=== PATIENT | female | born 1990 | race Caucasian/White ===

== ENCOUNTER 2020-07-21 13:17 | Outpatient (REF) | payer MEDICARE, MEDICAID, SELFPAY ==
[2020-07-21 16:04] LABS: HCG Quantitative < 2 mIU/mL
[2020-07-21 16:40] LABS: Thyroid Stimulating Hormone 2.22 uIU/mL (0.32-4.0)
[2020-07-22 09:00] LABS: CT PCR NOT DETECTED (Not Detect.); NG PCR NOT DETECTED (Not Detect.)
[2020-07-22 09:05] LABS: BV Int Neg Control Negative (Negative); BV Int Pos Control Positive (Positive)
[2020-07-22 18:17] LABS: DHEA Sulfate 283 mcg/dL (18-391)
[2020-07-24 05:17] LABS: HPV 16 RNA NOT DETECTED (NOT DETECTED); HPV mRNA E6/E7 rflx Detected (Not Detected)
[2020-07-25 07:56] LABS: Testosterone, Total 36 ng/dL (2-45)
== END 2020-07-21 13:18 | disposition home or self-care (01) ==
LOC: HO.LAB 13:17
PROVIDERS: Visit Provider Advanced Practice Midwife
DX: N91.2 Amenorrhea, unspecified (principal); N87.0 Mild cervical dysplasia; E66.9 Obesity, unspecified; Z68.36 Body mass index [BMI] 36.0-36.9, adult; Z87.42 Personal history of other diseases of the female genital tract; Z62.810 Personal history of physical and sexual abuse in childhood; Z11.51 Encounter for screening for human papillomavirus (HPV)
CPT/HCPCS: 36415; 81025; 82627; 84403; 84443; 84702; 87480; 87491; 87510; 87591; 87624; 87625; 87660; 88141; 88142; 99202

== ENCOUNTER 2020-08-07 14:32 | Outpatient (REF) | payer MEDICARE, MEDICAID, SELFPAY ==
--- NOTE | ~2020-08-07 | US_ITS ---
EXAMINATION: US PELVIS, COMPLETE CLINICAL INFORMATION: Amenorrhea; the last menstrual period was on 03/28/2020. COMPARISON: None TECHNIQUE: Transabdominal and transvaginal imaging was performed. FINDINGS: The uterus is of normal size and echogenicity measuring 6.8 x 3.9 x 4.1 cm. The uterus is anteverted. A regular homogeneous endometrium is identified measuring 0.5 cm. There are tiny loculated endometrial fluid collections. Nabothian cysts are seen within the cervix. Both ovaries are of normal size and echogenicity. The right ovary measures 4.0 x 1.8 x 2.0 cm for a volume of 7.5 mL. The left ovary measures 5.0 x 1.9 x 2.6 cm for a volume of 12.9 mL. A 2.1 cm in maximal diameter simple left ovarian cyst is seen. There are further small physiologic ovarian follicles incidentally noted. There is no pelvic free fluid. No adnexal mass is seen. US/US pelvic complete IMPRESSION: 1. There are tiny nonspecific loculated endometrial fluid collections. 2. Nabothian cysts are seen within the cervix. 3. A 2.1 cm in maximal diameter simple left ovarian cyst is seen.
--- NOTE | ~2020-08-07 | US_ITS ---
EXAMINATION: US PELVIS, COMPLETE CLINICAL INFORMATION: Amenorrhea; the last menstrual period was on 03/28/2020. COMPARISON: None TECHNIQUE: Transabdominal and transvaginal imaging was performed. FINDINGS: The uterus is of normal size and echogenicity measuring 6.8 x 3.9 x 4.1 cm. The uterus is anteverted. A regular homogeneous endometrium is identified measuring 0.5 cm. There are tiny loculated endometrial fluid collections. Nabothian cysts are seen within the cervix. Both ovaries are of normal size and echogenicity. The right ovary measures 4.0 x 1.8 x 2.0 cm for a volume of 7.5 mL. The left ovary measures 5.0 x 1.9 x 2.6 cm for a volume of 12.9 mL. A 2.1 cm in maximal diameter simple left ovarian cyst is seen. There are further small physiologic ovarian follicles incidentally noted. There is no pelvic free fluid. No adnexal mass is seen. US/US transvaginal IMPRESSION: 1. There are tiny nonspecific loculated endometrial fluid collections. 2. Nabothian cysts are seen within the cervix. 3. A 2.1 cm in maximal diameter simple left ovarian cyst is seen.
== END 2020-08-07 14:33 | disposition home or self-care (01) ==
LOC: HO.US 14:32
PROVIDERS: Visit Provider Advanced Practice Midwife
DX: N91.2 Amenorrhea, unspecified (principal); E66.9 Obesity, unspecified
CPT/HCPCS: 76830; 76856

== ENCOUNTER → 2020-08-12 15:18 | Outpatient (BNVA) | payer MEDICARE, MEDICAID, SELFPAY | PROVIDERS: Visit Provider Advanced Practice Midwife | CPT/HCPCS: Q3014 ==

== ENCOUNTER 2020-11-03 21:50 | Emergency (ER) | payer MEDICARE, MEDICAID, SELFPAY ==
--- NOTE | ~2020-11-03 | XR_ITS ---
EXAMINATION: XR CHEST CLINICAL INFORMATION: Chest pain. COMPARISON: None TECHNIQUE: Frontal view of the chest was obtained. FINDINGS: The lungs are clear. The heart and mediastinal structures are unremarkable. XR/XR chest 1V IMPRESSION: No acute cardiopulmonary process.
[2020-11-03 22:01] VITALS: BP 134/61; PULSE 108; RESP 18; TEMP 36.9; O2SAT 99; BMI 38.2
--- NOTE | 2020-11-03 22:06 | ECG_ITS ---
Test Reason : CHEST PAIN Blood Pressure : / mmHG Vent. Rate : 099 BPM Atrial Rate : 099 BPM P-R Int : 140 ms QRS Dur : 074 ms QT Int : 344 ms P-R-T Axes : 032 052 017 degrees QTc Int : 441 ms Normal sinus rhythm Normal ECG When compared with ECG of 24-JUN-2014 12:59, No significant change was found Referred By: Generic ED Physician Electronically Signed By:DANIEL LONDONO MD
[2020-11-03 22:36] LABS: MANUAL DIFF FLAG NO
[2020-11-03 22:38] LABS: Basophils Percent Auto 0.4 % (0-2); Eosinophils Absolute Auto 0.3 X10*3/uL (0.0-0.4); Eosinophils Percent Auto 2.9 % (0-4); Hematocrit 37.9 % (37-47); Hemoglobin 13.4 g/dl (12.0-16.0); Imm Gran Abs Auto 0.03 X10*3/uL (0.00-0.03); Imm Gran Pct Auto 0.3 % (0.0-0.4); Lymphocytes Absolute Auto 2.4 X10*3/uL (1.2-4.9); Lymphocytes Percent Auto 24.1 % (20-40); Mean Corpuscular HGB Conc 35.4 g/dl (31.0-35.0); Mean Corpuscular Hemoglobin 32.6 pg (27.0-33.0); Mean Corpuscular Volume 92.2 fL (80-98); Mean Platelet Volume 9.9 fL (9.4-12.3); Monocytes Absolute Auto 0.6 X10*3/uL (0.1-1.2); Monocytes Percent Auto 5.4 % (2-11); Neutrophils Absolute Auto 6.8 X10*3/uL (2.0-8.3); Neutrophils Percent Auto 66.9 % (45-73); Platelet Count 236 X10*3/uL (160-400); Red Blood Count 4.11 X10*6/uL (4.20-5.50); Red Cell Distribution Width 11.9 % (11.0-16.0); White Blood Count 10.1 X10*3/uL (4.8-10.8)
[2020-11-03 22:58] LABS: Anion Gap 12 (12-20); Blood Urea Nitrogen 9 mg/dL (9-16); Calcium 8.7 mg/dL (8.4-10.2); Carbon Dioxide 20 mmol/L (22-29); Chloride 112 mmol/L (96-108); Creatinine Clr Calc Pharmacy 123.4; Estimated Glomerular Filt Rate > 60; Glucose Random 99 mg/dL (60-115); Potassium 3.8 mmol/L (3.3-5.1); Sodium 140 mmol/L (135-145)
[2020-11-03 23:03] LABS: Troponin-I High Sensitivity < 3.5 ng/L (<3.5-17.0)
[2020-11-04] VITALS: BP 109/65; PULSE 86; RESP 19; TEMP 37.1; O2SAT 100
--- NOTE | 2020-11-04 00:14 | ED.CHESTPAIN ---
HPI - Chest Pain General Chief Complaint: Chest Pain Stated Complaint: chest pain Time Seen by Provider: 11/04/20 00:14 History of Present Illness HPI narrative: patient is a 29-year-old female presents today with having coughing chest pain with coughing. Shortness of breath similar to previous bouts of asthmatic bronchitis. Patient never been hospitalized in the past for this. Patient denies any fever chills. Feels generalized malaise. Had her coronavirus vaccine. Chest pain is sharp. Worse with coughing. Worse with movement. There is no leg swelling. No history of blood clots. No history of diabetes, hypertension, high cholesterol, smoking. Patient is from home. Related Data Home Medications Medication Instructions Recorded Confirmed albuterol sulfate 90 mcg/actuation 1 inh INHALATION Q4-6H PRN 07/21/20 breath activated powder inhaler omeprazole 20 mg tablet,delayed 20 mg PO DAILY 07/21/20 release Previous Rx's Medication Instructions Recorded azithromycin See Rx Instructions .ROUTE 11/04/20 .COMPLEX #6 tab prednisone 40 mg PO DAILY #10 tab 11/04/20 Allergies Allergy/AdvReac Type Severity Reaction Status Date / Time lactose [LACTOSE] Allergy Intermediate STOMACH Verified 11/03/20 22:00 PAIN melatonin [MELATONIN] Allergy Intermediate RASH Verified 11/03/20 22:00 topiramate [From TOPAMAX] Allergy Intermediate BRAIN Verified 11/03/20 22:00 SHUTS DOWN sulfamethoxazole Allergy Unknown SWELLING, Verified 11/03/20 22:00 [From BACTRIM] REDNESS trimethoprim [From BACTRIM] Allergy Unknown SWELLING, Verified 11/03/20 22:00 REDNESS Review of Systems Review of Systems: Positive chest pain Yes all other systems are reviewed and are negative [facility] Past Medical History Attestation statement: The following information was validated with the patient. Medical History Anxiety Asthma Depression PTSD (post-traumatic stress disorder) Surgical History History of ear surgery History of nasal surgery Hx of hand surgery Family History Family History Father Hyperlipidemia Diabetes Asthma Social History Social History Alcohol intake: current Alcohol intake frequency: a few times a month Alcohol type: hard liquor Cigarettes Per Day: 6 Advance Directives: No Advance Directives Information Provided: No Patient : No Gender identity: female Physical Exam Vital Signs: Vital Signs: Last Vital Signs Temp 98.5 F 11/03/20 22:01 Pulse 108 H 11/03/20 22:01 Resp 18 11/03/20 22:01 BP 134/61 11/03/20 22:01 Pulse Ox 99 11/03/20 22:01 Body Mass Index 38.2 Appearance: Alert. Oriented X3. No acute distress. Eyes: Pupils equal, round and reactive to light. ENT: Pharynx normal. Neck: Normal inspection. Neck supple. No lymph nodes noted. No crepitus CVS: Normal heart rate and rhythm. Pulses normal. Normal S1 and S2 Respiratory: No respiratory distress. Breath sounds normal. No Wheezing. No rales Abdomen: Soft and nontender. No rigidity. No distention. good BS x4 Skin: Skin warm and dry. Normal skin color. Normal skin turgor. Extremities: No lower extremity edema. Neurovascular intact to all extremities. No Lacerations. No Rash Neuro: Oriented X 3. No motor deficit. No sensory deficit. Moving all extermities. No slurred speech MDM - Chest Pain MDM Narrative Medical decision making narrative: Well-appearing no acute distress. Patient chest x-ray showed no acute infiltrate. Patient's electrolytes are normal. Patient has no significant cardiac risk factors. Patient's troponin is negative. In the setting of low risk. Atypical history. Normal EKG. Unlikely to have ACS. Lab Data Result diagrams: 11/03/20 22:28 11/03/20 22:28 Labs: Lab Results 11/03/20 11/03/20 11/03/20 Range/Units 22:28 22:28 22:28 WBC 10.1 (4.8-10.8) X10*3/uL RBC 4.11 L (4.20-5.50) X10*6/uL Hgb 13.4 (12.0-16.0) g/dl Hct 37.9 (37-47) % MCV 92.2 (80-98) fL MCH 32.6 (27.0-33.0) pg MCHC 35.4 H (31.0-35.0) g/dl RDW 11.9 (11.0-16.0) % Plt Count 236 (160-400) X10*3/uL MPV 9.9 (9.4-12.3) fL Immature Gran % (Auto) 0.3 (0.0-0.4) % Neut % (Auto) 66.9 (45-73) % Lymph % (Auto) 24.1 (20-40) % Borden % (Auto) 5.4 (2-11) % Eos % (Auto) 2.9 (0-4) % Baso % (Auto) 0.4 (0-2) % Lymph # (Auto) 2.4 (1.2-4.9) X10*3/uL Borden # (Auto) 0.6 (0.1-1.2) X10*3/uL Eos # (Auto) 0.3 (0.0-0.4) X10*3/uL Baso # (Auto) 0.0 (0.0-0.2) X10*3/uL Abs Immat Gran (auto) 0.03 (0.00-0.03) X10*3/uL Absolute Neuts (auto) 6.8 (2.0-8.3) X10*3/uL Absolute Nucleated RBC 0.000 (0.0-0.012) X10*3/uL Nucleated RBC % (auto) 0.0 (0.0-0.2) /100WBC Sodium 140 (135-145) mmol/L Potassium 3.8 (3.3-5.1) mmol/L Chloride 112 H (96-108) mmol/L Carbon Dioxide 20 L (22-29) mmol/L Anion Gap 12 (12-20) BUN 9 (9-16) mg/dL Creatinine 0.75 (0.5-1.4) mg/dL Estim Creat Clear Calc 123.4 Estimated GFR > 60 Random Glucose 99 (60-115) mg/dL Calcium 8.7 (8.4-10.2) mg/dL Troponin I High Sens < 3.5 (<3.5-17.0) ng/L Discharge Plan Discharge Clinical Impression: Chest pain Patient Disposition: Home, Self-Care Prescriptions: New azithromycin 250 mg tablet See Rx Instructions .ROUTE .COMPLEX Qty: 6 RF: 0 prednisone 20 mg tablet 40 mg PO DAILY Qty: 10 RF: 0 No Action omeprazole 20 mg tablet,delayed release (DR/EC) 20 mg PO DAILY RF: 0 albuterol sulfate 90 mcg/actuation aerosol powdr breath activated 1 inh inhalation Q4-6H PRNRF: 0
[2020-11-04 00:46] LABS: IDNOW Serial# 9DD0AD1C; Strep A Nucleic Acid Negative (Negative)
[2020-11-04 00:53] LABS: COVID-19 Test Negative (Negative)
== END 2020-11-04 01:00 | disposition home or self-care (01) ==
PROVIDERS: Emergency Provider Emergency Medicine Emergency Medical Services; PCP Physician Assistant
DX: R07.9 Chest pain, unspecified (principal); J45.909 Unspecified asthma, uncomplicated; Z79.899 Other long term (current) drug therapy; Z20.822 Contact with and (suspected) exposure to COVID-19
CPT/HCPCS: 36415; 71045; 80048; 84484; 85025; 87635; 87651; 93005; 99285

== ENCOUNTER → 2020-11-27 09:05 | Outpatient (BNVA) | payer MEDICARE, MEDICAID, SELFPAY | PROVIDERS: PCP Physician Assistant; Visit Provider Obstetrics & Gynecology | DX: O99.511 Diseases of the respiratory system complicating pregnancy, first trimester (principal); J45.909 Unspecified asthma, uncomplicated; Z3A.01 Less than 8 weeks gestation of pregnancy | CPT/HCPCS: 99212 ==

== ENCOUNTER 2020-12-05 08:59 | Outpatient (REF) | payer MEDICARE, MEDICAID, SELFPAY ==
--- NOTE | ~2020-12-05 | US_ITS ---
EXAMINATION: OBSTETRICAL ULTRASOUND, FIRST TRIMESTER HISTORY: 30-year-old with unknown LMP LMP: Unknown COMPARISON: 11/03/2020 TECHNIQUE: Real time transabdominal imaging with color and M-mode Doppler. FINDINGS: A single, live IUP CRL of 22.1 mm c/w 9.0wks is noted. Heart Rate: 169 beats per minute. Both maternal ovaries are seen and appear normal. GESTATIONAL AGE: 1. GA from LMP: N/A wks 2. GA from AUA: 9.0 wks ESTIMATED DATE OF DELIVERY: 1. DONNA from LMP: N/A 2. DONNA from AUA: 07/10/2021 US/US OB <= 14 weeks fetus IMPRESSION: 1. A single live IUP 2. CRL is consistent with 9.0 weeks of gestation giving her an DONNA of 07/10/2021 3. Normal ovaries Thank you very much for this referral. This note was generated with a voice recognition program. Please excuse any errors which may have been overlooked during my review of this note. Sometimes these errors may affect the content or meaning of a given sentence.
== END 2020-12-05 09:00 | disposition home or self-care (01) ==
LOC: HO.US 08:59
PROVIDERS: Visit Provider Obstetrics & Gynecology
DX: Z34.90 Encounter for supervision of normal pregnancy, unspecified, unspecified trimester (principal); Z3A.09 9 weeks gestation of pregnancy
CPT/HCPCS: 76801

== ENCOUNTER → 2020-12-15 10:43 | Outpatient (BNVA) | payer MEDICARE, MEDICAID, SELFPAY | PROVIDERS: PCP Physician Assistant; Visit Provider Obstetrics & Gynecology | CPT/HCPCS: Q3014 ==

== ENCOUNTER → 2020-12-24 10:19 | Outpatient (BNVA) | payer MEDICARE, MEDICAID, SELFPAY | PROVIDERS: PCP Physician Assistant; Visit Provider Obstetrics & Gynecology | DX: O99.331 Smoking (tobacco) complicating pregnancy, first trimester (principal); F17.210 Nicotine dependence, cigarettes, uncomplicated; O99.321 Drug use complicating pregnancy, first trimester; F12.90 Cannabis use, unspecified, uncomplicated; O99.211 Obesity complicating pregnancy, first trimester; E66.9 Obesity, unspecified; Z3A.11 11 weeks gestation of pregnancy | CPT/HCPCS: 99212 ==

== ENCOUNTER 2020-12-26 09:12 | Outpatient (REF) | payer MEDICARE, MEDICAID, SELFPAY ==
--- NOTE | ~2020-12-26 | US_ITS ---
EXAMINATION: OBSTETRICAL ULTRASOUND, FIRST TRIMESTER HISTORY: 30-year-old at 12.0 weeks of gestation NT screening COMPARISON: 12/05/2020 TECHNIQUE: Real time transabdominal imaging with color and M-mode Doppler. FINDINGS: A single, live IUP CRL of 57.3 mm c/w 12.2wks is noted. Heart Rate: 155 beats per minute. Normal yolk sac seen. NT was 1.2.mm. NB Present The embryo appears sonographically wnl for this GA. Both maternal ovaries are seen and appear normal. GESTATIONAL AGE: 1. Established GA: 12.0 wks 2. GA from AUA: 12.2 wks ESTIMATED DATE OF DELIVERY: 1. Established DONNA: 07/10/2021 2. DONNA from AUA: 07/08/2021 US/US OB 1T nuc measure IMPRESSION: 1. A single live IUP 2. Size equals dates 3. NT of 1.2 mm MFM Consultation: I reviewed the ultrasound findings along with significance of NT measurement. The NT of less than 3mm is generally reassuring. However, the sensitivity for T21 detection is only 60%. I reviewed the availability of serum aneuploidy screening which includes cell-free DNA and placental protein based tests. I discussed the sensitivity, false-positive rate, and other limitations associated with each test. I also reviewed the availability of invasive diagnostic tests that are associated small but definite risk of miscarriage. We also reviewed the differences between screening tests and diagnostic tests. After our discussion, she opted for the First trimester screening that is based on cell-free DNA or non-invasive testing (NIPT). She had the preeclampsia in her first . She delivered at approximately 37 weeks of gestation. Her second was uncomplicated. Suggest starting baby aspirin q.d. A follow up at 18 weeks for survey has been scheduled. Thank you very much for this referral. Total time 30 minutes. The time spent was devoted to counseling the patient about the disease and diagnosis, coordinating care including reviewing her records, pertinent lab data and studies, as well as discussing diagnostic evaluation and workup, plan therapeutic interventions and future disposition of care. This includes any additional research needed to obtain further information in formulating the plan of care of this patient. This note was generated with a voice recognition program. Please excuse any errors which may have been overlooked during my review of this note. Sometimes these errors may affect the content or meaning of a given sentence.
[2020-12-26 11:24] LABS: Glucose 1 Hour PP 50gm Dose 79 mg/dL (60-140)
[2020-12-26 11:40] LABS: Hematocrit 36.3 % (37-47); Hemoglobin 12.7 g/dl (12.0-16.0); Mean Corpuscular Hemoglobin 31.8 pg (27.0-33.0); Mean Corpuscular Volume 90.8 fL (80-98); Mean Platelet Volume 11.1 fL (9.4-12.3); Platelet Count 220 X10*3/uL (160-400); Red Cell Distribution Width 12.1 % (11.0-16.0); White Blood Count 9.1 X10*3/uL (4.8-10.8)
[2020-12-26 11:47] LABS: HIV AB/AG Nonreactive (Nonreactive); HIV Num 1 0.09 S/CO (0.00-0.99)
[2020-12-26 11:51] LABS: Hepatitis B Surface Antigen Negative (Negative); ~HepC Num1 0.17 S/CO (0.00-0.79); ~Hepatitis C Antibody Nonreactive (Nonreactive)
[2020-12-26 11:52] LABS: Syphilis Screen Nonreactive (Nonreactive)
[2020-12-26 11:58] LABS: HBsAGNum1 0.16 S/CO (0.00-0.99)
[2020-12-26 12:29] LABS: Amphetamine Screen Urine Not Detected (Not Detect); Barbiturates, Urine Not Detected (Not Detect); Benzodiazepines Screen Urine Not Detected (Not Detect); Cannabinoid Screen Urine POSITIVE (Not Detect); Cocaine Screen Urine Not Detected (Not Detect); Fentanyl, urine Not Detected (Not Detect); Opiate Screen Urine Not Detected (Not Detect); Phencyclidine Screen Urine Not Detected (Not Detect)
[2020-12-27 13:06] LABS: Rubella IgG Antibody 1.42 Index
== END 2020-12-26 09:13 | disposition home or self-care (01) ==
LOC: HO.US 09:12
PROVIDERS: Visit Provider Obstetrics & Gynecology
DX: Z34.91 Encounter for supervision of normal pregnancy, unspecified, first trimester (principal); Z36.82 Encounter for antenatal screening for nuchal translucency
CPT/HCPCS: 76813; 80307; 85027; 86762; 86780; 86787; 86803; 86850; 86900; 86901; 87086; 87340; 87389

== ENCOUNTER 2021-01-16 10:07 | Outpatient (REF) | payer MEDICARE, MEDICAID, SELFPAY ==
[2021-01-17 13:35] LABS: CT PCR NOT DETECTED (Not Detect.); NG PCR NOT DETECTED (Not Detect.)
[2021-01-17 14:14] LABS: BV Int Neg Control Negative (Negative); BV Int Pos Control Positive (Positive)
== END 2021-01-16 10:08 | disposition home or self-care (01) ==
LOC: HO.LAB 10:07
PROVIDERS: Visit Provider Advanced Practice Midwife
DX: O99.212 Obesity complicating pregnancy, second trimester (principal); E66.9 Obesity, unspecified; O26.892 Other specified pregnancy related conditions, second trimester; F99 Mental disorder, not otherwise specified; Z3A.15 15 weeks gestation of pregnancy; Z62.810 Personal history of physical and sexual abuse in childhood; Z87.898 Personal history of other specified conditions
CPT/HCPCS: 81003; 87480; 87491; 87510; 87591; 87660; 99212

== ENCOUNTER → 2021-02-12 09:56 | Outpatient (BNVA) | payer MEDICARE, MEDICAID, SELFPAY | PROVIDERS: Visit Provider Obstetrics & Gynecology | DX: O99.322 Drug use complicating pregnancy, second trimester (principal); F12.90 Cannabis use, unspecified, uncomplicated; O99.212 Obesity complicating pregnancy, second trimester; E66.9 Obesity, unspecified; Z3A.18 18 weeks gestation of pregnancy | CPT/HCPCS: 99212 ==

== ENCOUNTER 2021-02-13 10:24 | Outpatient (REF) | payer MEDICARE, MEDICAID, SELFPAY ==
--- NOTE | ~2021-02-13 | US_ITS ---
EXAMINATION: US OBSTETRICAL CLINICAL INFORMATION: A 30-year-old at 19.0 weeks of gestation Screening for anomaly COMPARISON: 12/26/2020 TECHNIQUE: Real-time transabdominal ultrasound was performed using C1-5 megahertz transducer. FINDINGS: A single, active, fetus is seen in breech presentation. The placenta is anterior without previa, and the amniotic fluid volume is wnl. MEASUREMENTS: 1. Biparietal Diameter: 4.2 cm; 18.5 wks 2. Occipital Frontal Diameter: 5.5 cm 3. Head Circumference: 16.1 cm; wks 4. Abdominal Circumference: 15.2 cm; 20.3 wks 5. Femur Length: 3.1 cm; 19.6 wks 6. Humerus Length: 3.1 cm; 20.2 wks 7. Tibia Length: 2.7 cm; 20.0 wks 8. Ulna Length: 2.6 cm; 19.3 wks 9. Lateral ventricle: 0.6 cm 10. Cerebellum: 1.92 cm; 20.0 wks 11. Cisterna Magna: 0.42 cm 12. Nuchal Fold: 2.5 mm 13. Heart Rate: 149 beats per minute Rt ovary: normal Lt ovary: normal Cervical length 4.3 cm on T/A. GESTATIONAL AGE: 1. Established GA: 19.0 wks 2. GA from [facility]: 19.4 wks ESTIMATED DATE OF DELIVERY: 1. Established DONNA: 07/10/2021 2. DONNA from [facility]: 07/06/2021 ANATOMY: The visualized anatomy includes but not limited to: 1. Cranium: Normal 2. Intracranial anatomy: cavum septum pellucidi, lateral ventricles, choroid plexus, cerebellum, posterior fossa, third and fourth ventricles. 3. face: orbits, lip/palate, profile, nasal bone 4. Heart: four-chamber view of the heart, ventricular septum, foramen ovale, pulmonary vein, left and right outflow tracts, three-vessel view, 3 vessel trachea view, aortic and ductal arches, situs.. 5. Diaphragm: Normal 6. Abdominal wall: Normal 7. Cord Insertion: Normal 8. Spine: Cervical, thoracic, lumbar, sacral. 9. Stomach: Normal size and shape 10. Right Kidney: Normal 11. Left Kidney: Normal 12. 3 vessel cord: Normal 13. Upper extremity: Open hands, fifth digit. 14. Lower extremity: Tibia, fibula, bilateral feet. 15. Bladder: Normal 16. Genitalia: Female, patient aware US/US OB /maternal detail IMPRESSION: 1. Single, living, intrauterine with appropriate biometry. 2. Normal survey DISCUSSION: I reviewed today's ultrasound findings. We discussed the limitations of ultrasound in diagnosing aneuploidy and other congenital abnormalities. I reviewed the differences between screening test and diagnostic test. Amniocentesis was discussed and declined. She was informed that the baseline incidence of congenital abnormalities is approximately 3-5%. Not all these conditions are diagnosable in utero. RECOMMENDATIONS: 1. Follow-up when necessary Thank you for allowing me to participate in her care. Total time 30 minutes. The time spent was devoted to counseling the patient about the disease and diagnosis, coordinating care including reviewing her records, pertinent lab data and studies, as well as discussing diagnostic evaluation and workup, plan therapeutic interventions and future disposition of care. This includes any additional research needed to obtain further information in formulating the plan of care of this patient. This note was generated with a voice recognition program. Please excuse any errors which may have been overlooked during my review of this note. Sometimes these errors may affect the content or meaning of a given sentence.
== END 2021-02-13 10:25 | disposition home or self-care (01) ==
LOC: HO.US 10:24
PROVIDERS: Visit Provider Obstetrics & Gynecology
DX: Z36.3 Encounter for antenatal screening for malformations (principal); O26.892 Other specified pregnancy related conditions, second trimester; F99 Mental disorder, not otherwise specified; O99.212 Obesity complicating pregnancy, second trimester; E55.9 Vitamin D deficiency, unspecified
CPT/HCPCS: 76811

== ENCOUNTER 2021-03-10 10:54 | Outpatient (REF) | payer MEDICARE, MEDICAID, SELFPAY ==
[2021-03-11 11:01] LABS: BV Int Neg Control Negative (Negative); BV Int Pos Control Positive (Positive)
== END 2021-03-10 10:55 | disposition home or self-care (01) ==
LOC: HO.LAB 10:54
PROVIDERS: Visit Provider Advanced Practice Midwife
DX: O99.891 Other specified diseases and conditions complicating pregnancy (principal); N89.8 Other specified noninflammatory disorders of vagina; O99.322 Drug use complicating pregnancy, second trimester; F12.90 Cannabis use, unspecified, uncomplicated; Z3A.22 22 weeks gestation of pregnancy
CPT/HCPCS: 81003; 87480; 87510; 87660; 99212

== ENCOUNTER 2023-05-10 08:34 | Outpatient (AMB) | payer OTHER, SELFPAY ==
[2023-05-10 09:17] VITALS: BP 108/70; PULSE 85; TEMP 36.6; O2SAT 98
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
== END 2023-05-10 10:01 | disposition home or self-care (01) ==
PROVIDERS: Visit Provider Internal Medicine
DX: S93.401A Sprain of unspecified ligament of right ankle, initial encounter (principal)
CPT/HCPCS: 99214

== ENCOUNTER 2023-05-10 09:44 | Outpatient (REF) | payer OTHER, SELFPAY ==
--- NOTE | ~2023-05-10 | XR_ITS ---
EXAMINATION: XR ANKLE, RIGHT CLINICAL INFORMATION: Sprain of ankle. COMPARISON: None available. TECHNIQUE: AP, lateral, and mortise views of the right ankle. FINDINGS: The talar dome is well-positioned within the mortise. The talocrural joint space and syndesmotic space are normal. 0.2 x 0.7 cm well-corticated focus of ossification at the fibular tip has the appearance of an old avulsion fracture. However, there might be [id number] injury due to presence of soft tissue swelling at the lateral ankle. There appears to be a small ankle joint effusion. XR/XR ankle RT min 3V IMPRESSION: * Old avulsion fragment at the tip of the fibula. * Soft tissue swelling at the lateral ankle could be sequela of an acute ligament sprain superimposed on old injury.
== END 2023-05-10 09:45 | disposition home or self-care (01) ==
LOC: HO.HMGCX 09:44
PROVIDERS: PCP Internal Medicine; Visit Provider Internal Medicine
DX: S93.401A Sprain of unspecified ligament of right ankle, initial encounter (principal); X58.XXXA Exposure to other specified factors, initial encounter; Y93.9 Activity, unspecified; Y92.9 Unspecified place or not applicable; Y99.9 Unspecified external cause status
CPT/HCPCS: 73610

== ENCOUNTER 2023-06-16 11:43 | Outpatient (RCR) | payer OTHER, SELFPAY | END 2023-06-16 23:59 | disposition home or self-care (01) | LOC: HO.PHPA 11:43 | PROVIDERS: Visit Provider Psychiatry & Neurology Psychiatry | DX: F43.10 Post-traumatic stress disorder, unspecified (principal); F33.2 Major depressive disorder, recurrent severe without psychotic features; F14.90 Cocaine use, unspecified, uncomplicated; F10.99 Alcohol use, unspecified with unspecified alcohol-induced disorder | CPT/HCPCS: 90791 ==

== ENCOUNTER 2023-07-07 09:00 | Outpatient (RCR) | payer OTHER, SELFPAY ==
[2023-07-07 12:14] VITALS: BP 116/78; PULSE 82; TEMP 36.6
[2023-07-07 12:17] VITALS: BMI 27.3
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
--- NOTE | 2023-07-07 13:46 | PC.NURSE ---
Patiet's medications reconciled with patient and patient's pharmacy. She reports she has not been taking medications as prescribed. She stopped taking Mirtazapine as she did not like the way it made her feel. She has not taken Levothyroxine in [address] Cifuentes is aware.
--- NOTE | 2023-07-07 16:01 | HO.IOP ---
Client's case has been opened and reviewed in treatment team.
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
--- NOTE | 2023-07-08 11:36 | PC.NURSE ---
Carola called at 11:30 am stating she is finished with court and is on her way to the ER for crisis evaluation. Case Reviewed with Toña Chaidez of the [facility] Care Team in addition to referral form with patient information that was sent to Toña. See referral form located in patient's chart.
== END 2023-07-07 23:59 | disposition admitted as inpatient to this hospital (09) ==
LOC: HO.IOP 09:00
PROVIDERS: Visit Provider Psychiatry & Neurology Psychiatry
DX: F39 Unspecified mood [affective] disorder (principal); F63.89 Other impulse disorders; F43.10 Post-traumatic stress disorder, unspecified; F10.20 Alcohol dependence, uncomplicated; F12.10 Cannabis abuse, uncomplicated; F17.200 Nicotine dependence, unspecified, uncomplicated; Z86.59 Personal history of other mental and behavioral disorders; Z79.899 Other long term (current) drug therapy
CPT/HCPCS: 90791; S9480

== ENCOUNTER → 2023-07-07 09:00 | Outpatient (BNV) | payer OTHER, SELFPAY | PROVIDERS: Visit Provider Psychiatry & Neurology Psychiatry | DX: F39 Unspecified mood [affective] disorder (principal); F63.89 Other impulse disorders; F10.20 Alcohol dependence, uncomplicated; F43.10 Post-traumatic stress disorder, unspecified; Z86.59 Personal history of other mental and behavioral disorders; F12.10 Cannabis abuse, uncomplicated; F17.200 Nicotine dependence, unspecified, uncomplicated | CPT/HCPCS: 90792 ==

== ENCOUNTER 2023-07-08 11:55 | Inpatient (IN) | payer OTHER, SELFPAY ==
[2023-07-08 11:58] VITALS: BP 137/92; PULSE 106; RESP 16; TEMP 35.6; O2SAT 100; BMI 29.5
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
[2023-07-08 12:29] LABS: Appearance Urine Cloudy; Color Urine Yellow; Glucose Urine UA Negative (Negative); Leukocyte Esterase Urine Trace (Negative); Nitrite Urine Negative (Negative); Specific Gravity - Urine 1.015 (1.005-1.025); UMIC TRIGGER UACC YES; Urine Blood Negative (Negative); Urine Ketones Negative (Negative); Urine Protein Negative (Neg-Trace)
[2023-07-08 12:34] LABS: Bacteria Urine 1+ (None Seen); Hyaline Casts Urine 0-2 /LPF (0-2); RBC Urine 0-2 /HPF (0-2); WBC Urine 0-5 /HPF (0-5)
[2023-07-08] MEDS: LORazepam 1 MG TABLET 2 MG PO (12:37)
[2023-07-08 12:38] LABS: Amphetamine Screen Urine Not Detected (Not Detect); Barbiturates, Urine Not Detected (Not Detect); Benzodiazepines Screen Urine Not Detected (Not Detect); Cannabinoid Screen Urine POSITIVE (Not Detect); Cocaine Screen Urine Not Detected (Not Detect); Fentanyl, urine Not Detected (Not Detect); Opiate Screen Urine Not Detected (Not Detect); Phencyclidine Screen Urine Not Detected (Not Detect)
[2023-07-08 12:40] LABS: MANUAL DIFF FLAG NO
[2023-07-08 12:46] LABS: Basophils Percent Auto 0.3 % (0-2); Eosinophils Absolute Auto 0.1 X10*3/uL (0.0-0.4); Hematocrit 36.7 % (37.0-47.0); Hemoglobin 13.5 g/dl (12.0-16.0); Imm Gran Abs Auto 0.02 X10*3/uL (0.00-0.03); Imm Gran Pct Auto 0.3 % (0.0-0.4); Lymphocytes Absolute Auto 1.1 X10*3/uL (1.2-4.9); Lymphocytes Percent Auto 14.4 % (20-40); Mean Corpuscular HGB Conc 36.8 g/dl (31.0-35.0); Mean Corpuscular Hemoglobin 36.6 pg (27.0-33.0); Mean Corpuscular Volume 99.5 fL (80.0-98.0); Mean Platelet Volume 9.3 fL (9.4-12.3); Monocytes Absolute Auto 0.4 X10*3/uL (0.1-1.2); Monocytes Percent Auto 5.8 % (2-11); Neutrophils Absolute Auto 5.7 x10*3/uL (2.0-8.3); Neutrophils Percent Auto 78.2 % (45-73); Platelet Count 214 X10*3/uL (160-400); Red Blood Count 3.69 X10*6/uL (4.20-5.50); Red Cell Distribution Width 15.6 % (11.0-16.0); White Blood Count 7.3 X10*3/uL (4.8-10.8)
[2023-07-08 12:53] VITALS: PULSE 92; RESP 14; TEMP 36.9; O2SAT 98
--- NOTE | 2023-07-08 12:55 | PC.NURSE ---
Pt presents to the ED from outpatient clinic reporting increasing SI thoughts. Pt reports increasing life stressors like going back to court regarding a restraining order. Pt present calm and cooperative to ED, requesting help. Pt is quiet, avoiding eye contact with this RN. Pt is cooperative with care, blood drawn, urine obtained and medications administered per MAR. Pt now resting, awaiting med clearance then CARE team zhane
[2023-07-08 13:10] LABS: Alanine Aminotransferase 15 U/L (0-31); Alkaline Phosphatase 86 U/L (39-117); Anion Gap 13 (12-20); Aspartate Amino Transferase 17 U/L (5-31); Bilirubin Total 0.6 mg/dL (0.0-1.0); Blood Urea Nitrogen 8 mg/dL (9-16); Calcium 8.6 mg/dL (8.4-10.2); Carbon Dioxide 23 mmol/L (22-29); Chloride 108 mmol/L (96-108); Creatinine Clr Calc Pharmacy 100.7; Estimated Glomerular Filt Rate > 60; Ethanol < 10 mg/dL; Glucose Random 102 mg/dL (60-115); Potassium 3.5 mmol/L (3.3-5.1); Sodium 140 mmol/L (135-145); Total Protein 6.4 g/dL (6.5-8.0)
[2023-07-08 13:17] LABS: COVID-19 Test Negative (Negative); HCG Quantitative < 2 mIU/mL; IDNOW Serial# 152EDE1D
[2023-07-08] MEDS: Folic Acid 1 MG TABLET PO (17:28)
[2023-07-08] MEDS: Thiamine HCL 100 MG TABLET PO (17:28)
[2023-07-08] MEDS: Acetaminophen 325 MG TABLET 650 MG PO (17:31)
[2023-07-08 18:45] VITALS: BP 128/84; PULSE 88; RESP 16; TEMP 36.7; O2SAT 98
[2023-07-08 18:53] VITALS: BMI 29.1
[2023-07-08] MEDS: LORazepam 1 MG TABLET PO ×2 (19:06→21:54)
[2023-07-08 21:52] VITALS: BP 137/72; PULSE 100; RESP 20; TEMP 36.5; O2SAT 100
[2023-07-08] MEDS: hydrOXYzine HCL 25 MG TABLET PO (21:54)
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
[2023-07-09] MEDS: Levothyroxine Sodium 25 MCG TABLET PO (05:45)
[2023-07-09] MEDS: Omeprazole 20 MG CAPSULE.DR PO (05:45)
[2023-07-09 08:11] VITALS: BP 120/58; PULSE 68; RESP 16; TEMP 36.3; O2SAT 100
[2023-07-09] MEDS: Acetaminophen 325 MG TABLET 650 MG PO (08:44)
[2023-07-09] MEDS: Thiamine HCL 100 MG TABLET PO (08:45)
[2023-07-09] MEDS: Multivitamin TABLET 1 TAB PO (08:45)
[2023-07-09] MEDS: Folic Acid 1 MG TABLET PO (08:45)
[2023-07-09] MEDS: hydrOXYzine HCL 25 MG TABLET PO (09:14)
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
--- NOTE | 2023-07-09 15:20 | PC.NURSE ---
Pt just signed a 3 day notice. This nurse placed paperwork in patient's vick and emailed provider, community affairs manager, and web content & social media manager.
[2023-07-09 18:00] VITALS: BP 134/84; PULSE 83; RESP 18; TEMP 3; TEMP 37.4; O2SAT 99
[2023-07-09] MEDS: LORazepam 1 MG TABLET PO (20:49)
[2023-07-09] MEDS: OXcarbazepine 150 MG TABLET PO (20:50)
[2023-07-09] MEDS: Prazosin HCL 1 MG CAPSULE PO (20:50)
[2023-07-10] MEDS: Levothyroxine Sodium 25 MCG TABLET PO (06:16)
[2023-07-10] MEDS: Omeprazole 20 MG CAPSULE.DR PO (06:16)
[2023-07-10 07:35] VITALS: BP 126/60; PULSE 76; RESP 15; TEMP 36.9; O2SAT 97
[2023-07-10 07:54] LABS: Estimated Average Glucose 80 mg/dL; Hemoglobin A1c % 4.4 % (<6.0)
[2023-07-10 08:03] LABS: Alanine Aminotransferase 16 U/L (0-31); Albumin Level 3.6 g/dL (3.5-5.0); Alkaline Phosphatase 81 U/L (39-117); Anion Gap 10 (12-20); Aspartate Amino Transferase 18 U/L (5-31); Bilirubin Total 0.5 mg/dL (0.0-1.0); Blood Urea Nitrogen 10 mg/dL (9-16); Calcium 8.6 mg/dL (8.4-10.2); Carbon Dioxide 26 mmol/L (22-29); Chloride 108 mmol/L (96-108); Cholesterol 134 mg/dL (<200); Creatinine Clr Calc Pharmacy 105.5; Estimated Glomerular Filt Rate > 60; Glucose Fasting 88 mg/dL (60-99); HDL Cholesterol 37 mg/dL (>40); LDL Cholesterol Calculated 52 mg/dL (<100); Potassium 3.8 mmol/L (3.3-5.1); Sodium 140 mmol/L (135-145); Triglycerides 228 mg/dL (<150)
[2023-07-10 08:17] LABS: Free T4 (Free Thyroxine) 0.94 ng/dL (0.71-1.85)
[2023-07-10] MEDS: Thiamine HCL 100 MG TABLET PO (09:09)
[2023-07-10] MEDS: OXcarbazepine 150 MG TABLET PO ×2 (09:10→20:37)
[2023-07-10] MEDS: Multivitamin TABLET 1 TAB PO (09:10)
[2023-07-10] MEDS: Acetaminophen 325 MG TABLET 650 MG PO ×2 (09:17→20:38)
--- NOTE | 2023-07-10 11:04 | P.PNPSI_ITS ---
Subjective Subjective Date of Service: 07/10/23 Reason For Visit: Depression Subjective Notes: Conditional Voluntary Healthcare Proxy: No Guardianship: No Medical Problems Affecting Mental Status: No Interim History: 32 yo female feeling some sedation from medication I put her on oxcarazapine but mood hood feels mostly sad now- needs taper of ativan for ciwa/withdrawl - and maybe add on lexapro 5mg for depression will need naltrexone prior to dc for alcohol cravings Medication Compliance: Yes Side effects from medications: Yes (some sedation) Attending Groups: Intermittent Review of Systems Acute medical concerns: No Medical Review of Systems: changed Review of Systems: sedation from meds back pain not new hx of sciatica got lidocaine patch Mental Status Exam Mental Status Exam Patient Appearance: Fatigued Patient Orientation: Person, Place, Time and Situation Level of Consciousness: Awake and Drowsy Patient Behavior: Appropriate and Cooperative Mood Description: Sad Affect Description: Blunted Patient Cognition Impaired: No Ability to Follow Directions: Good Speech Pattern: Clear Hallucinations: None Thought Process: Goal Oriented Thought Content: positive for Intact Depressive Symptoms: Feelings of Guilt, Unhappiness and Back Pain Judgement: Fair Diagnostics Vital Signs (24Hr): Vital Signs - 24 hr 07/09/23 18:00 Temperature 37.4 F L Pulse Rate 83 Respiratory Rate 18 Blood Pressure 134/84 Pulse Oximetry 99 Oxygen Delivery Method Room Air BMI result Body Mass Index 29.1 Labs 07/08/23 12:29 07/10/23 07:28 Labs: Laboratory Results - last 48 hr 07/08/23 07/08/23 07/10/23 12:14 12:29 07:28 WBC 7.3 RBC 3.69 L Hgb 13.5 Hct 36.7 L MCV 99.5 H MCH 36.6 H MCHC 36.8 H RDW 15.6 Plt Count 214 MPV 9.3 L Immature Gran % (Auto) 0.3 Neut % (Auto) 78.2 H Lymph % (Auto) 14.4 L [place] % (Auto) 5.8 Eos % (Auto) 1.0 Baso % (Auto) 0.3 Lymph # (Auto) 1.1 L [place] # (Auto) 0.4 Eos # (Auto) 0.1 Baso # (Auto) 0.0 Abs Immat Gran (auto) 0.02 Absolute Neuts (auto) 5.7 Absolute Nucleated RBC 0.000 Nucleated RBC % (auto) 0.0 Sodium 140 140 Potassium 3.5 3.8 Chloride 108 108 Carbon Dioxide 23 26 Anion Gap 13 10 L BUN 8 L 10 Creatinine 0.78 0.74 Estim Creat Clear Calc 100.7 105.5 Estimated GFR > 60 > 60 Random Glucose 102 Fasting Glucose 88 Estimat Average Glucose 80 Hemoglobin A1c % 4.4 Calcium 8.6 8.6 Total Bilirubin 0.6 0.5 AST 17 18 ALT 15 16 Alkaline Phosphatase 86 81 Total Protein 6.4 L 6.0 L Albumin 4.0 3.6 Triglycerides 228 H Cholesterol 134 LDL Cholesterol, Calc 52 HDL Cholesterol 37 L Free T4 0.94 Beta HCG, Quant < 2 Urine Color Yellow Urine Appearance Cloudy Urine pH 7.0 Ur Specific [place] 1.015 Urine Protein Negative Urine Glucose (UA) Negative Urine Ketones Negative Urine Blood Negative Urine Nitrite Negative Ur Leukocyte Esterase Trace H Urine RBC 0-2 Urine WBC 0-5 Ur Squamous Epith Cells 11-20 Urine Bacteria 1+ Hyaline Casts 0-2 Urine Opiates Screen Not Detected Urine Fentanyl Screen Not Detected Ur Barbiturates Screen Not Detected Ur Phencyclidine Scrn Not Detected Ur Amphetamines Screen Not Detected U Benzodiazepines Scrn Not Detected Urine Cocaine Screen Not Detected U Marijuana (THC) Screen POSITIVE H Ethyl Alcohol < 10 COVID-19 (BERE) Negative COVID-19 Clin Com See Note Medications Medications Current Medications Acetaminophen (Acetaminophen 325 Mg Tablet) 650 mg PO Q6H PRN PRN Reason: Headache/Pain Mild Scale (1-3) Last Admin: 07/10/23 09:17 Dose: 650 mg Al Hydroxide/Mg Hydroxide (Magnesium Hydrox/Alum Hydrox 30 Ml Oral.Susp) 30 ml PO Q6H PRN PRN Reason: Heartburn/Nausea Folic Acid (Folic Acid 1 Mg Tablet) 1 mg PO DAILY [facility] Last Admin: 07/10/23 09:18 Dose: Not Given Hydroxyzine HCl (Hydroxyzine Hcl 25 Mg Tablet) 25 mg PO Q6H PRN PRN Reason: Anxiety Last Admin: 07/09/23 09:14 Dose: 25 mg Levothyroxine Sodium (Levothyroxine Sodium 25 Mcg Tablet) 25 mcg PO DAILY@0600 [facility] Last Admin: 07/10/23 06:16 Dose: 25 mcg Lidocaine (Lidocaine 4 % Patch Adh..Patch) 1 patch TRANSDERMA DAILY [facility]; Protocol Lorazepam (Lorazepam 1 Mg Tablet) 1 mg PO Q2H PRN PRN Reason: CIWA 6-10 Last Admin: 07/09/23 20:49 Dose: 1 mg Lorazepam (Lorazepam 1 Mg Tablet) 2 mg PO Q2H PRN PRN Reason: CIWA 11 and above Magnesium Hydroxide (Milk Of Magnesia 30 Ml Oral.Susp) 30 ml PO DAILY PRN PRN Reason: Constipation Multivitamins/Vitamin C (Multivitamin Tablet) 1 tab PO DAILY [facility] Last Admin: 07/10/23 09:10 Dose: 1 tab Nicotine (Nicotine 21 Mg Patch.Td24) 21 mg TRANSDERMA DAILY PRN PRN Reason: smoking cessation Nicotine Polacrilex (Nicotine Polacrilex 2 Mg Gum) 4 mg BUCCAL Q2H PRN PRN Reason: Nicotine Cravings Olanzapine (Olanzapine 5 Mg Tablet) 5 mg PO TID PRN PRN Reason: agitation Omeprazole (Omeprazole 20 Mg Capsule.Dr) 20 mg PO DAILY@0630 [facility] Last Admin: 07/10/23 06:16 Dose: 20 mg Oxcarbazepine (Oxcarbazepine 150 Mg Tablet) 150 mg PO BID [facility] Last Admin: 07/10/23 09:10 Dose: 150 mg Prazosin HCl (Prazosin Hcl 1 Mg Capsule) 1 mg PO BEDTIME MRX1 [facility]; Protocol Last Admin: 07/09/23 20:59 Dose: Not Given Thiamine HCl (Thiamine Hcl 100 Mg Tablet) 100 mg PO DAILY [facility] Last Admin: 07/10/23 09:09 Dose: 100 mg Trazodone HCl (Trazodone Hcl 50 Mg Tablet) 50 mg PO BEDTIME MRX1 PRN PRN Reason: Insomnia Allergies Allergies Allergy/AdvReac Type Severity Reaction Status Date / Time melatonin [MELATONIN] Allergy Intermediate RASH Verified 07/08/23 12:10 topiramate [From TOPAMAX] Allergy Intermediate BRAIN Verified 07/08/23 12:10 SHUTS DOWN sulfamethoxazole Allergy Unknown SWELLING, Verified 07/08/23 12:10 [From BACTRIM] REDNESS trimethoprim [From BACTRIM] Allergy Unknown SWELLING, Verified 07/08/23 12:10 REDNESS Assessment & Plan Assessment & Plan (1) Cannabis abuse: Status: Acute Code(s): F12.10 - Cannabis abuse, uncomplicated Assessment and Plan: stable no access here (2) History of ADHD: Status: Acute Code(s): Z86.59 - Personal history of other mental and behavioral disorders Assessment and Plan: would like to be treated for this discussed might be better treated once mood/anxiety more stable (3) PTSD (post-traumatic stress disorder): Status: Acute Code(s): F43.10 - Post-traumatic stress disorder, unspecified Assessment and Plan: most recent issue with father's children attempting suicide in front of her and her children seems to have been the final insult that overwhelmed patient starting prazosin in pm for sleep and nightmares (4) Alcohol use disorder, moderate, dependence: Status: Acute Code(s): F10.20 - Alcohol dependence, uncomplicated Assessment and Plan: Struggling with this- ciwa positive last pm but ok today- will discuss naltrexone further on in care - needs to have ativan taper (5) Mood disorder: Status: Acute Code(s): F39 - Unspecified mood [affective] disorder Assessment and Plan: Start trileptal for anxiety and mood stability may add lexapro for depression/anxiety Plan 07/08-start trileptal 150mg bid and prazosin after coordinating care with dr sethi who had seen pt earlier in week for IOP intake- (she had considered lamotrigine, prazosin and naltrexone) will further educate patient about medications tomorrow but did discuss ativan is like alcohol for her and can only be for short term use 07/10/23 add lexapro 5mg tomorrow- pt seems to have signed a 3 day Patient educated on: diagnosis and medication risk/benefits Informed Consent: understands and further education needed Reason for continued inpatient stay Substantial Risk for: inability to function and rapid decompensation Time Spent With Patient Time: Total time managing care of this patient today ____ minutes.
[2023-07-10] MEDS: Lidocaine 4 % Patch ADH..PATCH 1 PATCH TRANSDERMA (11:57)
[2023-07-10] MEDS: Milk of Magnesia 30 ML ORAL.SUSP PO (13:32)
[2023-07-10] MEDS: LORazepam 1 MG TABLET PO (17:10)
[2023-07-10] MEDS: OLANZapine 5 MG TABLET PO (17:10)
[2023-07-10 17:46] VITALS: BP 130/70; PULSE 82; RESP 15; TEMP 36.4; O2SAT 95
[2023-07-10] MEDS: Prazosin HCL 1 MG CAPSULE PO (20:37)
[2023-07-11] MEDS: Levothyroxine Sodium 25 MCG TABLET PO (06:22)
[2023-07-11] MEDS: Omeprazole 20 MG CAPSULE.DR PO (06:22)
[2023-07-11 08:10] VITALS: BP 120/59; PULSE 70; RESP 18; TEMP 36.7; O2SAT 97
[2023-07-11] MEDS: Escitalopram Oxalate 5 MG TABLET PO (08:40)
[2023-07-11] MEDS: OXcarbazepine 150 MG TABLET PO ×2 (08:40→20:36)
[2023-07-11] MEDS: Multivitamin TABLET 1 TAB PO (08:40)
[2023-07-11] MEDS: Folic Acid 1 MG TABLET PO (08:40)
[2023-07-11] MEDS: Thiamine HCL 100 MG TABLET PO (08:40)
[2023-07-11] MEDS: Lidocaine 4 % Patch ADH..PATCH 1 PATCH TRANSDERMA ×2 (08:42→12:01)
--- NOTE | 2023-07-11 11:57 | HO.PSYCHPN ---
Subjective Subjective Date of Service: 07/11/23 Reason For Visit: Depression Subjective Notes: Conditional Voluntary Interim History: Pt reports sleeping well. She denies s/s of alcohol withdrawal. She lexie SI/HI. She reports she is ready to step down to [facility]. She reports she wants to see her children. We discussed starting naltrexon. Consult for addition consult for referral to recovery assistant and connection in event that she tolerates naltrexon and wants to get MESSER vivitrol. Medication Compliance: Yes Mental Status Exam Mental Status Exam Patient Appearance: Well Grooomed Patient Orientation: Person, Place, Time and Situation Level of Consciousness: Appropriate Patient Behavior: Appropriate Mood Description: Calm and Appropriate Ability to Follow Directions: Good Speech Pattern: Spontaneous Speech Memory Description: Intact Hallucinations: None Delusions: Not Present Thought Process: Intact Thought Content: positive for Intact (wanting to go home soon) and positive for Goal Oriented Diagnostics Vital Signs (24Hr): Vital Signs - 24 hr 07/10/23 17:46 07/11/23 08:10 Temperature 97.6 F 98.1 F Pulse Rate 82 70 Respiratory Rate 15 18 Blood Pressure 130/70 120/59 L Pulse Oximetry 95 97 Oxygen Delivery Method Room Air Room Air BMI result Body Mass Index 29.1 Labs 07/08/23 12:29 07/10/23 07:28 Labs: Laboratory Results - last 48 hr 07/10/23 07:28 Sodium 140 Potassium 3.8 Chloride 108 Carbon Dioxide 26 Anion Gap 10 L BUN 10 Creatinine 0.74 Estim Creat Clear Calc 105.5 Estimated GFR > 60 Fasting Glucose 88 Estimat Average Glucose 80 Hemoglobin A1c % 4.4 Calcium 8.6 Total Bilirubin 0.5 AST 18 ALT 16 Alkaline Phosphatase 81 Total Protein 6.0 L Albumin 3.6 Triglycerides 228 H Cholesterol 134 LDL Cholesterol, Calc 52 HDL Cholesterol 37 L Free T4 0.94 Medications Medications Current Medications Acetaminophen (Acetaminophen 325 Mg Tablet) 650 mg PO Q6H PRN PRN Reason: Headache/Pain Mild Scale (1-3) Last Admin: 07/10/23 20:38 Dose: 650 mg Al Hydroxide/Mg Hydroxide (Magnesium Hydrox/Alum Hydrox 30 Ml Oral.Susp) 30 ml PO Q6H PRN PRN Reason: Heartburn/Nausea Escitalopram Oxalate (Escitalopram Oxalate 5 Mg Tablet) 5 mg PO DAILY [facility] Last Admin: 07/11/23 08:40 Dose: 5 mg Folic Acid (Folic Acid 1 Mg Tablet) 1 mg PO DAILY [facility] Last Admin: 07/11/23 08:40 Dose: 1 mg Hydroxyzine HCl (Hydroxyzine Hcl 25 Mg Tablet) 25 mg PO Q6H PRN PRN Reason: Anxiety Last Admin: 07/09/23 09:14 Dose: 25 mg Levothyroxine Sodium (Levothyroxine Sodium 25 Mcg Tablet) 25 mcg PO DAILY@0600 [facility] Last Admin: 07/11/23 06:22 Dose: 25 mcg Lidocaine (Lidocaine 4 % Patch Adh..Patch) 1 patch TRANSDERMA DAILY [facility]; Protocol Last Admin: 07/11/23 08:42 Dose: 1 patch Lorazepam (Lorazepam 1 Mg Tablet) 1 mg PO Q4H PRN PRN Reason: CIWA 6-10 Magnesium Hydroxide (Milk Of Magnesia 30 Ml Oral.Susp) 30 ml PO DAILY PRN PRN Reason: Constipation Last Admin: 07/10/23 13:32 Dose: 30 ml Multivitamins/Vitamin C (Multivitamin Tablet) 1 tab PO DAILY [facility] Last Admin: 07/11/23 08:40 Dose: 1 tab Nicotine (Nicotine 21 Mg Patch.Td24) 21 mg TRANSDERMA DAILY PRN PRN Reason: smoking cessation Nicotine Polacrilex (Nicotine Polacrilex 2 Mg Gum) 4 mg BUCCAL Q2H PRN PRN Reason: Nicotine Cravings Olanzapine (Olanzapine 5 Mg Tablet) 5 mg PO TID PRN PRN Reason: agitation Last Admin: 07/10/23 17:10 Dose: 5 mg Omeprazole (Omeprazole 20 Mg Capsule.Dr) 20 mg PO DAILY@0630 [facility] Last Admin: 07/11/23 06:22 Dose: 20 mg Oxcarbazepine (Oxcarbazepine 150 Mg Tablet) 150 mg PO BID [facility] Last Admin: 07/11/23 08:40 Dose: 150 mg Prazosin HCl (Prazosin Hcl 1 Mg Capsule) 1 mg PO BEDTIME MRX1 [facility]; Protocol Last Admin: 07/11/23 00:31 Dose: Not Given Thiamine HCl (Thiamine Hcl 100 Mg Tablet) 100 mg PO DAILY [facility] Last Admin: 07/11/23 08:40 Dose: 100 mg Trazodone HCl (Trazodone Hcl 50 Mg Tablet) 50 mg PO BEDTIME MRX1 PRN PRN Reason: Insomnia Allergies Allergies Allergy/AdvReac Type Severity Reaction Status Date / Time melatonin [MELATONIN] Allergy Intermediate RASH Verified 07/08/23 12:10 topiramate [From TOPAMAX] Allergy Intermediate BRAIN Verified 07/08/23 12:10 SHUTS DOWN sulfamethoxazole Allergy Unknown SWELLING, Verified 07/08/23 12:10 [From BACTRIM] REDNESS trimethoprim [From BACTRIM] Allergy Unknown SWELLING, Verified 07/08/23 12:10 REDNESS Assessment & Plan Assessment & Plan (1) Cannabis abuse: Status: Acute Code(s): F12.10 - Cannabis abuse, uncomplicated Assessment and Plan: stable no access here (2) History of ADHD: Status: Acute Code(s): Z86.59 - Personal history of other mental and behavioral disorders Assessment and Plan: would like to be treated for this discussed might be better treated once mood/anxiety more stable (3) PTSD (post-traumatic stress disorder): Status: Acute Code(s): F43.10 - Post-traumatic stress disorder, unspecified Assessment and Plan: most recent issue with father's children attempting suicide in front of her and her children seems to have been the final insult that overwhelmed patient starting prazosin in pm for sleep and nightmares (4) Alcohol use disorder, moderate, dependence: Status: Acute Code(s): F10.20 - Alcohol dependence, uncomplicated Assessment and Plan: Struggling with this- ciwa positive last pm but ok today- will discuss naltrexone further on in care - needs to have ativan taper (5) Mood disorder: Status: Acute Code(s): F39 - Unspecified mood [affective] disorder Assessment and Plan: Start trileptal for anxiety and mood stability may add lexapro for depression/anxiety Plan 07/08-start trileptal 150mg bid and prazosin after coordinating care with dr sethi who had seen pt earlier in week for IOP intake- (she had considered lamotrigine, prazosin and naltrexone) will further educate patient about medications tomorrow but did discuss ativan is like alcohol for her and can only be for short term use 07/10/23 add lexapro 5mg tomorrow- pt seems to have signed a 3 day 3/4 start naltrexon 50mg po daily. continue all other medications. Reason for continued inpatient stay Substantial Risk for: harm to self Time Spent With Patient Time: Total time managing care of this patient today ____ minutes.
[2023-07-11] MEDS: Naltrexone HCl 50 MG TABLET PO (16:01)
[2023-07-11 20:30] VITALS: BP 131/71; PULSE 79; RESP 16; TEMP 36.2; O2SAT 99
[2023-07-11] MEDS: Prazosin HCL 1 MG CAPSULE PO ×2 (20:36→22:07)
[2023-07-11] MEDS: hydrOXYzine HCL 25 MG TABLET PO (20:39)
[2023-07-11] MEDS: Acetaminophen 325 MG TABLET 650 MG PO (22:07)
[2023-07-11 22:08] VITALS: BP 116/66; PULSE 77; RESP 16; O2SAT 99
[2023-07-12 06:00] VITALS: BP 121/59; PULSE 68; RESP 18; TEMP 36.5; O2SAT 98
[2023-07-12] MEDS: Levothyroxine Sodium 25 MCG TABLET PO (06:13)
[2023-07-12] MEDS: OXcarbazepine 150 MG TABLET PO (08:34)
[2023-07-12] MEDS: Naltrexone HCl 50 MG TABLET PO (08:34)
[2023-07-12] MEDS: Escitalopram Oxalate 5 MG TABLET PO (08:34)
[2023-07-12] MEDS: Omeprazole 20 MG CAPSULE.DR PO (08:34)
[2023-07-12] MEDS: Thiamine HCL 100 MG TABLET PO (08:34)
[2023-07-12] MEDS: Multivitamin TABLET 1 TAB PO (08:34)
[2023-07-12] MEDS: Folic Acid 1 MG TABLET PO (08:35)
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
[2023-07-12] MEDS: Lidocaine 4 % Patch ADH..PATCH 1 PATCH TRANSDERMA (09:16)
== END 2023-07-12 11:07 | disposition home or self-care (01) | DRG 885 ==
LOC: HO.ED 13:16 → HO.PM5 17:04
PROVIDERS: Physician Assistant Medical; Admitting Provider Psychiatry & Neurology Psychiatry; Emergency Provider Emergency Medicine Emergency Medical Services; Visit Provider Psychiatry & Neurology Psychiatry
DX: F33.1 Major depressive disorder, recurrent, moderate (principal); F43.10 Post-traumatic stress disorder, unspecified; F12.10 Cannabis abuse, uncomplicated; F17.210 Nicotine dependence, cigarettes, uncomplicated; E03.9 Hypothyroidism, unspecified; F10.20 Alcohol dependence, uncomplicated; Z71.6 Tobacco abuse counseling; Z20.822 Contact with and (suspected) exposure to COVID-19; Z79.890 Hormone replacement therapy; Z79.899 Other long term (current) drug therapy
CPT/HCPCS: 36415; 80053; 80061; 80307; 81001; 83036; 84439; 84702; 85025; 87635; 99285; S9485

== ENCOUNTER → 2023-07-08 16:48 | Outpatient (BNV) | payer OTHER, SELFPAY | PROVIDERS: Admitting Provider Psychiatry & Neurology Psychiatry; Emergency Provider Emergency Medicine Emergency Medical Services; Visit Provider Social Worker | DX: F10.20 Alcohol dependence, uncomplicated (principal); F12.10 Cannabis abuse, uncomplicated; F90.9 Attention-deficit hyperactivity disorder, unspecified type; F43.11 Post-traumatic stress disorder, acute; F39 Unspecified mood [affective] disorder | CPT/HCPCS: 99232; 99238 ==

== ENCOUNTER 2023-07-13 14:32 | Outpatient (AMB) | payer OTHER, SELFPAY ==
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
[2023-07-13 14:50] VITALS: BP 110/70; PULSE 88; O2SAT 98
== END 2023-07-13 15:46 | disposition home or self-care (01) ==
PROVIDERS: Visit Provider Nurse Practitioner Family
DX: F10.20 Alcohol dependence, uncomplicated (principal)
CPT/HCPCS: 99204

== ENCOUNTER → 2023-07-13 14:32 | Outpatient (BNVA) | payer OTHER, SELFPAY | PROVIDERS: Visit Provider Nurse Practitioner Family | DX: F10.20 Alcohol dependence, uncomplicated (principal); Z79.899 Other long term (current) drug therapy | CPT/HCPCS: 80305; 99202 ==

== ENCOUNTER 2023-07-28 11:07 | Outpatient (REF) | payer OTHER, SELFPAY ==
[2023-07-28 14:38] LABS: Syphilis Screen Nonreactive (Nonreactive)
[2023-07-28 14:42] LABS: Vitamin B12 403 pg/mL (200-900)
[2023-07-28 17:21] LABS: CT PCR NOT DETECTED (Not Detect.); NG PCR NOT DETECTED (Not Detect.)
[2023-07-29 09:08] LABS: HBsAGNum1 0.35 S/CO (0.00-0.99); HIV AB/AG Nonreactive (Nonreactive); HIV Num 1 0.05 S/CO (0.00-0.99); Hepatitis B Surface Antigen Negative (Negative); ~HepC Num1 0.39 S/CO (0.00-0.79); ~Hepatitis C Antibody Nonreactive (Nonreactive)
[2023-08-03 20:38] LABS: Trichenella Antibody (IgG) NEGATIVE
== END 2023-07-28 11:08 | disposition home or self-care (01) ==
LOC: HO.LAB 11:07
PROVIDERS: Visit Provider Psychiatry & Neurology Psychiatry
DX: F39 Unspecified mood [affective] disorder (principal); R30.0 Dysuria; F10.20 Alcohol dependence, uncomplicated; Z32.00 Encounter for pregnancy test, result unknown
CPT/HCPCS: 0353U; 81025; 82607; 86780; 86784; 86803; 87086; 87088; 87186; 87340; 87389; 96372; 99212; J2315

== ENCOUNTER 2023-07-28 11:14 | Outpatient (AMB) | payer OTHER, SELFPAY ==
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
[2023-07-28 11:27] VITALS: BP 118/66; PULSE 84; O2SAT 97
== END 2023-07-28 11:55 | disposition home or self-care (01) ==
PROVIDERS: Visit Provider Nurse Practitioner Family
DX: F10.20 Alcohol dependence, uncomplicated (principal); R30.0 Dysuria
CPT/HCPCS: 99213

== ENCOUNTER → 2023-07-29 09:00 | Outpatient (BNV) | payer OTHER, SELFPAY | PROVIDERS: Visit Provider Psychiatry & Neurology Psychiatry | DX: F39 Unspecified mood [affective] disorder (principal); F63.89 Other impulse disorders; F10.20 Alcohol dependence, uncomplicated; F43.10 Post-traumatic stress disorder, unspecified; F12.10 Cannabis abuse, uncomplicated; F90.2 Attention-deficit hyperactivity disorder, combined type; F17.200 Nicotine dependence, unspecified, uncomplicated | CPT/HCPCS: 90792; 99213 ==

== ENCOUNTER 2023-08-04 09:00 | Outpatient (RCR) | payer OTHER, SELFPAY ==
[2023-07-18 10:34] VITALS: BP 118/72; PULSE 72; TEMP 36.8
[2023-07-18 10:36] VITALS: BMI 28.3
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
--- NOTE | 2023-07-21 16:37 | HO.PHP ---
Client's case has been opened and reviewed in treatment team.
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
--- NOTE | 2023-07-28 22:24 | P.PNPSP_ITS ---
Subjective Subjective Date of Service: 07/28/23 Reason For Visit: PTSD Interim History: Things are going pretty good . No acute issues or concerns aside from reporting sx of UTI for the past 2 days. SHe would like to get checked as she has a hx of recurrent UTIs. SHe also is open to getting STI panel checked since being with partner a few months ago. Has not been smoking cigarettes since leaving detox, did not bother with a patch since she was getting by without one. Has not had any cravings since. She has been taking the Trileptal, dose at 300 mg BID. Well- tolerated. I'm not as easily as frustrated She is noticing she is getting a little better able to manage the mornings, caring for her daughter and trying to get over to the program on time. Sleep has also improved with the night time dose of Trileptal. Falling asleep without issues but still waking at 2-4am. Better able to fall back asleep. Tolerating AM dose 300 mg which has not been all that sedating in the AM. She is feeling very positive, she has been 2 weeks sober, sheis lookign forward to dealing with her ADHD issues, and especially struggles with impulsivity and poor planning. We discussed risks, benefits, side effects of stimulant medications. Her mood stabilizer is still being titrated, will remain at a low dose of Concerta and take no more than 1-2 days consecutively for the time being, so we can further adjust her mood stabilizer especially for any potential rebound symptoms later in the day, that may arise especially if mood stabilizer is subtherapeutic. She denies any SI, HI, AH, VH. Medication Compliance: Yes Side effects from medications: No Attending Groups: Yes Review of Systems Acute medical concerns: No Mental Status Exam Mental Status Exam Narrative: Alert, oriented, in no acute distress. Calm, cooperative, engaged. No psychomotor agitation or neurovegetative retardation. Eye contact maintained. Mood good less irritable, affect bright, elevated, no lability, no irritability noted. Speech normal. Thought process goal-directed. Thought content related to stressors, executive dysfunction, denies any helplessness, hopelessness or SI, intention or plan. Denies any aggressive ideation. No paranoia or delusional content elicited. No evidence of psychosis. Insight intact and judgment tenuous/fair but adequate. Diagnostics Vital Signs (24Hr): BMI result Body Mass Index 28.3 Assessment & Plan Assessment & Plan (1) Mood disorder: Status: Acute Code(s): F39 - Unspecified mood [affective] disorder (2) Attention deficit hyperactivity disorder (ADHD), combined type: Status: Acute Code(s): F90.2 - Attention-deficit hyperactivity disorder, combined type (3) PTSD (post-traumatic stress disorder): Status: Acute Code(s): F43.10 - Post-traumatic stress disorder, unspecified (4) Alcohol use disorder, moderate, dependence: Status: Acute Code(s): F10.20 - Alcohol dependence, uncomplicated Plan continue to titrate oxcarbazepine to 450 mg BID start Concerta 18 mg qAM (will limit to 3-4d/7 for now) start guanfacine ER 1 mg in AM continue guanfacine ER 1 mg qd in evening for now will plan to start topiramate QHS next week to target sleep, impulsivity, etoh routine lab work ordered with add on for U/A with reflex C&S pt c/o dysuria x 2 days, +exposure+odor -hematuria-fever continue to monitor Reason for contiued partial hosp. stay Substantial Risk for: med/psych decompensation Certification I certify that partial hospital treatment is medically necessary due to the symptoms and problems resulting from the patient's mental illness and the failure to treat the patient at the partial hospital level of care would likely result in the patient requiring inpatient psychiatric care which could not be prevented at a less intensive level of care. Total time managing care of this patient today _30___ minutes. Discharge Plan Discharge Attending provider: Fadumo Cifuentes Additional Instructions: Chicho has an OP therapist Tia lynch [facility], in which her next scheduled appointment is August 04, 2023 at 9 AM. Chicho has a med provider [facility], in which her next scheduled appointment is August 05, 2023 at 11 AM. Medications: New oxcarbazepine 300 mg tablet 300 mg PO BID Qty: 30 0RF methylphenidate HCl [Concerta] 18 mg tablet extended release 24hr 18 mg PO QAM Qty: 14 0RF Rx Instructions: Partial Fill upon patient request. Continued multivitamin [Daily-Gilles] Tablet 1 tab PO DAILY Qty: 30 0RF oxcarbazepine 150 mg Tablet 150 mg PO BID Qty: 60 0RF lidocaine [Lidocaine Pain Relief] 4 % Adhesive Patch,Medicated 1 patch transdermal DAILY Qty: 30 0RF Protocol: Apply to: Apply to: back for sciatica levothyroxine 25 mcg Tablet 25 mcg PO DAILY@0600 Qty: 30 0RF omeprazole 20 mg Capsule,Delayed Release(Dr/Ec) 20 mg PO DAILY@0630 Qty: 30 0RF folic acid 1 mg Tablet 1 mg PO DAILY Qty: 30 0RF escitalopram oxalate 5 mg Tablet 5 mg PO DAILY Qty: 30 0RF thiamine mononitrate (vit B1) 100 mg Tablet 100 mg PO DAILY Qty: 30 0RF naltrexone 50 mg tablet 50 mg PO DAILY Qty: 30 0RF Vivitrol 380 mg suspension,extended rel recon 380 mg IM Q4W Qty: 1 5RF Patient Comments: Patient has an upcoming appointment for the vivitrol injection scheduled 07/26/23. Changed prazosin 1 mg Capsule 1 mg PO BID Qty: 30 0RF Protocol: Hold for SBP< HOLD for SBP < : 90 No Action phenazopyridine [Pyridium] 100 mg tablet 100 mg PO TID Qty: 21 0RF Stand Alone Forms: Patient Portal Discharge page
--- NOTE | 2023-08-01 14:12 | HO.PHP ---
[facility] staff member followed up with Bashirbettyamira after group one due to a comment she made around wanting to kick her child. Chicho disclosed that they are just thoughts she doesn't actually do that. Chicho voiced that she will threaten the children by stating she is going to spank them. [facility] staff encouraged Chicho to refrain from making comments like that to her children and encouraged her to take space if she is becoming triggered by her children. Sabinesaqibslavachristy was in agreement and voiced she has been working with her therapist around this. [facility] staff member was receptive.
--- NOTE | 2023-08-01 23:06 | HO.PHPPROGNO ---
Subjective Subjective Date of Service: 08/01/23 Reason For Visit: PTSD Interim History: Patient seen for follow-up, anticipating discharge at the end of program today.? I noticed being more focused this whole weekend . She was able to prepare and cook some meals this weekend, felt more organzied. She is still noticing some residual irritability. She is tolerating oxcarbazepine and plans to continue to titrate dose as planned and tolerated, medications well-tolerated, currently at 450 mg BID. Denies any adverse effects. Will plan to titrate evening dose by an addition 300 mg next week.?Vivitrol is working well, is not having any cravings. Reports no acute issues or concerns. Mood is otherwise stable.? Denies any hopelessness or SI. Denies thoughts of harming self or others at this time. Denies any aggressive ideation or HI. Denies any paranoia or AH or VH. Sleep, appetite, energy stable. Lab work in system for blood labs 07/27 - results reviewed; urine labs - no results posted yet, still pending; patient reported having these done on 07/27 Urine C&S results faxed to office this AM - >100,000 E.Coli w sensitivity screen, U/A still pending Pt reportedly already seen on Tuesday night at urgent care and started on 7 day-course of nitrofurantoin; has been on antibx for past 3 days, symptoms have resolved Medication Compliance: Yes Side effects from medications: No Attending Groups: Yes Review of Systems Acute medical concerns: No Mental Status Exam Mental Status Exam Narrative: Alert, oriented, in no acute distress. Calm, cooperative, engaged. No psychomotor agitation or neurovegetative retardation. Eye contact maintained. Mood good less irritable, affect bright, elevated, no lability, no irritability noted. Speech normal. Thought process goal-directed. Thought content related to stressors, executive dysfunction, denies any helplessness, hopelessness or SI, intention or plan. Denies any aggressive ideation. No paranoia or delusional content elicited. No evidence of psychosis. Insight intact and judgment tenuous/fair but adequate. Diagnostics Vital Signs (24Hr): BMI result Body Mass Index 28.3 Assessment & Plan Assessment & Plan (1) Mood disorder: Status: Acute Code(s): F39 - Unspecified mood [affective] disorder (2) Attention deficit hyperactivity disorder (ADHD), combined type: Status: Acute Code(s): F90.2 - Attention-deficit hyperactivity disorder, combined type (3) Alcohol use disorder, moderate, dependence: Status: Acute Code(s): F10.20 - Alcohol dependence, uncomplicated (4) PTSD (post-traumatic stress disorder): Status: Acute Code(s): F43.10 - Post-traumatic stress disorder, unspecified (5) Cannabis abuse: Status: Acute Code(s): F12.10 - Cannabis abuse, uncomplicated (6) Nicotine dependence: Status: Acute Code(s): F17.200 - Nicotine dependence, unspecified, uncomplicated (7) Dysuria: Status: Acute Code(s): R30.0 - Dysuria (8) Other disorder of impulse control: Status: Acute Code(s): F63.89 - Other impulse disorders Plan Discharge from [facility] continue regular medications continue titration of Trileptal to 1200 mg/day (may split 600 mg BID, or if better tolerated 450 mg in AM and 750 mg qhs) continue Concerta 18 mg qAM continue guanfacine ER 1 mg qAM will defer further medication management to outpatient provider Refills sent to pharmacy Patient educated on: diagnosis, medication risk/benefits and substance abuse Informed Consent: understands Reason for contiued partial hosp. stay Substantial Risk for: stable for discharge Certification I certify that partial hospital treatment is medically necessary due to the symptoms and problems resulting from the patient's mental illness and the failure to treat the patient at the partial hospital level of care would likely result in the patient requiring inpatient psychiatric care which could not be prevented at a less intensive level of care. Total time managing care of this patient today __30__ minutes. Discharge Plan Discharge Attending provider: Fadumo Cifuentes Additional Instructions: Chicho has an OP therapist Tia White through [facility], in which her next scheduled appointment is August 04, 2023 at 9 AM. Chicho has a med provider [facility], in which her next scheduled appointment is August 05, 2023 at 11 AM. Medications: New methylphenidate HCl [Concerta] 18 mg tablet extended release 24hr 18 mg PO QAM Qty: 14 0RF Rx Instructions: Partial Fill upon patient request. oxcarbazepine 600 mg tablet See Rx Instructions .ROUTE .COMPLEX 15 Days Qty: 30 0RF Rx Instructions: take 1/2 tablet daily in AM; take 1/2 tablet daily after lunch; take 1 tablet daily at bedtime guanfacine 1 mg tablet extended release 24 hr 1 mg PO .DAILY AT 1pm 15 Days Qty: 15 0RF Continued multivitamin [Daily-Gilles] Tablet 1 tab PO DAILY Qty: 30 0RF lidocaine [Lidocaine Pain Relief] 4 % Adhesive Patch,Medicated 1 patch transdermal DAILY Qty: 30 0RF Protocol: Apply to: Apply to: back for sciatica levothyroxine 25 mcg Tablet 25 mcg PO DAILY@0600 Qty: 30 0RF omeprazole 20 mg Capsule,Delayed Release(Dr/Ec) 20 mg PO DAILY@0630 Qty: 30 0RF folic acid 1 mg Tablet 1 mg PO DAILY Qty: 30 0RF escitalopram oxalate 5 mg Tablet 5 mg PO DAILY Qty: 30 0RF thiamine mononitrate (vit B1) 100 mg Tablet 100 mg PO DAILY Qty: 30 0RF Vivitrol 380 mg suspension,extended rel recon 380 mg IM Q4W Qty: 1 5RF Patient Comments: Patient has an upcoming appointment for the vivitrol injection scheduled 07/26/23. Changed prazosin 1 mg Capsule 1 - 2 mg PO BEDTIME Qty: 20 0RF Protocol: Hold for SBP< HOLD for SBP < : 90 Discontinued oxcarbazepine 150 mg Tablet 150 mg PO BID Qty: 60 0RF naltrexone 50 mg tablet 50 mg PO DAILY Qty: 30 0RF No Action phenazopyridine [Pyridium] 100 mg tablet 100 mg PO TID Qty: 21 0RF Vivitrol 380 mg suspension,extended rel recon 380 mg IM ONCE Qty: 1 0RF Stand Alone Forms: Patient Portal Discharge page Patient Education: Mood Disorders (DC) Print Language: Tuvaluan
== END 2023-08-04 09:27 | disposition home or self-care (01) ==
LOC: HO.IOP 09:00
PROVIDERS: Visit Provider Psychiatry & Neurology Psychiatry
DX: F43.10 Post-traumatic stress disorder, unspecified (principal); F63.89 Other impulse disorders; F39 Unspecified mood [affective] disorder; F90.2 Attention-deficit hyperactivity disorder, combined type; F12.10 Cannabis abuse, uncomplicated; F10.20 Alcohol dependence, uncomplicated; F17.200 Nicotine dependence, unspecified, uncomplicated; Z79.899 Other long term (current) drug therapy
CPT/HCPCS: 90791; S9480

== ENCOUNTER 2023-08-25 10:46 | Outpatient (AMB) | payer OTHER, SELFPAY ==
--- NOTE | 2023-08-25 10:49 | AM.OFFVISNUR ---
Intake Vital Signs 08/25/23 10:50 BP 110/78 Blood Pressure Location Lt brachial Position Sitting Pulse 87 Pulse Source Pulse Oximeter Pulse Oximetry (%) 99 Oxygen Delivery Method Room Air Intake Visit Reasons: Mary Inj Allergies melatonin [MELATONIN] Allergy (Intermediate, Verified 08/25/23 10:52) RASH topiramate [From TOPAMAX] Allergy (Intermediate, Verified 08/25/23 10:52) BRAIN SHUTS DOWN sulfamethoxazole [From BACTRIM] Allergy (Unknown, Verified 08/25/23 10:52) SWELLING, REDNESS trimethoprim [From BACTRIM] Allergy (Unknown, Verified 08/25/23 10:52) SWELLING, REDNESS Nursing Note Patient in for injection appt today, alert and oriented x4, states that last month she had a bump for about a week that made it hard to sit down , where the injection was given. Site today was clear, with no signs of redness, warmth or any raised area. I encouraged patient to reach out with any questions or concerns. Results AMB Test Urine AMB Test Urine Negative Last Edit by Yamilka Murdock CMA on 08/25/23 11:05 Coding Assessment & Plan Assessment & Plan Orders: Orders AMB Naltrexone Injection Patient Supplied (NC) Today Nini De Dios CNP F10.20 - Alcohol dependence, uncomplicated AMB HCG Urine Test Today Bre Garcia NP Z32.02 - Encounter for test, result negative Medications: New Vivitrol ER (naltrexone microspheres) 380 mg IM ONCE 1 ea 0RF NS Nini De Dios CNP F10.20 - Alcohol dependence, uncomplicated
[2023-08-25 10:50] VITALS: BP 110/78; PULSE 87; O2SAT 99
== END 2023-08-25 11:06 | disposition home or self-care (01) ==
DX: Z32.02 Encounter for pregnancy test, result negative (principal)

== ENCOUNTER → 2023-08-25 10:46 | Outpatient (BNVA) | payer OTHER, SELFPAY | DX: F10.20 Alcohol dependence, uncomplicated (principal); Z51.81 Encounter for therapeutic drug level monitoring; Z32.02 Encounter for pregnancy test, result negative | CPT/HCPCS: 81025 ==

== ENCOUNTER 2023-09-21 09:34 | Outpatient (AMB) | payer OTHER, SELFPAY ==
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
== END 2023-09-21 09:50 | disposition home or self-care (01) ==
DX: F10.20 Alcohol dependence, uncomplicated (principal)

== ENCOUNTER → 2023-09-21 09:34 | Outpatient (BNVA) | payer OTHER, SELFPAY | DX: F10.20 Alcohol dependence, uncomplicated (principal); Z79.899 Other long term (current) drug therapy | CPT/HCPCS: 96372; J2315 ==

== ENCOUNTER 2023-11-29 22:31 | Emergency (ER) | payer OTHER, SELFPAY ==
--- NOTE | ~2023-11-29 | XR_ITS ---
EXAMINATION: XR ANKLE, LEFT CLINICAL INFORMATION: Swelling after fall COMPARISON: None available. TECHNIQUE: AP, lateral, and mortise views of the left ankle. FINDINGS: Osseous alignment is anatomic. No acute fracture is seen. Diffuse, prominent soft tissue swelling noted about the ankle. Posterior and plantar calcaneal spurs are present. XR/XR ankle LT 2V IMPRESSION: Prominent soft tissue swelling without acute osseous findings.
[2023-11-29 22:38] VITALS: PULSE 79; RESP 18; TEMP 36.4; O2SAT 98; BMI 29.2
[2023-11-29 22:41] VITALS: BP 120/75
[2023-11-29 22:48] VITALS: BP 127/80; PULSE 81; RESP 18; TEMP 36.1; O2SAT 98
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
--- OUTSIDE RECORDS SUMMARY | 2023-11-29 23:28 | XMS_ITS | Continuity of Care Document ---
Author Organization [facility] Rafael luis alberto Address [address] [place] [address] [address] [place] [address]- Care Team Providers Care Decorator Hand Name Role Phone Not on Staff, PCP Primary Care Physician Unavail able Encounter [facility] Date(s): 04/14/20 - 06/27/20 [facility] [address] [place] [address]- Attending Physician: Ray Faith MD Allergies, Adverse Reactions, Alerts Substance Reaction Severity Status melatonin rash Active Topamax slurred speech, neuro issues Active Bactrim anaphylaxis Active Adhesive Bandage 1 pederson Active Lactose upset stomach with milk Acti ve 1clear plastic tape Immunizations Given and Recorded Vaccine Date Status Refusal Reason tetanus/diphtheria/pertussis, acel(Tdap) 12/28/19 Given tetanus/diphtheria/pertussis, acel(Tdap) 01/06/16 Given Medications albuterol 0.083% inhalation solution 3 mL = 2.5 mg, Inhalation, Every 6 hours, PRN for wheezing, # 25 each, 0 Refills, Maintenance, 01/30/19 12:19:57 EDT, Solution Start Date: 01/30/19 Status: Ordered albuterol CFC free 90 mcg/inh inhalation aerosol 1, puffs, Inhalation, 4 times a day, PRN, # 25 Gm, Refills 0, Tot. Refills 0, Maintenance, 01/31/1912:14:41 EDT, Aerosol, Print Requisition Start Date: 01/30/19 Status: Ordered cephalexin monohydrate 500 mg oral capsule 1 capsule = 500 mg, By Mouth, Every 12 hours, # 20 capsule, 0 Refills, Soft Stop, 03/11/20 1:01:00 EST, Capsule, [id number], 160, cm, 03/11/20 0:02:00 EST, Height, 93, kg, 03/11/20 0:02:00 EST, Dry Weight Start Date: 03/11/20 Stop Date: 03/21/20 Status: Ordered omeprazole 20 mg oral enteric coated capsule 1 capsule = 20 mg, By Mouth, Daily, Please start with 1 20mg tablet daily for GERD symptoms. Followup in clinic for improvement., # 90 capsule, 0 Refills, Maintenance, 12/12/15 15:49:22, EC Capsule Start Date: 12/12/15 Status: Ordered phenazopyridine 200 mg oral tablet 200 mg, 1, tablet, By Mouth, 3 times a day after meals, # 6 tablet, Refills 0, Tot. Refills 0, SoftStop, 03/11/20 1:01:00 EST, Route to Pharmacy Electronically, [facility][id number], 160, cm, 03/11/20 0:02:00 EST, Height, 93, kg, 03/11/20 0:02:... Start Date: 03/11/20 Stop Date: 03/13/20 Status: Ordered Problem List Condition Effective Dates Status Health Status Inform ant [facility] colpo patient(Confirmed) Active Asthma(Confirmed) Active ADHD (attention deficit hype ractivity disorder)(Confirmed) Active Current smoker(Confirmed) Active LSIL(Confirmed) Active Social History Social History Type Response Tobacco Type: Cigarettes. To bacco use times per day: 1/2 PPD. Sex
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
--- OUTSIDE RECORDS SUMMARY | 2023-11-29 23:28 | XMS_ITS | Continuity of Care Document ---
Author Organization [facility] Address [address] [place] [address]- Care Team Providers Care Medical Service Technician Name Role Phone Not on Staff, PCP Primary Care Physician Unavail able Encounter [facility] Date(s): 03/14/23 - 04/13/[address] [address]- Allergies, Adverse Reactions, Alerts Substance Reaction Severity Status melatonin rash Active Bactrim anaphylaxis Active Adhesive Bandage 1 pederson Active Topamax slurred speech, neuro issues Active 1clear plastic tape Immunizations Given and [...] 5 Refills, Maintenance, 12/10/21 11:58:00 EDT, Solution, [facility]/pharmacy #[id number], Partial fill upon patient request if the prescription is for a schedule II opioid drug., 163, cm, 052... Start Date: 12/10/21 Status: Ordered albuterol 0.083% inhalation solution 3 mL = 2.5 mg, Inhalation, Every 6 hours, # 120 each, 1 Refills, Maintenance, 09/20/22 20:49:00 EDT, Solution, [facility]/pharmacy #[id number], Partial fill upon patient request if the prescription is for a schedule II opioid drug., 160, cm, 09/20/22 12:05:00 EDT,... Start Date: 09/20/22 Status: Ordered cetirizine 10 mg oral capsule 1 capsule = 10 mg, By Mouth, Daily, PRN for allergy symptoms, # 40 capsule, 0 Refills, Maintenance,09/20/22 21:43:00 EDT, Capsule, [facility]/pharmacy #[id number], Partial fill upon patient request if the prescription is for a schedule II opioid drug., 160, cm, 0... Start Date: 09/20/22 Status: Ordered ibuprofen 800 mg oral tablet 1, tablet, By Mouth, Every 8 hours, # 90 tablet, Refills 0, Route to Pharmacy Electronically, [id number], 163, cm, 09/28/21 13:14:00 EDT, Height, 98.2, [...] Mouth, Daily, # 30 capsule, 0 Refills, [id number], 163, cm, 07/09/21 8:01:00 EST, Height, 98.2, kg, 07/07/21 16:16:00 EST, Dry Weight Start Date: 08/05/21 Status: Ordered oxyCODONE 5 mg oral tablet 5 mg, 1, tablet, By Mouth, Every 6 hours, PRN, # 7 tablet, Refills 0, Tot. Refills 0, Maintenance, as needed for pain, 09/11/21 12:38:00 EDT, Route to Pharmacy Electronically, [facility]/pharmacy #[id number], Partial fill upon patient request if the prescription i... Start Date: 09/11/21 Status: Ordered ProAir HFA 90 mcg/inh inhalation aerosol 2 puffs, Inhalation, 4 times a day, PRN Wheezing/Shortness of Breath, # 18 Gm, 1 Refills, Maintenance, 04/20/21 10:39:00 EST, [facility]/pharmacy #[id number], Partial fill upon patient request [...] Date: 08/17/21 Status: Ordered Problem List Condition Confirmation Course [...] Confirmed Active Request for sterilization Confirmed Active Social History Social History Type Response Smoking Status Current every day sm oker; Other: 1.5cig/day; working on quitting; entered on: 07/31/15 Sex Patient Care team information Care Team Personnel Name: Not on Staff, PCP Position: S Physician (General Medicine) Member Role: PCP Care Team Related Persons Name: DARIO MALONESIS Address: [employer] Address: home [address] [place] [address] Name: FELIZ ANDREW Address: home [address] [place] [address] Name: ELIZA BETANCOURT Address: home [address] [place] [address] Name: LAURA FLORES Address: home [address] [place] [address]
--- OUTSIDE RECORDS SUMMARY | 2023-11-29 23:28 | XMS_ITS | Continuity of Care Document ---
Author Organization [facility] Address [address] [place] [address]- Care Team Providers Care Ethics Manager Name Role Phone Not on Staff, PCP Primary Care Physician Unavail able Encounter [facility] Date(s): 04/09/21 - 05/09/21 [facility] [address] [address]- Allergies, Adverse Reactions, Alerts Substance Reaction Severity [...] capsule = 20 mg, By Mouth, Daily, # 30 capsule, 1 Refills, Maintenance, 04/20/21 10:39:00 EST, ECCapsule, [id number], 163, cm, 04/20/21 9:54:00 EST, Height, 87.997, kg, 03/12/21 21:19:00 EDT, Dry Weight Start Date: 04/20/21 Status: Ordered ProAir HFA 90 mcg/inh inhalation aerosol 2 puffs, Inhalation, 4 times a day, PRN Wheezing/Shortness of Breath, # 18 Gm, 1 Refills, Maintenance, 04/20/21 10:39:00 EST, [facility]/pharmacy #[id number], Partial fill upon patient request if the prescriptionis for a schedule II opioid drug., 2 puffs Inhalati... Start Date: 04/20/21 Status: Ordered Pyridium 200 mg oral tablet 1 tablet = 200 mg, By Mouth, 3 times a day, with food for burning with urination, # 6 tablet, 0 Refills, Maintenance, 04/17/21 8:55:00 EST, Tablet, [facility]/pharmacy #[id number], Partial fill upon patient request if the prescription is for a schedule II opioid d... Start Date: 04/17/21 Stop Date: 04/19/21 Status: Ordered Seroquel See Instructions, By Mouth, Refills 0, Maintenance, 03/23/21 16:10:00 EST, Instructions Replace Required Details, Partial fill upon patient request if the prescription is for a schedule II opioid drug. Start Date: 03/23/21 Status: Ordered traZODone 50 mg oral tablet 25 mg, 0.5, tablet, By Mouth, Daily at bedtime, # 15 tablet, Refills 0, Tot. Refills 0, Maintenance, 09/22/20 11:05:00 EDT, Route to Pharmacy Electronically, [facility]/pharmacy #[id number], Partial fill upon patient request if the prescription is for a schedule I... Start Date: 09/22/20 Status: Ordered Problem List Condition Effective Dates [...] Response Smoking Status Current every day sm maria isabel; Other: 1.5cig/day; working on quitting; entered on: 07/31/15 Sex
--- OUTSIDE RECORDS SUMMARY | 2023-11-29 23:28 | XMS_ITS | Continuity of Care Document ---
Author Organization [facility] Address [address] [place] [address]- Care Team Providers Care Yarding And Folding Machine Operator Name Role Phone Sharron CLOUD, Hector Dutta Primary Care Physician Encounter [facility] Date(s): 05/07/22 - 06/06/[address] [address]- Allergies, Adverse Reactions, Alerts Substance Reaction Severity [...] 5 Refills, Maintenance, 12/10/21 11:58:00 EDT, Solution, [facility]/pharmacy #[id number], Partial fill upon patient request if the prescription is for a schedule II opioid drug., 163, cm, 09/07... Start Date: 12/10/21 Status: Ordered ibuprofen 800 mg oral tablet 1, tablet, By Mouth, Every 8 hours, # 90 tablet, Refills 0, Route to Pharmacy Electronically, [facility] STORE [id number], 163, cm, 09/28/21 13:14:00 EDT, Height, 98.2, [...] Mouth, Daily, # 30 capsule, 0 Refills, [facility], 163, cm, 07/09/21 8:01:00 EST, Height, 98.2, kg, 07/07/21 16:16:00 EST, Dry Weight Start Date: 08/05/21 Status: Ordered oxyCODONE 5 mg oral tablet 5 mg, 1, tablet, By Mouth, Every 6 hours, PRN, # 7 tablet, Refills 0, Tot. Refills 0, Maintenance, as needed for pain, 09/11/21 12:38:00 EDT, Route to Pharmacy Electronically, [facility]/pharmacy #[id number], Partial fill upon patient request if the prescription i... Start Date: 09/11/21 Status: Ordered ProAir HFA 90 mcg/inh inhalation aerosol 2 puffs, Inhalation, 4 times a day, PRN Wheezing/Shortness of Breath, # 18 Gm, 1 Refills, Maintenance, 04/20/21 10:39:00 EST, [id number], Partial fill upon patient request [...] (GDM) in prior , currently Confirmed Active Marijuana smoker Confirmed Active Cocaine abuse in remission Confirmed Active Obese class II Confirmed Active Post traumatic stress disorder (PTSD) Confirmed Active Current smoker Confirmed Active Request for sterilization Confirmed Active Social History Social History Type Response Smoking Status Current every day sm oker; Other: 1.5cig/day; working on quitting; entered on: 07/31/15 Sex Patient Care team information Care Team Personnel Name: Haley Vasques RN Position: S OB RN Member Role: Primary Care Nurse Name: Hector Mcdermott MD Position: Reference Physician Member Role: PCP Address: Address: [address] [place] [address]- Care Team Related Persons Name: RUTHIE MALONE Address: [employer] Address: home [address] [facility] [address] [place] [address] Name: FELIZ ANDREW Address: home [address] [place] [address] Name: ELIZA BETANCOURT Address: home [address] [place] [address] Name: LAURA FLORES Address: home [address] [address]
--- OUTSIDE RECORDS SUMMARY | 2023-11-29 23:28 | XMS_ITS | Continuity of Care Document ---
Author Organization [facility] Address [address] [place] [id number]- Care Team Providers Care Application Support Technician Name Role Phone Not on Staff, PCP Primary Care Physician Unavail able [facility]counter [facility] Date(s): 04/20/21 - 05/20/21 [facility] [address] [address]- Allergies, Adverse Reactions, Alerts Substance Reaction Severity [...] Mouth, Daily, # 30 capsule, 1 Refills, [facility] STORE 63643, 163, cm, 04/20/21 9:54:00 EST, Height, 87.997, kg, 03/12/21 21:19:00 EDT, Dry Weight Start Date: 05/13/21 Status: Ordered ProAir HFA 90 mcg/inh inhalation aerosol 2 puffs, Inhalation, 4 times a day, PRN Wheezing/Shortness of Breath, # 18 Gm, 1 Refills, Maintenance, 04/20/21 10:39:00 EST, [facility]/pharmacy #[id number], Partial fill upon patient request [...]
--- OUTSIDE RECORDS SUMMARY | 2023-11-29 23:28 | XMS_ITS | Continuity of Care Document ---
Author Organization [facility] Rafael luis alberto Address [address] [place] [address] [address] [place] [address]- Care Team Providers Care Roasterman Name Role Phone Not on Staff, PCP Primary Care Physician Unavail able [facility]counter [facility] Date(s): 04/14/20 - 04/21/20 [facility] [address] [place] [address]- Attending Physician: Ray Faith MD Allergies, Adverse [...] Refills, Soft Stop, 03/11/20 1:01:00 EST, Capsule, [id number], 160, cm, 03/11/20 0:02:00 EST, Height, 93, [...] 03/11/20 1:01:00 EST, Route to Pharmacy Electronically, [facility] #[id number], 160, cm, 03/11/20 0:02:00 EST, Height, 93, kg, 03/11/20 0:02:... Start Date: 03/11/20 Stop Date: 03/13/20 Status: Ordered Problem List Condition Effective Dates Status Health Status Inform ant [facility] colpo patient(Confirmed) Active Asthma(Confirmed) Active ADHD (attention deficit hype ractivity disorder)(Confirmed) Active Current smoker(Confirmed) Active LSIL(Confirmed) Active Vital Signs Most recent to oldest [Reference Range]: 1 Height 160 cm (04/14/20 2:55 PM) Weight 93 kg (04/14/20 2:55 PM) Body Mass Index [18.5-24.99] 36.33 *>HHI* (04/14/20 2:55 PM) Temperature [96.8-100.4 DegF] 97.2 DegF (04/14/20 2:55 PM) Social History Social History Type Response Tobacco Type: Cigarettes. To bacco use times per day: 1/2 PPD. Sex
--- OUTSIDE RECORDS SUMMARY | 2023-11-29 23:28 | XMS_ITS | Continuity of Care Document ---
Author Organization [facility] Address [address] [place] [address]- Care Team Providers Care Certified Home Health Aide Name Role Phone Not on Staff, PCP Primary Care Physician Unavail able [facility]counter [facility] Date(s): 04/20/21 - 05/20/21 [facility] [address] [place] [address]- Allergies, Adverse Reactions, Alerts Substance Reaction Severity Status melatonin rash Active Bactrim anaphylaxis Active Lactose upset stomach with milk Acti ve Topamax slurred speech, neuro issues Active Adhesive [...] Mouth, Daily, # 30 capsule, 1 Refills, [facility] 97082, 163, cm, 04/20/21 9:54:00 EST, Height, 87.997, kg, 03/12/21 21:19:00 EDT, Dry Weight Start Date: 05/13/21 Status: Ordered ProAir HFA 90 mcg/inh inhalation aerosol 2 puffs, Inhalation, 4 times a day, PRN Wheezing/Shortness of Breath, # 18 Gm, 1 Refills, Maintenance, 04/20/21 10:39:00 EST, [facility]/pharmacy #[id number], Partial fill upon patient [...]
--- OUTSIDE RECORDS SUMMARY | 2023-11-29 23:29 | XMS_ITS | Continuity of Care Document ---
Author Organization [facility] Address [address] [place] [address]- Care Team Providers Care Processing Manager Name Role Phone Not on Staff, PCP Primary Care Physician Unavail able Encounter [facility] Date(s): 08/26/21 - 09/25/[address] [address] Allergies, Adverse Reactions, Alerts Substance Reaction Severity [...] Mouth, Daily, # 30 capsule, 0 Refills, [facility] STORE 44657, 163, cm, 07/09/21 8:01:00 EST, Height, 98.2, kg, 07/07/21 16:16:00 EST, Dry Weight Start Date: 08/05/21 Status: Ordered oxyCODONE 5 mg oral tablet 5 mg, 1, tablet, By Mouth, Every 6 hours, PRN, # 7 tablet, Refills 0, Tot. Refills 0, Maintenance, as needed for pain, 09/11/21 12:38:00 EDT, Route to Pharmacy Electronically, [facility]/pharmacy #[id number], Partial fill upon patient request if the prescription i... Start Date: 09/11/21 Status: Ordered ProAir HFA 90 mcg/inh inhalation aerosol 2 puffs, Inhalation, 4 times a day, PRN Wheezing/Shortness of Breath, # 18 Gm, 1 Refills, Maintenance, 04/20/21 10:39:00 EST, [facility]/pharmacy #[id number], Partial fill upon patient [...] Current smoker(Confirmed) Active Request for sterilization(Confirmed) Active Social History Social History Type Response Smoking Status Current every day sm okaddis; Other: 1.5cig/day; working on quitting; entered on: 07/31/15 Sex
--- OUTSIDE RECORDS SUMMARY | 2023-11-29 23:29 | XMS_ITS | Continuity of Care Document ---
Author Organization [facility] Address [address] [place] [address]- Care Team Providers Care Sorting And Folding Supervisor Name Role Phone Not on Staff, PCP Primary Care Physician Unavail able Encounter [facility] Date(s): 07/29/23 - 08/28/23 [facility] [address] [place] [address]- Attending Physician: Sepideh Solis Admitting Physician: AdmtrSepideh Referring Physician: Admtr ArEmmanuel Allergies, Adverse Reactions, Alerts Substance Reaction Severity [...] 5 Refills, Maintenance, 12/10/21 11:58:00 EDT, Solution, [facility]/pharmacy #[id number], Partial fill upon patient request if the prescription is for a schedule II opioid drug., 163, cm, 2... Start Date: 12/10/21 Status: Ordered albuterol 0.083% inhalation solution 3 mL = 2.5 mg, Inhalation, Every 6 hours, # 120 each, 1 Refills, Maintenance, 09/20/22 20:49:00 EDT, Solution, [facility]/pharmacy #[id number], Partial fill upon patient request if the prescription is for a schedule II opioid drug., 160, cm, 09/20/22 12:05:00 EDT,... Start Date: 09/20/22 Status: Ordered cetirizine 10 mg oral capsule 1 capsule = 10 mg, By Mouth, Daily, PRN for allergy symptoms, # 40 capsule, 0 Refills, Maintenance,09/20/22 21:43:00 EDT, Capsule, [facility]/pharmacy #[id number], Partial fill upon patient request if the prescription is for a schedule II opioid drug., 160, cm, 0... Start Date: 09/20/22 Status: Ordered ibuprofen 800 mg oral tablet 1, tablet, By Mouth, Every 8 hours, # 90 tablet, Refills 0, Route to Pharmacy Electronically, [facility] STORE 77965, 163, cm, 09/28/21 13:14:00 EDT, Height, 98.2, [...] Mouth, Daily, # 30 capsule, 0 Refills, [facility] STORE 27619, 163, cm, 07/09/21 8:01:00 EST, Height, 98.2, kg, 07/07/21 16:16:00 EST, Dry Weight Start Date: 08/05/21 Status: Ordered oxyCODONE 5 mg oral tablet 5 mg, 1, tablet, By Mouth, Every 6 hours, PRN, # 7 tablet, Refills 0, Tot. Refills 0, Maintenance, as needed for pain, 09/11/21 12:38:00 EDT, Route to Pharmacy Electronically, [facility]/pharmacy #[id number], Partial fill upon patient request if the prescription i... Start Date: 09/11/21 Status: Ordered ProAir HFA 90 mcg/inh inhalation aerosol 2 puffs, Inhalation, 4 times a day, PRN Wheezing/Shortness of Breath, # 18 Gm, 1 Refills, Maintenance, 04/20/21 10:39:00 EST, [facility]/pharmacy #[id number], Partial fill upon [...] Team Related Persons Name: RUTHIE MALONE Address: [facility] Address: home [address] [place] [address] Name: FELIZ ANDREW Address: home [address] [place] [address] Name: ELIZA BETANCOURT Address: home [address] [place] [address] Name: LAURA FLORES Address: [address] [address]
--- OUTSIDE RECORDS SUMMARY | 2023-11-29 23:29 | XMS_ITS | Continuity of Care Document ---
Author Organization [facility] Address [address] [place] [address]- Care Team Providers Care Instructor Apparel Manufacture Name Role Phone Not on Staff, PCP Primary Care Physician Unavail able Encounter [facility] Date(s): 02/07/23 - 03/09/[address] [address] Attending Physician: Sepideh Solis Admitting Physician: AdmSepideh sifuentes Referring Physician: AdmtrSepideh Allergies, Adverse Reactions, Alerts Substance Reaction Severity [...] Refills, Maintenance, 09/11/21 12:38:00 EDT, Capsule, [id number], Partial fill upon patient request if the prescription is for a schedule II opioid drug., 163, c... Start Date: 09/11/21 Status: Ordered Albuterol (Eqv-Proventil HFA) 90 mcg/inh inhalation aerosol 2 puffs, Inhalation, Every 6 hours, # 6.7 Gm, 5 Refills, Maintenance, 12/10/21 11:58:00 EDT, [facility]/pharmacy #[id number], Partial fill upon patient request if the prescription is for a schedule II opioid drug., 163, cm, 09/28/21 13:14:00 EDT, Height, 98.2, kg,... Start Date: 12/10/21 Status: Ordered albuterol 0.083% inhalation solution 3 mL = 2.5 mg, Neb, Every 6 hours, PRN as needed for wheezing, # 90 mL, 5 Refills, Maintenance, 12/10/21 11:58:00 EDT, Solution, [facility]/pharmacy #[id number], Partial fill upon patient request if the prescription is for a schedule II opioid drug., 163, cm, 2... Start Date: 12/10/21 Status: Ordered albuterol 0.083% inhalation solution 3 mL = 2.5 mg, Inhalation, Every 6 hours, # 120 each, 1 Refills, Maintenance, 09/20/22 20:49:00 EDT, Solution, [facility]/pharmacy #[id number], Partial fill upon patient request if the prescription is for a schedule II opioid drug., 160, cm, 09/20/22 12:05:00 EDT,... Start Date: 09/20/22 Status: Ordered cetirizine 10 mg oral capsule 1 capsule = 10 mg, By Mouth, Daily, PRN for allergy symptoms, # 40 capsule, 0 Refills, Maintenance,09/20/22 21:43:00 EDT, Capsule, [facility]/pharmacy #[id number], Partial fill upon patient request if the prescription is for a schedule II opioid drug., 160, cm, 0... Start Date: 09/20/22 Status: Ordered ibuprofen 800 mg oral tablet 1, tablet, By Mouth, Every 8 hours, # 90 tablet, Refills 0, Route to Pharmacy Electronically, [facility] STORE 14540, 163, cm, 09/28/21 13:14:00 EDT, Height, 98.2, [...] Mouth, Daily, # 30 capsule, 0 Refills, [facility] STORE 98621, 163, cm, 07/09/21 8:01:00 EST, Height, 98.2, kg, 07/07/21 16:16:00 EST, Dry Weight Start Date: 08/05/21 Status: Ordered oxyCODONE 5 mg oral tablet 5 mg, 1, tablet, By Mouth, Every 6 hours, PRN, # 7 tablet, Refills 0, Tot. Refills 0, Maintenance, as needed for pain, 09/11/21 12:38:00 EDT, Route to Pharmacy Electronically, [facility]/pharmacy #[id number], Partial fill upon patient request if the prescription i... Start Date: 09/11/21 Status: Ordered ProAir HFA 90 mcg/inh inhalation aerosol 2 puffs, Inhalation, 4 times a day, PRN Wheezing/Shortness of Breath, # 18 Gm, 1 Refills, Maintenance, 04/20/21 10:39:00 EST, [facility]/pharmacy #[id number], Partial fill upon [...] abuse in remission Confirmed Active Obese class I Confirmed Active Post traumatic stress disorder (PTSD) Confirmed Active Current smoker Confirmed Active Request for sterilization Confirmed Active Social History Social History Type Response Smoking Status Current every day sm oker; Other: 1.5cig/day; working on quitting; entered on: 07/31/15 Sex Laboratory * Event Display: Non Lab Results Authored Date: Patient Care team information Care Team Personnel Name: Not on Staff, PCP Position: [facility] Physician (General Medicine) Member Role: PCP Care Team Related Persons Name: RUTHIE MALONE Address: [employer] Address: home [address] [facility] [address] [place] [address] Name: FELIZ ANDREW Address: home [address] [place] [address] Name: ELIZA BETANCOURT Address: home [address] [place] [address] Name: LAURA FLORES Address: home [address] [facility] [address] [place] [address]
--- OUTSIDE RECORDS SUMMARY | 2023-11-29 23:29 | XMS_ITS | Continuity of Care Document ---
Author Organization [facility] Rafael luis alberto Address [address] [place] [address] [address] [place] [address]- Care Team Providers Care Color Shop Helper Name Role Phone Not on Staff, PCP Primary Care Physician Unavail able [facility] Date(s): 02/01/20 - 03/02/20 [facility] [address] [place] [address] Drive [address] [place] [address]- [facility] Attending Physician: Admtr, Juan8 Admitting Physician: Admtr, Ar8 Referring Physician: Admtr, Ar8 Allergies, Adverse Reactions, Alerts Substance Reaction Severity [...] Print Requisition Start Date: 01/30/19 Status: Ordered omeprazole 20 mg oral enteric coated capsule 1 capsule = 20 mg, By Mouth, Daily, Please start with 1 20mg tablet daily for GERD symptoms. Followup in clinic for improvement., # 90 capsule, 0 Refills, Maintenance, 12/12/15 15:49:22, EC Capsule Start Date: 12/12/15 Status: Ordered Problem List Condition Effective Dates Status Health Status Inform ant [facility] colpo patient(Confirmed) Active Asthma(Confirmed) Active ADHD (attention deficit hype ractivity disorder)(Confirmed) Active Current smoker(Confirmed) Active LSIL(Confirmed) Active Social History Social History Type Response Tobacco Type: Cigarettes. To bacco use times per day: 1/2 PPD. Sex
--- OUTSIDE RECORDS SUMMARY | 2023-11-29 23:29 | XMS_ITS | Continuity of Care Document ---
Author Organization [facility] Rafael luis alberto Address [address] [place] [address] [address] [place] [address]- Care Team Providers Care Rink Rat Name Role Phone Not on Staff, PCP Primary Care Physician Unavail able Encounter [facility] Date(s): 04/14/20 - 05/14/20 [facility] [address] [place] [address]- Attending Physician: AdmSepideh sifuentes Admitting Physician: Admtr, Ar8 Referring Physician: Admtr, Ar8 Allergies, Adverse Reactions, Alerts Substance Reaction Severity Status melatonin rash Active Topamax slurred speech, neuro issues Active Bactrim anaphylaxis Active Lactose upset stomach with milk Acti ve Adhesive Bandage 1 pederson Active 1clear plastic [...] Refills, Soft Stop, 03/11/20 1:01:00 EST, Capsule, [id number], 160, cm, 03/11/20 0:02:00 EST, Height, 93, [...] 03/11/20 1:01:00 EST, Route to Pharmacy Electronically, [facility] #[id number], 160, cm, 03/11/20 0:02:00 EST, Height, 93, [...]
--- OUTSIDE RECORDS SUMMARY | 2023-11-29 23:29 | XMS_ITS | Continuity of Care Document ---
Author Organization [facility] Rafael luis alberto Address [address] [place] [address] [address] [place] [address]- Care Team Providers Care Reporting Consultant Name Role Phone Not on Staff, PCP Primary Care Physician Unavail able [facility] Date(s): 02/11/20 - 03/12/20 [facility] [address] [place] [address]- [facility] Allergies, Adverse Reactions, Alerts Substance Reaction Severity [...] Refills, Soft Stop, 03/11/20 1:01:00 EST, Capsule, [facility] #[id number], 160, cm, 03/11/20 0:02:00 EST, Height, 93, [...] 03/11/20 1:01:00 EST, Route to Pharmacy Electronically, [facility] #[id number], 160, cm, 03/11/20 0:02:00 EST, Height, 93, [...]
--- OUTSIDE RECORDS SUMMARY | 2023-11-29 23:29 | XMS_ITS | Continuity of Care Document ---
Author Organization [facility] Address [address] [place] [address]- Care Team Providers Care Fixing Carpenter Name Role Phone Not on Staff, PCP Primary Care Physician Unavail able Encounter [facility] Date(s): 03/11/21 - 04/10/[address] [address]- Allergies, Adverse Reactions, Alerts Substance Reaction Severity Status melatonin rash Active Topamax slurred speech, neuro issues Active Bactrim anaphylaxis Active Adhesive Bandage 1 pederson Active Lactose upset stomach with milk Acti ve 1clear plastic tape Immunizations Given and Recorded Vaccine Date Status Refusal Reason tetanus/diphtheria/pertussis, acel(Tdap) 12/28/19 Given tetanus/diphtheria/pertussis, acel(Tdap) 01/06/16 Given Medications omeprazole 20 mg oral enteric coated capsule 1 capsule = 20 mg, By Mouth, Daily, Please start with 1 20mg tablet daily for GERD symptoms. Followup in clinic for improvement., # 90 capsule, 0 Refills, Maintenance, 09/23/20 9:39:00 EDT, EC Capsule, [id number], 163, cm, 09/23/20 9:14:00 ED... Start Date: 09/23/20 Status: Ordered ProAir HFA 90 mcg/inh inhalation aerosol 2 puffs, Inhalation, 4 times a day, PRN Wheezing/Shortness of Breath, # 18 Gm, 0 Refills, Maintenance, 09/08/20 13:10:00 EDT, [id number], Partial fill upon patient request if the prescriptionis for a schedule II opioid drug., 2 puffs Inhalati... Start Date: 09/08/20 Status: Ordered Seroquel See Instructions, By Mouth, [...] 09/22/20 11:05:00 EDT, Route to Pharmacy Electronically, [facility]/pharmacy #[id number], Partial fill upon patient request if the [...] , currently (Confirmed) Active Marijuana smoker(Confirmed) Active Nausea and vomiting during (Confirmed) Active Obese class I(Confirmed) Active Obesity(Confirmed) Active Post traumatic stress disord er (PTSD)(Confirmed) Active Current smoker(Confirmed) Active LSIL(Confirmed) Active 1History of 2History of Social History Social History Type Response Smoking Status Current every day sm oker; Other: 1.5cig/day; working on quitting; entered on: 07/31/15 Sex
--- OUTSIDE RECORDS SUMMARY | 2023-11-29 23:29 | XMS_ITS | Continuity of Care Document ---
Author Organization [facility] Rafael luis alberto Address [address] [place] [address] [address] [place] [address]- Care Team Providers Care Retort Operator Name Role Phone Not on Staff, PCP Primary Care Physician Unavail able [facility]counter [facility] Date(s): 01/30/20 - 02/29/20 [facility] [address] [place] [address]- [facility] Allergies, Adverse Reactions, Alerts Substance Reaction Severity [...]
--- OUTSIDE RECORDS SUMMARY | 2023-11-29 23:29 | XMS_ITS | Continuity of Care Document ---
Author Organization [facility] Address [address] [place] [address]- Care Team Providers Care Title Insurance Sales Representative Name Role Phone Not on Staff, PCP Primary Care Physician Unavail able Encounter [facility] [place] [facility] Date(s): 02/14/21 - 02/14/[address] [address] Discharge Disposition: A-D/C Home Attending Physician: Najma Mendez MD Admitting Physician: Najma Mendez MD Referring Physician: Najma Mendez MD Allergies, Adverse Reactions, Alerts Substance Reaction Severity Status melatonin rash Active Topamax slurred speech, neuro issues Active Bactrim anaphylaxis Active Adhesive Bandage 1 pederson Active Lactose upset stomach with milk Acti ve 1clear plastic tape Immunizations Given and Recorded Vaccine Date Status Refusal Reason tetanus/diphtheria/pertussis, acel(Tdap) 12/28/19 Given tetanus/diphtheria/pertussis, acel(Tdap) 01/06/16 Given Medications buPROPion 150 mg/24 hours (XL) oral tablet, extended release 1 tablet = 150 mg, By Mouth, Daily, # 30 tablet, 0 Refills, Maintenance, 09/22/20 11:05:00 EDT, XL Tablet, [facility]/pharmacy #[id number], Partial fill upon patient request if the prescription is for a schedule II opioid drug., 1 tablet By Mouth Daily, 163, cm, 0... Start Date: 09/22/20 Status: Ordered lamotrigine 25 mg oral tablet 75 mg, 3, tablet, By Mouth, Daily, # 90 tablet, Refills 0, Tot. Refills 0, Maintenance, 09/22/20 11:05:00 EDT, Route to Pharmacy Electronically, [facility]/pharmacy #[id number], Partial fill upon patient request if the prescription is for a schedule II opioid drug... Start Date: 09/22/20 Status: Ordered omeprazole 20 mg oral enteric coated capsule 1 capsule = 20 mg, By Mouth, Daily, Please start with 1 20mg tablet daily for GERD symptoms. Followup in clinic for improvement., # 90 capsule, 0 Refills, Maintenance, 09/23/20 9:39:00 EDT, EC Capsule, [facility]/pharmacy #[id number], 163, cm, 09/23/20 9:14:00 ED... Start Date: 09/23/20 Status: Ordered ProAir HFA 90 mcg/inh inhalation aerosol 2 puffs, Inhalation, 4 times a day, PRN Wheezing/Shortness of Breath, # 18 Gm, 0 Refills, Maintenance, 09/08/20 13:10:00 EDT, [facility]/pharmacy [id number], Partial fill upon patient request if the prescriptionis for a schedule II opioid drug., 2 puffs Inhalati... Start Date: 09/08/20 Status: Ordered traZODone 50 mg oral tablet 25 mg, 0.5, tablet, By Mouth, Daily at bedtime, # 15 tablet, Refills 0, Tot. Refills 0, Maintenance, 09/22/20 11:05:00 EDT, Route to Pharmacy Electronically, [facility]/pharmacy #[id number], Partial fill upon patient request if the prescription is for a schedule I... Start Date: 09/22/20 Status: Ordered Tylenol 325 mg oral tablet 975 mg, Tablet, By Mouth, Once, AYSHA, 02/14/21 1:50:00 EDT, Stop date 02/14/21 1:50:00 EDT Start Date: 02/14/21 Stop Date: 02/14/21 Status: Completed Problem List Condition Effective Dates Status Health Status Inform ant [facility] colpo patient(Confirmed) Active Asthma(Confirmed) Active ADHD (attention deficit hype ractivity disorder)(Confirmed) Active Current smoker(Confirmed) Active LSIL(Confirmed) Active Vital Signs Most recent to oldest [Reference Range]: 1 2 Height 163 cm (02/14/21 1:11 AM) 163 cm (02/14/21 1:10 AM) Weight 89.6 kg (02/14/21 1:10 AM) Oxygen Saturation [94-100 %] 100 % (02/14/21 1:10 AM) Pulse Rate [55-90 bpm] 90 bpm (02/14/21 1:10 AM) Body Mass Index [18.5-24.99] 33.72 *>HHI* (02/14/21 1:10 AM) Blood Pressure [90-138/55-84 mm Hg] 118/ 66mm Hg (02/14/21 1:10 AM) Respiratory Rate [16-30 br/min] 18 br/mi n (02/14/21 2:55 AM) 18 br/min (02/14/21 1:10 AM) Temperature [96.8-100.4 DegF] 98.9 DegF (02/14/21 1:10 AM) Mode of Delivery (Oxygen) Room air (02/14/21 1:10 AM) Blood pressure sites Arm, left (02/14/21 1:10 AM) Temperature Route Oral (02/14/21 1:10 AM) Dry Weight 89.6 kg (02/14/21 1:10 AM) Weight Obtained Via Standing scale (02/14/21 1:10 AM) Dry Weight Obtained Via Standing scale (02/14/21 1:10 AM) Social History Social History Type Response Smoking Status Current every day betzy nicolas; Other: 1.5cig/day; working on quitting; entered on: 07/31/15 Sex
--- OUTSIDE RECORDS SUMMARY | 2023-11-29 23:29 | XMS_ITS | Continuity of Care Document ---
Author Organization [facility] Address [address] [place] [address]- Care Team Providers Care Medical Office Asst Name Role Phone Not on Staff, PCP Primary Care Physician Unavail able [facility]counter [facility] Date(s): 06/18/21 - 07/18/21 [facility] [address] [address]- Allergies, Adverse Reactions, Alerts Substance Reaction Severity [...] Mouth, Daily, # 30 capsule, 1 Refills, [id number], 163, cm, 07/09/21 8:01:00 EST, Height, 98.2, kg, 07/07/21 16:16:00 EST, Dry Weight Start Date: 07/13/21 Status: Ordered ProAir HFA 90 mcg/inh inhalation aerosol 2 puffs, Inhalation, 4 times a day, PRN Wheezing/Shortness of Breath, # 18 Gm, 1 Refills, Maintenance, 04/20/21 10:39:00 EST, [facility]/pharmacy #[id number], Partial fill upon patient request if the [...]
--- OUTSIDE RECORDS SUMMARY | 2023-11-29 23:29 | XMS_ITS | Continuity of Care Document ---
Author Organization [facility] Address [address] [place] [address]- Care Team Providers Care Lead Custodian Name Role Phone Not on Staff, PCP Primary Care Physician Unavail able Encounter [facility] Date(s): 07/03/21 - 08/02/21 [facility] [address] [address]- Allergies, Adverse Reactions, Alerts Substance Reaction Severity [...] Mouth, Daily, # 30 capsule, 1 Refills, [facility] [id number], 163, cm, 07/09/21 8:01:00 EST, Height, 98.2, [...]
--- OUTSIDE RECORDS SUMMARY | 2023-11-29 23:29 | XMS_ITS | Continuity of Care Document ---
Author Organization [facility] Address [address], [address] [place] [address]- Care Team Providers Care Human Resources Support Specialist Name Role Phone Not on Staff, PCP Primary Care Physician Unavail able Encounter [facility] Date(s): 04/17/21 - 05/17/21 [facility] [address], [address] [place] [address]- Allergies, Adverse Reactions, Alerts Substance Reaction Severity [...] Mouth, Daily, # 30 capsule, 1 Refills, [facility] [id number], 163, cm, 04/20/21 9:54:00 EST, Height, 87.997, kg, 03/12/21 21:19:00 EDT, Dry Weight Start Date: 05/13/21 Status: Ordered ProAir HFA 90 mcg/inh inhalation aerosol 2 puffs, Inhalation, 4 times a day, PRN Wheezing/Shortness of Breath, # 18 Gm, 1 Refills, Maintenance, 04/20/21 10:39:00 EST, [facility]/pharmacy #[id number], Partial fill upon patient request if the prescriptionis for a schedule II opioid drug., 2 puffs Inhalati... Start Date: 04/20/21 Status: Ordered Pyridium 200 mg oral tablet 1 tablet = 200 mg, By Mouth, 3 times a day, with food for burning with urination, # 6 tablet, 0 Refills, Maintenance, 04/17/21 8:55:00 EST, Tablet, [facility]/pharmacy #[id number], Partial fill upon patient request if [...] 09/22/20 11:05:00 EDT, Route to Pharmacy Electronically, [facility]/pharmacy #[id number], Partial fill upon patient request if the [...]
--- OUTSIDE RECORDS SUMMARY | 2023-11-29 23:29 | XMS_ITS | Continuity of Care Document ---
Author Organization [facility] Address [address], [address] [place] [address]- Care Team Providers Care Tree And Shrub Worker Name Role Phone Not on Staff, PCP Primary Care Physician Unavail able Encounter [facility] Date(s): 05/14/21 - 06/13/21 [facility] [address], [address]th [place] [address]- Allergies, Adverse Reactions, Alerts Substance Reaction Severity [...] Mouth, Daily, # 30 capsule, 1 Refills, [facility] [id number], 163, cm, 04/20/21 9:54:00 EST, Height, 87.997, kg, 03/12/21 21:19:00 EDT, Dry Weight Start Date: 05/13/21 Status: Ordered ProAir HFA 90 mcg/inh inhalation aerosol 2 puffs, Inhalation, 4 times a day, PRN Wheezing/Shortness of Breath, # 18 Gm, 1 Refills, Maintenance, 04/20/21 10:39:00 EST, [facility]/pharmacy #[id number], Partial fill upon patient request if [...]
--- OUTSIDE RECORDS SUMMARY | 2023-11-29 23:29 | XMS_ITS | Continuity of Care Document ---
Author Organization [facility] Address [address] [place] [address]- Care Team Providers Care Gift Officer Name Role Phone Not on Staff, PCP Primary Care Physician Unavail able [facility]counter [facility] Date(s): 03/23/21 - 06/03/21 [facility] [address] [address]- Attending Physician: Not on Staff, Attending MD Allergies, Adverse Reactions, Alerts Substance Reaction [...] Mouth, Daily, # 30 capsule, 1 Refills, [facility] [id number], 163, cm, 04/20/21 9:54:00 EST, Height, 87.997, kg, 03/12/21 21:19:00 EDT, Dry Weight Start Date: 05/13/21 Status: Ordered ProAir HFA 90 mcg/inh inhalation aerosol 2 puffs, Inhalation, 4 times a day, PRN Wheezing/Shortness of Breath, # 18 Gm, 1 Refills, Maintenance, 04/20/21 10:39:00 EST, [facility]/pharmacy #[id number], Partial fill upon patient request if the [...]
--- OUTSIDE RECORDS SUMMARY | 2023-11-29 23:29 | XMS_ITS | Continuity of Care Document ---
Author Organization [facility] Address [address] [place] [address] [address] [place] [address]- Care Team Providers Care Social Service Worker Name Role Phone Not on Staff, PCP Primary Care Physician Unavail able Encounter [facility] Date(s): 05/28/20 - 06/27/20 [facility] [address] [place] [address]- Attending Physician: AdmSepideh sifuentes Admitting Physician: Admtr, [...] Stop, 03/11/20 1:01:00 EST, Capsule, [id number], 160, cm, 03/11/20 0:02:00 EST, Height, 93, [...] 03/11/20 1:01:00 EST, Route to Pharmacy Electronically, [facility] #[id number], 160, cm, 03/11/20 0:02:00 EST, Height, 93, [...]
--- OUTSIDE RECORDS SUMMARY | 2023-11-29 23:29 | XMS_ITS | Continuity of Care Document ---
Author Organization [facility] Address [address] [place] [address] [address] [place] [address]- Care Team Providers Care Aircraft Powerplant Repairer Name Role Phone Not on Staff, PCP Primary Care Physician Unavail able Encounter [facility] Date(s): 02/01/20 - 02/08/20 [facility] [address] [place] [address]- [facility] Attending Physician: Ray Faith MD Referring Physician: Not on Staff, Referring [...] Print Requisition Start Date: 01/30/19 Status: Ordered Keflex monohydrate 500 mg oral capsule 1 capsule = 500 mg, By Mouth, 4 times a day, for 7 days, # 28 capsule, 0 Refills, Acute 02/11/20 12:50:00 EDT, 02/04/20 12:50:00 EDT, Capsule, [facility], 158, cm, 02/01/20 10:35:00 EDT, Height, 93, kg, 01/17/20 20:38:00 EDT, Dry Weight Start Date: 02/04/20 Stop Date: 02/11/20 Status: Ordered omeprazole 20 mg oral enteric [...] recent to oldest [Reference Range]: 1 Height 158 cm (02/01/20 9:20 AM) Weight 93 kg (02/01/20 9:20 AM) Body Mass Index [18.5-24.99] 37.25 *>HHI* (02/01/20 9:20 AM) Temperature [96.8-100.4 DegF] 97.5 DegF (02/01/20 9:20 AM) Social History Social History Type Response Tobacco Type: Cigarettes. To bacco use times per day: 1/2 PPD. Sex
--- OUTSIDE RECORDS SUMMARY | 2023-11-29 23:29 | XMS_ITS | Continuity of Care Document ---
Author Organization [facility] Address [address] [place] [address]- Care Team Providers Care Aircraft Engine Technician Name Role Phone Not on Staff, PCP Primary Care Physician Unavail able [facility]counter [facility] Date(s): 07/07/21 - 08/12/21 [facility] [address] [address]- Attending Physician: Najma Mendez MD Admitting Physician: Najma Mendez MD Referring Physician: Kareen Kilgore CNM Allergies, Adverse Reactions, Alerts Substance Reaction Severity [...] Mouth, Daily, # 30 capsule, 0 Refills, [facility] [id number], 163, cm, 07/09/21 8:01:00 EST, Height, 98.2, kg, 07/07/21 16:16:00 EST, Dry Weight Start Date: 08/05/21 Status: Ordered ProAir HFA 90 mcg/inh inhalation aerosol 2 puffs, Inhalation, 4 times a day, PRN Wheezing/Shortness of Breath, # 18 Gm, 1 Refills, Maintenance, 04/20/21 10:39:00 EST, [id number], Partial fill upon patient request if the [...]
--- OUTSIDE RECORDS SUMMARY | 2023-11-29 23:29 | XMS_ITS | Continuity of Care Document ---
Author Organization [facility] l[facility] alber[facility] Address [address] [place] [address] [address] [place] [address]- Care Team Providers Care Glass Technician Name Role Phone Not on Staff, PCP Primary Care Physician Unavail able Encounter [facility] Date(s): 02/11/20 - 02/18/20 [facility] [address] [place] [address]- [facility] Attending Physician: Ray Faith MD Referring [...] oldest [Reference Range]: 1 Height 158 cm (02/11/20 11:11 AM) Weight 92 kg (02/11/20 11:11 AM) Body Mass Index [18.5-24.99] 36.85 *>HHI* (02/11/20 11:11 AM) Temperature [96.8-100.4 DegF] 98.2 DegF (02/11/20 11:11 AM) Social History Social History Type Response Tobacco Type: Cigarettes. To bacco use times per day: 1/2 PPD. Sex
--- OUTSIDE RECORDS SUMMARY | 2023-11-29 23:29 | XMS_ITS | Continuity of Care Document ---
Author Organization [facility] Address [address] [place] [address]- Care Team Providers Care Cartographic Technician Name Role Phone Not on Staff, PCP Primary Care Physician Unavail able Encounter [facility] Date(s): 07/07/21 - 07/09/[address] [address]- Discharge Disposition: A-D/C Home Attending Physician: Hector Beard MD Admitting Physician: Hector Beard MD Referring Physician: Hector Beard MD Allergies, Adverse Reactions, Alerts Substance Reaction Severity Status melatonin rash Active Topamax slurred speech, neuro issues Active Bactrim anaphylaxis Active Adhesive Bandage 1 pederson Active 1clear plastic tape Immunizations Given and Recorded Vaccine Date Status Refusal Reason tetanus/diphtheria/pertussis, acel(Tdap) 04/20/21 Given tetanus/diphtheria/pertussis, acel(Tdap) 12/28/19 Given tetanus/diphtheria/pertussis, acel(Tdap) 01/06/16 Given influenza virus vaccine, inactivated 04/20/21 Give n Medications Acetaminophen Tablet 650 mg, Tablet, By Mouth, Every 4 hours, PRN for Pain , Mild, (1-3), may give 325mg per patient preference and re-dose with 325mg within 4 hours, if needed. Patient should only receive a total of 650mg of Acetaminophen every 4 hours., Routine, 07/08... Start Date: 07/08/21 Stop Date: 07/10/21 Status: Discontinued Ibuprofen Tablet 800 mg, Tablet, By Mouth, Every 8 hours, PRN for Pain , Moderate, (4-6), may give 400mg per patientpreference and re-dose with 400mg within 8 hours if needed. Patient should only receive a total of 800mg of Ibuprofen every 8 hours., Routine, 07/08/... Start Date: 07/08/21 Stop Date: 07/10/21 Status: Discontinued LSO for lower back pain LSO for lower back pain, See Instructions, # 1 each, Refills 0, Tot. Refills 0, Maintenance, size pt for LSO for lower back pain in , 04/20/21 10:38:00 EST, Supply Start Date: 04/20/21 Status: Ordered omeprazole 20 mg oral enteric coated capsule 1 capsule, By Mouth, Daily, # 30 capsule, 1 Refills, [facility] [id number], 163, cm, 06/15/21 10:08:00 EST, Height, 91, kg, 05/15/21 14:51:00 EST, Dry Weight Start Date: 06/15/21 Status: Ordered ProAir HFA 90 mcg/inh inhalation aerosol 2 puffs, Inhalation, 4 times a day, PRN Wheezing/Shortness of Breath, # 18 Gm, 1 Refills, Maintenance, 04/20/21 10:39:00 EST, [facility]/pharmacy #[id number], Partial fill upon patient request [...] to oldest [Reference Range]: 1 2 3 Height 163 cm (07/09/21 8:01 AM) 163 cm (07/09/21 12:14 AM) 163 cm (07/08/21 4:30 PM) Weight 98.2 kg (07/07/21 4:05 PM) Oxygen Saturation [94-100 %] 100 % (07/08/21 5:30 AM) 98 % (07/08/21 4:30 AM) 98 % (07/08/21 4:15 AM) Pulse Rate [55-90 bpm] 74 bpm (07/09/21 8:01 AM) 88 bpm (07/09/21 12:14 AM) 85 bpm (07/08/21 4:30 PM) Body Mass Index [18.5-24.99] 36.96 *>HHI* (07/07/21 4:05 PM) Blood Pressure [90-138/55-84 mm Hg] 124/60mm Hg (07/09/21 8:01 AM) 108/58mm Hg (07/09/21 12:14 AM) 113/70mm Hg (07/08/21 4:30 PM) Respiratory Rate [16-30 br/min] 16 br/min (07/09/21 8:04 AM) 16 br/min (07/09/21 8:04 AM) 19 br/min (07/09/21 8:01 AM) Temperature [96.8-100.4 DegF] 98.3 DegF (07/09/21 8:01 AM) 98.1 DegF (07/09/21 12:14 AM) 98.8 DegF (07/08/21 4:30 PM) Mode of Delivery (Oxygen) Room air (07/07/21 4:05 PM) Blood pressure sites Arm, left (07/09/21 8:01 AM) Arm, right (07/08/21 4:30 PM) Arm, right (07/08/21 8:30 AM) Temperature Route Oral (07/09/21 8:01 AM) Oral (07/09/21 12:14 AM) Oral (07/08/21 4:30 PM) Dry Weight 98.2 kg (07/07/21 4:05 PM) Social History Social History Type Response Smoking Status Current every day betzy nicolas; Other: 1.5cig/day; working on quitting; entered on: 07/31/15 Sex Female
--- OUTSIDE RECORDS SUMMARY | 2023-11-29 23:29 | XMS_ITS | Continuity of Care Document ---
Author Organization [facility] Rafael luis alberto Address [address] [place] [address] [address] [place] [address]- Care Team Providers Care Diversified Crops Ii Farmworker Name Role Phone Not on Staff, PCP Primary Care Physician Unavail able [facility]counter [facility] Date(s): 04/09/20 - 05/09/20 [facility] [address] [place] [address]- Allergies, Adverse Reactions, Alerts Substance Reaction Severity [...] Refills, Soft Stop, 03/11/20 1:01:00 EST, Capsule, [facility] #[id number], 160, cm, 03/11/20 0:02:00 EST, Height, 93, [...] 03/11/20 1:01:00 EST, Route to Pharmacy Electronically, [facility] #[id number], 160, cm, 03/11/20 0:02:00 EST, Height, 93, [...]
--- OUTSIDE RECORDS SUMMARY | 2023-11-29 23:29 | XMS_ITS | Continuity of Care Document ---
Author Organization [facility] ter Address [address] [place] [address]- Care Team Providers Care Executive Producer Name Role Phone Hector Mcdermott MD Primary Care Physician [place] [facility] [place] - 09/20/[address] [address]- Encounter Diagnosis Asthma exacerbation(Final) - 09/20/22 Discharge Disposition: A-D/C Home Attending Physician: Cruzito Warren DO Admitting Physician: Cruzito Warren DO Referring Physician: Not on Staff, Referring MD [...] Refills, Maintenance, 09/11/21 12:38:00 EDT, Capsule, [id number], Partial fill upon patient request if the prescription is for a schedule II opioid drug., 163, c... Start Date: 09/11/21 Status: Ordered Albuterol (Eqv-Proventil HFA) 90 mcg/inh inhalation aerosol 2 puffs, Inhalation, Every 6 hours, # 6.7 Gm, 5 Refills, Maintenance, 12/10/21 11:58:00 EDT, [facility]/pharmacy #[id number], Partial fill upon patient request if the prescription is for a schedule II opioid drug., 163, cm, 09/28/21 13:14:00 EDT, Height, 98.2, kg,... Start Date: 12/10/21 Status: Ordered albuterol 0.083% inhalation solution 3 mL = 2.5 mg, Neb, Every 6 hours, PRN as needed for wheezing, # 90 mL, 5 Refills, Maintenance, 12/10/21 11:58:00 EDT, Solution, [facility]/pharmacy #[id number], Partial fill upon patient request if the prescription is for a schedule II opioid drug., 163, cm, 2... Start Date: 12/10/21 Status: Ordered albuterol 0.083% inhalation solution 3 mL = 2.5 mg, Inhalation, Every 6 hours, # 120 each, 1 Refills, Maintenance, 09/20/22 20:49:00 EDT, Solution, [facility]/pharmacy #[id number], Partial fill upon patient request if the prescription is for a schedule II opioid drug., 160, cm, 09/20/22 12:05:00 EDT,... Start Date: 09/20/22 Status: Ordered cetirizine 10 mg oral capsule 1 capsule = 10 mg, By Mouth, Daily, PRN for allergy symptoms, # 40 capsule, 0 Refills, Maintenance,09/20/22 21:43:00 EDT, Capsule, [facility]/pharmacy #[id number], Partial fill upon patient request if the prescription is for a schedule II opioid drug., 160, cm, 0... Start Date: 09/20/22 Status: Ordered ibuprofen 800 mg oral tablet 1, tablet, By Mouth, Every 8 hours, # 90 tablet, Refills 0, Route to Pharmacy Electronically, [facility]125, 163, cm, 09/28/21 13:14:00 EDT, Height, 98.2, [...] Mouth, Daily, # 30 capsule, 0 Refills, [facility] 60724, 163, cm, 07/09/21 8:01:00 EST, Height, 98.2, kg, 07/07/21 16:16:00 EST, Dry Weight Start Date: 08/05/21 Status: Ordered oxyCODONE 5 mg oral tablet 5 mg, 1, tablet, By Mouth, Every 6 hours, PRN, # 7 tablet, Refills 0, Tot. Refills 0, Maintenance, as needed for pain, 09/11/21 12:38:00 EDT, Route to Pharmacy Electronically, [facility]/pharmacy #[id number], Partial fill upon patient request if the prescription i... Start Date: 09/11/21 Status: Ordered predniSONE 20 mg oral tablet 3 tablet = 60 mg, By Mouth, Daily, for 5 days, # 15 tablet, 0 Refills, Acute 09/25/22 20:50:00 EDT,09/20/22 20:50:00 EDT, Tablet, [facility]/pharmacy #[id number], Partial fill upon patient request if the prescription is for a schedule II opioid drug., 160, cm, 05... Start Date: 09/20/22 Stop Date: 09/25/22 Status: Ordered ProAir HFA 90 mcg/inh inhalation aerosol 2 puffs, Inhalation, 4 times a day, PRN Wheezing/Shortness of Breath, # 18 Gm, 1 Refills, Maintenance, 04/20/21 10:39:00 EST, [facility]/pharmacy #[id number], Partial fill upon patient request if [...] Confirmed Active Request for sterilization Confirmed Active Results Radiology Reports * Exam Date Time Procedure Performing Provider Status 09/20/22 4:22 PM Chest 2 Views Frontal and Lat Tracey Schultz; Milo (Verified) Notes: (Chest 2 Views Frontal and Lat) Reason For Exam: Chest Pain;Other: RESULT: Chest 2 Views Frontal and Lat Chest 2 Views Frontal and Lat Hx of Present Illness: Pt. Reports that she has hx of asthma , per pt she had asthma exacerbation 2weeks ago, pt. 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 Reports that she is feeling worse in the past couple of days.; Reason: Other:; Chest Pain; Clinical Question(s): Other: COMPARISON: None. FINDINGS: LINES AND TUBES: None. LUNGS AND PLEURA: Clear lungs. Normal pulmonary vascularity. No pleural effusion. No pneumothorax. HEART, MEDIASTINUM AND RICKI: Heart is normal in size. Normal mediastinal and hilar contour. BONES AND SOFT TISSUES: No acute abnormality. IMPRESSION: No acute abnormality. WSN: [id number] Ordering Physician: Eugenie Pereyra Dictated By: Osmany Graf MD Dictated Date/Time: 09/20/22 4:23 pm Reviewed By: Osmany Graf MD Signed By: Osmany Graf MD Signed Date/Time: 09/20/22 4:23 pm Transcribed By: MONI Transcribed Date/Time: 09/20/22 4:22 pm Vital Signs Most recent to oldest [Reference Range]: 1 2 3 Height 160 cm (09/20/22 9:20 PM) 160 cm (09/20/22 12:05 PM) Weight 86 kg (09/20/22 9:20 PM) 86 kg (09/20/22 12:05 PM) Oxygen Saturation [94-100 %] 100 % (09/20/22 9:20 PM) 100 % (09/20/22 8:44 PM) 100 % (09/20/22 4:58 PM) Pulse Rate [55-90 bpm] 102 bpm *H* (09/20/22 9:20 PM) 80 bpm (09/20/22 8:44 PM) 81 bpm (09/20/22 4:58 PM) Body Mass Index [18.5-24.99 kg/m2] 33.59 kg/m2 *>HHI* (09/20/22 9:20 PM) Blood Pressure [90-138/55-84 mm Hg] 135/76mm Hg (09/20/22 9:20 PM) 131/87mm Hg (09/20/22 8:44 PM) 133/78mm Hg (09/20/22 4:58 PM) Respiratory Rate [16-30 br/min] 17 br/min (09/20/22 9:20 PM) 18 br/min (09/20/22 8:44 PM) 18 br/min (09/20/22 4:58 PM) Temperature [96.8-100.4 DegF] 97.9 DegF (09/20/22 9:20 PM) 98.7 DegF (09/20/22 4:58 PM) 97.9 DegF (09/20/22 12:54 PM) Mode of Delivery (Oxygen) 135 (09/20/22 9:20 PM) Room air (09/20/22 8:44 PM) Room air (09/20/22 4:58 PM) Blood pressure sites Arm, right (09/20/22 9:20 PM) Arm, left (09/20/22 8:44 PM) Arm, right (09/20/22 4:58 PM) Temperature Route Oral (09/20/22 9:20 PM) Oral (09/20/22 4:58 PM) Oral (09/20/22 12:54 PM) Dry Weight 86 kg (09/20/22 9:20 PM) 86 kg (09/20/22 12:05 PM) Social History Social History Type Response Smoking Status Current every day sm oker; Other: 1.5cig/day; working on quitting; entered on: 07/31/15 Sex EKG study * Event Display: ECG 12-Lead Authored Date: Please click on pdf link to open report * Event Display: ECG 12-Lead Authored Date: Ventricular Rate: 79 BPM Atrial Rate: 79 BPM P-R Interval: 146 ms QRS Duration: 78 ms Q-T Interval: 400 ms QTC Calculation(Bazett): 458 ms P Flint: 8 degrees R Flint: 26 degrees T Flint: -1 degrees Normal sinus rhythm Normal ECG When compared with ECG of 09-DEC-2021 20:48, No significant change was found Confirmed by MERY ZACARIAS ([id number]) on 09/20/2022 11:28:46 AM [place]: MERY ZACARIAS Laboratory * [facility] , CIS S: TRANSCRIBE Osmany Graf MD: VERIFY Event Display: Result: Authored Date: Chest 2 Views Frontal and Lat Hx of Present Illness: Pt. Reports that she has hx of asthma , per pt she had asthma exacerbation 2weeks ago, pt. 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 Reports that she is feeling worse in the past couple of days.; Reason: Other:; Chest Pain; Clinical Question(s): Other: COMPARISON: None. FINDINGS: LINES AND TUBES: None. LUNGS AND PLEURA: Clear lungs. Normal pulmonary vascularity. No pleural effusion. No pneumothorax. HEART, MEDIASTINUM AND RICKI: Heart is normal in size. Normal mediastinal and hilar contour. BONES AND SOFT TISSUES: No acute abnormality. IMPRESSION: No acute abnormality. WSN: [id number] Ordering Physician: Eugenie Pereyra Dictated By: Osmany Graf MD Dictated Date/Time: 09/20/22 4:23 pm Reviewed By: Osmany Graf MD Signed By: Osmany Graf MD Signed Date/Time: 09/20/22 4:23 pm Transcribed By: MONI Transcribed Date/Time: 09/20/22 4:22 pm Patient Care team information Care Team Personnel Name: Haley Vasques RN Position: [facility] RN Member Role: Primary Care Nurse Name: Hector Mcdermott MD Position: Reference Physician Member Role: PCP Address: Address: [address] [place] [address]- [place] Name: *[facility], ED Attending Position: [facility] ED Attendings Patient Name: Sal Murray RN Position: [facility] ED RN W/OE and Tasks Member Role: Patient Care Provider Name: Maribel Larson Position: [facility] ED TA [facility] Member Role: Shipping Clerk Crating Name: Cruzito Warren DO Position: [facility] Resident Member Role: Admitting Physician Address: Address: [address] [place] [address] Dept [place] [address]- Care Team Related Persons Name: RUTHIE MALONE Address: [employer] Address: home [address] [facility] [address] [place] [address] [place] Name: FELIZ ANDREW Address: home [address] [place] [address] Name: ELIZA BETANCOURT Address: home [address] [place] [address] Name: LAURA FLORES Address: home [address] [facility] [address] [place] [address]
--- OUTSIDE RECORDS SUMMARY | 2023-11-29 23:29 | XMS_ITS | Continuity of Care Document ---
Author Organization [facility] Address [address] [place] [address]- Care Team Providers Care Retail Store Clerk Name Role Phone Not on Staff, PCP Primary Care Physician Unavail able [facility]counter [facility] Date(s): 03/10/23 - 04/09/[address] [address]- Allergies, Adverse Reactions, Alerts Substance Reaction Severity [...] 5 Refills, Maintenance, 12/10/21 11:58:00 EDT, Solution, [facility]/pharmacy #[id number], Partial fill upon patient request if the prescription is for a schedule II opioid drug., 163, cm, 052... Start Date: 12/10/21 Status: Ordered albuterol 0.083% inhalation solution 3 mL = 2.5 mg, Inhalation, Every 6 hours, # 120 each, 1 Refills, Maintenance, 09/20/22 20:49:00 EDT, Solution, [facility]/pharmacy #[id number], Partial fill upon patient request if the prescription is for a schedule II opioid drug., 160, cm, 09/20/22 12:05:00 EDT,... Start Date: 09/20/22 Status: Ordered cetirizine 10 mg oral capsule 1 capsule = 10 mg, By Mouth, Daily, PRN for allergy symptoms, # 40 capsule, 0 Refills, Maintenance,09/20/22 21:43:00 EDT, Capsule, [facility]/pharmacy #2339, Partial fill upon patient request if the prescription is for a schedule II opioid drug., 160, cm, 0... Start Date: 09/20/22 Status: Ordered ibuprofen 800 mg oral tablet 1, tablet, By Mouth, Every 8 hours, # 90 tablet, Refills 0, Route to Pharmacy Electronically, [facility] 12195, 163, cm, 09/28/21 13:14:00 EDT, Height, 98.2, [...] Mouth, Daily, # 30 capsule, 0 Refills, [facility] 50983, 163, cm, 07/09/21 8:01:00 EST, Height, 98.2, kg, 07/07/21 16:16:00 EST, Dry Weight Start Date: 08/05/21 Status: Ordered oxyCODONE 5 mg oral tablet 5 mg, 1, tablet, By Mouth, Every 6 hours, PRN, # 7 tablet, Refills 0, Tot. Refills 0, Maintenance, as needed for pain, 09/11/21 12:38:00 EDT, Route to Pharmacy Electronically, [facility]/pharmacy #2339, Partial fill upon patient request if the prescription i... Start Date: 09/11/21 Status: Ordered ProAir HFA 90 mcg/inh inhalation aerosol 2 puffs, Inhalation, 4 times a day, PRN Wheezing/Shortness of Breath, # 18 Gm, 1 Refills, Maintenance, 04/20/21 10:39:00 EST, [facility]/pharmacy #2339, Partial fill upon patient request if [...] DARIO MALONESIS Address: [employer] Address: home [address] [facility] [address] [place] [address] Name: FELIZ ANDREW Address: home [address] [place] [address] Name: ELIZA BETANCOURT Address: home [address] [place] [address] Name: LAURA FLORES Address: home [address] [facility] [address] [place] [address]
--- OUTSIDE RECORDS SUMMARY | 2023-11-29 23:29 | XMS_ITS | Continuity of Care Document ---
Author Organization [facility] Rafael luis alberto Address [address] [place] [address] [address] [place] [address]- Care Team Providers Care Statistician Applied Name Role Phone Not on Staff, PCP Primary Care Physician Unavail able Encounter [facility] Date(s): 02/25/20 - 03/03/20 [facility] [address] [place] [address]- [facility] Attending Physician: Ray Faith MD Allergies, Adverse [...] oldest [Reference Range]: 1 Height 158 cm (02/25/20 3:06 PM) Weight 92 kg (02/25/20 3:06 PM) Body Mass Index [18.5-24.99] 36.85 *>HHI* (02/25/20 3:06 PM) Temperature [96.8-100.4 DegF] 97.2 DegF (02/25/20 3:06 PM) Social History Social History Type Response Tobacco Type: Cigarettes. To bacco use times per day: 1/2 PPD. Sex
--- OUTSIDE RECORDS SUMMARY | 2023-11-29 23:29 | XMS_ITS | Continuity of Care Document ---
Author Organization [facility] Address [address] [place] [address]- Care Team Providers Care Analytics Senior Manager Name Role Phone Not on Staff, PCP Primary Care Physician Unavail able [place] [facility] [place](s[place] 09/28/21 - 10/28/[address] [address]- Attending Physician: Sepideh Solis Admitting Physician: Sepideh Solis Referring Physician: AdmtrSepideh Allergies, Adverse Reactions, Alerts [...] 0 Refills, Maintenance, 09/11/21 12:38:00 EDT, Capsule, [facility]/pharmacy #2339, Partial fill upon patient request if the prescription is for a schedule II opioid drug., 163, c... Start Date: 09/11/21 Status: Ordered ibuprofen 800 mg oral tablet 1, tablet, By Mouth, Every 8 hours, # 90 tablet, Refills 0, Route to Pharmacy Electronically, [facility] 09754, 163, cm, 09/28/21 13:14:00 EDT, Height, 98.2, [...] Mouth, Daily, # 30 capsule, 0 Refills, [facility] 08742, 163, cm, 07/09/21 8:01:00 EST, Height, 98.2, kg, 07/07/21 16:16:00 EST, Dry Weight Start Date: 08/05/21 Status: Ordered oxyCODONE 5 mg oral tablet 5 mg, 1, tablet, By Mouth, Every 6 hours, PRN, # 7 tablet, Refills 0, Tot. Refills 0, Maintenance, as needed for pain, 09/11/21 12:38:00 EDT, Route to Pharmacy Electronically, [facility]/pharmacy #2339, Partial fill upon patient request if the prescription i... Start Date: 09/11/21 Status: Ordered ProAir HFA 90 mcg/inh inhalation aerosol 2 puffs, Inhalation, 4 times a day, PRN Wheezing/Shortness of Breath, # 18 Gm, 1 Refills, Maintenance, 04/20/21 10:39:00 EST, [facility]/pharmacy #2339, Partial fill upon patient request [...]
--- OUTSIDE RECORDS SUMMARY | 2023-11-29 23:29 | XMS_ITS | Continuity of Care Document ---
Author Organization [facility] Address [address] [place] [address]- Care Team Providers Care Facilities Coordinator Name Role Phone Not on Staff, PCP Primary Care Physician Unavail able [facility]counter [facility] Date(s): 09/10/21 - 10/23/21 [facility] [address] [address]- Attending Physician: Not on Staff, Attending MD [...] 0 Refills, Maintenance, 09/11/21 12:38:00 EDT, Capsule, [facility]/pharmacy #2335, Partial fill upon patient request if the prescription is for a schedule II opioid drug., 163, c... Start Date: 09/11/21 Status: Ordered ibuprofen 800 mg oral tablet 1, tablet, By Mouth, Every 8 hours, # 90 tablet, Refills 0, Route to Pharmacy Electronically, [facility] 47359, 163, cm, 09/28/21 13:14:00 EDT, Height, 98.2, [...] Mouth, Daily, # 30 capsule, 0 Refills, [facility] STORE 65910, 163, cm, 07/09/21 8:01:00 EST, Height, 98.2, kg, 07/07/21 16:16:00 EST, Dry Weight Start Date: 08/05/21 Status: Ordered oxyCODONE 5 mg oral tablet 5 mg, 1, tablet, By Mouth, Every 6 hours, PRN, # 7 tablet, Refills 0, Tot. Refills 0, Maintenance, as needed for pain, 09/11/21 12:38:00 EDT, Route to Pharmacy Electronically, [facility]/pharmacy #2339, Partial fill upon patient request if the prescription i... Start Date: 09/11/21 Status: Ordered ProAir HFA 90 mcg/inh inhalation aerosol 2 puffs, Inhalation, 4 times a day, PRN Wheezing/Shortness of Breath, # 18 Gm, 1 Refills, Maintenance, 04/20/21 10:39:00 EST, [facility]/pharmacy #2339, Partial fill upon patient request [...]
--- OUTSIDE RECORDS SUMMARY | 2023-11-29 23:29 | XMS_ITS | Continuity of Care Document ---
Author Organization [facility] Address [address] [place] [address]- Care Team Providers Care Oil Field Technician Name Role Phone Not on Staff, PCP Primary Care Physician Unavail able Encounter [facility] Date(s): 04/21/21 - 05/21/21 [facility] [address] [address]- Allergies, Adverse Reactions, Alerts Substance Reaction Severity [...] Mouth, Daily, # 30 capsule, 1 Refills, [facility] 33539, 163, cm, 04/20/21 9:54:00 EST, Height, 87.997, kg, 03/12/21 21:19:00 EDT, Dry Weight Start Date: 05/13/21 Status: Ordered ProAir HFA 90 mcg/inh inhalation aerosol 2 puffs, Inhalation, 4 times a day, PRN Wheezing/Shortness of Breath, # 18 Gm, 1 Refills, Maintenance, 04/20/21 10:39:00 EST, [facility]/pharmacy #3999, Partial fill upon patient request if the [...]
--- OUTSIDE RECORDS SUMMARY | 2023-11-29 23:29 | XMS_ITS | Continuity of Care Document ---
Author Organization [facility] Rafael luis alberto Address [address] [place] [address] [address] [place] [address]- Care Team Providers Care Media Associate Name Role Phone Not on Staff, PCP Primary Care Physician Unavail able Encounter [facility] [place] Date(s): 02/11/20 - 02/18/20 [facility] [address] [place] [address]- [facility] Attending Physician: Ray Faith MD [...]
--- OUTSIDE RECORDS SUMMARY | 2023-11-29 23:29 | XMS_ITS | Continuity of Care Document ---
Author Organization [facility] Address [address] [place] [address]- Care Team Providers Care Drop Count Associate Name Role Phone Not on Staff, PCP Primary Care Physician Unavail able [facility]counter [facility] Date(s): 04/20/21 - 08/12/21 [facility] [address] [address]- Attending Physician: Not on Staff, Attending MD [...] Mouth, Daily, # 30 capsule, 0 Refills, [facility] ST[facility] 39753, 163, cm, 07/09/21 8:01:00 EST, Height, 98.2, kg, 07/07/21 16:16:00 EST, Dry Weight Start Date: 08/05/21 Status: Ordered ProAir HFA 90 mcg/inh inhalation aerosol 2 puffs, Inhalation, 4 times a day, PRN Wheezing/Shortness of Breath, # 18 Gm, 1 Refills, Maintenance, 04/20/21 10:39:00 EST, [facility]/pharmacy #8139, Partial fill upon patient request if the [...]
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
--- OUTSIDE RECORDS SUMMARY | 2023-11-29 23:29 | XMS_ITS | Continuity of Care Document ---
Author Organization [facility] Rafael luis alberto Address [address] [place] [address] [address] [place] [address]- Care Team Providers Care Manager Lpn Name Role Phone Not on Staff, PCP Primary Care Physician Unavail able Encounter [facility] [place] Date(s): 02/01/20 - 03/15/20 [facility] [address] [place] [address]- Attending Physician: Dana Beltre Allergies, Adverse Reactions, Alerts Substance Reaction Severity [...] Refills, Soft Stop, 03/11/20 1:01:00 EST, Capsule, [facility] #[id number], 160, cm, 03/11/20 0:02:00 EST, Height, 93, [...] 03/11/20 1:01:00 EST, Route to Pharmacy Electronically, [facility] #[id number], 160, cm, 03/11/20 0:02:00 EST, Height, 93, [...]
--- OUTSIDE RECORDS SUMMARY | 2023-11-29 23:29 | XMS_ITS | Continuity of Care Document ---
Author Organization [facility] ter Address [address] [place] [address]- Care Team Providers Care Director Of Media Name Role Phone Hector Mcdermott MD Primary Care Physician Encounter [facility] [place] Date(s): 12/09/21 - 12/10/[address] [address]- Discharge Disposition: A-D/C Home Attending Physician: Yoandy Atwood MD Admitting Physician: Yoandy Atwood MD Referring Physician: Not on Staff, Referring [...] 5 Refills, Maintenance, 12/10/21 11:58:00 EDT, Solution, [facility]/pharmacy #[id number], Partial fill upon patient request if the prescription is for a schedule II opioid drug., 163, cm, 09/07... Start Date: 12/10/21 Status: Ordered ibuprofen 800 mg oral tablet 1, tablet, By Mouth, Every 8 hours, # 90 tablet, Refills 0, Route to Pharmacy Electronically, [id number], 163, cm, 09/28/21 13:14:00 EDT, Height, 98.2, [...] Mouth, Daily, # 30 capsule, 0 Refills, [facility] [id number], 163, cm, 07/09/21 8:01:00 EST, Height, 98.2, kg, 07/07/21 16:16:00 EST, Dry Weight Start Date: 08/05/21 Status: Ordered oxyCODONE 5 mg oral tablet 5 mg, 1, tablet, By Mouth, Every 6 hours, PRN, # 7 tablet, Refills 0, Tot. Refills 0, Maintenance, as needed for pain, 09/11/21 12:38:00 EDT, Route to Pharmacy Electronically, [facility]/pharmacy #[id number], Partial fill upon patient request if the prescription i... Start Date: 09/11/21 Status: Ordered predniSONE 20 mg oral tablet 3 tablet = 60 mg, By Mouth, Daily, for 5 days, # 15 tablet, 0 Refills, Acute 12/15/21 10:59:00 EDT,12/10/21 10:59:00 EDT, Tablet, [facility]/pharmacy #[id number], Partial fill upon patient request if the prescription is for a schedule II opioid drug., 163, cm, 05... Start Date: 12/10/21 Stop Date: 12/15/21 Status: Ordered ProAir HFA 90 mcg/inh inhalation [...] Current smoker(Confirmed) Active Request for sterilization(Confirmed) Active Results Radiology Reports * Exam Date Time Procedure Performing Provider Status 12/10/21 2:04 AM Chest 2 Views Frontal and Lat Carola Martinez; Auth (Verified) Notes: (Chest 2 Views Frontal and Lat) Reason For Exam: Chest Pain;Other: RESULT: Chest 2 Views Frontal and Lat Chest 2 Views Frontal and Lat Hx of Present Illness: reports increasing shortness of breath for the past 3 days with pleuritic chest pain.; Reason: Other:; Chest Pain; Clinical Question(s): Other: COMPARISON: 09/08/2020. FINDINGS: LINES AND TUBES: None. LUNGS AND PLEURA: Clear lungs. Normal pulmonary vascularity. No pleural effusion. No pneumothorax. HEART, MEDIASTINUM AND RICKI: Heart is normal in size. Normal upper mediastinal and hilar contour. BONES AND SOFT TISSUES: No acute abnormality. IMPRESSION: No acute abnormality. WSN: [id number] Ordering Physician: Marcia Burrows Dictated By: Sina Muhammad MD, V Dictated Date/Time: 12/10/21 7:42 am Reviewed By: Sina Muhammad MD, V Signed By: Sina Muhammad MD, V Signed Date/Time: 12/10/21 7:42 am Transcribed By: MONI Transcribed Date/Time: 12/10/21 7:39 am Vital Signs Most recent to oldest [Reference Range]: 1 2 3 Oxygen Saturation [94-100 %] 98 % (12/10/21 7:51 AM) 97 % (12/10/21 7:02 AM) 95 % (12/10/21 6:07 AM) Pulse Rate [55-90 bpm] 79 bpm (12/10/21 7:51 AM) 78 bpm (12/10/21 7:02 AM) 90 bpm (12/10/21 6:07 AM) Blood Pressure [90-138/55-84 mm Hg] 135/94mm Hg (12/10/21 7:51 AM) 137/90mm Hg (12/10/21 7:02 AM) 131/78mm Hg (12/10/21 6:07 AM) Respiratory Rate [16-30 br/min] 18 br/min (12/10/21 7:51 AM) 24 br/min (12/09/21 8:43 PM) Temperature [96.8-100.4 DegF] 98.0 DegF (12/10/21 7:51 AM) 97.2 DegF (12/10/21 7:02 AM) 98 DegF (12/10/21 6:07 AM) Mode of Delivery (Oxygen) Room air (12/10/21 7:51 AM) Room air (12/09/21 8:43 PM) Blood pressure sites Arm, left (12/10/21 7:51 AM) Arm, right (12/10/21 7:02 AM) Arm, right (12/10/21 6:07 AM) Temperature Route Oral (12/10/21 7:51 AM) Oral (12/10/21 7:02 AM) Oral (12/10/21 6:07 AM) Social History Social History Type Response Smoking Status Current every day sm oker; Other: 1.5cig/day; working on quitting; entered on: 07/31/15 Sex
--- OUTSIDE RECORDS SUMMARY | 2023-11-29 23:29 | XMS_ITS | Continuity of Care Document ---
Author Organization [facility] Address [address] [place] [id number]- Care Team Providers Care Hard Hat Diver Name Role Phone Not on Staff, PCP Primary Care Physician Unavail able Encounter [facility] Date(s): 08/06/21 - 09/05/21 [facility] [address] [address]- Allergies, Adverse Reactions, Alerts Substance Reaction Severity [...] Mouth, Daily, # 30 capsule, 0 Refills, [id number], 163, cm, 07/09/21 8:01:00 EST, Height, 98.2, kg, 07/07/21 16:16:00 EST, Dry Weight Start Date: 08/05/21 Status: Ordered ProAir HFA 90 mcg/inh inhalation aerosol 2 puffs, Inhalation, 4 times a day, PRN Wheezing/Shortness of Breath, # 18 Gm, 1 Refills, Maintenance, 04/20/21 10:39:00 EST, [facility]/pharmacy #[id number], Partial fill upon patient request [...]
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
[2023-11-29] MEDS: Ibuprofen 600 MG TABLET PO (23:58)
[2023-11-30 00:04] VITALS: BP 128/86; PULSE 76; RESP 18; TEMP 36.4; O2SAT 100
== END 2023-11-30 00:07 | disposition home or self-care (01) ==
PROVIDERS: Emergency Provider Internal Medicine
DX: S93.402A Sprain of unspecified ligament of left ankle, initial encounter (principal); X50.1XXA Overexertion from prolonged static or awkward postures, initial encounter; Y93.9 Activity, unspecified; Y92.9 Unspecified place or not applicable; Y99.9 Unspecified external cause status
CPT/HCPCS: 73600; 99283; 99284

== ENCOUNTER → 2024-01-12 13:32 | Outpatient (AMB) | payer OTHER, SELFPAY ==
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
[2024-01-12 13:53] VITALS: BP 112/66; PULSE 107; TEMP 37; O2SAT 98; BMI 27.6
[2024-01-12 14:26] VITALS: PULSE 85
== END ==
PROVIDERS: Visit Provider Physician Assistant
DX: M25.522 Pain in left elbow (principal)
CPT/HCPCS: 99204

== ENCOUNTER 2024-01-12 17:11 | Observation (INO) | payer OTHER, SELFPAY ==
--- NOTE | ~2024-01-12 | XR_ITS ---
EXAMINATION: XR ELBOW, LEFT CLINICAL INFORMATION: Pain and swelling COMPARISON: None available. TECHNIQUE: AP, lateral, and oblique views of the left elbow. FINDINGS: The bones are normal. No fracture or joint effusion. Alignment is anatomic. Joint spaces are maintained. Diffuse nonspecific cutaneous edema. XR/XR elbow LT min 3V IMPRESSION: 1. No acute fracture or dislocation. 2. Diffuse nonspecific cutaneous edema. Electronically signed by: Yohannes Steve MD 01/12/2024 07:27 PM EDT
[2024-01-12 17:38] VITALS: BP 165/89; PULSE 110; RESP 18; TEMP 36.6; O2SAT 98; BMI 27.6
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
--- OUTSIDE RECORDS SUMMARY | 2024-01-12 18:14 | XMS_ITS | Continuity of Care Document ---
Author Organization [facility] Address [address] [place] [id number]- Care Team Providers Care Plush Finisher Name Role Phone Not on Staff, PCP Primary Care Physician Unavail able Encounter [facility] [place] [facility] Date(s): 10/14/23 - 10/14/[address] [address] Discharge Disposition: A-D/C Home Attending Physician: Arturo Sethi MD Admitting Physician: Arturo Sethi MD Referring Physician: Arturo Sethi MD Allergies, Adverse Reactions, Alerts Substance Reaction [...] Refills, Maintenance, 09/11/21 12:38:00 EDT, Capsule, [id number], Partial fill upon patient request if the prescription is for a schedule II opioid drug., 163, c... Start Date: 09/11/21 Status: Ordered albuterol 0.083% inhalation solution 3 mL = 2.5 mg, Neb, Every 6 hours, PRN as needed for wheezing, # 90 mL, 5 Refills, Maintenance, 12/10/21 11:58:00 EDT, Solution, [id number], Partial fill upon patient request if the prescription is for a schedule II opioid drug., 163, cm, 05/2... Start Date: 12/10/21 Status: Ordered Cannabis (Schedule I Substance) 0 Refills, Maintenance, 09/15/23 9:02:00 EDT, Partial fill upon patient request if the prescriptionis for a schedule II opioid drug. Start Date: 09/15/23 Status: Ordered cetirizine 10 mg oral capsule 1 capsule = 10 mg, By Mouth, Daily, PRN for allergy symptoms, # 40 capsule, 0 Refills, Maintenance,09/20/22 21:43:00 EDT, Capsule, [id number], Partial fill upon patient request if the prescription is for a schedule II opioid drug., 160, cm, 0... Start Date: 09/20/22 Status: Ordered escitalopram 10 mg oral tablet 1 tablet = 10 mg, By Mouth, Daily in AM, # 30 tablet, 5 Refills, Maintenance, 09/15/23 9:02:00 EDT,Tablet, Partial fill upon patient request if the prescription is for a schedule II opioid drug. Start Date: 09/15/23 Status: Ordered Fentanyl Inj (PACU ONLY) 25 mcg, Injection, IV Push Slowly, Every 5 minutes for 8 doses/times, in PACU ONLY, PRN for Pain , Moderate, Routine, 10/14/23 12:04:00 EDT, Stop date 10/15/23 0:00:00 EDT Start Date: 10/14/23 Stop Date: 10/14/23 Status: Discontinued folic acid 1 mg oral tablet 30 each, 0 Refill(s), TAKE 1 TABLET BY MOUTH EVERY DAY, Refills 0, 09/26/23 10:30:00 EDT, Partial fill upon patient request if the prescription is for a schedule II opioid drug. Start Date: 09/26/23 Status: Ordered guanFACINE 1 mg oral tablet 1 mg, 1, tablet, By Mouth, Daily at bedtime, # 30 tablet, Refills 0, Maintenance, 09/15/23 9:01:00 EDT, Partial fill upon patient request if the prescription is for a schedule II opioid drug. Start Date: 09/15/23 Status: Ordered ibuprofen 600 mg oral tablet 600 mg, 1, tablet, By Mouth, Every 6 hours, PRN, for 14 days, # 50 tablet, Refills 0, Tot. Refills 0, Acute 10/28/23 12:27:00 EDT, Pain , Moderate, 10/14/23 12:27:00 EDT, Route to Pharmacy Electronically, [facility]/pharmacy #[id number], Partial fill upon patient... Start Date: 10/14/23 Stop Date: 10/28/23 Status: Ordered ibuprofen 800 mg oral tablet 1, tablet, By Mouth, Every 8 hours, # 90 tablet, Refills 0, Route to Pharmacy Electronically, [facility] ST[facility] [id number], 163, cm, 09/28/21 13:14:00 EDT, Height, 98.2, kg, 07/07/21 16:16:00 EST, Dry Weight Start Date: 10/11/21 Status: Ordered levothyroxine 0.025 mg oral tablet 1 tablet = 25 mcg, By Mouth, Daily in AM, # 30 tablet, 0 Refills, Maintenance, 09/15/23 9:01:00 EDT, Tablet, Partial fill upon patient request if the prescription is for a schedule II opioid drug. Start Date: 09/15/23 Status: Ordered LSO for lower back pain LSO for lower back pain, See Instructions, # 1 each, Refills 0, Tot. Refills 0, Maintenance, size pt for LSO for lower back pain in , 04/20/21 10:38:00 EST, Supply Start Date: 04/20/21 Status: Ordered methylphenidate 18 mg oral tablet, extended release 1 tablet = 18 mg, By Mouth, Daily in AM, 0 Refills, Maintenance, 09/15/23 9:01:00 EDT, ER Tablet, Partial fill upon patient request if the prescription is for a schedule II opioid drug. Start Date: 09/15/23 Status: Ordered nitrofurantoin macrocrystals-monohydrate 100 mg oral capsule 10 each, 0 Refill(s), TAKE 1 CAPSULE BY MOUTH TWICE A DAY FOR 5 DAYS, 0 Refills, 09/26/23 10:30:00 EDT, Partial fill upon patient request if the prescription is for a schedule II opioid drug. Start Date: 09/26/23 Status: Ordered omeprazole 20 mg oral enteric coated capsule 1 capsule, By Mouth, Daily, # 30 capsule, 0 Refills, [facility] STORE [id number], 163, cm, 07/09/21 8:01:00 EST, Height, 98.2, kg, 07/07/21 16:16:00 EST, Dry Weight Start Date: 08/05/21 Status: Ordered OXcarbazepine 300 mg oral tablet By Mouth, 3 times a day, 300 mg at 7am, 1pm and 600mg at bedtime, # 120 tablet, Refills 0, Maintenance, 09/15/23 9:01:00 EDT, Partial fill upon patient request if the prescription is for a schedule II opioid drug. Start Date: 09/15/23 Status: Ordered Oxycodone 5mg Oral Tablet (PACU ONLY) 5 mg, Tablet, By Mouth, Once, in PACU ONLY, PRN for Pain , Moderate, Routine, 10/14/23 12:04:00 EDT Start Date: 10/14/23 Stop Date: 10/14/23 Status: Completed ProAir HFA 90 mcg/inh inhalation aerosol 2 puffs, Inhalation, 4 times a day, PRN Wheezing/Shortness of Breath, # 18 Gm, 1 Refills, Maintenance, 04/20/21 10:39:00 EST, [facility]/pharmacy #[id number], Partial fill upon patient request if the prescriptionis for a schedule II opioid drug., 2 puffs Inhalati... Start Date: 04/20/21 Status: Ordered Tylenol 325 mg oral tablet 650 mg, 2, tablet, By Mouth, Every 6 hours, PRN, for 14 days, # 100 tablet, Refills 0, Tot. Refills0, Acute 10/28/23 12:27:00 EDT, Pain , Mild, 10/14/23 12:27:00 EDT, Route to Pharmacy Electronically, [facility]/pharmacy #[id number], Partial fill upon patient req... Start Date: 10/14/23 Stop Date: 10/28/23 Status: Ordered Vivitrol 380 mg intramuscular injection, extended release = 380 mg, Intramuscular, Every 28 days, 0 Refills, Maintenance, 09/15/23 9:01:00 EDT, Partial fill upon patient request if the prescription is for a schedule II opioid drug. Start Date: 09/15/23 Status: Ordered Problem List Condition Confirmation Course [...] Confirmed Active Request for sterilization Confirmed Active Vital Signs Most recent to oldest [Reference Range]: 1 2 3 Height 160.02 cm (10/14/23 10:24 AM) 160.02 cm (10/12/23 9:52 AM) Weight 77 kg (10/14/23 10:24 AM) 70.5 kg (10/12/23 9:52 AM) Oxygen Saturation [94-100 %] 97 % (10/14/23 1:00 PM) 100 % (10/14/23 12:45 PM) 100 % (10/14/23 12:30 PM) Pulse Rate [55-90 bpm] 70 bpm (10/14/23 10:24 AM) Body Mass Index [18.5-24.99 kg/m2] 30.07 kg/m2 *>HHI* (10/14/23 10:24 AM) 27.53 kg/m2 *H* (10/12/23 9:52 AM) Blood Pressure [90-138/55-84 mm Hg] 126/76mm Hg (10/14/23 12:45 PM) 138/80mm Hg (10/14/23 12:30 PM) 155/82mm Hg *H* (10/14/23 12:15 PM) Respiratory Rate [16-30 br/min] 20 br/min (10/14/23 1:30 PM) 20 br/min (10/14/23 1:28 PM) 16 br/min (10/14/23 1:00 PM) Temperature [96.8-100.4 DegF] 97.8 DegF (10/14/23 1:00 PM) 98.4 DegF (10/14/23 12:15 PM) 98 DegF (10/14/23 10:24 AM) Liters per Minute 5 L/min (10/14/23 12:30 PM) 5 L/min (10/14/23 12:15 PM) Mode of Delivery (Oxygen) Room air (10/14/23 12:45 PM) Simple face mask (10/14/23 12:30 PM) Simple face mask (10/14/23 12:15 PM) Temperature Route Femoral (10/14/23 1:00 PM) Temporal (10/14/23 12:15 PM) Temporal (10/14/23 10:24 AM) Dry Weight 77 kg (10/14/23 10:24 AM) 70.5 kg (10/12/23 9:52 AM) Weight Obtained Via Patient/family state d (10/12/23 9:52 AM) Dry Weight Obtained Via Standing scale (10/14/23 10:24 AM) Patient/family stated (10/12/23 9:52 AM) Social History Social History Type Response Smoking Status Current every day sm oker; Other: 1.5cig/day; working on quitting; entered on: 07/31/15 Sex Note * Marycruz White RN: PERFORM Event Display: Discharge/Transfer Note Hospital Authored Date: [id number] Nursing Discharge Note Entered On: 10/14/2023 14:37 EDT Performed On: 10/14/2023 14:36 EDT by Marycruz White RN Nursing Discharge Note 2 Discharge Time : 10/14/2023 14:20 EDT Discharge Level of Care at Discharge : Home/Intermediate/Foster Care Patient Left Unit Via : Wheelchair Patient Accompanied Off Unit with : Parent DC Instructions Provided & Signed by Pt : Yes Patient Understands D/C Instructions : Yes Patient Instructions Discharge Signed : Yes Did Pt have Specialty Bed or Wound Vac : No Marycruz White RN - 10/14/2023 14:36 EDT * Marycruz White RN: PERFORM Event Display: Patient Education/Instruction Authored Date: [id number] Surgery Adult Discharge Instructions [address] [address] Name: JEAN CARLOS BETANCOURT : 1990?? Visit: 10/14/2023 09:57?? Current Date: 10/14/2023 14:04 ?? Account: [id number]?? Surgery Discharge Instructions We would like to thank you for allowing us to assist you with your healthcare needs. The following includes patient education materials and information regarding your injury/illness. Our entire staffstrives to provide an excellent experience for our patients and their families. PLEASE ENSURE YOU FOLLOW-UP PER THE INSTRUCTIONS BELOW! ?? YOUR OPINION IS IMPORTANT TO US! Please complete the survey you may receive by mail or email. Your feedback will be used to make improvements to the healthcare experiences of our patients and their families. Surveys are administered by [employer] ?? If further treatment with your primary care physician or another doctor is recommended, it is important for you to keep the appointment. Call your primary care physician or return to the Emergency Department immediately if your condition worsens, fails to improve, or new symptoms develop. If you need to find a doctor, you can call [facility] [employer] Link for a referral at [phone] or toll free at [phone] ([phone]) or log in to [email or web address] ?? [facility], in keeping with [facility] guidance, no longer requires face masks for staff, patientsor visitors in most situations. Similiar to time spent indoors at other locations, there is the chance that you were exposed to repiratory viruses during your time with us (such as flu or COVID-19). If you develop symptoms concerning for a viral respiratory infection, please seek testing (and treatment if indicated) from your medical provider or home test kit. ?? You can view and manage your care through the patient portal or by using a health care hue of your choosing. [email or web address] is a website that allows you to securely view your medical information including your hospital discharge summary, office visit summaries, medications and follow-up visits. You can also request appointments, renew medications, and request access to your medical information using a health care hue of your choosing, or just ask a question. You are entitled to know the individuals who participated in your treatment. This information is available within your medical record and will be provided upon your request. You can enroll at [email or web address] or register d uring your next office visit. You have been discharged from [facility] [place], Patient Care Unit: [facility]??. If you have any questions regarding these instructions after you leave, please call us and we will be happy to assist you. [facility] Your Care Team Attending Physician Jossie CLOUD, Arturo?? Discharging Providers Aby CLOUD, Marian Ayala Reason for Admission RADIAL COLLATERAL LIGAMENT INJURY Primary Care Provider Not on Staff, PCP?? Advance Directive Health Care Proxy on File Yes - Health Care Proxy What to do next Instructions From Your Doctor ?? Orders?? Unit Discharge Criteria Met, ??10/14/23 12:26:00 EDT?? Prescriptions??, ??10/14/23 12:26:00 EDT?? Scheduled Follow-Up Appointments Tuesday 10:20 AM EDT ?? With: Nupur Johnston Where: [facility] [address] [place] [id number]- Status: Pending 2023 2:20 PM EDT ?? With: Dana Beltre Where: [facility] [address] [place] [id number]- Status: Pending You Need to Schedule the Following Appointments Follow Up with??Arturo Sethi Where: [address] [place] [address] Drive [address] [facility] [place] [address]- Business (1) Follow Up with??PCP Not on Staff When:??In 0 days Discharge Medications ASIA JEAN CARLOS FREDERIC :1990 Visit Date:10/14/2023 Medications: Please continue your medications until treatment is completed or stopped by your provider. You may resume your daily prescription medications. Discuss any questions related to medications with your provider. What How Much When Why Instructions Next Dose Changed Acetaminophen (acetaminophen 325 mg oral capsule) 2 capsule Oral Every 4 hours as needed for Pain , Moderate Changed Acetaminophen (Tylenol 325 mg oral tablet) 2 tab(s) Oral Every 6 hours as needed for Pain , Mild Duration: 14 Days Pickup at [facility]/pharmacy #[id number] Changed Escitalopram (escitalopram 10 mg oral tablet) 1 tab(s) Oral Daily in the morning Changed Ibuprofen (ibuprofen 600 mg oral tablet) 1 tab(s) Oral Every 6 hours as needed for Pain , Moderate Duration: 14 Days Pickup at [facility]/pharmacy #[id number] Changed Ibuprofen (ibuprofen 800 mg oral tablet) 1 tab(s) Oral Every 8 hours Unchanged Albuterol (albuterol 0.083% inhalation solution) 3 Milliliter Nebulized inhalation Every 6 hours as needed for as needed for wheezing Unchanged Albuterol (ProAir HFA 90 mcg/ inh inhalation aerosol) 2 puff(s) Inhalation 4 times a day as needed for Wheezing/Shortness of Breath Unchanged Cannabis (Schedule I Substance) Unchanged Cetirizine (cetirizine 10 mg oral capsule) 1 capsule Oral Daily as needed for for allergy symptoms Unchanged Folic Acid (folic acid 1 mg oral tablet) 30 each, 0 Refill(s), TAKE 1 TABLET BY MOUTH EVERY DAY ?? Unchanged Guanfacine (guanFACINE 1 mg oral tablet) 1 tab(s) Oral Daily at Bedtime Unchanged Levothyroxine (levothyroxine 0.025 mg oral tablet) 1 tab(s) Oral Daily in the morning Unchanged Methylphenidate (methylphenidate 18 mg oral tablet, extended release) 1 tab(s) Oral Daily in the morning Unchanged Miscellaneous Rx (LSO for lower back pain) See instructions Pain in lower back size pt for LSO for lower back pain in ?? Unchanged Naltrexone (Vivitrol 380 mg intramuscular injection, extended release) 380 Milligram Intramuscular Every 28 days Unchanged Nitrofurantoin (nitrofurantoin macrocrystals-monohydrate 100 mg oral capsule) 10 each, 0 Refill(s), TAKE 1 CAPSULE BY MOUTH TWICE A DAY FOR 5 DAYS ?? Unchanged Omeprazole (omeprazole 20 mg oral enteric coated capsule) 1 capsule Oral Daily Unchanged Oxcarbazepine (OXcarbazepine 300 mg oral tablet) Oral 3 times a day 300 mg at 7am, 1pm and 600mg at bedtime ?? Pharmacy Information [facility]/pharmacy #[id number]: [address] [place] [phone] Allergies (NKA means No Known Allergies) Adhesive Bandage??(pederson) Bactrim??(anaphylaxis) Lactose??(upset stomach with milk) Topamax??(slurred speech, neuro issues) melatonin??(rash) Education Materials Below is the list of Educational Leaflet Providered with your Discharge Instructions. [employer] Patient Education - Surgery Medical Daystay Surgical Overnight Discharge Instructions?? Valuables and Belongings I fully understand and agree that [facility] accepts no responsibility for all my personal property including clothing, toilet articles, radios, jewelry, dentures, hearing aids, rings, money, or any other property that is in my possession or is brought to me after admission. I understand certain valuables may be placed in a hospital safe for a short period of time. I understand that the hospital is not liable for loss or damage due to accident, fire, or other natural occurrence while said property is in the safe. I accept full responsibility for any personal property that I keep with me, and will not hold the hospital responsible in case of loss or disappearance. I acknowledge that i have been encouraged to send valuables and belongings home. ?? Review of Valuable and Belonging List: With patient Date for Pt to Sign Valuables/Belongings: 10/14/23 10:24:00 ?? Valuables & Belongings ?? Clothes Electronic devices Jewelry Monetary Items Personal devices Miscellaneous Medications (Valuables) Valuables at Bedside Pants, Shirt, Shoes, Undergarments Cell phone ? Glasses, Other: hand brace ? Valuables Sent Home ? Valuables Sent to Security ? Other Discharge Information ? Pulmonary Rehab Status?? Pulmonary Rehab Discharge Status?? Respiratory Rate: 20 br/min ? Common Emergency Awareness Tips IS IT A STROKE? Act FAST and Check for these signs: FACE Does the face look uneven? ARM Does one arm drift down? SPEECH Does their speech sound strange? TIME Call at any sign of stroke ?? Heart Attack Signs Chest discomfort: Most heart attacks involve discomfort in the center of the chest and lasts more than a few minutes, or goes away and comes back. It can feel like uncomfortable pressure, squeezing, fullness or pain. Discomfort in upper body: Symptoms can include pain or discomfort in one or both arms, back, neck, jaw or stomach. Shortness of breath: With or without discomfort. Other signs: Breaking out in a cold sweat, nausea, or lightheaded. Remember, MINUTES DO MATTER. If you experience any of these heart attack warning signs, call to get immediate medical attention! ?? Smoking can increase your chances of developing chronic health problems and can cause harmful effects to other family members in your house. If you smoke, you are strongly encouraged to quit. Please call [facility] [employer] Link at [phone] or 8-337-353-[employer]ogo ([phone]) or log in to [email or web address] for referrals to smoking cessation programs. ?? The National Suicide Prevention Hotline is available 29/11 if you or someone you know needs to find a reason to keep living. By calling 0-766-752-[employer] (8447) you'll be connected to a skilled, trained counselor at a crisis center in your area. SURGERY DISCHARGE INSTRUCTIONS SIGNATURE PAGE LEILANIJEAN CARLOS DAHLN Location:[facility] Registration Date and Time:10/14/2023 09:57 EDT Primary Care Physician: Not on Staff, PCP Attending Physician: Jossie CLOUD, [facility], I JEAN CARLOS BETANCOURT, have received the above patient education materials/instructions and have verbalized understanding. If ambulance or transport services are being used I further acknowledge being given a choice of service. ?? If you need to contact me, please call me at this number: . Patient/Refrigerating Engineer Name: Patient/Refrigerating Engineer Signature: Relationship to Patient: Witness Name/Signature: Date: * Marycruz White RN: PERFORM, SIGN, VERIFY Event Display: Patient Education Handout Authored Date: * Marycruz White RN: PERFORM Event Display: Patient Education Leaflets Authored Date: [id number] Surgery Medical Daystay Surgical Overnight Discharge Instructions ?? 295 Medical Daystay/Surgical Overnight Discharge Instructions ? Since your coordination and judgment may be altered by medication and/or anesthesia, a responsible adult must drive you home from the hospital. ? If you have received medication for pain or sedation while under our care, you should not drive, operate machinery, drink alcohol, or sign any legal documents for 24 hours.?? You should have someone with you at home tonight. ? Remain at home the day of discharge.?? You may be up and about unless otherwise instructed by your physician. ? You may resume your daily prescription medication schedule.?? Any depressant medication should be avoided for 24 hours unless otherwise instructed by your surgeon or anesthesiologist. ? Call your physician for a follow-up appointment.? If you experience unusual or severe pain not relied by your pain medication, excessive bleedingor drainage, persistent nausea and vomiting, excessive swelling or redness, foul odor from incisionsite or fever over 100.6F, you need to call your physician. ? A follow-up phone call by a nurse will be made the day after your procedure.?? If you have stayed with us over night, you will not be receiving a follow-up phone call. ? Nausea and vomiting are a common side effect of prescription pain medication.?? We recommend that pills are not taken on an empty stomach.?? While taking any prescription pain medication you should not drive or drink alcohol. ? Patient Care team information Care Team Personnel Name: Maryanne Zambrano RN Position: [facility] RN Supv Member Role: Primary Care Nurse Name: Not on Staff, PCP Position: [facility] Physician (General Medicine) Member Role: PCP Care Team Related Persons Name: RUTHIE MALONE Address: [employer] Address: home [address] [address] Name: ELIZA BETANCOURT Address: home [address] [address] Name: ELIZA BETANCOURT Address: home [address] [place] [address]
--- OUTSIDE RECORDS SUMMARY | 2024-01-12 18:14 | XMS_ITS | Continuity of Care Document ---
Author Organization [facility] luis alberto Address [address] [place] [address] [address] [place] [address]- Care Team Providers Care Director Of Planning Name Role Phone Not on Staff, PCP Primary Care Physician Unavail able Encounter [facility] Date(s): 10/05/23 - 11/04/23 [facility] [address] [id number] Allergies, Adverse Reactions, Alerts Substance Reaction Severity Status melatonin rash Active Bactrim anaphylaxis Active Adhesive Bandage 1 pederson Active Lactose upset stomach with milk Acti ve Topamax slurred speech, neuro issues Active 1clear [...] cm, 2... Start Date: 12/10/21 Status: Ordered Cannabis (Schedule I Substance) 0 Refills, Maintenance, 09/15/23 9:02:00 EDT, Partial fill upon patient request if the prescriptionis for a schedule II opioid drug. Start Date: 09/15/23 Status: Ordered cetirizine 10 mg oral capsule 1 capsule = 10 mg, By Mouth, Daily, PRN for allergy symptoms, # 40 capsule, 0 Refills, Maintenance,09/20/22 21:43:00 EDT, Capsule, [facility]/pharmacy #[id number], Partial fill upon patient [...] opioid drug. Start Date: 09/15/23 Status: Ordered folic acid 1 mg oral tablet 30 [...] drug. Start Date: 09/15/23 Status: Ordered ibuprofen 800 mg oral tablet 1, tablet, By Mouth, Every 8 hours, # 90 tablet, Refills 0, Route to Pharmacy Electronically, [facility] STORE [id number], 163, cm, 09/28/21 13:14:00 EDT, Height, 98.2, [...] Mouth, Daily, # 30 capsule, 0 Refills, [facility] STORE [id number], 163, cm, 07/09/21 8:01:00 EST, Height, 98.2, [...] opioid drug. Start Date: 09/15/23 Status: Ordered ProAir HFA 90 mcg/inh inhalation aerosol 2 puffs, Inhalation, 4 times a day, PRN Wheezing/Shortness of Breath, # 18 Gm, 1 Refills, Maintenance, 04/20/21 10:39:00 EST, [facility]/pharmacy #[id number], Partial fill upon patient request if the prescriptionis for a schedule II opioid drug., 2 puffs Inhalati... Start Date: 04/20/21 Status: Ordered Vivitrol 380 mg intramuscular injection, [...] Team Personnel Name: Maryanne Zambrano RN Position: [facility] RN Supv Member Role: Primary Care Nurse Name: Not on Staff, PCP Position: [facility] Physician (General Medicine) Member Role: PCP Care Team Related Persons Name: RUTHIE MALONE Address: [employer] Address: home [address] [place] [address] Name: ELIZA BETANCOURT Address: home [address] [place] [address] Name: ELIZA BETANCOURT Address: home [address] [place] [address]
--- OUTSIDE RECORDS SUMMARY | 2024-01-12 18:14 | XMS_ITS | Continuity of Care Document ---
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 Name Role Phone Not on Staff, PCP Primary Care Physician Unavail able [facility]): [facility] - 12/08/23 [facility] [address] [address] Attending Physician: Admtr, Ar8 Admitting Physician: Admtr, Ar8 Referring Physician: Admtr, Ar8 Allergies, Adverse Reactions, Alerts Substance Reaction Severity Status melatonin rash Active Bactrim anaphylaxis Active Topamax slurred speech, neuro issues Active Adhesive Bandage 1 pederson Active Lactose [...] Refills, Maintenance, 09/11/21 12:38:00 EDT, Capsule, [id number], Partial fill upon patient request if the [...] cm, 09/07... Start Date: 12/10/21 Status: Ordered Cannabis (Schedule I Substance) 0 Refills, Maintenance, 09/15/23 9:02:00 EDT, Partial fill upon patient request if the prescriptionis for a schedule II opioid drug. Start Date: 09/15/23 Status: Ordered cetirizine 10 mg oral capsule 1 capsule = 10 mg, By Mouth, Daily, PRN for allergy symptoms, # 40 capsule, 0 Refills, Maintenance,09/20/22 21:43:00 EDT, Capsule, [facility]/pharmacy #[id number], Partial fill upon patient request [...] tablet, Refills 0, Route to Pharmacy Electronically, [facility] STORE 72514, 163, cm, 09/28/21 13:14:00 EDT, Height, 98.2, [...] Mouth, Daily, # 30 capsule, 0 Refills, [facility] 57574, 163, cm, 07/09/21 8:01:00 EST, Height, 98.2, [...] Refills, Maintenance, 04/20/21 10:39:00 EST, [facility]/pharmacy #[id number], Partial fill upon patient request if the [...] Team Personnel Name: Maryanne Zambrano RN Position: [facility] RN Supv Member Role: Primary Care Nurse Name: Not on Staff, PCP Position: [facility] Physician (General Medicine) Member Role: PCP Care Team Related Persons Name: RUTHIE MALOEN Address: AMER[employer] Address: home [address] [place] [phone] [place] Name: ELIZA BETANCOURT Address: home [address] [place] [address] Name: ELIZA BETANCOURT Address: home [address] [place] [address]
--- OUTSIDE RECORDS SUMMARY | 2024-01-12 18:14 | XMS_ITS | Continuity of Care Document ---
Author Organization [facility] luis alberto Address [address] [place] [address] [address] [place] [address]- Care Team Providers Care Sheriff'S Officer Name Role Phone Not on Staff, PCP Primary Care Physician Unavail able [facility] 11[facility]23 - 11/15/23 [facility] [address] [address] Attending Physician: Elvira Lazo Referring Physician: Not on Staff, Referring MD [...] capsule, 0 Refills, Maintenance,09/20/22 21:43:00 EDT, Capsule, [facility]/pharmacy #[id number], Partial fill upon patient request [...] tablet, Refills 0, Route to Pharmacy Electronically, [facility] STORE 69460, 163, cm, 09/28/21 13:14:00 EDT, Height, 98.2, [...] Mouth, Daily, # 30 capsule, 0 Refills, [facility] STORE 23284, 163, cm, 07/09/21 8:01:00 EST, Height, 98.2, [...] Gm, 1 Refills, Maintenance, 04/20/21 10:39:00 EST, [facility]/pharmacy #[id number], Partial fill upon patient request if the [...] Team Personnel Name: Maryanne Zambrano RN Position: [facility] RN Supv Member Role: Primary Care Nurse Name: Not on Staff, PCP Position: [facility] Physician (General Medicine) Member Role: PCP Care Team Related Persons Name: RUTHIE MALONE Address: AMNELI Address: home [address] [place] [phone] Name: ELIZA BETANCOURT Address: home [address] [place] [address] Name: ELIZA BETANCOURT Address: home [address] [place] [address]
--- OUTSIDE RECORDS SUMMARY | 2024-01-12 18:14 | XMS_ITS | Continuity of Care Document ---
Author Organization [facility] luis alberto Address [address] [place] [address] [address] [place] [address]- Care Team Providers Care Aluminum Polisher Name Role Phone Not on Staff, PCP Primary Care Physician Unavail able [facility] 10[facility]23 - 10/25/23 [facility] [address] [address]- Attending Physician: Not on Staff, Attending MD [...] cm, 052... Start Date: 12/10/21 Status: Ordered Cannabis (Schedule I Substance) 0 Refills, Maintenance, 09/15/23 9:02:00 EDT, Partial fill upon patient request if the prescriptionis for a schedule II opioid drug. Start Date: 09/15/23 Status: Ordered cetirizine 10 mg oral capsule 1 capsule = 10 mg, By Mouth, Daily, PRN for allergy symptoms, # 40 capsule, 0 Refills, Maintenance,09/20/22 21:43:00 EDT, Capsule, [facility]/pharmacy #[id number], Partial fill upon [...] 10/14/23 12:27:00 EDT, Route to Pharmacy Electronically, [facility]/pharmacy #[id number], Partial fill upon patient... Start Date: 10/14/23 Stop Date: 10/28/23 Status: Ordered ibuprofen 800 mg oral tablet 1, tablet, By Mouth, Every 8 hours, # 90 tablet, Refills 0, Route to Pharmacy Electronically, [facility] 09949, 163, cm, 09/28/21 13:14:00 EDT, Height, 98.2, [...] Mouth, Daily, # 30 capsule, 0 Refills, [facility] 64322, 163, cm, 07/09/21 8:01:00 EST, Height, 98.2, [...] Gm, 1 Refills, Maintenance, 04/20/21 10:39:00 EST, [facility]/pharmacy #[id number], Partial fill upon [...] 10/14/23 12:27:00 EDT, Route to Pharmacy Electronically, [facility]/pharmacy #[id number], Partial fill upon patient req... Start [...] recent to oldest [Reference Range]: 1 Height 160.02 cm (10/18/23 10:25 AM) Weight 77 kg (10/18/23 10:25 AM) Body Mass Index [18.5-24.99 kg/m2] 30.07 kg/m2 *>HHI* (10/18/23 10:25 AM) Social History Social History Type Response Smoking Status Current every day sm oker; Other: 1.5cig/day; working on quitting; entered on: 07/31/15 Sex Patient Care team information Care Team Personnel Name: Maryanne Zambrano RN Position: [facility] RN Supv Member Role: Primary Care Nurse Name: Not on Staff, PCP Position: [facility] Physician (General Medicine) Member Role: PCP Care Team Related Persons Name: RUTHIE MALNOE Address: AMER[employer] Address: home [address] [place] [address] Name: ELIZA BETANCOURT Address: home [address] [place] [address] Name: ELIZA BETANCOURT Address: home [address] [place] [address]
--- OUTSIDE RECORDS SUMMARY | 2024-01-12 18:14 | XMS_ITS | Continuity of Care Document ---
Author Organization [facility] luis alberto Address [address] [place] [address] [address] [place] [address]- Care Team Providers Care Accounts Payable Or Receivable Clerk Name Role Phone Not on Staff, PCP Primary Care Physician Unavail able [facility]s): 10/07/23 - 11/26/23 [facility] [address] [address] Attending Physician: Dana Beltre Allergies, Adverse Reactions, [...] capsule, 0 Refills, Maintenance,09/20/22 21:43:00 EDT, Capsule, [facility]/pharmacy #[id number], Partial fill upon patient [...] tablet, Refills 0, Route to Pharmacy Electronically, [facility] STORE 20510, 163, cm, 09/28/21 13:14:00 EDT, Height, 98.2, [...] Mouth, Daily, # 30 capsule, 0 Refills, [facility] STORE 53463, 163, cm, 07/09/21 8:01:00 EST, Height, 98.2, [...] Gm, 1 Refills, Maintenance, 04/20/21 10:39:00 EST, [facility]/pharmacy #[id number], Partial fill upon patient request if the [...] Team Personnel Name: Maryanne Zambrano RN Position: [facility] RN Supv Member Role: Primary Care Nurse Name: Not on Staff, PCP Position: [facility] Physician (General Medicine) Member Role: PCP Care Team Related Persons Name: RUTHIE MALONE Address: AMER[employer] Address: home [address] [place] [address] Name: ELIZA BETANCOURT Address: home [address] [place] [address] Name: ELIZA BETANCOURT Address: home [address] [place] [address]
--- OUTSIDE RECORDS SUMMARY | 2024-01-12 18:14 | XMS_ITS | Continuity of Care Document ---
Author Organization [facility] luis alberto Address [address] [place] [address] [address] [place] [address]- Care Team Providers Care House Detective Name Role Phone Not on Staff, PCP Primary Care Physician Unavail able [facility]): 10[facility]04/23 - 11/03/23 [facility] [address] [address] Allergies, Adverse Reactions, Alerts Substance Reaction Severity [...] capsule, 0 Refills, Maintenance,09/20/22 21:43:00 EDT, Capsule, [facility]/pharmacy #2339, Partial fill upon patient request if [...] tablet, Refills 0, Route to Pharmacy Electronically, [facility] STORE 39402, 163, cm, 09/28/21 13:14:00 EDT, Height, 98.2, [...] Mouth, Daily, # 30 capsule, 0 Refills, [facility] STORE 73166, 163, cm, 07/09/21 8:01:00 EST, Height, 98.2, [...] Gm, 1 Refills, Maintenance, 04/20/21 10:39:00 EST, [facility]/pharmacy #6317, Partial fill upon patient request if the [...] Team Personnel Name: Maryanne Zambrano RN Position: [facility] RN Supv Member Role: Primary Care Nurse Name: Not on Staff, PCP Position: [facility] Physician (General Medicine) Member Role: PCP Care Team Related Persons Name: RUTHIE MALONE Address: AMER[employer] Address: home [address] [place] [address] Name: ELIZA BETANCOURT Address: home [address] [place] [address] Name: ELIZA BETANCOURT Address: home [address] [place] [address]
--- OUTSIDE RECORDS SUMMARY | 2024-01-12 18:14 | XMS_ITS | Continuity of Care Document ---
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 Start Date: 10/14/23 Stop Date: 10/28/23 Status: Ordered ibuprofen 800 mg oral tablet 1, tablet, By Mouth, Every 8 hours, # 90 tablet, Refills 0, Route to Pharmacy Electronically, [facility] 05437, 163, cm, 09/28/21 13:14:00 EDT, Height, 98.2, [...] Mouth, Daily, # 30 capsule, 0 Refills, [facility] 14571, 163, cm, 07/09/21 8:01:00 EST, Height, 98.2, [...] Gm, 1 Refills, Maintenance, 04/20/21 10:39:00 EST, [facility]/pharmacy #[id number], Partial fill upon patient [...] 10/14/23 12:27:00 EDT, Route to Pharmacy Electronically, [facility]/pharmacy #[id number], Partial fill upon patient req... Start [...] Team Personnel Name: Maryanne Zambrano RN Position: [facility] RN Supv Member Role: Primary Care Nurse Name: Not on Staff, PCP Position: [facility] Physician (General Medicine) Member Role: PCP Care Team Related Persons Name: RUTHIE MALONE Address: AMER[employer] Address: home [address] [place] [address] [place] Name: ELIZA BETANCOURT Address: home [address] [place] [address] Name: ELIZA BETANCOURT Address: home [address] [place] [address]
--- OUTSIDE RECORDS SUMMARY | 2024-01-12 18:14 | XMS_ITS | Continuity of Care Document ---
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 Start Date: 10/14/23 Stop Date: 10/28/23 Status: Ordered ibuprofen 800 mg oral tablet 1, tablet, By Mouth, Every 8 hours, # 90 tablet, Refills 0, Route to Pharmacy Electronically, [facility] 81064, 163, cm, 09/28/21 13:14:00 EDT, Height, 98.2, [...] Mouth, Daily, # 30 capsule, 0 Refills, [facility] 93667, 163, cm, 07/09/21 8:01:00 EST, Height, 98.2, [...] 10/14/23 12:27:00 EDT, Route to Pharmacy Electronically, [facility]/pharmacy #[id number], Partial fill upon patient req... [...] Team Personnel Name: Maryanne Zambrano RN Position: [facility] RN Supv Member Role: Primary Care Nurse Name: Not on Staff, PCP Position: [facility] Physician (General Medicine) Member Role: PCP Care Team Related Persons Name: RUTHIE MALONE Address: AMERCN Address: home [address] [place] [address] Name: ELIZA BETANCOURT Address: home [address] [address] Name: ELIZA BETANCOURT Address: home [address] [place] [address]
--- OUTSIDE RECORDS SUMMARY | 2024-01-12 18:14 | XMS_ITS | Continuity of Care Document ---
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 Machine Operator Name Role Phone Not on Staff, PCP Primary Care Physician Unavail able Encounter [facility] Date(s): 10/04/23 - 11/04/[address] [address]- Attending Physician: Arturo Sethi MD Admitting Physician: Arturo Sethi MD Allergies, Adverse Reactions, [...] capsule, 0 Refills, Maintenance,09/20/22 21:43:00 EDT, Capsule, [facility]/pharmacy #[id number], [...] tablet, Refills 0, Route to Pharmacy Electronically, [facility] STORE 67871, 163, cm, 09/28/21 13:14:00 EDT, Height, 98.2, [...] [facility] STORE 98217, 163, cm, 07/09/21 8:01:00 EST, Height, 98.2, [...] EST, [facility]/pharmacy #2322, Partial fill upon patient request if the [...] Team Personnel Name: Maryanne Zambrano RN Position: [facility] RN Supv Member Role: Primary Care Nurse Name: Not on Staff, PCP Position: [facility] Physician (General Medicine) Member Role: PCP Care Team Related Persons Name: RUTHIE MALONE Address: AMER[employer] Address: home [address] [place] [address] Name: ELIZA BETANCOURT Address: home [address] [place] [address] Name: ELIZA BETANCOURT Address: home [address] [place] [address]
--- OUTSIDE RECORDS SUMMARY | 2024-01-12 18:14 | XMS_ITS | Continuity of Care Document ---
Author Organization [facility] luis alberto Address [address] [place] [address] [address] [place] [address]- Care Team Providers Care Business Machine Mechanic Name Role Phone Not on Staff, PCP Primary Care Physician Unavail able [place] [facility] [place]s): 09/26/23 - 10/03/23 [facility] [address] [address]- Attending Physician: Not on Staff, Attending MD [...] 1 Refills, Maintenance, 09/20/22 20:49:00 EDT, Solution, [id number], Partial fill upon patient request if the prescription is for a schedule II opioid drug., 160, cm, 09/20/22 12:05:00 EDT,... Start Date: 09/20/22 Status: Ordered Augmentin 500 mg-125 mg oral tablet 1 tablet, By Mouth, Every 12 hours, for 5 days, # 10 tablet, 0 Refills, Acute 10/07/23 21:45:00 EDT, 10/02/23 21:45:00 EDT, Tablet, [id number], Partial fill upon patient request if the prescription is for a schedule II opioid drug., 160.02, cm... Start Date: 10/02/23 Stop Date: 10/07/23 Status: Ordered Cannabis (Schedule I Substance) 0 [...] cm, 0... Start Date: 09/20/22 Status: Ordered Daily Gilles oral tablet 30 each, 0 Refill(s), TAKE 1 TABLET BY MOUTH EVERY DAY, 0 Refills, 09/26/23 10:30:00 EDT, Partial fill upon patient request if the prescription is for a schedule II opioid drug. Start Date: 09/26/23 Status: Ordered escitalopram 10 mg oral tablet 1 tablet = 10 mg, By Mouth, Daily, # 30 tablet, 5 Refills, Maintenance, 09/15/23 9:02:00 EDT, Tablet, Partial fill upon patient request if the prescription is for a schedule II opioid drug. Start Date: 09/15/23 Status: Ordered escitalopram 5 mg oral tablet 30 each, 0 Refill(s), TAKE 1 TABLET ORALLY DAILY, 0 Refills, 09/26/23 10:30:00 EDT, Partial fill upon patient request if the prescription is for a schedule II opioid drug. Start Date: 09/26/23 Status: Ordered folic acid 1 mg oral [...] opioid drug. Start Date: 09/15/23 Status: Ordered guanFACINE 1 mg oral tablet, extended release 15 each, 0 Refill(s), TAKE 1 TABLET BY MOUTH DAILY AT 1 PM FOR 15 DAYS, 0 Refills, 09/26/23 10:30:00 EDT, Partial fill upon patient request if the prescription is for a schedule II opioid drug. Start Date: 09/26/23 Status: Ordered ibuprofen 800 mg oral tablet 1, tablet, By Mouth, Every 8 hours, # 90 tablet, Refills 0, Route to Pharmacy Electronically, [facility] 87534, 163, cm, 09/28/21 13:14:00 EDT, Height, 98.2, kg, 07/07/21 16:16:00 EST, Dry Weight Start Date: 10/11/21 Status: Ordered levothyroxine 0.025 mg oral tablet 1 tablet = 25 mcg, By Mouth, Daily, # 30 tablet, 0 Refills, Maintenance, 09/15/23 [...] opioid drug. Start Date: 09/15/23 Status: Ordered naltrexone 50 mg oral tablet 30 each, 0 Refill(s), TAKE 1 TABLET BY MOUTH DAILY, 0 Refills, 09/26/23 10:30:00 EDT, Partial fill upon patient request if the prescription is for a schedule II opioid drug. Start Date: 09/26/23 Status: Ordered nitrofurantoin macrocrystals-monohydrate 100 mg oral [...] Daily, # 30 capsule, 0 Refills, [facility] 81304, 163, cm, 07/09/21 8:01:00 EST, Height, 98.2, kg, 07/07/21 16:16:00 EST, Dry Weight Start Date: 08/05/21 Status: Ordered OXcarbazepine 150 mg oral tablet 60 each, 0 Refill(s), TAKE 1 TABLET BY MOUTH TWICE A DAY, Refills 0, 09/26/23 10:30:00 EDT, Partialfill upon patient request if the prescription is for a schedule II opioid drug. Start Date: 09/26/23 Status: Ordered OXcarbazepine 300 mg oral tablet 600 mg, 2, tablet, By Mouth, 3 times a day, # 120 tablet, Refills 0, Maintenance, 09/15/23 9:01:00 EDT, Partial fill upon patient request if the prescription is for a schedule II opioid drug. Start Date: 09/15/23 Status: Ordered oxyCODONE 5 mg oral tablet 5 mg, 1, tablet, By Mouth, Every 6 hours, PRN, # 7 tablet, Refills 0, Tot. Refills 0, Maintenance, for pain, 09/15/23 9:47:00 EDT, Route to Pharmacy Electronically, [facility]/pharmacy #[id number], Partial fill upon patient request if the prescription is for a [place]... Start Date: 09/15/23 Status: Ordered oxyCODONE 5 mg oral tablet 5 mg, 1, tablet, By Mouth, Every 6 hours, PRN, # 7 tablet, Refills 0, Tot. Refills 0, Maintenance, as needed for pain, 09/11/21 12:38:00 EDT, Route to Pharmacy Electronically, [facility]/pharmacy #[id number], Partial fill upon patient request if the prescription i... Start Date: 09/11/21 Status: Ordered ProAir HFA 90 mcg/inh inhalation aerosol 2 puffs, Inhalation, 4 times a day, PRN Wheezing/Shortness of Breath, # 18 Gm, 1 Refills, Maintenance, 04/20/21 10:39:00 EST, [facility]/pharmacy #[id number], Partial fill upon patient request if [...] oldest [Reference Range]: 1 Height 160.02 cm (09/26/23 10:29 AM) Weight 75.3 kg (09/26/23 10:29 AM) Body Mass Index [18.5-24.99 kg/m2] 29.41 kg/m2 *H* (09/26/23 10:29 AM) Social History Social History Type Response Smoking Status Current every day sm oker; Other: 1.5cig/day; working on quitting; entered on: 07/31/15 Sex Patient Care team information Care Team Personnel Name: Maryanne Zambrano RN Position: [facility] RN Supv Member Role: Primary Care Nurse Name: Not on Staff, PCP Position: [facility] Physician (General Medicine) Member Role: PCP Care Team Related Persons Name: RUTHIE MALONE Address: [employer] Address: home [address] [place] [address] Name: ELIZA BETANCOURT Address: home [address] [place] [address] Name: ELIZA BETANCOURT Address: home [address] [place] [address]
--- OUTSIDE RECORDS SUMMARY | 2024-01-12 18:14 | XMS_ITS | Continuity of Care Document ---
Author Organization [facility] luis alberto Address [address] [place] [address] [address] [place] [address]- Care Team Providers Care Supervisor Testing Name Role Phone Not on Staff, PCP Primary Care Physician Unavail able Encounter [facility] [place] Date(s): 09/12/23 - 10/12/23 [facility] [address] [place] [address]- Allergies, Adverse Reactions, Alerts Substance Reaction Severity [...] 0 Refills, Maintenance,09/20/22 21:43:00 EDT, Capsule, [facility]/pharmacy #[id number], Partial fill upon patient request [...] Refills 0, Route to Pharmacy Electronically, [facility] STORE 10785, 163, cm, 09/28/21 13:14:00 EDT, Height, 98.2, [...] Daily, # 30 capsule, 0 Refills, [facility] 28715, 163, cm, 07/09/21 8:01:00 EST, Height, 98.2, [...] 1 Refills, Maintenance, 04/20/21 10:39:00 EST, [facility]/pharmacy #0188, Partial fill upon patient request if the [...] Team Personnel Name: Maryanne Zambrano RN Position: [facility] RN Supv Member Role: Primary Care Nurse Name: Not on Staff, PCP Position: [facility] Physician (General Medicine) Member Role: PCP Care Team Related Persons Name: RUTHIE MALONE Address: [employer] Address: home [address] [place] [address] [place] Name: ELIZA BETANCOURT Address: home [address] [place] [address] Name: ELIZA BETANCOURT Address: [address] [address]
--- OUTSIDE RECORDS SUMMARY | 2024-01-12 18:15 | XMS_ITS | Continuity of Care Document ---
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 Start Date: 09/11/21 Status: Ordered acetaminophen 325 mg oral tablet 650 mg, 2, tablet, By Mouth, Every 6 hours, PRN, # 100 tablet, Refills 0, Tot. Refills 0, Acute 09/29/23 9:48:00 EDT, as needed for pain, 09/15/23 9:47:00 EDT, Route to Pharmacy Electronically, [facility]/pharmacy #[id number], Partial fill upon patient request if... Start Date: 09/15/23 Stop Date: 09/29/23 Status: Ordered Albuterol (Eqv-Proventil HFA) 90 mcg/inh [...] 5 Refills, Maintenance, 12/10/21 11:58:00 EDT, Solution, [facility]/pharmacy #[id number], Partial fill upon patient request if the prescription is for a schedule II opioid drug., 163, cm, 09/07... Start Date: 12/10/21 Status: Ordered albuterol 0.083% inhalation solution 3 mL = 2.5 mg, Inhalation, Every 6 hours, # 120 each, 1 Refills, Maintenance, 09/20/22 20:49:00 EDT, Solution, [facility]/pharmacy #[id number], Partial fill upon patient request if the prescription is for a schedule II opioid drug., 160, cm, 09/20/22 12:05:00 EDT,... Start Date: 09/20/22 Status: Ordered Cannabis (Schedule I Substance) 0 Refills, Maintenance, 09/15/23 9:02:00 EDT, Partial fill upon patient request if the prescriptionis for a schedule II opioid drug. Start Date: 09/15/23 Status: Ordered cetirizine 10 mg oral capsule 1 capsule = 10 mg, By Mouth, Daily, PRN for allergy symptoms, # 40 capsule, 0 Refills, Maintenance,09/20/22 21:43:00 EDT, Capsule, [facility]/pharmacy #[id number], Partial fill upon patient request [...] 09/15/23 Status: Ordered guanFACINE 1 mg oral tablet 1 mg, 1, tablet, By Mouth, Daily at bedtime, # 30 tablet, Refills 0, Maintenance, 09/15/23 9:01:00 EDT, Partial fill upon patient request if the prescription is for a schedule II opioid drug. Start Date: 09/15/23 Status: Ordered ibuprofen 600 mg oral tablet 600 mg, 1, tablet, By Mouth, Every 6 hours, for 14 days, alternate every 6 hrs with tylenol, # 50 tablet, Refills 0, Tot. Refills 0, Acute 09/29/23 9:46:00 EDT, 09/15/23 9:46:00 EDT, Route to Pharmacy Electronically, [facility]/pharmacy #[id number], Partial fill u... Start Date: 09/15/23 Stop Date: 09/29/23 Status: Ordered ibuprofen 800 mg oral tablet 1, tablet, By Mouth, Every 8 hours, # 90 tablet, Refills 0, Route to Pharmacy Electronically, [facility] ST[facility] [id number], 163, cm, 09/28/21 13:14:00 EDT, Height, 98.2, [...] opioid drug. Start Date: 09/15/23 Status: Ordered omeprazole 20 mg oral enteric coated capsule 1 capsule, By Mouth, Daily, # 30 capsule, 0 Refills, [facility] [id number], 163, cm, 07/09/21 8:01:00 EST, Height, 98.2, [...] 09/15/23 9:47:00 EDT, Route to Pharmacy Electronically, [facility]/pharmacy #[id number], Partial fill upon patient request if the prescription is for a felton... Start Date: 09/15/23 Status: Ordered oxyCODONE 5 mg oral tablet 5 mg, 1, tablet, By Mouth, Every 6 hours, PRN, # 7 tablet, Refills 0, Tot. Refills 0, Maintenance, as needed for pain, 09/11/21 12:38:00 EDT, Route to Pharmacy Electronically, [facility]/pharmacy #[id number], Partial fill upon patient request if the prescription i... Start Date: 09/11/21 Status: Ordered Oxycodone 5mg Oral Tablet (PACU ONLY) 5 mg, Tablet, By Mouth, Once, in PACU ONLY, PRN for Pain , Moderate, Routine, 09/15/23 10:14:00 EDT Start Date: 09/15/23 Stop Date: 09/15/23 Status: Completed ProAir HFA 90 mcg/inh inhalation aerosol 2 puffs, Inhalation, 4 times a day, PRN Wheezing/Shortness of Breath, # 18 Gm, 1 Refills, Maintenance, 04/20/21 10:39:00 EST, [facility]/pharmacy #[id number], Partial fill upon patient request if the [...] Range]: 1 2 3 Height 160.02 cm (09/15/23 8:39 AM) 160.02 cm (09/13/23 4:05 PM) Weight 70.45 kg (09/15/23 8:39 AM) 70.45 kg (09/13/23 4:05 PM) Oxygen Saturation [94-100 %] 97 % (09/15/23 11:30 AM) 97 % (09/15/23 11:15 AM) 95 % (09/15/23 11:00 AM) Pulse Rate [55-90 bpm] 75 bpm (09/15/23 8:39 AM) Body Mass Index [18.5-24.99 kg/m2] 27.51 kg/m2 *H* (09/15/23 8:39 AM) 27.51 kg/m2 *H* (09/13/23 4:05 PM) Blood Pressure [90-138/55-84 mm Hg] 105/70mm Hg (09/15/23 11:30 AM) 112/68mm Hg (09/15/23 11:15 AM) 103/72mm Hg (09/15/23 11:00 AM) Respiratory Rate [16-30 br/min] 14 br/min *L* (09/15/23 12:19 PM) 14 br/min *L* (09/15/23 11:30 AM) 18 br/min (09/15/23 11:15 AM) Temperature [96.8-100.4 DegF] 97.5 DegF (09/15/23 11:30 AM) 97.6 DegF (09/15/23 10:15 AM) 98.8 DegF (09/15/23 8:39 AM) Liters per Minute 5 L/min (09/15/23 10:15 AM) Mode of Delivery (Oxygen) Room air (09/15/23 12:32 PM) Room air (09/15/23 11:30 AM) Room air (09/15/23 10:45 AM) Blood pressure sites Arm, left (09/15/23 10:15 AM) Temperature Route Temporal (09/15/23 11:30 AM) Temporal (09/15/23 10:15 AM) Temporal (09/15/23 8:39 AM) Dry Weight 75.3 kg (09/15/23 8:39 AM) 70.45 kg (09/13/23 4:05 PM) Weight Obtained Via Patient/family state d (09/13/23 4:05 PM) Dry Weight Obtained Via Standing scale (09/15/23 8:39 AM) Patient/family stated (09/13/23 4:05 PM) Social History Social History Type Response Smoking Status Current every day sm oker; Other: 1.5cig/day; working on quitting; entered on: 07/31/15 Sex History and physical note * Event Display: History and Physical Hospital Authored Date: [id number] Note * Marilyn Jose RN: PERFORM Event Display: Discharge/Transfer Note Hospital Authored Date: [id number] Nursing Discharge Note Entered On: 09/15/2023 12:38 EDT Performed On: 09/15/2023 12:38 EDT by Marilyn Jose RN Nursing Discharge Note 2 Discharge Time : 09/15/2023 12:32 EDT Discharge Level of Care at Discharge : Home/Retirement/Foster Care Patient Left Unit Via : Wheelchair Patient Accompanied Off Unit with : Responsible adult DC Instructions Provided & Signed by Pt : Yes Patient Understands D/C Instructions : Yes Verbalized Understanding of D/C Plan By : Patient Patient Instructions Discharge Signed : Yes Did Pt have Specialty Bed or Wound Vac : No Marilyn Jose RN - 09/15/2023 12:38 EDT * Marilyn Jose RN: PERFORM Event Display: Patient Education/Instruction Authored Date: Surgery Adult Discharge Instructions [address] [address] Name: JEAN CARLOS BETANCOURT : 1990?? Visit: 09/15/2023 07:41?? Current Date: 09/15/2023 11:30 ?? Account: [id number]?? Surgery Discharge Instructions We would like to [...] and their families. Surveys are administered by [employer] ?? If further treatment with your primary care physician or another doctor is recommended, it is important for you to keep the appointment. Call your primary care physician or return to the Emergency Department immediately if your condition worsens, fails to improve, or new symptoms develop. If you need to find a doctor, you can call [facility] [employer] Link for a referral at [phone] or toll free at [phone]) or log in to [email or web address].. ?? [facility], in keeping with [facility] guidance, no longer requires face masks for [...] a health care hue of your choosing. [employer] is a website that allows you to [...] your request. You can enroll at [email or web address] or register d uring your next office visit. You have been discharged from [facility], Patient Care Unit: [facility]??. If you have any questions regarding these instructions after you leave, please call us and we will be happy to assist you. [facility] Your Care Team Attending Physician Arturo Sethi MD?? Discharging Providers Nupur Johnston Reason for Admission METACARPAL FX Primary Care Provider Not on Staff, PCP?? Advance Directive Health Care Proxy on File Yes - Health Care Proxy What to do next Instructions From Your Doctor Post Op Splint ?? If you were prescribed Ibuprofen and/or Acetaminophen please take those as prescribed every 6 hoursfor the first 3 days ?? If you are given a prescription for oxycodone, you may take 5 mg every 6 hours for break thru pain only. ?? Apply an ice pack on top of the splint over the incision 20 minutes on and 40 minutes off for the first day ?? Keep your arm elevated for 7 days postop. Finger tips or wrist should be elevated above the elbow. ?? Keep splint clean and dry, cover with a plastic bag when showering ?? Please move your shoulder and elbow to prevent stiffness. Open and close your fingers if that are not in the splint. This will help with swelling and stiffness. Your goal should be a full fist by thetime you are seen in the office. ?? Gentle use of the hand is allowed using pain as a guide line; if what you are doing causes pain/discomfort then stop that activity. ?? Orders?? Unit Discharge Criteria Met, ??09/15/23 9:45:00 EDT?? Prescriptions??, ??09/15/23 9:45:00 EDT?? Instructions from your Care Team Elevate operative hand with pillows please see MD Sethi??post op instructions for details.?? Scheduled Follow-Up Appointments Tuesday 10:20 AM EDT ?? With: Nupur Johnston Where: [facility] Plastic Surgery [address] [place] [address]- Status: Pending You Need to Schedule the Following Appointments Follow Up with??Arturo Sethi Why: call for follow up and with any concerns Where: [address] [place] [address] [address] [facility]astic [facility] [place] [address]- Business (1) Follow Up with??PCP Not on Staff When:??In 0 days Discharge Medications ASIA JEAN CARLOSJESUS DE LA GARZA :1990 Visit Date:09/15/2023 Medications: Please continue your medications until treatment is completed or stopped by your provider. You may resume your daily prescription medications. Discuss any questions related to medications with your provider. What How Much When Why Instructions Next Dose Changed Acetaminophen (acetaminophen 325 mg oral capsule) 2 capsule Oral Every 4 hours as needed for Pain , Moderate Changed Acetaminophen (acetaminophen 325 mg oral tablet) 2 tab(s) Oral Every 6 hours as needed for as needed for pain Pickup at [facility]/pharmacy #[id number] 315PM NEEDED Changed Ibuprofen (ibuprofen 600 mg oral tablet) 1 tab(s) Oral Every 6 hours Duration: 14 Days alternate every 6 hrs with tylenol ?? Pickup at [facility]/pharmacy #[id number] 315PM NEEDED Changed Ibuprofen (ibuprofen 800 mg oral tablet) 1 tab(s) Oral Every 8 hours Changed Oxycodone (oxyCODONE 5 mg oral tablet) 1 tab(s) Oral Every 6 hours as needed for as needed for pain Changed Oxycodone (oxyCODONE 5 mg oral tablet) 1 tab(s) Oral Every 6 hours as needed for for pain Pickup at [facility]/pharmacy #[id number] NEEDED Unchanged Albuterol (Albuterol (Eqv-Proventil HFA) 90 mcg/ inh inhalation aerosol) 2 puff(s) Inhalation Every 6 hours RESUME Unchanged Albuterol (albuterol 0.083% inhalation solution) 3 Milliliter Inhalation Every 6 hours RESUME Unchanged Albuterol (albuterol 0.083% inhalation solution) 3 [...] Daily as needed for for allergy symptoms RESUME Unchanged Escitalopram (escitalopram 10 mg oral tablet) 1 tab(s) Oral Daily RESUME Unchanged Guanfacine (guanFACINE 1 mg oral tablet) 1 tab(s) Oral Daily at Bedtime RESUME Unchanged Levothyroxine (levothyroxine 0.025 mg oral tablet) 1 tab(s) Oral Daily RESUME Unchanged Methylphenidate (methylphenidate 18 mg oral tablet, extended release) 1 tab(s) Oral Daily in the morning RESUME Unchanged Miscellaneous Rx (LSO for lower back pain) See instructions Pain in lower back size pt for LSO for lower back pain in ?? Unchanged Naltrexone (Vivitrol 380 mg intramuscular injection, extended release) 380 Milligram Intramuscular Every 28 days RESUME Unchanged Omeprazole (omeprazole 20 mg oral enteric coated capsule) 1 capsule Oral Daily RESUME Unchanged Oxcarbazepine (OXcarbazepine 300 mg oral tablet) 2 tab(s) Oral 3 times a day RESUME Pharmacy Information [facility]/pharmacy #[id number]: [address] [place] [phone] Allergies (NKA means No Known Allergies) Adhesive Bandage??(pederson) Bactrim??(anaphylaxis) Lactose??(upset stomach with milk) Topamax??(slurred speech, neuro issues) melatonin??(rash) Education Materials Below is the list of Educational Leaflet Providered with your Discharge Instructions. Valuables and Belongings I fully understand and agree that [facility] accepts no responsibility for all my personal [...] to send valuables and belongings home. ?? Date for Pt to Sign Valuables/Belongings: 09/15/23 08:44:00 ?? Valuables & Belongings ?? Clothes Electronic devices Jewelry Monetary Items Personal devices Miscellaneous Medications (Valuables) Valuables at Bedside Jacket, Pants, Shirt, Shoes, Undergarments Cell phone ? Valuables Sent Home ? Valuables Sent to Security ? Other Discharge Information ? Pulmonary Rehab Status?? Pulmonary Rehab Discharge Status?? Respiratory Rate: 18 br/min ? Common Emergency Awareness Tips IS [...] are strongly encouraged to quit. Please call [employer] [facility] at [phone] or [phone]) or log in to [email or web address] for referrals to smoking cessation programs. ?? The National Suicide Prevention Hotline is available 29/11 if you or someone you know needs to find a reason to keep living. By calling 1-992-913-tdrx (4493) you'll be connected to a skilled, trained counselor at a crisis center in your area. SURGERY DISCHARGE INSTRUCTIONS SIGNATURE PAGE JEAN CARLOS BETANCOURT Location:[facility] Registration Date and Time:09/15/2023 07:41 EDT Primary Care Physician: Not on Staff, PCP Attending Physician: Jossie CLOUD, Annajethro, I JEAN CARLOS BETANCOURT, have received the above patient education materials/instructions and have verbalized understanding. If ambulance or transport services are being used I further acknowledge being given a choice of service. ?? If you need to contact me, please call me at this number: . Patient/Loading Supervisor Name: ROSALVA DE LA GARZA Patient/Loading Supervisor Signature: Relationship to Patient: SELF Witness Name/Signature: Date: 09/15/23 * Marilyn Jose RN: PERFORM, SIGN, VERIFY Event Display: Patient Education Handout Authored Date: [id number] * Marilyn Jose RN: PERFORM Event Display: Patient Education Leaflets Authored Date: [id number] Surgery Medical Daystay Surgical Overnight Discharge Instructions [...] should not drive or drink alcohol. ? * Marilyn Jose RN: PERFORM Event Display: Patient Education Leaflets Authored Date: [id number] NSAID Analgesic Schedule ?? 604 NSAID???s Analgesic Schedule ?? Pain is the primary source of illness following your procedure and can include dehydration, difficulty and painful swallowing, and weight loss. These symptoms can lead to increased post-operative visits and hospital readmission. The best way to control pain is to take pain medications regularly. Your doctor has recommended both Ibuprofen and Acetaminophen (generic/store brands are okay, too). These can be picked up over the counter at your pharmacy of choice. Follow the instructions on the bottle to determine the proper dosage to give. The simplest way to take these medications it to rotate the two at 3-hour intervals. Here is a sample diagram. The time you take your medications may vary from this example. Do not give Ibuprofen more than every 6 hours or Acetaminophen every 4 hours. Do not give Acetaminophen if your doctor has given you a prescription that contains Acetaminophen. ? * Marilyn Jose RN: PERFORM Event Display: Patient Education Leaflets Authored Date: [id number] Surgery Medical Daystay Surgical Overnight Discharge Instructions [...] RUTHIE MALONE Address: [place] Address: home [address] [address] Name: ELIZA BETANCOURT Address: home [address] [place] [address] Name: ELIZA BETANCOURT Address: home [address] [address]
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
[2024-01-12 18:55] LABS: MANUAL DIFF FLAG NO
[2024-01-12 18:57] LABS: Basophils Percent Auto 0.3 % (0-2); Eosinophils Percent Auto 0.4 % (0-4); Hematocrit 35.9 % (37.0-47.0); Hemoglobin 13.1 g/dl (12.0-16.0); Imm Gran Abs Auto 0.05 X10*3/uL (0.00-0.03); Imm Gran Pct Auto 0.4 % (0.0-0.4); Lymphocytes Absolute Auto 1.2 X10*3/uL (1.2-4.9); Lymphocytes Percent Auto 10.9 % (20-40); Mean Corpuscular HGB Conc 36.5 g/dl (31.0-35.0); Mean Corpuscular Hemoglobin 34.5 pg (27.0-33.0); Mean Corpuscular Volume 94.5 fL (80.0-98.0); Mean Platelet Volume 10.5 fL (9.4-12.3); Monocytes Absolute Auto 0.5 X10*3/uL (0.1-1.2); Neutrophils Absolute Auto 9.5 x10*3/uL (2.0-8.3); Platelet Count 173 X10*3/uL (160-400); Red Cell Distribution Width 13.7 % (11.0-16.0); White Blood Count 11.3 X10*3/uL (4.8-10.8)
[2024-01-12 19:18] LABS: Alanine Aminotransferase 20 U/L (0-31); Albumin Level 4.3 g/dL (3.5-5.0); Alkaline Phosphatase 102 U/L (39-117); Anion Gap 14 (12-20); Aspartate Amino Transferase 17 U/L (5-31); Bilirubin Direct 0.4 mg/dL (0.0-0.5); Bilirubin Total 0.9 mg/dL (0.0-1.0); Blood Urea Nitrogen 7 mg/dL (9-16); C Reactive Protein 25.78 mg/dL (< or = 0.50); Calcium 9.3 mg/dL (8.4-10.2); Carbon Dioxide 25 mmol/L (22-29); Chloride 105 mmol/L (96-108); Creatinine Clr Calc Pharmacy 112.6; Estimated Glomerular Filt Rate > 60; Glucose Random 92 mg/dL (60-115); Magnesium 2.1 mg/dL (1.6-2.6); Potassium 2.9 mmol/L (3.3-5.1); Sodium 141 mmol/L (135-145); Total Protein 7.2 g/dL (6.5-8.0)
[2024-01-12 19:31] LABS: Erythrocyte Sedimentation Rate 28 MM/HR (0-20)
[2024-01-12 19:41] VITALS: BP 105/82; PULSE 84; RESP 16; TEMP 37.1; O2SAT 100
[2024-01-12 22:17] LABS: Lactic Acid 1.3 mmol/L (0.5-2.0)
[2024-01-12] MEDS: ceFAZolin Sodium/Dextrose,Iso 2 GM/50 ML PIGGYBACK IV (22:23)
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
[2024-01-12 22:24] VITALS: BP 123/74; PULSE 82; RESP 16; TEMP 36.3; O2SAT 98
[2024-01-12] MEDS: Potassium Chloride ER 20 MEQ TAB.ER.PRT 40 MEQ PO (22:27)
[2024-01-12 22:39] LABS: HCG Quantitative < 2 mIU/mL
--- NOTE | 2024-01-12 22:49 | PC.NURSE ---
Med rec done, Pt has updated list of current home meds.
[2024-01-12] MEDS: vancomycin HCL 1,000 MG, vancomycin HCL 750 MG in 0.9 % Sodium Chloride 500 ML 267.5 MG IV (22:50)
[2024-01-13] VITALS (8 sets, daily range): BP systolic 109–130; BP diastolic 56–78; PULSE 62–71; RESP 16–20; TEMP 36–36.6; O2SAT 96–99
--- NOTE | 2024-01-13 00:21 | PC.NURSE ---
[place] through her vanco infusion Pt reports all over itchiness and feeling hot. Redness noted to chest and back. Michelleo paused. Provider Carlo Davila made aware. Plan to give Benadryl and switch ABX.
[2024-01-13] MEDS: diphenhydrAMINE HCL 50 MG/ML VIAL 25 MG IVPUSH (00:35)
[2024-01-13] MEDS: 0.9 % Sodium Chloride Flush 3 ML SYRINGE IVFLUSH ×3 (00:36→13:52)
[2024-01-13 06:46] LABS: Hematocrit 35.4 % (37.0-47.0); Hemoglobin 12.7 g/dl (12.0-16.0); Mean Corpuscular HGB Conc 35.9 g/dl (31.0-35.0); Mean Corpuscular Volume 94.7 fL (80.0-98.0); Mean Platelet Volume 11.1 fL (9.4-12.3); Platelet Count 178 X10*3/uL (160-400); Red Blood Count 3.74 X10*6/uL (4.20-5.50); Red Cell Distribution Width 13.6 % (11.0-16.0); White Blood Count 10.5 X10*3/uL (4.8-10.8)
[2024-01-13 06:47] LABS: Anion Gap 14 (12-20); Blood Urea Nitrogen 6 mg/dL (9-16); C Reactive Protein 20.44 mg/dL (< or = 0.50); Calcium 8.9 mg/dL (8.4-10.2); Carbon Dioxide 23 mmol/L (22-29); Chloride 107 mmol/L (96-108); Estimated Glomerular Filt Rate > 60; Glucose Fasting 84 mg/dL (60-99); Magnesium 2.1 mg/dL (1.6-2.6); Sodium 141 mmol/L (135-145)
--- NOTE | 2024-01-13 07:22 | PC.NURSE ---
K 3.0 Dr. Saleh notified
[2024-01-13] MEDS: Naltrexone HCl 50 MG TABLET PO (07:52)
[2024-01-13] MEDS: Potassium Chloride ER 20 MEQ TAB.ER.PRT 40 MEQ PO (10:14)
--- NOTE | 2024-01-13 10:43 | P.PNIM_ITS ---
Subjective Subjective Date of Service: 01/13/24 Interval History: Seen and evaluated this morning feels better erythema improving Review of Systems Review of Systems: Yes all other systems are reviewed and are negative Physical Exam 2 Vital Signs: Vital Signs: Last Vital Signs Temp 96.8 F 01/13/24 07:57 Pulse 70 01/13/24 07:57 Resp 18 01/13/24 07:57 BP 130/78 01/13/24 07:57 Pulse Ox 98 01/13/24 07:57 O2 Del Method Room Air 01/13/24 07:57 BMI result Body Mass Index 27.6 Const: Other: Constitutional : interactive, not in distress Cardiovascular : no JVP, no lower extremity edema Respiratory : bilateral chest movement, not in resp distress Gastrointestinal: soft, lax, Non tender Skin : Warm, Dry, LUE erythema seems to be improving but 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 Neurological : Alert & oriented , No focal deficit Objective Data Active Medications Acetaminophen (Acetaminophen 325 Mg Tablet) 650 mg PO Q6H PRN PRN Reason: Pain, Mild (Pain Scale 1-3), fever or headache Calcium Carbonate (Calcium Carbonate 750 Mg Tab.Chew) 750 mg PO Q4H PRN PRN Reason: Heartburn Escitalopram Oxalate (Escitalopram Oxalate 10 Mg Tablet) 10 mg PO DAILY [facility] Cefazolin Sodium 1 gm/ Sodium (Chloride) 50 mls @ 100 mls/hr IV Q8H [facility] Last Infusion: 01/13/24 06:12 Dose: Infused Documented By: IKER Levothyroxine Sodium (Levothyroxine Sodium 25 Mcg Tablet) 25 mcg PO DAILY@0600 [facility] Magnesium Hydroxide (Milk Of Magnesia 30 Ml Oral.Susp) 30 ml PO DAILY PRN PRN Reason: Constipation Melatonin (Melatonin 3 Mg Tablet) 6 mg PO BEDTIME PRN PRN Reason: Insomnia Naltrexone HCl (Naltrexone Hcl 50 Mg Tablet) 50 mg PO DAILY [facility] Last Admin: 01/13/24 07:52 Dose: 50 mg Documented By: ANKIT Non-Formulary Medication (Methylphenidate Hcl [Concerta]) 18 mg PO QAM [facility] Omeprazole (Omeprazole 20 Mg Capsule.Dr) 20 mg PO DAILY@0630 [facility] Oxcarbazepine (Oxcarbazepine 300 Mg Tablet) 300 mg PO TID [facility] Prazosin HCl (Prazosin Hcl 1 Mg Capsule) 1 mg PO BEDTIME [facility]; Protocol Sodium Chloride (0.9 % Sodium Chloride Flush 3 Ml Syringe) 3 ml IVFLUSH QSHIFT [facility] Last Admin: 01/13/24 07:52 Dose: 3 ml Documented By: ANKIT Labs 01/13/24 05:15 01/13/24 05:15 Labs: Laboratory Results - last 24 hr 01/12/24 01/12/24 01/13/24 18:51 21:55 05:15 MCV 94.5 94.7 MCH 34.5 H 34.0 H MCHC 36.5 H 35.9 H RDW 13.7 13.6 Plt Count 173 178 MPV 10.5 11.1 Immature Gran % (Auto) 0.4 Neut % (Auto) 84.0 H Lymph % (Auto) 10.9 L Smith % (Auto) 4.0 Eos % (Auto) 0.4 Baso % (Auto) 0.3 Lymph # (Auto) 1.2 Smith # (Auto) 0.5 Eos # (Auto) 0.0 Baso # (Auto) 0.0 Abs Immat Gran (auto) 0.05 H Absolute Neuts (auto) 9.5 H Absolute Nucleated RBC 0.000 0.000 Nucleated RBC % (auto) 0.0 0.0 ESR 28 H Hold Purple Top SEE NOTE Anion Gap 14 14 Estim Creat Clear Calc 112.6 116.0 Estimated GFR > 60 > 60 Random Glucose 92 Fasting Glucose 84 Lactic Acid 1.3 Calcium 9.3 D 8.9 Magnesium 2.1 2.1 Total Bilirubin 0.9 Direct Bilirubin 0.4 AST 17 ALT 20 Alkaline Phosphatase 102 Total Creatine Kinase 93 C-Reactive Protein 25.78 H 20.44 H Total Protein 7.2 Albumin 4.3 Beta HCG, Quant < 2 Assessment and Plan (1) Cellulitis of left arm: Status: Acute (2) Left elbow pain: Status: Acute Plan 33F PMH PTSD, mood/psychiatric disorder, ADHD, etoh dependence in remission, presented with LUE erythema LUE cellulitis Improving Continue Ancef follow up cultures mood/psychiatric disorder/ptsd continue trileptal, prazosin, lexapro history of etoh dependence naltrexone low risk for dvt - early ambulation full code The patient will need overnight hospital stay for IV antibiotics and close monitoring Quality Stroke Does the patient have a stroke diagnosis?: No VTE Prior VTE?: No VTE Risk Level:: Medical - low VTE Device Contraindication: Treatment Not Indicated VTE Drug Contraindication: Treatment Not Indicated
--- NOTE | 2024-01-13 11:51 | MHC.CM.PN ---
RISHI 01/13/24 FEMALE 33 DX CELLULITIS LUE PATIENT IS INDEPENDENT LIVES W 3 KIDS DP HOME SELF CARE SHE WILL ARRANGE FOR TRANSPORT.
--- NOTE | 2024-01-13 13:26 | PHA.MEDREC ---
Addendum entered by Wisam Tapia RP 01/13/24 13:54: Med Rec checked by [facility] Original Note: Pharmacy Consult ? Medication Reconciliation Pharmacy has completed the medication reconciliation. Confirmed medications with patient, list provided by patient from [place] [facility] and confirmation of instructions of the medications. Patient confirmed she is not taking the Vivitrol 380mg and when I asked about it she goes if that is the injection, I am not taking that anymore . Patient also has list from [place] that I was able to confirm and [place] was able to verify the instructions.
[2024-01-13] MEDS: Levothyroxine Sodium 25 MCG TABLET PO (14:40)
[2024-01-13] MEDS: Escitalopram Oxalate 10 MG TABLET 15 MG PO (14:40)
--- NOTE | 2024-01-13 17:57 | PC.NURSE ---
Patient reported two large diarrhea stools today,denies pain,afebrile,Dr. Saleh made aware,patient made aware of need for stool specimen,placed pt on contact precautions.
[2024-01-13] MEDS: OXcarbazepine 300 MG TABLET PO (20:17)
[2024-01-13] MEDS: guanFACINE HCl ER 1 MG TAB.ER.24H PO (20:18)
[2024-01-13] MEDS: Prazosin HCL 1 MG CAPSULE PO (20:18)
[2024-01-14 06:25] LABS: Anion Gap 12 (12-20); Blood Urea Nitrogen 5 mg/dL (9-16); Calcium 8.9 mg/dL (8.4-10.2); Carbon Dioxide 22 mmol/L (22-29); Chloride 110 mmol/L (96-108); Creatinine Clr Calc Pharmacy 121.7; Estimated Glomerular Filt Rate > 60; Glucose Random 94 mg/dL (60-115); Potassium 3.2 mmol/L (3.3-5.1); Sodium 141 mmol/L (135-145)
[2024-01-14 07:04] VITALS: BP 95/51; PULSE 66; RESP 16; TEMP 36.6; O2SAT 98
[2024-01-14] MEDS: Levothyroxine Sodium 25 MCG TABLET PO (07:04)
--- NOTE | 2024-01-14 07:14 | PC.NURSE ---
K 3.2 ,Dr. Saleh notified
[2024-01-14] MEDS: Lactated Ringers 1,000 ML 999 ML IV (08:04)
[2024-01-14] MEDS: Potassium Chloride ER 20 MEQ TAB.ER.PRT PO (08:05)
[2024-01-14] MEDS: 0.9 % Sodium Chloride Flush 3 ML SYRINGE IVFLUSH (08:05)
[2024-01-14] MEDS: Escitalopram Oxalate 10 MG TABLET 15 MG PO (08:05)
[2024-01-14] MEDS: Naltrexone HCl 50 MG TABLET PO (08:06)
[2024-01-14] MEDS: OXcarbazepine 300 MG TABLET 450 MG PO (08:07)
[2024-01-14] MEDS: Acetaminophen 325 MG TABLET 650 MG PO (08:16)
[2024-01-14 09:28] VITALS: BP 117/61; PULSE 73; RESP 16; O2SAT 97
[2024-01-14] MEDS: Ketorolac Tromethamine 30 MG/ML VIAL IVPUSH (11:29)
[2024-01-14] MEDS: OXcarbazepine 300 MG TABLET 150 MG PO (11:30)
--- NOTE | 2024-01-14 12:26 | PM.DS ---
DS: Providers Provider Date of Service: 01/14/24 Date of admission: 01/12/24 22:20 Date of discharge: 01/14/24 Primary care physician: Unknown Physician DS: Diagnosis Discharge Diagnosis (1) Cellulitis of left arm: Status: Acute (2) Left elbow pain: Status: Acute (3) Acute hypokalemia: Status: Acute DS: Summary Hospital Course Hospital Course: Admission note HPI 33F PMH PTSD, mood/psychiatric disorder, ADHD, etoh dependence in remission, presented with LUE erythema. Patient reports about 4 days prior to presentation having round bump on elbow possibly bug bite versus pimple. Squeezed it until clear fluid came out. Next day started having erythema and pain covering forearm. Reports sweats without fevers. Erythema worsened so came to ED. in ED afebrile, no leukocytosis but due to extent of erythema decision to continue with IV antibiotics. Hospital course The patient was treated for left upper extremity cellulitis with IV antiibotics of Cefazolin with good response as erythema resolved and induration decreased. blood cultures remained negative. To be discharged on Ceftin, Doxycycline for 5 more days. apply warm compressors and keep arm elevated. Had Hypokalemia which was corrected with replacement. For mood/psychiatric disorder/ptsd, continue trileptal, prazosin, lexapro Discharge plan Continue Ceftin and Doxycycline as prescribed Advil for pain and inflammation Keep arm elevated, use warm compressors Come back to ED for worsening pain, fever or erythema Time Attestation Discharge Coordination Time (in mins): 24 Quality: Safe Use of Opioids Does Pt have an Active Cancer Diagnosis on the Problem List?: No Quality: Stroke Does the patient have a stroke diagnosis?: No Physical Exam Vital Signs: Vital Signs: Last Vital Signs Temp 97.8 F 01/14/24 07:04 Pulse 73 01/14/24 09:28 Resp 16 01/14/24 09:28 BP 117/61 01/14/24 09:28 Pulse Ox 97 01/14/24 09:28 O2 Del Method Room Air 01/14/24 09:28 BMI result Body Mass Index 27.6 Const: Other: Constitutional : interactive, not in distress Cardiovascular : no JVP, no lower extremity edema Respiratory : bilateral chest movement, not in resp distress Gastrointestinal: soft, lax, Non tender Skin : Warm, Dry, LUE erythema improved significantly and resolving, small area of induration intermediate card tender though, no abscess formation. Neurological : Alert & oriented , No focal deficit DS: Data Data Completed and Pending Labs on day of discharge: Laboratory Results - last 24 hr 01/14/24 06:03 Hold Purple Top SEE NOTE Sodium 141 Potassium 3.2 L Chloride 110 H Carbon Dioxide 22 Anion Gap 12 BUN 5 L Creatinine 0.62 Estim Creat Clear Calc 121.7 Estimated GFR > 60 Random Glucose 94 Calcium 8.9 Preliminary micro results at discharge 01/12/24 21:55 Blood Culture - Preliminary Blood - Venous No growth after 24 hours. 01/12/24 21:56 Blood Culture - Preliminary Blood - Venous No growth after 24 hours. Imaging Chest x-ray: Radiologist's impression: ITS Impressions Elbow X-Ray 01/12/24 17:55 IMPRESSION: 1. No acute fracture or dislocation. 2. Diffuse nonspecific cutaneous edema. Electronically signed by: Yohannes Steve MD 01/12/2024 07:27 PM EDT RP Discharge Plan Discharge Anticipated Discharge Date/Time: 01/14/24 12:20 Patient Disposition: Home, Self-Care Discharge Diagnosis: Left arm cellulitis Referrals: Physician,Unknown J [Primary Care Provider] - 1 Week Discharge Medications: New doxycycline monohydrate 100 mg capsule 100 mg PO BID Qty: 10 0RF cefuroxime axetil 500 mg tablet 500 mg PO BID Qty: 10 0RF Continued escitalopram oxalate [Lexapro] 10 mg tablet 15 mg PO DAILY prazosin 1 mg capsule 1 - 2 mg PO BEDTIME methylphenidate HCl 18 mg tablet extended release 24hr 18 mg PO DAILY oxcarbazepine 300 mg tablet 450 mg PO DAILY oxcarbazepine 300 mg tablet 150 mg PO DAILY@1200 guanfacine 1 mg tablet extended release 24 hr 1 mg PO BEDTIME naltrexone 50 mg tablet 50 mg PO DAILY oxcarbazepine 300 mg tablet 300 mg PO BEDTIME Discharge Orders: Discharge Order (Routine); Ordered 01/14/24 Ordered By: Guillermina Saleh Diet: Advance to usual diet Activity on Discharge: As tolerated Stand Alone Forms: Patient Portal Discharge page Print Language: Albanian Care Plan Goals: Continue Ceftin and Doxycycline as prescribed Advil for pain and inflammation Keep arm elevated, use warm compressors Come back to ED for worsening pain, fever or erythema Health Concerns: Read below Plan of Treatment: Read below Assessment: Read below
== END 2024-01-14 13:02 | disposition home or self-care (01) ==
LOC: HO.ED 23:16 → HO.EDOVER 23:19 → HO.S3 23:55
PROVIDERS: Physician Assistant; Admitting Provider Internal Medicine; Emergency Provider Emergency Medicine; Visit Provider Student in an Organized Health Care Education/Training Program
DX: L03.114 Cellulitis of left upper limb (principal); M25.522 Pain in left elbow; E87.6 Hypokalemia; E03.9 Hypothyroidism, unspecified; F90.9 Attention-deficit hyperactivity disorder, unspecified type; F39 Unspecified mood [affective] disorder; Z92.29 Personal history of other drug therapy; Z79.899 Other long term (current) drug therapy
CPT/HCPCS: 36415; 73080; 80048; 80076; 82550; 83605; 83735; 84702; 85025; 85027; 85652; 86140; 87040; 96361; 96365; 96366; 96367; 96375; 99221; 99285; J0690; J1200; J1885; J3370; J7120

== ENCOUNTER → 2024-01-12 18:10 | Outpatient (BNV) | payer OTHER, SELFPAY | PROVIDERS: Emergency Provider Emergency Medicine; Visit Provider Internal Medicine | DX: M25.522 Pain in left elbow (principal) | CPT/HCPCS: 99223; 99232; 99238 ==

== ENCOUNTER 2024-06-02 11:31 | Emergency (ER) | payer OTHER, SELFPAY ==
--- NOTE | ~2024-06-02 | XR_ITS ---
CLINICAL HISTORY: chest pain 2 view chest x-ray. Comparison: CR/IA - XR CHEST 1V - 11/03/20 22:19 EDT Findings: The lungs are adequately expanded. No focal consolidation. No effusion or pneumothorax. Cardiac and mediastinal contours are within normal limits. No acute osseous abnormality Impression: No acute process. This document has been electronically signed by: Jed Drummond MD on 06/02/2024 12:52:27
--- NOTE | 2024-06-02 11:35 | ECG_ITS ---
Test Reason : cp Blood Pressure : */* mmHG Vent. Rate : 79 BPM Atrial Rate : 79 BPM P-R Int : 116 ms QRS Dur : 68 ms QT Int : 378 ms P-R-T Axes : 14 52 36 degrees QTcB Int : 433 ms Normal sinus rhythm Normal ECG When compared with ECG of 03-Nov-2020 22:22, No significant change was found Referred By: Generic ED Physician Electronically Signed By: DANIEL LONDONO MD
[2024-06-02 12:12] VITALS: BP 130/71; PULSE 70; RESP 18; TEMP 36.8; O2SAT 99; BMI 27.5
[2024-06-02 12:31] LABS: MANUAL DIFF FLAG NO
[2024-06-02 12:37] LABS: Basophils Absolute Auto 0.1 X10*3/uL (0.0-0.2); Basophils Percent Auto 0.6 % (0-2); Eosinophils Absolute Auto 0.2 X10*3/uL (0.0-0.4); Eosinophils Percent Auto 2.2 % (0-4); Hematocrit 41.7 % (37.0-47.0); Hemoglobin 15.2 g/dl (12.0-16.0); Imm Gran Abs Auto 0.02 X10*3/uL (0.00-0.03); Imm Gran Pct Auto 0.3 % (0.0-0.4); Lymphocytes Absolute Auto 1.4 X10*3/uL (1.2-4.9); Lymphocytes Percent Auto 17.9 % (20-40); Mean Corpuscular HGB Conc 36.5 g/dl (31.0-35.0); Mean Corpuscular Hemoglobin 34.2 pg (27.0-33.0); Mean Corpuscular Volume 93.7 fL (80.0-98.0); Mean Platelet Volume 10.6 fL (9.4-12.3); Monocytes Absolute Auto 0.5 X10*3/uL (0.1-1.2); Neutrophils Absolute Auto 5.6 x10*3/uL (2.0-8.3); Platelet Count 236 X10*3/uL (160-400); Red Blood Count 4.45 X10*6/uL (4.20-5.50); Red Cell Distribution Width 14.9 % (11.0-16.0); White Blood Count 7.7 X10*3/uL (4.8-10.8)
[2024-06-02 12:46] LABS: Alanine Aminotransferase 21 U/L (0-31); Albumin Level 4.2 g/dL (3.5-5.0); Alkaline Phosphatase 63 U/L (39-117); Anion Gap 9 (12-20); Aspartate Amino Transferase 21 U/L (5-31); Bilirubin Direct 0.3 mg/dL (0.0-0.5); Bilirubin Total 0.9 mg/dL (0.0-1.0); Blood Urea Nitrogen 12 mg/dL (9-16); Carbon Dioxide 23 mmol/L (22-29); Chloride 111 mmol/L (96-108); Creatinine Clr Calc Pharmacy 118.3; Estimated Glomerular Filt Rate > 60; Glucose Random 92 mg/dL (60-115); Lipase 14 U/L (8-78); Sodium 139 mmol/L (135-145); Total Protein 6.8 g/dL (6.5-8.0)
[2024-06-02 12:57] LABS: Troponin-I High Sensitivity < 2.7 ng/L (<3.5-17.0)
[2024-06-02 17:09] LABS: Troponin-I High Sensitivity < 2.7 ng/L (<3.5-17.0)
[2024-06-02 17:20] VITALS: BP 122/61; PULSE 80; RESP 16; TEMP 36.7; O2SAT 99
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
== END 2024-06-02 17:28 | disposition home or self-care (01) ==
PROVIDERS: Physician Assistant; Emergency Provider Emergency Medicine Emergency Medical Services
DX: R00.2 Palpitations (principal); R42 Dizziness and giddiness; F41.9 Anxiety disorder, unspecified; J45.909 Unspecified asthma, uncomplicated; F90.2 Attention-deficit hyperactivity disorder, combined type; F17.210 Nicotine dependence, cigarettes, uncomplicated; F12.10 Cannabis abuse, uncomplicated; Z79.899 Other long term (current) drug therapy
CPT/HCPCS: 36415; 71046; 80048; 80076; 83690; 84484; 85025; 93005; 99283; 99284

== ENCOUNTER → 2024-06-02 11:35 | Outpatient (BNV) | payer OTHER, SELFPAY | PROVIDERS: Emergency Provider Emergency Medicine Emergency Medical Services; Visit Provider Internal Medicine Cardiovascular Disease | DX: R07.9 Chest pain, unspecified (principal) | CPT/HCPCS: 93010 ==

== ENCOUNTER 2024-08-12 20:15 | Emergency (ER) | payer OTHER, SELFPAY ==
[2024-08-12 20:40] VITALS: BP 128/74; PULSE 107; RESP 16; TEMP 37.3; O2SAT 99; BMI 27.2
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
[2024-08-12 21:09] LABS: MANUAL DIFF FLAG NO
[2024-08-12 21:11] LABS: Basophils Percent Auto 0.3 % (0-2); Eosinophils Absolute Auto 0.3 X10*3/uL (0.0-0.4); Eosinophils Percent Auto 2.7 % (0-4); Hematocrit 40.3 % (37.0-47.0); Imm Gran Abs Auto 0.03 X10*3/uL (0.00-0.03); Imm Gran Pct Auto 0.3 % (0.0-0.4); Lymphocytes Absolute Auto 1.5 X10*3/uL (1.2-4.9); Lymphocytes Percent Auto 12.2 % (20-40); Mean Corpuscular HGB Conc 37.2 g/dl (31.0-35.0); Mean Corpuscular Hemoglobin 35.9 pg (27.0-33.0); Mean Corpuscular Volume 96.4 fL (80.0-98.0); Mean Platelet Volume 9.6 fL (9.4-12.3); Monocytes Absolute Auto 0.8 X10*3/uL (0.1-1.2); Monocytes Percent Auto 6.4 % (2-11); Neutrophils Absolute Auto 9.3 x10*3/uL (2.0-8.3); Neutrophils Percent Auto 78.1 % (45-73); Platelet Count 205 X10*3/uL (160-400); Red Blood Count 4.18 X10*6/uL (4.20-5.50); White Blood Count 11.9 X10*3/uL (4.8-10.8)
[2024-08-12 21:18] VITALS: BP 119/59; PULSE 90; RESP 18; TEMP 36.8; O2SAT 99
[2024-08-12 21:26] LABS: Alanine Aminotransferase 27 U/L (0-31); Albumin Level 3.8 g/dL (3.5-5.0); Alkaline Phosphatase 118 U/L (39-117); Anion Gap 10 (12-20); Aspartate Amino Transferase 29 U/L (5-31); Bilirubin Total 0.9 mg/dL (0.0-1.0); Blood Urea Nitrogen 10 mg/dL (9-16); C Reactive Protein 3.97 mg/dL (< or = 0.50); Calcium 8.7 mg/dL (8.4-10.2); Carbon Dioxide 28 mmol/L (22-29); Chloride 106 mmol/L (96-108); Estimated Glomerular Filt Rate > 60; Glucose Random 94 mg/dL (60-115); Lactic Acid 0.9 mmol/L (0.5-2.0); Magnesium 1.7 mg/dL (1.6-2.6); Potassium 3.4 mmol/L (3.3-5.1); Sodium 141 mmol/L (135-145); Total Protein 6.4 g/dL (6.5-8.0)
[2024-08-12] MEDS: Lidocaine HCl 1 % MPF 5 ML VIAL INFILTRATI (21:38)
[2024-08-12] MEDS: cephALEXin 500 MG CAPSULE PO (21:38)
[2024-08-12] MEDS: Doxycycline Monohydrate 100 MG CAPSULE PO (21:38)
--- OUTSIDE RECORDS SUMMARY | 2024-08-12 21:44 | XMS_ITS | Clinical Summary ---
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 Role Phone Unavailable Primary Care Provider Unavailabl e Allergies Active Allergy Reactions Criticality Noted Date Comments Sulfamethoxazole-Trimethoprim 2022 Melatonin 03/04/2023 Topiramate 03/04/2023 Medications No known medications Social History Tobacco Use Types Packs/Day Years Used Date Smoking Tobacco: Never Assessed Comments Unknown Sex and Gender Information Value Date Recorded Sex Assigned at Female 03/04/2023 8:49 AM EDT Legal Sex Unknown 03/05/2022 8:32 PM EDT Gender Identity Female 03/04/2023 8:49 AM EDT Sexual Orientation Straight 03/04/2023 8: 49 AM EDT Last Filed Vital Signs Vital Sign Reading Time Taken Comments Blood Pressure 135/79 03/04/2023 11:58 AM EDT Pulse - - Temperature - - Respiratory Rate - - Oxygen Saturation - - Inhaled Oxygen Concentration - - Weight - - Height - - Body Mass Index - - Plan of Treatment Health Maintenance Due Date Last Done Comments Dental Oral Exam 1990 Dental Prophylaxis 1990 Dental X-Ray: Full Mouth 1990 Depression Screening 1990 HIV Screening 1990 SDOH Screening 1990 Alcohol/Substance Use Screening 2002 Tobacco Screening 2002 Family Planning (PISQ) 2005 Hepatitis C Screening 2008 Hepatitis B Vaccines (1 of 3 - 19+ 3-dose series) 2009 Pneumococcal Vaccine: Pediatrics (0 to 5 Years) and At-Risk Patients (6 to 49) Years) (1 of 2 - PCV) 2009 Pap Smear 11/16/2011 Cervical Cancer Screening 2020 HPV/Cotest 2020 COVID-19 Vaccine (1 - 2023-2 5 season) 2024 Influenza Vaccine (#1) 2024 04/20/2021 Dental X-Ray: Bitewings 03/05/2024 03/04/2023 DTaP/Tdap/Td Vaccines (4 - T d or Tdap) 04/20/2031 04/20/2021, 12/28/2019, 01/06/2016 Zoster Vaccines (1 of 2) 2040 RSV Patients and Patients Aged 60 years or older (1 - 1-dose 75+ series) 2065 HIB Vaccines Aged Out No longer eligi ble based on patient's age to complete this topic HPV Vaccines Aged Out No longer eligi ble based on patient's age to complete this topic Hepatitis A Vaccines Aged Out No long er eligible based on patient's age to complete this topic IPV Vaccines Aged Out No longer eligi ble based on patient's age to complete this topic Meningococcal Vaccine Aged Out No chantal kerri eligible based on patient's age to complete this topic RSV under 20 months Aged Out No longe r eligible based on patient's age to complete this topic Rotavirus Vaccines Aged Out No longer eligible based on patient's age to complete this topic Procedures Procedure Name Priority Date/Time Associated Diagnosis Comments BITEWING - SINGLE RADIOGRAPHIC IMAGE Routine 03/04/2023 9:30 AM EDT Symptomatic irreversible pulpitis from Last 3 Months or Most Recently Relevant to Health Maintenance Insurance DENTAL - [facility]
[2024-08-12 22:03] LABS: Erythrocyte Sedimentation Rate 7 MM/HR (0-20)
[2024-08-12 22:56] VITALS: BP 115/66; PULSE 88; RESP 18; TEMP 36.8; O2SAT 99
== END 2024-08-12 22:57 | disposition home or self-care (01) ==
PROVIDERS: Physician Assistant Medical; Emergency Provider Internal Medicine
DX: M79.5 Residual foreign body in soft tissue (principal); M54.50 Low back pain, unspecified; L02.212 Cutaneous abscess of back [any part, except buttock and flank]
CPT/HCPCS: 36415; 80053; 83605; 83735; 85025; 85652; 86140; 87040; 87205; 99284; J2003

== ENCOUNTER 2024-08-13 03:41 | Emergency (ER) | payer OTHER, SELFPAY ==
[2024-08-13 03:42] VITALS: BP 123/75; PULSE 105; RESP 18; TEMP 36.9; O2SAT 98; BMI 29.3
--- OUTSIDE RECORDS SUMMARY | 2024-08-13 03:46 | XMS_ITS | Clinical Summary ---
Author Organization [employer] Address [address] [place] [address] Care Team Providers Care Psychologist Chief Name Role Phone Unavailable Primary Care Provider [...] Relevant to Health Maintenance Insurance DENTAL - [facility]
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
[2024-08-13 04:42] VITALS: BP 111/56; PULSE 97; RESP 18; O2SAT 96
[2024-08-13] MEDS: oxyCODONE HCl Immed Release 5 MG TABLET PO (04:42)
[2024-08-13 05:58] VITALS: BP 111/56; PULSE 97; RESP 18; TEMP 36.6; O2SAT 96
== END 2024-08-13 06:01 | disposition home or self-care (01) ==
PROVIDERS: Emergency Provider Emergency Medicine
DX: M54.50 Low back pain, unspecified (principal)
CPT/HCPCS: 99284

== ENCOUNTER 2024-08-13 18:48 | Inpatient (IN) | payer OTHER, SELFPAY ==
--- NOTE | ~2024-08-13 | MR_ITS ---
EXAMINATION: MR LUMBAR SPINE WITH AND WITHOUT CONTRAST CLINICAL INFORMATION: Rule out spinal abscess; right low back pain. 33-year-old female. No further clinical information provided. COMPARISON: No prior. TECHNIQUE: Multiplanar multisequence MR imaging of the lumbar spine was both before and after the administration of 7.5 mL IV Gadavist. Examination was performed on a 1.5 [employer] Siemens magnet, utilizing standard sequences. FINDINGS: CORONAL ALIGNMENT: -Normal. SAGITTAL ALIGNMENT: - Normal. No subluxation. LUMBOSACRAL JUNCTION: -Normal. There are 5 [id number] lumbar-type vertebral bodies. VERTEBRAL BODIES/BONE MARROW: -There is minimal bone marrow edema and enhancement involving the left L3-4 and L4-5 facets, with associated perifacet enhancement. -There is a hemangioma in the L5 vertebral body. -Otherwise no suspicious bone marrow edema or enhancement evident. DISCS: -Mild loss of disc signal at L4-5. -Mild loss of disc height and signal at L5-S1. -Discs above L4 are normal in signal and appearance. SPINAL CANAL: -No abnormal developmental findings. No abnormal fluid collection or abscess. CONUS MEDULLARIS: -Terminates at L1. Morphology and signal is normal. INTRADURAL NERVE ROOTS: - Within normal limits. No abnormal nerve root enhancement. -There is no abnormal dural enhancement identified. Axial Disc Space Images: T12-L1: No central canal or neural foraminal narrowing. L1-L2: No central canal or neural foraminal narrowing. L2-L3: No central canal or neural foraminal narrowing. L3-L4: No central canal or neural foraminal narrowing. Mild left greater than right facet hypertrophy. L4-L5: Shallow disc bulging is present with a left foraminal annular fissure. This indents upon the ventral thecal sac but does not contact or impingement or roots. Mild hypertrophic facet changes bilaterally with mild posterior ligamentous thickening/infolding. There is mild to moderate left and mild right neural foraminal narrowing. There is contact of the exiting L4 nerve root on the left without nerve root impingement. L5-S1: There is a diffuse disc bulge present with left paracentral annular fissuring. Mild hypertrophic facet changes and mild posterior ligamentous infolding. Mild central canal narrowing, minimal subarticular recess narrowing left greater than right, and minimal bilateral neural foraminal narrowing. IMAGED SI JOINTS: -Normal appearance. PARAVERTEBRAL AND INCLUDED EXTRASPINAL SOFT TISSUES: -Normal. -Of incidental note, there is edema of the subcutaneous fat spanning L3-S1, uncertain significance. There is localized susceptibility artifact as well left greater than right. No discrete fluid collection to define an abscess. MR/MR lumbar spine wo/w con IMPRESSION: 1. Mild spondylosis most notable L4-5 and L5-S1. See above. There is no high-grade central canal or subarticular recess stenosis. There is mild to moderate left neural foraminal narrowing at L4-5. 2. There is no evidence of abnormal dural, intramedullary, or nerve root enhancement. There is no abnormal fluid collection within the spinal canal. 3. Mild L3-4 and L4-5 left facet and blair-facet enhancement. Findings could represent early infectious arthropathy of the left L3-4 and L4-5 facets in the appropriate clinical setting. There is significant overlap in this appearance with degenerative facet change. 4. There is is edema of the subcutaneous fat spanning L3-S1, uncertain significance. There is no formed abscess or drainable fluid collection. Electronically signed by: Dickson Lui MD 08/14/2024 04:16 PM EDT
[2024-08-13 19:25] VITALS: BP 114/69; PULSE 92; RESP 20; TEMP 36.8; O2SAT 97; BMI 29.3
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
--- OUTSIDE RECORDS SUMMARY | 2024-08-13 20:35 | XMS_ITS | Clinical Summary ---
Author Organization [employer] Address [address] [place] [address] Care Team Providers Care Associate Consulting Engineer Name Role Phone Unavailable Primary Care Provider [...] Relevant to Health Maintenance Insurance DENTAL - [facility] [place]
[2024-08-13 20:40] LABS: MANUAL DIFF FLAG NO
[2024-08-13 20:42] LABS: Basophils Percent Auto 0.3 % (0-2); Eosinophils Absolute Auto 0.2 X10*3/uL (0.0-0.4); Eosinophils Percent Auto 2.6 % (0-4); Hematocrit 37.5 % (37.0-47.0); Imm Gran Abs Auto 0.02 X10*3/uL (0.00-0.03); Imm Gran Pct Auto 0.2 % (0.0-0.4); Lymphocytes Absolute Auto 1.2 X10*3/uL (1.2-4.9); Lymphocytes Percent Auto 13.6 % (20-40); Mean Corpuscular HGB Conc 37.3 g/dl (31.0-35.0); Mean Corpuscular Volume 96.4 fL (80.0-98.0); Mean Platelet Volume 9.9 fL (9.4-12.3); Monocytes Absolute Auto 0.5 X10*3/uL (0.1-1.2); Monocytes Percent Auto 6.1 % (2-11); Neutrophils Absolute Auto 6.9 x10*3/uL (2.0-8.3); Neutrophils Percent Auto 77.2 % (45-73); Platelet Count 180 X10*3/uL (160-400); Red Blood Count 3.89 X10*6/uL (4.20-5.50); Red Cell Distribution Width 16.1 % (11.0-16.0); White Blood Count 8.9 X10*3/uL (4.8-10.8)
[2024-08-13 20:58] LABS: Alanine Aminotransferase 20 U/L (0-31); Albumin Level 3.5 g/dL (3.5-5.0); Alkaline Phosphatase 89 U/L (39-117); Anion Gap 9 (12-20); Aspartate Amino Transferase 21 U/L (5-31); Bilirubin Total 0.8 mg/dL (0.0-1.0); Blood Urea Nitrogen 9 mg/dL (9-16); Calcium 8.7 mg/dL (8.4-10.2); Carbon Dioxide 27 mmol/L (22-29); Chloride 108 mmol/L (96-108); Creatinine Clr Calc Pharmacy 123.2; Estimated Glomerular Filt Rate > 60; Glucose Random 116 mg/dL (60-115); Potassium 3.2 mmol/L (3.3-5.1); Sodium 141 mmol/L (135-145); Total Protein 6.1 g/dL (6.5-8.0)
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
[2024-08-14 00:28] LABS: Lactic Acid 0.8 mmol/L (0.5-2.0)
[2024-08-14] MEDS: Clindamycin Phosphate/D5W 600 MG/50 ML PIGGYBACK 100 MG IV ×3 (00:32→16:56)
--- NOTE | 2024-08-14 00:35 | PC.NURSE ---
pt a&ox4, respirations even and unlabored. pt reports she had a piercing on her back which got infected, reports being seen here previously and reports she was called and informed that her blood cultures were positive. pt noted to have reddness to the right lower back which is tender to touch. 20G placed in left hand, antibiotics administered.
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
[2024-08-14 01:02] VITALS: BP 117/60; PULSE 90; RESP 16; TEMP 36.5; O2SAT 97
[2024-08-14] MEDS: Potassium Chloride ER 20 MEQ TAB.ER.PRT PO (01:50)
[2024-08-14] MEDS: Acetaminophen 325 MG TABLET 975 MG PO ×2 (01:52→21:05)
--- NOTE | 2024-08-14 01:53 | PC.NURSE ---
pt medicated per mar, tolerated well whole with water.
[2024-08-14 05:24] LABS: MANUAL DIFF FLAG NO
--- NOTE | 2024-08-14 05:26 | MHC.EDTECH ---
pt given new gown and blanket as she was sweating. Pt given cup of ice.
[2024-08-14 05:28] LABS: Basophils Percent Auto 0.4 % (0-2); Eosinophils Absolute Auto 0.3 X10*3/uL (0.0-0.4); Eosinophils Percent Auto 2.7 % (0-4); Hematocrit 38.5 % (37.0-47.0); Hemoglobin 13.8 g/dl (12.0-16.0); Imm Gran Abs Auto 0.05 X10*3/uL (0.00-0.03); Imm Gran Pct Auto 0.5 % (0.0-0.4); Lymphocytes Absolute Auto 1.9 X10*3/uL (1.2-4.9); Lymphocytes Percent Auto 20.5 % (20-40); Mean Corpuscular HGB Conc 35.8 g/dl (31.0-35.0); Mean Corpuscular Hemoglobin 35.7 pg (27.0-33.0); Mean Corpuscular Volume 99.5 fL (80.0-98.0); Mean Platelet Volume 9.7 fL (9.4-12.3); Monocytes Absolute Auto 0.7 X10*3/uL (0.1-1.2); Neutrophils Absolute Auto 6.2 x10*3/uL (2.0-8.3); Neutrophils Percent Auto 67.9 % (45-73); Platelet Count 169 X10*3/uL (160-400); Red Blood Count 3.87 X10*6/uL (4.20-5.50); Red Cell Distribution Width 16.1 % (11.0-16.0); White Blood Count 9.2 X10*3/uL (4.8-10.8)
[2024-08-14 05:48] LABS: Anion Gap 12 (12-20); Blood Urea Nitrogen 7 mg/dL (9-16); Calcium 8.5 mg/dL (8.4-10.2); Carbon Dioxide 25 mmol/L (22-29); Chloride 108 mmol/L (96-108); Creatinine Clr Calc Pharmacy 117.6; Estimated Glomerular Filt Rate > 60; Glucose Random 100 mg/dL (60-115); Potassium 3.3 mmol/L (3.3-5.1); Sodium 142 mmol/L (135-145)
--- NOTE | 2024-08-14 07:00 | CA_ITS ---
Transthoracic Echocardiogram Patient (Last, First, Middle): Sohail Hernandez J Gender: Female Date of : 1990 Age: 33 Procedure Date: 08/14/2024 Procedure Type: Transthoracic Echocardiogram Location: ER Height: 160.02 cm Weight: 74.84 kg BSA: 1.78 m2 Heart Rate: 76 bpm BP: 99 / 63 mmHg Net Wpf Developer: SB Referring MD: Melany Madera PA-C Symptoms: +bacteremia, r/o endocarditis Study Quality: Adequate ECG Rhythm: Sinus Conclusions: - Normal left ventricular size, thickness, systolic function, and wall motion. The visually estimated ejection fraction is between 50-55%. Diastolic function is normal for age. - Normal right ventricular cavity size and systolic function. - No vegetation noted on visualized valves. Findings Left Ventricle Normal left ventricular size, thickness, systolic function, and wall motion. The visually estimated ejection fraction is between 50-55%. Diastolic function is normal for age. Right Ventricle Normal right ventricular cavity size and systolic function. Atria Both atria are normal in size. Aortic Valve Normal aortic valve structure and function. There is no aortic valve stenosis. There is no aortic valve regurgitation. Mitral Valve The mitral valve appears normal. There is no mitral valve regurgitation. There is no mitral valve stenosis. Pulmonic Valve The pulmonic valve is likely normal. Tricuspid Valve Normal tricuspid valve structure. There is trace tricuspid valve regurgitation. Normal right atrial pressure. There is no evidence of pulmonary hypertension. Great Vessels All visible segments of the aorta are normal in size. The visualized portions of the pulmonary artery and branches are normal. Venous The inferior vena cava is normal in size and collapses greater than 50% with inspiration. Pericardium/Pleural There is no evidence of pericardial effusion. Prior Study Comparison No prior study available for comparison. Measurements 2D Linear Measurements IVSd: 0.64 0.6-0.9/0.6-1.0 cm LVIDd: 5.22 3.9-5.3/4.2-5.9 cm LVIDd Index: 2.93 2.4-3.2/2.2-3.1 cm/m2 LVIDs: 3.82 2.0-3.6 cm LVPWd: 0.68 0.7-1.1 cm LA Diam: 3.70 2.7-3.8/3.0-4.0 cm LAIDs Index: 2.08 1.5-2.3 cm/m2 LV Mass: 142.86 67-162/88-224 g LV Mass Index: 80.26 43-95/49-115 g/m2 LVOT Diam: 2.00 3.0+(-)1.3 cm 2D Systolic Function EF 4C: 58.90 >55% EF 2C: 54.50 >55% EF BiP: 57.80 >55% Mitral Valve MV Pk E: 0.67 MV PK A: 0.43 MV Decel Time: 251.00 E/A: 1.60 E'Lateral: 10.20 E'Medial: 11.00 E/E' Med: 6.10 E/E' Lat: 6.60 PHT: 74.00 MVA PHT: 2.97 Decel [place]: 2.68 Aortic Valve AoV Pk James: 1.08 AoV Pk Grad: 5.00 FLETCHER: 3.46 LVOT LVOT Pk James: 1.04 LVOT Mn James: 0.86 LVOT VTI: 0.23 LVOT Pk Grad: 4.00 LVOT Mn Grad: 3.00 LVOT Diam: 2.00 LVOT Area: 3.14 Diastolic Function MV Pk E: 0.67 MV Pk A: 0.43 E/A: 1.60 E'Medial: 11.00 E/E' Med: 6.10 E' Laterial: 10.20 E/E' Lat: 6.60 Right Ventricle TAPSE (mm): 16.30 TVS' James: 10.60 Tricuspid Valve TR Pk James: 1.85 TR Pk Grad: 14.00 RA Press: 8.00 RVSP: 22.00 Great Vessels Aorta Sinus of Valsalva: 2.60 2.0-3.5 cm Ao Asc: 2.60 2.1-3.4 cm Pulmonary Valve PV Pk James: 0.72 Peak PV Grad: 2.00 Updated in Other Vendor System with Status of Final Zachary Rdz MD electronically signed on 08/15/2024 1:37:43 PM with status of Final
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
[2024-08-14 08:22] VITALS: RESP 20
[2024-08-14] MEDS: Morphine Sulfate 4 MG/ML CARTRIDGE 3 MG IVPUSH (08:22)
--- NOTE | 2024-08-14 08:22 | PM.EVENT ---
Event Note Date of Service: 08/14/24 Event Note: pt seen/examined, labs, vitals reviewed. has back cellulitis/abscess from a piercing site on back, 1/2 gram positive lee, likely contamination. Presently on clindamycin, add Doxyc. s/p I and by surgery, follow culture sensitivity and awaiting ID consult. Otherwise , A/P per H and p from this morning Time Spent With Patient Time: Total time managing care of this patient today ____ minutes.
[2024-08-14] MEDS: ondansetron HCL 4 MG/2 ML VIAL IVPUSH (08:35)
[2024-08-14] MEDS: 0.9 % Sodium Chloride Flush 3 ML SYRINGE IVFLUSH (08:35)
[2024-08-14] MEDS: Lidocaine HCl 1 % 20 ML VIAL 10 ML INFILTRATI (08:35)
[2024-08-14 08:36] VITALS: BP 99/63; PULSE 74; RESP 18; O2SAT 96
[2024-08-14] MEDS: oxyCODONE HCl Immed Release 5 MG TABLET PO ×2 (09:35→17:03)
--- NOTE | 2024-08-14 10:41 | PHA.MEDREC ---
Addendum entered by Zoë Carranza RPh 08/14/24 11:07: reviewed by [facility]. Original Note: Pharmacy Consult ? Medication Reconciliation Pharmacy has completed the medication reconciliation Patient states she is only taking the Keflex 500 mg, Doxycycline Hyc 100 mg and Ibuprofen 600 mg.
[2024-08-14 11:11] LABS: HCG Quantitative < 2 mIU/mL
[2024-08-14 12:38] VITALS: RESP 16
[2024-08-14] MEDS: Ketorolac Tromethamine 30 MG/ML VIAL IVPUSH ×2 (12:50→19:16)
--- NOTE | 2024-08-14 14:44 | MHC.CM.PN ---
PT LIVES WITH FAMILY SHE HAS 3 CHILDREN WITH DCF INVOLVEMENT FOR EARLY INTERVENTION FAMILY MEMBERS ARE WATCHING CHILDREN WHILE SHE IS IN THE HOSPITIAL HER CAR IS IN THE PARKING LOT SHE WILL DRIVE HERSELF HOME
--- NOTE | 2024-08-14 15:01 | PC.NURSE ---
mri screening form completed, patient at mri
[2024-08-14] MEDS: gadobutroL 7.5 ML VIAL IVPUSH (15:54)
[2024-08-14 17:44] VITALS: BP 108/49; PULSE 70; RESP 12; TEMP 36.4; O2SAT 98
--- NOTE | 2024-08-14 19:19 | PC.NURSE ---
Took over care from KRYSTIN Hutchison, medicated per jul, pt resting in bed on cell phone. no sign of distress at this time.
[2024-08-14 20:51] VITALS: BP 101/54; PULSE 68; RESP 18; TEMP 36.2; O2SAT 97
[2024-08-15] MEDS: oxyCODONE HCl Immed Release 5 MG TABLET PO ×2 (00:43→07:50)
[2024-08-15] MEDS: Clindamycin Phosphate/D5W 600 MG/50 ML PIGGYBACK 100 MG IV ×2 (01:09→07:54)
[2024-08-15 03:08] VITALS: BP 102/54; PULSE 71; RESP 18; TEMP 36; O2SAT 97
[2024-08-15] MEDS: 0.9 % Sodium Chloride Flush 3 ML SYRINGE IVFLUSH ×2 (04:23→07:54)
--- NOTE | 2024-08-15 04:57 | PC.NURSE ---
[id number] PT IS A 33 YEAR OLD FEMALE TRANSFER FROM ED OVER FLOW WITH DX OF BACTERMIA AND ABSCESS FORMATION D/T LOW BACK DERMAL PIERCING. PT HAD RECENTLY HAD 2 LOWER BACK DERMAL PIERCINGS DOWM. UNFORTUNATELY SHE DEVELOPED PAIN AND SWELLING NECESSITATING A VISIT TO THE ED. PT WAS FOUND TO HAVE A POSITIVE BLOOD CULTURE AND SHE IS ADMITTED FOR IV ABXS. WHILE IN THE ED AN ID OF ABSCESS OF RIGHT GLUTEAL AND BACK WAS PERFORMED WITH REMOVAL OF INTERDERMAL IMPLANT. PT IS PLEASANT/CONVERSATIONAL. SHE HAS NUMEROUS TATTOOS ACROSS SKIN SURFACES. THERE IS A LARGE BULKY DSG ON RIGHT LOWER BACK AND RIGHT BUTTOCK. THERE IS REDNESS EXTENDING AWAY FROM DSG BOARDERS. VITAL SIGNS ARE STABLE. PT IS AFEBRILE.
[2024-08-15 06:39] VITALS: BP 100/54; PULSE 60; RESP 15; TEMP 36.6; O2SAT 98
[2024-08-15 06:52] LABS: MANUAL DIFF FLAG NO
[2024-08-15 07:01] LABS: Basophils Percent Auto 0.4 % (0-2); Eosinophils Absolute Auto 0.3 X10*3/uL (0.0-0.4); Eosinophils Percent Auto 4.2 % (0-4); Hematocrit 36.7 % (37.0-47.0); Hemoglobin 13.6 g/dl (12.0-16.0); Imm Gran Abs Auto 0.03 X10*3/uL (0.00-0.03); Imm Gran Pct Auto 0.4 % (0.0-0.4); Lymphocytes Absolute Auto 1.8 X10*3/uL (1.2-4.9); Lymphocytes Percent Auto 26.6 % (20-40); Mean Corpuscular HGB Conc 37.1 g/dl (31.0-35.0); Mean Corpuscular Hemoglobin 36.6 pg (27.0-33.0); Mean Corpuscular Volume 98.7 fL (80.0-98.0); Mean Platelet Volume 9.9 fL (9.4-12.3); Monocytes Absolute Auto 0.5 X10*3/uL (0.1-1.2); Monocytes Percent Auto 7.7 % (2-11); Neutrophils Absolute Auto 4.2 x10*3/uL (2.0-8.3); Neutrophils Percent Auto 60.7 % (45-73); Platelet Count 167 X10*3/uL (160-400); Red Blood Count 3.72 X10*6/uL (4.20-5.50); Red Cell Distribution Width 16.3 % (11.0-16.0); White Blood Count 6.9 X10*3/uL (4.8-10.8)
--- NOTE | 2024-08-15 07:04 | PM.PNGS ---
Subjective Subjective Date of Service: 08/15/24 Interval history: No overnight events. Carola feels improved since yesterday, though back pain is still present, with radiating shocks down her posterior thigh. She reports burning at site of infection, though that is not new. She does report feeling weakness of the right leg Physical Exam Vital Signs: Vital Signs: Last Vital Signs Temp 97.9 F 08/15/24 06:39 Pulse 60 08/15/24 06:39 Resp 15 08/15/24 06:39 BP 100/54 L 08/15/24 06:39 Pulse Ox 98 08/15/24 06:39 O2 Del Method Room Air 08/15/24 06:39 BMI result Body Mass Index 29.3 Objective Data Active Medications Acetaminophen (Acetaminophen 325 Mg Tablet) 975 mg PO Q6H PRN PRN Reason: Pain, Mild 1-3,fever,headache Last Admin: 08/14/24 21:05 Dose: 975 mg Documented By: AGUSTIN Calcium Carbonate (Calcium Carbonate 750 Mg Tab.Chew) 750 mg PO Q4H PRN PRN Reason: Heartburn Enoxaparin Sodium (Enoxaparin Sodium 40 Mg/0.4 Ml Syringe) 40 mg SUBCUT Q24H [facility] Last Admin: 08/14/24 12:49 Dose: Not Given Documented By: ASHLEY Non-Admin Reason: Patient Refused Clindamycin Phosphate (Cleocin) 600 mg in 50 mls @ 100 mls/hr IV Q8H [facility] Last Infusion: 08/15/24 04:24 Dose: Infused Documented By: AGUSTIN Ketorolac Tromethamine (Ketorolac Tromethamine 30 Mg/Ml Vial) 30 mg IVPUSH Q6H PRN PRN Reason: Pain, Moderate(Pain Scale 4-6) Stop: 08/19/24 00:49 Last Admin: 08/14/24 19:16 Dose: 30 mg Documented By: KALEB Magnesium Hydroxide (Milk Of Magnesia 30 Ml Oral.Susp) 30 ml PO DAILY PRN PRN Reason: Constipation Ondansetron HCl (Ondansetron Hcl 4 Mg/2 Ml Vial) 4 mg IVPUSH Q8H PRN PRN Reason: Nausea and Vomiting Last Admin: 08/14/24 08:35 Dose: 4 mg Documented By: HIRO Oxycodone HCl (Oxycodone Hcl Immed Release 5 Mg Tablet) 5 mg PO Q6H PRN PRN Reason: Pain, Severe (Pain Scale 7-10) Last Admin: 08/15/24 00:43 Dose: 5 mg Documented By: AGUSTIN Sodium Chloride (0.9 % Sodium Chloride Flush 3 Ml Syringe) 3 ml IVFLUSH QSHIFT [facility] Last Admin: 08/15/24 04:23 Dose: 3 ml Documented By: AGUSTIN Labs 08/15/24 05:45 08/14/24 05:18 Labs: Laboratory Results - last 24 hr 08/14/24 08/15/24 10:26 05:45 MCV 98.7 H MCH 36.6 H MCHC 37.1 H RDW 16.3 H Plt Count 167 MPV 9.9 Immature Gran % (Auto) 0.4 Neut % (Auto) 60.7 Lymph % (Auto) 26.6 [place] % (Auto) 7.7 Eos % (Auto) 4.2 H Baso % (Auto) 0.4 Lymph # (Auto) 1.8 [place] # (Auto) 0.5 Eos # (Auto) 0.3 Baso # (Auto) 0.0 Abs Immat Gran (auto) 0.03 Absolute Neuts (auto) 4.2 Absolute Nucleated RBC 0.000 Nucleated RBC % (auto) 0.0 Beta HCG, Quant < 2 Microbiology Microbiology Results: Microbiology 08/14/24 00:05 Blood Culture - Preliminary Blood - Venous No growth after 24 hours. 08/13/24 20:33 Blood Culture - Preliminary Blood - Venous No growth after 24 hours. Procedures Date of Service Date of Service: 08/15/24 Progress Note: A&P Time Spent With Patient Time: Total time managing care of this patient today ____ minutes. Quality Stroke Does the patient have a stroke diagnosis?: No VTE Prior VTE?: No VTE Risk Level:: Medical - moderate - high VTE Device Contraindication: Treatment Not Indicated VTE Drug Contraindication: N/A - Med Ordered
[2024-08-15 07:15] LABS: Anion Gap 11 (12-20); Blood Urea Nitrogen 9 mg/dL (9-16); Calcium 8.4 mg/dL (8.4-10.2); Carbon Dioxide 26 mmol/L (22-29); Chloride 107 mmol/L (96-108); Creatinine Clr Calc Pharmacy 123.2; Estimated Glomerular Filt Rate > 60; Glucose Random 84 mg/dL (60-115); Potassium 3.2 mmol/L (3.3-5.1); Sodium 141 mmol/L (135-145)
--- NOTE | 2024-08-15 09:36 | PM.DS ---
DS: Providers Provider Date of Service: 08/15/24 Date of admission: 08/14/24 00:50 Date of discharge: 08/15/24 Primary care physician: Unknown Physician Consults: 08/14/24 00:50 Consult to General Surgery Routine Consulting Provider[place] [facility] Reason for consultation: abscess vs hematoma, infected piercing, low back Has provider been notified: No Consult to Infectious Diseases Routine Consulting Provider: [facility] Reason for consultation: +blood culture Has provider been notified: No DS: Diagnosis Discharge Diagnosis (1) Cellulitis: Status: Acute (2) Abscess: Status: Acute DS: Summary Hospital Course Hospital Course: admission hpi Chief Complaint: +blood cx Patient is a 33-year-old female with a past medical history significant for GERD, hypothyroid, PTSD, depression, anxiety, mild intermittent asthma, who presented to the ED after being called back due to a recent positive blood culture. the patient was seen 3 times in the past 2 days due to an infected right lower back dermal piercing. She had this piercing done 3 days ago and woke up on the 6 with pain erythema at the site of the piercing. When she was seen in the ED that day they removed the piercing and she was sent home with cephalexin and doxycycline. She returned hours later due to increased pain and an ultrasound was performed with a possible abscess versus hematoma. I and D was performed with blood in scant serosanguinous fluid. She was again sent home to continue her antibiotics. She was called back due to positive blood culture. The patient reports prior to arrival today she was experiencing chills and sweats. There is up and further drainage from the I&D site. Does note some right-sided groin pain which is new and she feels that the erythema is spreading. hospital course: The area was I and D by surgery and packed, blood culture is growing 1/2 gram positive lee, she has been treated with Clindamycin and Doxycylin with signficant improvement and will transition to oral Doxy and Augmentin for a total of 7 days and outaptient follow up with surgery Time Attestation Discharge Coordination Time (in mins): 40 Quality: Safe Use of Opioids Does Pt have an Active Cancer Diagnosis on the Problem List?: No Quality: Stroke Does the patient have a stroke diagnosis?: No Physical Exam Vital Signs: Vital Signs: Last Vital Signs Temp 97.9 F 08/15/24 06:39 Pulse 60 08/15/24 06:39 Resp 15 08/15/24 06:39 BP 100/54 L 08/15/24 06:39 Pulse Ox 98 08/15/24 06:39 O2 Del Method Room Air 08/15/24 06:39 BMI result Body Mass Index 29.3 DS: Data Data Completed and Pending Labs on day of discharge: Laboratory Results - last 24 hr 08/14/24 08/15/24 10:26 05:45 WBC 6.9 RBC 3.72 L Hgb 13.6 Hct 36.7 L MCV 98.7 H MCH 36.6 H MCHC 37.1 H RDW 16.3 H Plt Count 167 MPV 9.9 Immature Gran % (Auto) 0.4 Neut % (Auto) 60.7 Lymph % (Auto) 26.6 [place] % (Auto) 7.7 Eos % (Auto) 4.2 H Baso % (Auto) 0.4 Lymph # (Auto) 1.8 [place] # (Auto) 0.5 Eos # (Auto) 0.3 Baso # (Auto) 0.0 Abs Immat Gran (auto) 0.03 Absolute Neuts (auto) 4.2 Absolute Nucleated RBC 0.000 Nucleated RBC % (auto) 0.0 Sodium 141 Potassium 3.2 L Chloride 107 Carbon Dioxide 26 Anion Gap 11 L BUN 9 Creatinine 0.63 Estim Creat Clear Calc 123.2 Estimated GFR > 60 Random Glucose 84 Calcium 8.4 Beta HCG, Quant < 2 Preliminary micro results at discharge 08/14/24 00:05 Blood Culture - Preliminary Blood - Venous No growth after 24 hours. 08/13/24 20:33 Blood Culture - Preliminary Blood - Venous No growth after 24 hours. Discharge Plan Discharge Anticipated Discharge Date/Time: 08/15/24 09:38 Patient Disposition: Home, Self-Care Discharge Diagnosis: Cellulitis and abscess of the back from piercing Referrals: Tay Mosqueda MD [Physician] - 1 Week Physician,Unknown J [Primary Care Provider] - 1 Week Discharge Medications: New amoxicillin-pot clavulanate 875-125 mg tablet 1 tab PO BID Qty: 12 0RF Continued doxycycline hyclate 100 mg tablet 100 mg PO BID Qty: 20 0RF Rx Instructions: End date 08/23/24 ibuprofen 600 mg tablet 600 mg PO Q8H PRN (Reason: Pain) Discontinued cephalexin 500 mg capsule 500 mg PO QID 10 Days Qty: 40 0RF Rx Instructions: end date 08/23/24 Discharge Orders: Discharge Order (Routine); Ordered 08/15/24 Ordered By: Rosalio Chaudhry Diet: Advance to usual diet Activity on Discharge: No heavy lifting Stand Alone Forms: Patient Portal Discharge page Print Language: Lithuanian Care Plan Goals: recovery from cellulitis and abscess of the back Health Concerns: cellulitis and abscess of the back bacteremia Plan of Treatment: take Augmentin and Doxycyline as recommended and follow up with your doctor and surgeon in a week apply dry dressing to the area daily Assessment: see above
[2024-08-15] MEDS: Enoxaparin Sodium 40 MG/0.4 ML SYRINGE SUBCUT (10:00)
[2024-08-15] MEDS: Doxycycline Hyclate 100 MG in 0.9 % Sodium Chloride 250 ML 166.67 MG IV (10:01)
[2024-08-15] MEDS: Ketorolac Tromethamine 30 MG/ML VIAL IVPUSH (10:40)
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
[2024-08-15 15:17] VITALS: BP 112/59; PULSE 70; RESP 15; TEMP 36.1; O2SAT 98
--- NOTE | 2024-08-15 15:48 | MHC.CM.PN ---
surgery to see pt pt not medically ready for dc
--- NOTE | 2024-08-15 16:04 | PM.EVENT ---
Event Note Date of Service: 08/15/24 Event Note: Asked to see the patient by hospitalist service prior to discharge I and D done back abscess yesterday Minimal residual induration, no cellulitis I&D site open, no active drainage I removed the packing Dry dressings placed Okay to DC home with daily wound care with dry dressings Oral antibiotics If with worsening, call the office for a follow-up for a wound check Time Spent With Patient Time: Total time managing care of this patient today ____ minutes.
--- NOTE | 2024-08-15 17:27 | PC.NURSE ---
Pt declined to sign leaving unaccompanied form as she self withheld pain meds for safe driving, she told the doctor she was driving herself home and she was not made aware that it was not recommended,
== END 2024-08-15 17:40 | disposition home or self-care (01) | DRG 603 ==
LOC: HO.ED 23:18 → HO.EDOVER 08-14 01:00 → HO.S3 08-14 19:41
PROVIDERS: Physician Assistant; Admitting Provider Physician Assistant; Emergency Provider Internal Medicine; Visit Provider Internal Medicine
DX: L02.212 Cutaneous abscess of back [any part, except buttock and flank] (principal); R78.81 Bacteremia; L03.312 Cellulitis of back [any part except buttock and flank]; E87.6 Hypokalemia; J45.20 Mild intermittent asthma, uncomplicated; F17.210 Nicotine dependence, cigarettes, uncomplicated; Z71.6 Tobacco abuse counseling; K21.9 Gastro-esophageal reflux disease without esophagitis; Z79.890 Hormone replacement therapy; Z79.899 Other long term (current) drug therapy
CPT/HCPCS: 36415; 72158; 80048; 80053; 83605; 83735; 84702; 85025; 85652; 86140; 87040; 87076; 87185; 87205; 93306; 99284; 99285; A9585; J0736; J1650; J1885; J2003; J2270; J2405

== ENCOUNTER 2024-08-14 00:50 | Outpatient (BNV) | payer OTHER, SELFPAY | END 2024-08-14 15:07 | PROVIDERS: Admitting Provider Physician Assistant; Emergency Provider Internal Medicine; Visit Provider Radiology Diagnostic Radiology | DX: M54.50 Low back pain, unspecified (principal) | CPT/HCPCS: 72158 ==

== ENCOUNTER 2024-08-14 00:50 | Outpatient (BNV) | payer OTHER, SELFPAY | END 2024-08-14 07:00 | PROVIDERS: Admitting Provider Physician Assistant; Emergency Provider Internal Medicine; Visit Provider Internal Medicine Cardiovascular Disease | DX: R78.81 Bacteremia (principal) | CPT/HCPCS: 93306 ==

== ENCOUNTER → 2024-08-14 00:50 | Outpatient (BNV) | payer OTHER, SELFPAY | PROVIDERS: Admitting Provider Physician Assistant; Emergency Provider Internal Medicine; Visit Provider Internal Medicine | DX: R78.81 Bacteremia (principal); S71.03 Puncture wound without foreign body of hip; L08.9 Local infection of the skin and subcutaneous tissue, unspecified; L02.91 Cutaneous abscess, unspecified; E87.6 Hypokalemia; L03.90 Cellulitis, unspecified | CPT/HCPCS: 99223; 99239; 99499 ==

== ENCOUNTER → 2024-08-14 00:50 | Outpatient (BNV) | payer OTHER, SELFPAY | PROVIDERS: Admitting Provider Physician Assistant; Emergency Provider Internal Medicine; Visit Provider Physician Assistant Surgical | DX: L02.212 Cutaneous abscess of back [any part, except buttock and flank] (principal); L03.312 Cellulitis of back [any part except buttock and flank] | CPT/HCPCS: 10060; 99222; 99499 ==

== ENCOUNTER → 2024-08-14 00:50 | Outpatient (BNV) | payer OTHER, SELFPAY | PROVIDERS: Admitting Provider Physician Assistant; Emergency Provider Internal Medicine; Visit Provider Internal Medicine | DX: L03.90 Cellulitis, unspecified (principal); R78.81 Bacteremia | CPT/HCPCS: 99222 ==

== ENCOUNTER 2024-08-16 16:06 | Inpatient (IN) | payer OTHER, SELFPAY ==
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
[2024-08-16 16:20] VITALS: BP 129/80; PULSE 110; RESP 16; TEMP 36.6; O2SAT 97; BMI 27.1
[2024-08-16 16:50] LABS: MANUAL DIFF FLAG NO
[2024-08-16 16:54] LABS: UPreg QC Valid YES; Urine Pregnancy NEGATIVE (NEGATIVE)
[2024-08-16 16:56] LABS: Basophils Percent Auto 0.6 % (0-2); Eosinophils Absolute Auto 0.1 X10*3/uL (0.0-0.4); Eosinophils Percent Auto 1.6 % (0-4); Hematocrit 37.4 % (37.0-47.0); Hemoglobin 13.7 g/dl (12.0-16.0); Imm Gran Abs Auto 0.02 X10*3/uL (0.00-0.03); Imm Gran Pct Auto 0.3 % (0.0-0.4); Lymphocytes Absolute Auto 1.3 X10*3/uL (1.2-4.9); Lymphocytes Percent Auto 20.9 % (20-40); Mean Corpuscular HGB Conc 36.6 g/dl (31.0-35.0); Mean Corpuscular Hemoglobin 35.9 pg (27.0-33.0); Mean Corpuscular Volume 97.9 fL (80.0-98.0); Mean Platelet Volume 9.3 fL (9.4-12.3); Monocytes Absolute Auto 0.5 X10*3/uL (0.1-1.2); Monocytes Percent Auto 7.9 % (2-11); Neutrophils Absolute Auto 4.4 x10*3/uL (2.0-8.3); Neutrophils Percent Auto 68.7 % (45-73); Platelet Count 248 X10*3/uL (160-400); Red Blood Count 3.82 X10*6/uL (4.20-5.50); Red Cell Distribution Width 16.8 % (11.0-16.0); White Blood Count 6.3 X10*3/uL (4.8-10.8)
[2024-08-16 17:13] LABS: Alanine Aminotransferase 23 U/L (0-31); Albumin Level 3.7 g/dL (3.5-5.0); Alkaline Phosphatase 78 U/L (39-117); Anion Gap 11 (12-20); Aspartate Amino Transferase 26 U/L (5-31); Bilirubin Direct 0.2 mg/dL (0.0-0.5); Bilirubin Total 0.6 mg/dL (0.0-1.0); Blood Urea Nitrogen 11 mg/dL (9-16); Calcium 8.9 mg/dL (8.4-10.2); Carbon Dioxide 25 mmol/L (22-29); Chloride 108 mmol/L (96-108); Creatinine Clr Calc Pharmacy 125.1; Estimated Glomerular Filt Rate > 60; Ethanol < 10 mg/dL; Glucose Random 104 mg/dL (60-115); Lipase 11 U/L (8-78); Magnesium 1.7 mg/dL (1.6-2.6); Potassium 3.2 mmol/L (3.3-5.1); Sodium 141 mmol/L (135-145); Total Protein 6.4 g/dL (6.5-8.0)
[2024-08-16 17:16] LABS: Amphetamine Screen Urine Not Detected (Not Detect); Barbiturates, Urine Not Detected (Not Detect); Benzodiazepines Screen Urine Not Detected (Not Detect); Buprenorphine Scr Not Detected (Not Detect); Cannabinoid Screen Urine POSITIVE (Not Detect); Cocaine Screen Urine POSITIVE (Not Detect); Fentanyl, urine Not Detected (Not Detect); Methadone Screen, Urine Not Detected (Not Detect); Opiate Screen Urine Not Detected (Not Detect); Oxycodone Screen Urine Positive (Not Detect); Phencyclidine Screen Urine Not Detected (Not Detect)
--- OUTSIDE RECORDS SUMMARY | 2024-08-16 18:07 | XMS_ITS | Clinical Summary ---
Author Organization [employer] Address [address] [place] [address] Care Team Providers Care School Superintendent Name Role Phone Unavailable Primary Care Provider [...] Insurance DENTAL - [facility]
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
[2024-08-16 20:20] VITALS: BP 100/50; PULSE 68; RESP 16; O2SAT 99
--- NOTE | 2024-08-16 21:21 | PC.NURSE ---
FAROOQ Greene redressed lower back wound
--- NOTE | 2024-08-16 21:43 | PC.NURSE ---
pt speaking with mother Gabi on landline
[2024-08-16 22:00] VITALS: BP 119/76; PULSE 94
[2024-08-16] MEDS: diphenhydrAMINE HCL 25 MG CAPSULE 50 MG PO (22:37)
[2024-08-16] MEDS: Amoxicillin/Potassium Clav 875 MG TABLET PO (22:37)
[2024-08-16] MEDS: Doxycycline Monohydrate 100 MG CAPSULE PO (22:38)
[2024-08-16] MEDS: Ibuprofen 600 MG TABLET PO (22:38)
[2024-08-17 06:31] VITALS: BP 103/63; PULSE 56; RESP 16; TEMP 36.3; O2SAT 99
--- NOTE | 2024-08-17 07:30 | ECG_ITS ---
Test Reason : qtc check Blood Pressure : */* mmHG Vent. Rate : 69 BPM Atrial Rate : 69 BPM P-R Int : 134 ms QRS Dur : 72 ms QT Int : 422 ms P-R-T Axes : 13 65 28 degrees QTcB Int : 452 ms Normal sinus rhythm Normal ECG When compared with ECG of 02-Jun-2024 11:38, No significant change was found Referred By: Generic ED Physician Electronically Signed By: Zachary Rdz
--- NOTE | 2024-08-17 08:22 | MHC.RECOVRN ---
Received Addiction Medicine consult for wants treatment from alcohol. Pt has met with CARE Team is a dual diagnosis bedsearch.
[2024-08-17] MEDS: Doxycycline Monohydrate 100 MG CAPSULE PO ×2 (09:42→21:11)
[2024-08-17] MEDS: Amoxicillin/Potassium Clav 875 MG TABLET PO ×2 (09:59→21:12)
[2024-08-17 11:49] LABS: Appearance Urine Turbid; Color Urine Dark Yellow; Glucose Urine UA Negative (Negative); Leukocyte Esterase Urine Trace (Negative); Nitrite Urine Negative (Negative); Specific Gravity - Urine >= 1.030 (1.005-1.025); UMIC TRIGGER UACC YES; Urine Blood Negative (Negative); Urine Ketones Trace mg/dL (Negative); Urine Protein Trace mg/dL (Neg-Trace)
[2024-08-17 12:10] LABS: Bacteria Urine None Seen (None Seen); Calcium Oxalate Crystals Urine Present; Hyaline Casts Urine 0-2 /LPF (0-2); RBC Urine 0-2 /HPF (0-2); WBC Urine 0-5 /HPF (0-5)
[2024-08-17] MEDS: Acetaminophen 325 MG TABLET 650 MG PO ×2 (12:26→18:28)
[2024-08-17] MEDS: Magnesium Hydrox/Alum Hydrox 30 ML ORAL.SUSP PO (12:27)
[2024-08-17 13:30] VITALS: BP 123/79; PULSE 86; RESP 16; TEMP 36.5; O2SAT 97
[2024-08-17 13:38] LABS: Alanine Aminotransferase 31 U/L (0-31); Albumin Level 3.6 g/dL (3.5-5.0); Alkaline Phosphatase 67 U/L (39-117); Anion Gap 10 (12-20); Aspartate Amino Transferase 30 U/L (5-31); Bilirubin Total 0.6 mg/dL (0.0-1.0); Blood Urea Nitrogen 12 mg/dL (9-16); Carbon Dioxide 28 mmol/L (22-29); Chloride 108 mmol/L (96-108); Creatinine Clr Calc Pharmacy 127.2; Estimated Glomerular Filt Rate > 60; Glucose Random 111 mg/dL (60-115); Potassium 3.5 mmol/L (3.3-5.1); Sodium 142 mmol/L (135-145); Total Protein 6.2 g/dL (6.5-8.0)
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
--- NOTE | 2024-08-17 14:57 | MHC.CLN ---
NUTRITION ROUTINE NUTRITION CONSULT ORDERED. REVIEW OF EMR SHOWS WEIGHT STABLE X ONE YEAR. DIET=REGULAR. INTAKE APPEARS GOOD. BMI=27.1, OVERWEIGHT. NO NEW NUTRITION INTERVENTIONS AT THIS TIME.
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
[2024-08-17] MEDS: hydrOXYzine HCL 25 MG TABLET PO (15:15)
[2024-08-17 15:21] VITALS: BMI 26.7
[2024-08-17 15:55] VITALS: BP 125/82; PULSE 80
[2024-08-17 16:08] VITALS: BP 125/82
[2024-08-17] MEDS: cloNIDine HCL 0.1 MG TABLET PO ×2 (16:08→22:59)
[2024-08-17] MEDS: OLANZapine 5 MG TABLET PO (16:09)
[2024-08-17 20:20] VITALS: BP 92/50; PULSE 69; RESP 16; TEMP 37.4; O2SAT 97
[2024-08-17] MEDS: Divalproex Sodium ER 500 MG TAB.ER.24H PO (21:12)
[2024-08-17 22:59] VITALS: BP 100/63
[2024-08-17] MEDS: traZODone HCL 50 MG TABLET PO (23:00)
[2024-08-18 08:30] LABS: Estimated Average Glucose 82 mg/dL; Hemoglobin A1C 91.4698 umol/L; Hemoglobin A1c % 4.5 % (<6.0); Total Hemoglobin (HGBA1C) 3515.3704 umol/L
[2024-08-18 08:34] LABS: Cholesterol 118 mg/dL (<200); HDL Cholesterol 31 mg/dL (>40); LDL Cholesterol Calculated 59 mg/dL (<100); Triglycerides 141 mg/dL (<150)
[2024-08-18 08:45] VITALS: BP 107/70; PULSE 70; RESP 15; TEMP 36.6; O2SAT 99
[2024-08-18 09:02] VITALS: BP 107/70
[2024-08-18] MEDS: cloNIDine HCL 0.1 MG TABLET PO ×2 (09:02→20:08)
[2024-08-18] MEDS: Doxycycline Monohydrate 100 MG CAPSULE PO ×2 (09:03→20:42)
[2024-08-18] MEDS: Amoxicillin/Potassium Clav 875 MG TABLET PO ×2 (09:05→20:42)
[2024-08-18] MEDS: Acetaminophen 325 MG TABLET 650 MG PO (09:10)
[2024-08-18] MEDS: Naltrexone HCl 50 MG TABLET PO (10:55)
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
[2024-08-18] MEDS: OLANZapine 5 MG TABLET PO (16:43)
--- NOTE | 2024-08-18 17:29 | P.PNPSI_ITS ---
Subjective Subjective Date of Service: 08/18/24 Reason For Visit: crisis Interim History: woke up agitated and annoyed, then calmed a bit. likes clonidine but concerned the 0.1 mg dose will be too sedating. agrees to decrease to 0.05 mg and take i nthe morning and at 3 pm, and keep HS dose at 0.1 mg. asking to start naltrexone, which is done. per staff, anxious, racing thoughts, insomnia. slept 8 hours. cried all marianna. Mental Status Exam Mental Status Exam Patient Appearance: Appropriate Patient Orientation: Person, Place, Time and Situation Level of Consciousness: Awake and Alert Patient Behavior: Appropriate, Cooperative and Good Eye Contact Mood Description: Anxious Affect Description: Depressed and Anxious Ability to Follow Directions: Good Speech Pattern: Clear and Appropriate Memory Description: Intact Hallucinations: None Delusions: Not Present Thought Process: Intact and Goal Oriented Thought Content: positive for Intact Diagnostics Vital Signs (24Hr): Vital Signs - 24 hr 08/17/24 20:20 08/17/24 22:59 08/18/24 08:45 Temperature 99.4 F 97.8 F Pulse Rate 69 70 Respiratory Rate 16 15 Blood Pressure 92/50 L 100/63 107/70 Pulse Oximetry 97 99 Oxygen Delivery Method Room Air Room Air 08/18/24 09:02 Temperature Pulse Rate Respiratory Rate Blood Pressure 107/70 Pulse Oximetry Oxygen Delivery Method BMI result Body Mass Index 26.7 Labs 08/16/24 16:40 08/17/24 13:16 Labs: Laboratory Results - last 48 hr 08/16/24 08/17/24 08/18/24 16:42 13:16 07:59 Sodium 142 Potassium 3.5 Chloride 108 Carbon Dioxide 28 Anion Gap 10 L BUN 12 Creatinine 0.61 Estim Creat Clear Calc 127.2 Estimated GFR > 60 Random Glucose 111 Estimat Average Glucose 82 Hemoglobin A1c % 4.5 Calcium 9.0 Total Bilirubin 0.6 AST 30 ALT 31 Alkaline Phosphatase 67 Total Protein 6.2 L Albumin 3.6 Triglycerides 141 Cholesterol 118 LDL Cholesterol, Calc 59 HDL Cholesterol 31 L Urine Color Dark Yellow Urine Appearance Turbid Urine pH 6.0 Ur Specific [place] >= 1.030 H Urine Protein Trace Urine Glucose (UA) Negative Urine Ketones Trace Urine Blood Negative Urine Nitrite Negative Ur Leukocyte Esterase Trace H Urine RBC 0-2 Urine WBC 0-5 Ur Squamous Epith Cells 11-20 Calcium Oxalate Crystal Present Urine Bacteria None Seen Hyaline Casts 0-2 Medications Medications Current Medications Acetaminophen (Acetaminophen 325 Mg Tablet) 650 mg PO Q6H PRN PRN Reason: Headache/Pain, Scale 1-10 Last Admin: 08/18/24 09:10 Dose: 650 mg Al Hydroxide/Mg Hydroxide (Magnesium Hydrox/Alum Hydrox 30 Ml Oral.Susp) 30 ml PO Q6H PRN PRN Reason: Heartburn/Nausea Last Admin: 08/17/24 12:27 Dose: 30 ml Amoxicillin/Clavulanate Potassium (Amoxicillin/Potassium Clav 875 Mg Tablet) 875 mg PO BID [facility] Stop: 08/24/24 20:59 Last Admin: 08/18/24 09:05 Dose: 875 mg Clonidine HCl (Clonidine Hcl 0.1 Mg Tablet) 0.1 mg PO BEDTIME JOSE; Protocol Clonidine HCl (Clonidine Hcl 0.1 Mg Tablet) 0.05 mg PO BID@0900,1500 JOSE; Protocol Clonidine HCl (Clonidine Hcl 0.1 Mg Tablet) 0.1 mg PO BEDTIME PRN; Protocol PRN Reason: insomnia Divalproex Sodium (Divalproex Sodium Er 500 Mg Tab.Er.24h) 500 mg PO BEDTIME [facility] Last Admin: 08/17/24 21:12 Dose: 500 mg Doxycycline Monohydrate (Doxycycline Monohydrate 100 Mg Capsule) 100 mg PO BID [facility] Last Admin: 08/18/24 09:03 Dose: 100 mg Hydroxyzine HCl (Hydroxyzine Hcl 25 Mg Tablet) 25 mg PO Q6H PRN PRN Reason: mild anxiety Last Admin: 08/17/24 15:15 Dose: 25 mg Ibuprofen (Ibuprofen 600 Mg Tablet) 600 mg PO Q6H PRN PRN Reason: mod/sev pain (pain scale 4-10) Magnesium Hydroxide (Milk Of Magnesia 30 Ml Oral.Susp) 30 ml PO DAILY PRN PRN Reason: Constipation Naltrexone HCl (Naltrexone Hcl 50 Mg Tablet) 50 mg PO DAILY [facility] Last Admin: 08/18/24 10:55 Dose: 50 mg Nicotine Polacrilex (Nicotine Polacrilex 2 Mg Gum) 4 mg BUCCAL Q2H PRN PRN Reason: Nicotine Cravings Olanzapine (Olanzapine 5 Mg Tablet) 5 mg PO Q4H PRN PRN Reason: agitation Last Admin: 08/18/24 16:43 Dose: 5 mg Trazodone HCl (Trazodone Hcl 50 Mg Tablet) 50 mg PO BEDTIME MRX1 PRN PRN Reason: Insomnia Last Admin: 08/17/24 23:00 Dose: 50 mg Allergies Allergies Allergy/AdvReac Type Severity Reaction Status Date / Time melatonin [MELATONIN] Allergy Intermediate RASH Verified 08/16/24 16:21 topiramate [From TOPAMAX] Allergy Intermediate BRAIN Verified 08/16/24 16:21 SHUTS DOWN vancomycin Allergy Intermediate erythema Verified 08/16/24 16:21 and pruritis sulfamethoxazole Allergy Unknown SWELLING, Verified 08/16/24 16:21 [From BACTRIM] REDNESS trimethoprim [From BACTRIM] Allergy Unknown SWELLING, Verified 08/16/24 16:21 REDNESS Assessment & Plan Assessment & Plan (1) Open back wound: Status: Acute Code(s): S21.209A - Unspecified open wound of unspecified back wall of thorax without penetration into thoracic cavity, initial encounter Assessment and Plan: At present, continue local wound care. Patient may shower. Change dressings daily. This was discussed with the patient was nurse. All questions answered. (2) Bipolar disorder: Status: Acute Code(s): F31.9 - Bipolar disorder, unspecified Plan Patient is a 33-year-old female with history of bipolar disorder, PTSD, cocaine use disorder and alcohol use disorder who self presented [place] [facility] due to suicidal ideation secondary to increased depression. Plan: CV 15 minute safety checks Start: Depakote ER 500mg PO bedtime Clonidine 0.1mg PO BID Wound care consult Obtain collateral Referral to outpatient psychiatric providers Encourage groups Discharge planning 08/18: change clonidine 0.1 BID to 0.05/0.05/0.1. add 0.1 mg PRN at HS for insomnia. continue VPA 500 QHS, titrate up if mood appears unstable. T/C starting anti-depressant medication as well. Reason for continued inpatient stay Substantial Risk for: inability to function and rapid decompensation Time Spent With Patient Time: Total time managing care of this patient today ____ minutes.
[2024-08-18 19:55] VITALS: BP 113/68; PULSE 64; RESP 16; TEMP 36.9; O2SAT 98
[2024-08-18] MEDS: Divalproex Sodium ER 500 MG TAB.ER.24H PO (20:08)
[2024-08-19 08:30] VITALS: BP 119/66; PULSE 72; RESP 17; TEMP 36.6; O2SAT 99
[2024-08-19] MEDS: Doxycycline Monohydrate 100 MG CAPSULE PO ×2 (08:55→21:20)
[2024-08-19] MEDS: Naltrexone HCl 50 MG TABLET PO (08:55)
[2024-08-19] MEDS: Amoxicillin/Potassium Clav 875 MG TABLET PO ×2 (08:55→21:20)
[2024-08-19 08:56] VITALS: BP 119/66
[2024-08-19] MEDS: cloNIDine HCL 0.1 MG TABLET 0.05 MG PO ×2 (08:56→15:10)
[2024-08-19] MEDS: Escitalopram Oxalate 5 MG TABLET PO (11:10)
[2024-08-19] MEDS: Nicotine 14 MG PATCH.TD24 TRANSDERMA (12:39)
[2024-08-19 15:10] VITALS: BP 108/67
[2024-08-19] MEDS: Acetaminophen 325 MG TABLET 650 MG PO (18:00)
[2024-08-19 19:16] VITALS: BP 125/75; PULSE 78; RESP 16; TEMP 36.8; O2SAT 100
--- NOTE | 2024-08-19 21:06 | HO.PSYCHPN ---
Subjective Subjective Date of Service: 08/19/24 Reason For Visit: crisis Interim History: calm, cooperative, pleasant. clonidine 0.05 mg dosing better for her as it causes less sedation. agrees to start lexapro 5 mg daily for PTSD and depression. per staff, labile. back wound concerning. surgery did not want to change mgmt at present. wanting DC. missing kids. zyprexa working well for anxiety/racing thoughts. Mental Status Exam Mental Status Exam Patient Appearance: Appropriate Patient Orientation: Person, Place, Time and Situation Level of Consciousness: Awake and Alert Patient Behavior: Appropriate, Cooperative and Good Eye Contact Mood Description: Anxious Affect Description: Depressed and Anxious Ability to Follow Directions: Good Speech Pattern: Clear and Appropriate Memory Description: Intact Hallucinations: None Delusions: Not Present Thought Process: Intact and Goal Oriented Thought Content: positive for Intact Diagnostics Vital Signs (24Hr): Vital Signs - 24 hr 08/19/24 08:30 08/19/24 08:56 08/19/24 15:10 Temperature 97.8 F Pulse Rate 72 Respiratory Rate 17 Blood Pressure 119/66 119/66 108/67 Pulse Oximetry 99 Oxygen Delivery Method Room Air 08/19/24 19:16 Temperature 98.2 F Pulse Rate 78 Respiratory Rate 16 Blood Pressure 125/75 Pulse Oximetry 100 Oxygen Delivery Method Room Air BMI result Body Mass Index 26.7 Labs 08/16/24 16:40 08/17/24 13:16 Labs: Laboratory Results - last 48 hr 08/18/24 07:59 Estimat Average Glucose 82 Hemoglobin A1c % 4.5 Triglycerides 141 Cholesterol 118 LDL Cholesterol, Calc 59 HDL Cholesterol 31 L Medications Medications Current Medications Acetaminophen (Acetaminophen 325 Mg Tablet) 650 mg PO Q6H PRN PRN Reason: Headache/Pain, Scale 1-10 Last Admin: 08/19/24 18:00 Dose: 650 mg Al Hydroxide/Mg Hydroxide (Magnesium Hydrox/Alum Hydrox 30 Ml Oral.Susp) 30 ml PO Q6H PRN PRN Reason: Heartburn/Nausea Last Admin: 08/17/24 12:27 Dose: 30 ml Amoxicillin/Clavulanate Potassium (Amoxicillin/Potassium Clav 875 Mg Tablet) 875 mg PO BID JOSE Stop: 08/24/24 20:59 Last Admin: 08/19/24 08:55 Dose: 875 mg Clonidine HCl (Clonidine Hcl 0.1 Mg Tablet) 0.1 mg PO BEDTIME JOSE; Protocol Last Admin: 08/18/24 20:08 Dose: 0.1 mg Clonidine HCl (Clonidine Hcl 0.1 Mg Tablet) 0.05 mg PO BID@0900,1500 [facility]; Protocol Last Admin: 08/19/24 15:10 Dose: 0.05 mg Clonidine HCl (Clonidine Hcl 0.1 Mg Tablet) 0.1 mg PO BEDTIME PRN; Protocol PRN Reason: insomnia Divalproex Sodium (Divalproex Sodium Er 500 Mg Tab.Er.24h) 500 mg PO BEDTIME [facility] Last Admin: 08/18/24 20:08 Dose: 500 mg Doxycycline Monohydrate (Doxycycline Monohydrate 100 Mg Capsule) 100 mg PO BID [facility] Last Admin: 08/19/24 08:55 Dose: 100 mg Escitalopram Oxalate (Escitalopram Oxalate 5 Mg Tablet) 5 mg PO DAILY [facility] Last Admin: 08/19/24 11:10 Dose: 5 mg Hydroxyzine HCl (Hydroxyzine Hcl 25 Mg Tablet) 25 mg PO Q6H PRN PRN Reason: mild anxiety Last Admin: 08/17/24 15:15 Dose: 25 mg Ibuprofen (Ibuprofen 600 Mg Tablet) 600 mg PO Q6H PRN PRN Reason: mod/sev pain (pain scale 4-10) Magnesium Hydroxide (Milk Of Magnesia 30 Ml Oral.Susp) 30 ml PO DAILY PRN PRN Reason: Constipation Naltrexone HCl (Naltrexone Hcl 50 Mg Tablet) 50 mg PO DAILY [facility] Last Admin: 08/19/24 08:55 Dose: 50 mg Nicotine (Nicotine 14 Mg Patch.Td24) 14 mg TRANSDERMA DAILY PRN PRN Reason: nicotine cravings Last Admin: 08/19/24 12:39 Dose: 14 mg Nicotine Polacrilex (Nicotine Polacrilex 2 Mg Gum) 4 mg BUCCAL Q2H PRN PRN Reason: Nicotine Cravings Olanzapine (Olanzapine 2.5 Mg Tablet) 2.5 mg PO Q4H PRN PRN Reason: agitation Trazodone HCl (Trazodone Hcl 50 Mg Tablet) 50 mg PO BEDTIME MRX1 PRN PRN Reason: Insomnia Last Admin: 08/17/24 23:00 Dose: 50 mg Allergies Allergies Allergy/AdvReac Type Severity Reaction Status Date / Time melatonin [MELATONIN] Allergy Intermediate RASH Verified 08/16/24 16:21 topiramate [From TOPAMAX] Allergy Intermediate BRAIN Verified 08/16/24 16:21 SHUTS DOWN vancomycin Allergy Intermediate erythema Verified 08/16/24 16:21 and pruritis sulfamethoxazole Allergy Unknown SWELLING, Verified 08/16/24 16:21 [From BACTRIM] REDNESS trimethoprim [From BACTRIM] Allergy Unknown SWELLING, Verified 08/16/24 16:21 REDNESS Assessment & Plan Assessment & Plan (1) Open back wound: Status: Acute Code(s): S21.209A - Unspecified open wound of unspecified back wall of thorax without penetration into thoracic cavity, initial encounter Assessment and Plan: At present, continue local wound care. Patient may shower. Change dressings daily. This was discussed with the patient was nurse. All questions answered. (2) Bipolar disorder: Status: Acute Code(s): F31.9 - Bipolar disorder, unspecified Plan Patient is a 33-year-old female with history of bipolar disorder, PTSD, cocaine use disorder and alcohol use disorder who [place] [facility] [place] due to suicidal ideation secondary to increased depression. Plan: CV 15 minute safety checks Start: Depakote ER 500mg PO bedtime Clonidine 0.1mg PO BID Wound care consult Obtain collateral Referral to outpatient psychiatric providers Encourage groups Discharge planning 08/18: change clonidine 0.1 BID to 0.05/0.05/0.1. add 0.1 mg PRN at HS for insomnia. continue VPA 500 QHS, titrate up if mood appears unstable. T/C starting anti-depressant medication as well. 08/19: start lexapro 5 mg daily for PTSD/depression. otherwise continue current mgmt. Reason for continued inpatient stay Substantial Risk for: harm to self, inability to function and rapid decompensation Time Spent With Patient Time: Total time managing care of this patient today ____ minutes.
[2024-08-19 21:19] VITALS: BP 114/73; PULSE 73; RESP 18; TEMP 36.9; O2SAT 98
[2024-08-19] MEDS: Divalproex Sodium ER 500 MG TAB.ER.24H PO (21:20)
[2024-08-19] MEDS: cloNIDine HCL 0.1 MG TABLET PO (21:20)
[2024-08-19] MEDS: Ibuprofen 600 MG TABLET PO (21:22)
[2024-08-20 08:05] VITALS: BP 113/70; PULSE 59; RESP 18; TEMP 36.7; O2SAT 98
[2024-08-20] MEDS: Naltrexone HCl 50 MG TABLET PO (08:40)
[2024-08-20 08:41] VITALS: BP 113/70
[2024-08-20] MEDS: cloNIDine HCL 0.1 MG TABLET 0.05 MG PO ×2 (08:41→15:09)
[2024-08-20] MEDS: Doxycycline Monohydrate 100 MG CAPSULE PO ×2 (08:41→20:42)
[2024-08-20] MEDS: Escitalopram Oxalate 5 MG TABLET PO (08:41)
[2024-08-20] MEDS: Amoxicillin/Potassium Clav 875 MG TABLET PO ×2 (08:41→20:41)
[2024-08-20] MEDS: Nicotine 14 MG PATCH.TD24 TRANSDERMA (08:46)
--- NOTE | 2024-08-20 09:47 | P.PNPSI_ITS ---
Subjective Subjective Date of Service: 08/20/24 Reason For Visit: crisis Subjective Notes: Conditional Voluntary Interim History: Active on unit, social with peers. attending groups. Patient reports feeling pretty good ;pt stated, I'm missing my kids but it's been helpful being here . denies SI/HI/VH/AH. Plan to discharge Tuesday if continues to improve. Pt is requesting to be restarted on guanfacine for impulsivity; start: guanfacine 1mg PO daily Medication Compliance: Yes Side effects from medications: No Attending Groups: Yes Mental Status Exam Mental Status Exam Narrative: Pt is alert and oriented; behavior is cooperative and calm; dressed in casual attire; mood is described as good ; eye contact appropriate; Speech is normal rate, volume and not pressured; thought process is organized; Thought content is on tx; denies SI/HI/VH/AH. Diagnostics Vital Signs (24Hr): Vital Signs - 24 hr 08/19/24 15:10 08/19/24 19:16 08/19/24 21:19 Temperature 98.2 F 98.5 F Pulse Rate 78 73 Respiratory Rate 16 18 Blood Pressure 108/67 125/75 114/73 Pulse Oximetry 100 98 Oxygen Delivery Method Room Air Room Air 08/20/24 08:41 Temperature Pulse Rate Respiratory Rate Blood Pressure 113/70 Pulse Oximetry Oxygen Delivery Method BMI result Body Mass Index 26.7 Labs 08/16/24 16:40 08/17/24 13:16 Medications Medications Current Medications Acetaminophen (Acetaminophen 325 Mg Tablet) 650 mg PO Q6H PRN PRN Reason: Headache/Pain, Scale 1-10 Last Admin: 08/19/24 18:00 Dose: 650 mg Al Hydroxide/Mg Hydroxide (Magnesium Hydrox/Alum Hydrox 30 Ml Oral.Susp) 30 ml PO Q6H PRN PRN Reason: Heartburn/Nausea Last Admin: 08/17/24 12:27 Dose: 30 ml Amoxicillin/Clavulanate Potassium (Amoxicillin/Potassium Clav 875 Mg Tablet) 875 mg PO BID JOSE Stop: 08/24/24 20:59 Last Admin: 08/20/24 08:41 Dose: 875 mg Clonidine HCl (Clonidine Hcl 0.1 Mg Tablet) 0.1 mg PO BEDTIME JOSE; Protocol Last Admin: 08/19/24 21:20 Dose: 0.1 mg Clonidine HCl (Clonidine Hcl 0.1 Mg Tablet) 0.05 mg PO BID@0900,1500 [facility]; Protocol Last Admin: 08/20/24 08:41 Dose: 0.05 mg Clonidine HCl (Clonidine Hcl 0.1 Mg Tablet) 0.1 mg PO BEDTIME PRN; Protocol PRN Reason: insomnia Divalproex Sodium (Divalproex Sodium Er 500 Mg Tab.Er.24h) 500 mg PO BEDTIME [facility] Last Admin: 08/19/24 21:20 Dose: 500 mg Doxycycline Monohydrate (Doxycycline Monohydrate 100 Mg Capsule) 100 mg PO BID [facility] Last Admin: 08/20/24 08:41 Dose: 100 mg Escitalopram Oxalate (Escitalopram Oxalate 5 Mg Tablet) 5 mg PO DAILY [facility] Last Admin: 08/20/24 08:41 Dose: 5 mg Hydroxyzine HCl (Hydroxyzine Hcl 25 Mg Tablet) 25 mg PO Q6H PRN PRN Reason: mild anxiety Last Admin: 08/17/24 15:15 Dose: 25 mg Ibuprofen (Ibuprofen 600 Mg Tablet) 600 mg PO Q6H PRN PRN Reason: mod/sev pain (pain scale 4-10) Last Admin: 08/19/24 21:22 Dose: 600 mg Magnesium Hydroxide (Milk Of Magnesia 30 Ml Oral.Susp) 30 ml PO DAILY PRN PRN Reason: Constipation Naltrexone HCl (Naltrexone Hcl 50 Mg Tablet) 50 mg PO DAILY [facility] Last Admin: 08/20/24 08:40 Dose: 50 mg Nicotine (Nicotine 14 Mg Patch.Td24) 14 mg TRANSDERMA DAILY PRN PRN Reason: nicotine cravings Last Admin: 08/20/24 08:46 Dose: 14 mg Nicotine Polacrilex (Nicotine Polacrilex 2 Mg Gum) 4 mg BUCCAL Q2H PRN PRN Reason: Nicotine Cravings Olanzapine (Olanzapine 2.5 Mg Tablet) 2.5 mg PO Q4H PRN PRN Reason: agitation Trazodone HCl (Trazodone Hcl 50 Mg Tablet) 50 mg PO BEDTIME MRX1 PRN PRN Reason: Insomnia Last Admin: 08/17/24 23:00 Dose: 50 mg Allergies Allergies Allergy/AdvReac Type Severity Reaction Status Date / Time melatonin [MELATONIN] Allergy Intermediate RASH Verified 08/16/24 16:21 topiramate [From TOPAMAX] Allergy Intermediate BRAIN Verified 08/16/24 16:21 SHUTS DOWN vancomycin Allergy Intermediate erythema Verified 08/16/24 16:21 and pruritis sulfamethoxazole Allergy Unknown SWELLING, Verified 08/16/24 16:21 [From BACTRIM] REDNESS trimethoprim [From BACTRIM] Allergy Unknown SWELLING, Verified 08/16/24 16:21 REDNESS Assessment & Plan Assessment & Plan (1) Bipolar disorder: Status: Acute Code(s): F31.9 - Bipolar disorder, unspecified (2) Open back wound: Status: Acute Code(s): S21.209A - Unspecified open wound of unspecified back wall of thorax without penetration into thoracic cavity, initial encounter Assessment and Plan: At present, continue local wound care. Patient may shower. Change dressings daily. This was discussed with the patient was nurse. All questions answered. Plan Patient is a 33-year-old female with history of bipolar disorder, PTSD, cocaine use disorder and alcohol use disorder who self presented to [facility] [place] due to suicidal ideation secondary to increased depression. Plan: CV 15 minute safety checks Start: Depakote ER 500mg PO bedtime Clonidine 0.1mg PO BID Wound care consult Obtain collateral Referral to outpatient psychiatric providers Encourage groups Discharge planning 08/18: change clonidine 0.1 BID to 0.05/0.05/0.1. add 0.1 mg PRN at HS for insomnia. continue VPA 500 QHS, titrate up if mood appears unstable. T/C starting anti-depressant medication as well. 08/19: start lexapro 5 mg daily for PTSD/depression. otherwise continue current mgmt. 08/20: Active on unit, social with peers. attending groups. Patient reports feeling pretty good ;pt stated, I'm missing my kids but it's been helpful being here . denies SI/HI/VH/AH. Plan to discharge Tuesday if continues to improve. Valproic acid level 36.8 on 08/20/24. Pt is requesting to be restarted on guanfacine for impulsivity; start: guanfacine 1mg PO daily Patient educated on: diagnosis and medication risk/benefits Reason for continued inpatient stay Substantial Risk for: med/psych decompensation Time Spent With Patient Time: Total time managing care of this patient today _20___ minutes.
[2024-08-20 11:14] LABS: Ammonia 44 umol/L (13-55)
[2024-08-20 11:24] LABS: Valproate 36.8 mcg/mL (50.0-100.0)
[2024-08-20 11:25] LABS: Alanine Aminotransferase 47 U/L (0-31); Albumin Level 3.9 g/dL (3.5-5.0); Alkaline Phosphatase 73 U/L (39-117); Aspartate Amino Transferase 34 U/L (5-31); Bilirubin Direct 0.1 mg/dL (0.0-0.5); Bilirubin Total 0.4 mg/dL (0.0-1.0); Total Protein 6.6 g/dL (6.5-8.0)
[2024-08-20] MEDS: guanFACINE HCl ER 1 MG TAB.ER.24H PO (11:55)
[2024-08-20] MEDS: OLANZapine 2.5 MG TABLET PO (13:34)
[2024-08-20 15:07] VITALS: BP 139/74; PULSE 86
[2024-08-20] MEDS: Ibuprofen 600 MG TABLET PO (16:35)
--- NOTE | 2024-08-20 16:38 | HO.WOUND ---
Wound Consult: Initial 33yr old?[place] [facility] the behavioral health unit - See progress notes and H&P for detailed history.? Wound consult placed for Right Lower Back wound.? Patient agreeable to assessment and photo documentation.? Patient reports it is secndary to dermal piercing infection and post I&D with removal. Right Lower Back Etiology: ?Abscesss site due to dermal piercing infection ?Present on Admission Measurements: 0.3cm x 1cm x 1cm to the right Wound Bed: adherent yellow slough and red wound bed Drainage / Odor: red orange drainage Edges: ? well defined Kim wound: Intact induration noted to the right - no s/s of infection at this time ? Pain: pain reported when assessed and packing applied Goals of Treatment: ? Durafiber for moisture management Recommendations: Right Lower Back - Cleanse with soap and water or Normale saline moist gauze, pat dry. Apply skin prep to area around wound. lightly pack wound bed with durafiber AG be sure to leave wick for easy removal, cover with dry dressing. Change every other day. Re-consult wound care Nurse for wound deterioration or wound changes.
[2024-08-20 19:27] LABS: Appearance Urine Clear; Color Urine Yellow; Glucose Urine UA Negative (Negative); Leukocyte Esterase Urine Negative (Negative); Nitrite Urine Negative (Negative); Specific Gravity - Urine 1.025 (1.005-1.025); Urine Blood Negative (Negative); Urine Ketones 15 mg/dL (Negative); Urine Protein Negative (Neg-Trace)
[2024-08-20 20:00] VITALS: BP 117/73; PULSE 80; RESP 16; TEMP 37.2; O2SAT 99
[2024-08-20] MEDS: Divalproex Sodium ER 500 MG TAB.ER.24H PO (20:41)
[2024-08-20] MEDS: cloNIDine HCL 0.1 MG TABLET PO (20:41)
[2024-08-21 07:37] VITALS: BP 115/62; PULSE 55; RESP 56; TEMP 36.4; O2SAT 100
[2024-08-21] MEDS: guanFACINE HCl ER 1 MG TAB.ER.24H PO (08:15)
[2024-08-21] MEDS: Naltrexone HCl 50 MG TABLET PO (08:15)
[2024-08-21] MEDS: Amoxicillin/Potassium Clav 875 MG TABLET PO ×2 (08:16→20:18)
[2024-08-21] MEDS: cloNIDine HCL 0.1 MG TABLET 0.05 MG PO ×2 (08:16→15:17)
[2024-08-21] MEDS: Escitalopram Oxalate 5 MG TABLET PO (08:16)
[2024-08-21] MEDS: Doxycycline Monohydrate 100 MG CAPSULE PO ×2 (08:17→20:18)
--- NOTE | 2024-08-21 08:35 | P.PNPSI_ITS ---
Subjective Subjective Date of Service: 08/21/24 Reason For Visit: crisis Subjective Notes: Conditional Voluntary Interim History: Active on unit, social with peers. attending groups. Patient reports feeling good ;pt stated, I'm ready to go home . She reports sleeping well. denies any side effects from medications. denies SI/HI/VH/AH. Medication Compliance: Yes Side effects from medications: No Attending Groups: Yes Mental Status Exam Mental Status Exam Narrative: Pt is alert and oriented; behavior is cooperative and calm; dressed in casual attire; mood is described as good ; eye contact appropriate; Speech is normal rate, volume and not pressured; thought process is organized; Thought content is on discharge; denies SI/HI/VH/AH. Diagnostics Vital Signs (24Hr): Vital Signs - 24 hr 08/20/24 08:41 08/20/24 15:07 08/20/24 20:00 Temperature 99 F Pulse Rate 86 80 Respiratory Rate 16 Blood Pressure 113/70 139/74 117/73 Pulse Oximetry 99 Oxygen Delivery Method Room Air 08/21/24 07:37 Temperature 97.6 F Pulse Rate 55 Respiratory Rate 56 H Blood Pressure 115/62 Pulse Oximetry 100 Oxygen Delivery Method Room Air BMI result Body Mass Index 26.7 Labs 08/16/24 16:40 08/17/24 13:16 Labs: Laboratory Results - last 48 hr 08/20/24 08/20/24 10:57 19:00 Total Bilirubin 0.4 Direct Bilirubin 0.1 AST 34 H ALT 47 H Alkaline Phosphatase 73 Ammonia 44 Total Protein 6.6 Albumin 3.9 Urine Color Yellow Urine Appearance Clear Urine pH 7.0 Ur Specific Eva 1.025 Urine Protein Negative Urine Glucose (UA) Negative Urine Ketones 15 Urine Blood Negative Urine Nitrite Negative Ur Leukocyte Esterase Negative Valproic Acid 36.8 L Medications Medications Current Medications Acetaminophen (Acetaminophen 325 Mg Tablet) 650 mg PO Q6H PRN PRN Reason: Headache/Pain, Scale 1-10 Last Admin: 08/19/24 18:00 Dose: 650 mg Al Hydroxide/Mg Hydroxide (Magnesium Hydrox/Alum Hydrox 30 Ml Oral.Susp) 30 ml PO Q6H PRN PRN Reason: Heartburn/Nausea Last Admin: 08/17/24 12:27 Dose: 30 ml Amoxicillin/Clavulanate Potassium (Amoxicillin/Potassium Clav 875 Mg Tablet) 875 mg PO BID JOSE Stop: 08/24/24 20:59 Last Admin: 08/21/24 08:16 Dose: 875 mg Clonidine HCl (Clonidine Hcl 0.1 Mg Tablet) 0.1 mg PO BEDTIME [facility]; Protocol Last Admin: 08/20/24 20:41 Dose: 0.1 mg Clonidine HCl (Clonidine Hcl 0.1 Mg Tablet) 0.05 mg PO BID@0900,1500 [facility]; Protocol Last Admin: 08/21/24 08:16 Dose: 0.05 mg Clonidine HCl (Clonidine Hcl 0.1 Mg Tablet) 0.1 mg PO BEDTIME PRN; Protocol PRN Reason: insomnia Divalproex Sodium (Divalproex Sodium Er 500 Mg Tab.Er.24h) 500 mg PO BEDTIME [facility] Last Admin: 08/20/24 20:41 Dose: 500 mg Doxycycline Monohydrate (Doxycycline Monohydrate 100 Mg Capsule) 100 mg PO BID [facility] Last Admin: 08/21/24 08:17 Dose: 100 mg Escitalopram Oxalate (Escitalopram Oxalate 5 Mg Tablet) 5 mg PO DAILY [facility] Last Admin: 08/21/24 08:16 Dose: 5 mg Guanfacine HCl (Guanfacine Hcl Er 1 Mg Tab.Er.24h) 1 mg PO DAILY [facility] Last Admin: 08/21/24 08:15 Dose: 1 mg Hydroxyzine HCl (Hydroxyzine Hcl 25 Mg Tablet) 25 mg PO Q6H PRN PRN Reason: mild anxiety Last Admin: 08/17/24 15:15 Dose: 25 mg Ibuprofen (Ibuprofen 600 Mg Tablet) 600 mg PO Q6H PRN PRN Reason: mod/sev pain (pain scale 4-10) Last Admin: 08/20/24 16:35 Dose: 600 mg Magnesium Hydroxide (Milk Of Magnesia 30 Ml Oral.Susp) 30 ml PO DAILY PRN PRN Reason: Constipation Naltrexone HCl (Naltrexone Hcl 50 Mg Tablet) 50 mg PO DAILY [facility] Last Admin: 08/21/24 08:15 Dose: 50 mg Nicotine (Nicotine 14 Mg Patch.Td24) 14 mg TRANSDERMA DAILY PRN PRN Reason: nicotine cravings Last Admin: 08/20/24 08:46 Dose: 14 mg Nicotine Polacrilex (Nicotine Polacrilex 2 Mg Gum) 4 mg BUCCAL Q2H PRN PRN Reason: Nicotine Cravings Olanzapine (Olanzapine 2.5 Mg Tablet) 2.5 mg PO Q4H PRN PRN Reason: agitation Last Admin: 08/20/24 13:34 Dose: 2.5 mg Trazodone HCl (Trazodone Hcl 50 Mg Tablet) 50 mg PO BEDTIME MRX1 PRN PRN Reason: Insomnia Last Admin: 08/17/24 23:00 Dose: 50 mg Allergies Allergies Allergy/AdvReac Type Severity Reaction Status Date / Time melatonin [MELATONIN] Allergy Intermediate RASH Verified 08/16/24 16:21 topiramate [From TOPAMAX] Allergy Intermediate BRAIN Verified 08/16/24 16:21 SHUTS DOWN vancomycin Allergy Intermediate erythema Verified 08/16/24 16:21 and pruritis sulfamethoxazole Allergy Unknown SWELLING, Verified 08/16/24 16:21 [From BACTRIM] REDNESS trimethoprim [From BACTRIM] Allergy Unknown SWELLING, Verified 08/16/24 16:21 REDNESS Assessment & Plan Assessment & Plan (1) Bipolar disorder: Status: Acute Code(s): F31.9 - Bipolar disorder, unspecified (2) Open back wound: Status: Acute Code(s): S21.209A - Unspecified open wound of unspecified back wall of thorax without penetration into thoracic cavity, initial encounter Assessment and Plan: At present, continue local wound care. Patient may shower. Change dressings daily. This was discussed with the patient was nurse. All questions answered. Plan Patient is a 33-year-old female with history of bipolar disorder, PTSD, cocaine use disorder and alcohol use disorder who self presented to [facility] [place] [facility] due to suicidal ideation secondary to increased depression. Plan: CV 15 minute safety checks Start: Depakote ER 500mg PO bedtime Clonidine 0.1mg PO BID Wound care consult Obtain collateral Referral to outpatient psychiatric providers Encourage groups Discharge planning 08/18: change clonidine 0.1 BID to 0.05/0.05/0.1. add 0.1 mg PRN at HS for insomnia. continue VPA 500 QHS, titrate up if mood appears unstable. T/C starting anti-depressant medication as well. 08/19: start lexapro 5 mg daily for PTSD/depression. otherwise continue current mgmt. 08/20: Active on unit, social with peers. attending groups. Patient reports feeling pretty good ;pt stated, I'm missing my kids but it's been helpful being here . denies SI/HI/VH/AH. Plan to discharge Tuesday if continues to improve. Valproic acid level 36.8 on 08/20/24. Pt is requesting to be restarted on guanfacine for impulsivity; start: guanfacine 1mg PO daily 08/21: Active on unit, social with peers. attending groups. Patient reports feeling good ;pt stated, I'm ready to go home . She reports sleeping well. denies any side effects from medications. denies SI/HI/VH/AH. Patient educated on: diagnosis and medication risk/benefits Reason for continued inpatient stay Substantial Risk for: stable for discharge Time Spent With Patient Time: Total time managing care of this patient today _20___ minutes.
[2024-08-21] MEDS: Nicotine 14 MG PATCH.TD24 TRANSDERMA (09:19)
[2024-08-21] MEDS: OLANZapine 2.5 MG TABLET PO (10:36)
[2024-08-21 15:17] VITALS: BP 114/60
--- NOTE | 2024-08-21 15:39 | MHC.RECOVRN ---
AUDIT-C Brief Intervention Pt had positive screen for unhealthy alcohol use on admission, subsequently met with t/w to discuss alcohol use and recovery supports/options. This business writer met with patient to discuss current alcohol use and concerns related to increased risk of alcohol related problems. Pt reports 1+ pint vodka daily since February. Pt reports last alcohol use approx 1.5 weeks ago. Discussed how alcohol use has impacted health, including negative impact on mental health. Withdrawal History: denies history of withdrawal seizures Treatment History: denies history of inpatient AUD treatment, has been to the [facility] for Vivitrol and naltrexone---restarted on naltrexone during admission Supports: parents and friend (Garry) Discussed risk reduction strategies including drinking below the recommended limit. Provided pt with written resources including information on inpatient and outpatient treatment, [facility], harm reduction, and recovery coaching. Pt plans to continue naltrexone and attend IOP/PHP after discharge. Pt provided with t/w contact information if questions or concerns arise. Denies other questions or concerns at this time.
[2024-08-21] MEDS: Ibuprofen 600 MG TABLET PO (17:36)
[2024-08-21 20:00] VITALS: BP 104/56; PULSE 76; RESP 14; TEMP 36.9; O2SAT 100
[2024-08-21] MEDS: Divalproex Sodium ER 500 MG TAB.ER.24H PO (20:18)
[2024-08-21] MEDS: cloNIDine HCL 0.1 MG TABLET PO (20:18)
[2024-08-21] MEDS: Acetaminophen 325 MG TABLET 650 MG PO (21:24)
[2024-08-22 07:46] VITALS: BP 98/50; PULSE 60; RESP 16; TEMP 36.7; O2SAT 100
[2024-08-22] MEDS: Escitalopram Oxalate 5 MG TABLET PO (08:16)
[2024-08-22] MEDS: Doxycycline Monohydrate 100 MG CAPSULE PO (08:16)
[2024-08-22] MEDS: Naltrexone HCl 50 MG TABLET PO (08:16)
[2024-08-22] MEDS: guanFACINE HCl ER 1 MG TAB.ER.24H PO (08:17)
[2024-08-22] MEDS: Amoxicillin/Potassium Clav 875 MG TABLET PO (08:17)
[2024-08-22] MEDS: Naloxone HCl Nasal TAKE HOME 4 MG SPRAY 8 MG NOSTRILALT (08:18)
[2024-08-22 08:19] VITALS: BP 98/50
--- NOTE | 2024-08-22 08:27 | PM.PSYDC ---
DS: Providers Provider Date of Service: 08/22/24 Date of admission: 08/17/24 10:30 Date of discharge: 08/22/24 Primary care physician: Unknown Physician Admitting clinician: Sulema Biggs Attending physician on admission: Rusty Marlow Consults: 08/17/24 14:27 Addiction Medicine Provider Routine Consulting Provider: Addiction Covering Reason for consultation: alcohol use, last use 1 pint vodka 6 days ago 08/17/24 16:10 Consult to Wound Care Routine Reason for consultation: wound on lower back 08/18/24 12:15 Consult to General Surgery Routine [place]ing [place] [facility] [place] Reason for consultation: recently drained abscess; now tunneling concern Attending physician on discharge: Rusty Marlow Discharging clinician: Sulema Biggs DS: Diagnosis Discharge Diagnosis (1) Bipolar disorder: Status: Acute (2) Open back wound: Status: Acute DS: Medications Discharge Medications Home Medications: Home Medications ?Medication ?Instructions ?Recorded ?Confirmed ibuprofen 600 mg tablet 600 mg PO Q8H PRN Pain 08/14/24 08/16/24 Previous Rx's ?Medication ?Instructions ?Recorded amoxicillin 875 mg-potassium 1 tab PO BID 3 days #6 tabs 08/21/24 clavulanate 125 mg tablet clonidine HCl 0.1 mg tablet 0.05 mg PO BID@0900,1500 30 days 08/21/24 #30 tabs clonidine HCl 0.1 mg tablet 0.1 mg PO BEDTIME 30 days #30 tabs 08/21/24 divalproex 500 mg tablet,extended 500 mg PO BEDTIME 30 days #30 tabs 08/21/24 release 24 hr doxycycline monohydrate 100 mg 100 mg PO BID 3 days #6 caps 08/21/24 capsule escitalopram oxalate 5 mg tablet 5 mg PO DAILY 30 days #30 tabs 08/21/24 guanfacine 1 mg tablet,extended 1 mg PO DAILY 30 days #30 tabs 08/21/24 release 24 hr naltrexone 50 mg tablet 50 mg PO DAILY 30 days #30 tabs 08/21/24 nicotine 14 mg/24 hr daily 14 mg transdermal DAILY PRN 08/21/24 transdermal patch nicotine cravings 28 days #28 ea olanzapine 2.5 mg tablet 2.5 mg PO BID PRN agitation 30 08/21/24 days #60 tabs Mental Status Exam Mental Status Exam Narrative: Pt is alert and oriented; behavior is cooperative and calm; dressed in casual attire; mood is described as good ; eye contact appropriate; Speech is normal rate, volume and not pressured; thought process is organized; Thought content is on discharge; denies SI/HI/VH/AH. Data Data Completed and Pending Completed studies during hospitalization [Text1]: 08/16/24 08/16/24 08/16/24 16:40 16:42 16:43 WBC 6.3 RBC 3.82 L Hgb 13.7 Hct 37.4 MCV 97.9 MCH 35.9 H MCHC 36.6 H RDW 16.8 H Plt Count 248 D MPV 9.3 L Immature Gran % (Auto) 0.3 Neut % (Auto) 68.7 Lymph % (Auto) 20.9 [place] % (Auto) 7.9 Eos % (Auto) 1.6 Baso % (Auto) 0.6 Lymph # (Auto) 1.3 [place] # (Auto) 0.5 Eos # (Auto) 0.1 Baso # (Auto) 0.0 Abs Immat Gran (auto) 0.02 Absolute Neuts (auto) 4.4 Absolute Nucleated RBC 0.000 Nucleated RBC % (auto) 0.0 Sodium 141 Potassium 3.2 L Chloride 108 Carbon Dioxide 25 Anion Gap 11 L BUN 11 Creatinine 0.62 Estim Creat Clear Calc 125.1 Estimated GFR > 60 Random Glucose 104 Estimat Average Glucose Hemoglobin A1c % Calcium 8.9 Magnesium 1.7 Total Bilirubin 0.6 Direct Bilirubin 0.2 AST 26 ALT 23 Alkaline Phosphatase 78 Ammonia Total Protein 6.4 L Albumin 3.7 Triglycerides Cholesterol LDL Cholesterol, Calc HDL Cholesterol Lipase 11 Urine Color Dark Yellow Urine Appearance Turbid Urine pH 6.0 Ur Specific Butler >= 1.030 H Urine Protein Trace Urine Glucose (UA) Negative Urine Ketones Trace Urine Blood Negative Urine Nitrite Negative Ur Leukocyte Esterase Trace H Urine RBC 0-2 Urine WBC 0-5 Ur Squamous Epith Cells 11-20 Calcium Oxalate Crystal Present Urine Bacteria None Seen Hyaline Casts 0-2 Urine Test NEGATIVE Urine Opiates Screen Not Detected Ur Buprenorphine Scrn Not Detected Ur Oxycodone Screen Positive H Urine Methadone Screen Not Detected Urine Fentanyl Screen Not Detected Ur Barbiturates Screen Not Detected Valproic Acid Ur Phencyclidine Scrn Not Detected Ur Amphetamines Screen Not Detected U Benzodiazepines Scrn Not Detected Urine Cocaine Screen POSITIVE H U Marijuana (THC) Screen POSITIVE H Ethyl Alcohol < 10 08/17/24 08/18/24 08/20/24 13:16 07:59 10:57 WBC RBC Hgb Hct MCV MCH MCHC RDW Plt Count MPV Immature Gran % (Auto) Neut % (Auto) Lymph % (Auto) [place] % (Auto) Eos % (Auto) Baso % (Auto) Lymph # (Auto) [place] # (Auto) Eos # (Auto) Baso # (Auto) Abs Immat Gran (auto) Absolute Neuts (auto) Absolute Nucleated RBC Nucleated RBC % (auto) Sodium 142 Potassium 3.5 Chloride 108 Carbon Dioxide 28 Anion Gap 10 L BUN 12 Creatinine 0.61 Estim Creat Clear Calc 127.2 Estimated GFR > 60 Random Glucose 111 Estimat Average Glucose 82 Hemoglobin A1c % 4.5 Calcium 9.0 Magnesium Total Bilirubin 0.6 0.4 Direct Bilirubin 0.1 AST 30 34 H ALT 31 47 H Alkaline Phosphatase 67 73 Ammonia 44 Total Protein 6.2 L 6.6 Albumin 3.6 3.9 Triglycerides 141 Cholesterol 118 LDL Cholesterol, Calc 59 HDL Cholesterol 31 L Lipase Urine Color Urine Appearance Urine pH Ur Specific [place] Urine Protein Urine Glucose (UA) Urine Ketones Urine Blood Urine Nitrite Ur Leukocyte Esterase Urine RBC Urine WBC Ur Squamous Epith Cells Calcium Oxalate Crystal Urine Bacteria Hyaline Casts Urine Test Urine Opiates Screen Ur Buprenorphine Scrn Ur Oxycodone Screen Urine Methadone Screen Urine Fentanyl Screen Ur Barbiturates Screen Valproic Acid 36.8 L Ur Phencyclidine Scrn Ur Amphetamines Screen U Benzodiazepines Scrn Urine Cocaine Screen U Marijuana (THC) Screen Ethyl Alcohol 08/20/24 19:00 WBC RBC Hgb Hct MCV MCH MCHC RDW Plt Count MPV Immature Gran % (Auto) Neut % (Auto) Lymph % (Auto) [place] % (Auto) Eos % (Auto) Baso % (Auto) Lymph # (Auto) [place] # (Auto) Eos # (Auto) Baso # (Auto) Abs Immat Gran (auto) Absolute Neuts (auto) Absolute Nucleated RBC Nucleated RBC % (auto) Sodium Potassium Chloride Carbon Dioxide Anion Gap BUN Creatinine Estim Creat Clear Calc Estimated GFR Random Glucose Estimat Average Glucose Hemoglobin A1c % Calcium Magnesium Total Bilirubin Direct Bilirubin AST ALT Alkaline Phosphatase Ammonia Total Protein Albumin Triglycerides Cholesterol LDL Cholesterol, Calc HDL Cholesterol Lipase Urine Color Yellow Urine Appearance Clear Urine pH 7.0 Ur Specific [place] 1.025 Urine Protein Negative Urine Glucose (UA) Negative Urine Ketones 15 Urine Blood Negative Urine Nitrite Negative Ur Leukocyte Esterase Negative Urine RBC Urine WBC Ur Squamous Epith Cells Calcium Oxalate Crystal Urine Bacteria Hyaline Casts Urine Test Urine Opiates Screen Ur Buprenorphine Scrn Ur Oxycodone Screen Urine Methadone Screen Urine Fentanyl Screen Ur Barbiturates Screen Valproic Acid Ur Phencyclidine Scrn Ur Amphetamines Screen U Benzodiazepines Scrn Urine Cocaine Screen U Marijuana (THC) Screen Ethyl Alcohol DS: Summary Hospital Course Hospital Course: Patient is a 33-year-old female with history of bipolar disorder, PTSD, cocaine use disorder and alcohol use disorder who self [place] [facility] [place] due to suicidal ideation secondary to increased depression. Per crisis report, patient presented with worsening depression, vague suicidal ideation and seeking dual detox placement. Patient reports she does not have outpatient psychiatric providers and is currently not on any psychiatric medications since February 2024. Patient has DCF involvement; Patient stated DCF told her that she needed to get treatment for her mental health and substance use in order to start the process of getting her children back. Her children are currently with her sister. Patient denies SI/HI/VH/AH. Patient reports she struggles with alcohol use at baseline, she drinks about 1 pt of liquor daily. Patient reports she has been struggling with alcohol use for the past 6 years. Patient also reports marijuana use but denied cocaine or oxycodone use however, both were present in her utox. During admission assessment, patient presents alert and oriented x3. Calm and cooperative. Tearful at times. Patient reports feeling depressed; patient stated, I stopped my medications in February because the oxcarbazepine had me nodding off. I also relapsed on alcohol after being sober for 6 months. I want to get referrals to outpatient providers and start on medications . 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 She currently denies SI; patient stated, I know it's not the right thing to do. I don't want to kill myself. I'm just disappointed in myself . Patient reports her last drink was on 08/18/2024. denies HI/VH/AH. Plan: CV 15 minute safety checks Start: Depakote ER 500mg PO bedtime Clonidine 0.1mg PO BID Wound care consult Obtain collateral Referral to outpatient psychiatric providers Encourage groups Discharge planning change clonidine 0.1 BID to 0.05/0.05/0.1. add 0.1 mg PRN at HS for insomnia. continue VPA 500 QHS, titrate up if mood appears unstable. T/C starting anti-depressant medication as well. start lexapro 5 mg daily for PTSD/depression. otherwise continue current mgmt. Active on unit, social with peers. attending groups. Patient reports feeling pretty good ;pt stated, I'm missing my kids but it's been helpful being here . denies SI/HI/VH/AH. Plan to discharge Tuesday if continues to improve. Valproic acid level 36.8 on 08/20/24. Pt is requesting to be restarted on guanfacine for impulsivity; start: guanfacine 1mg PO daily Active on unit, social with peers. attending groups. Patient reports feeling good ;pt stated, I'm ready to go home . She reports sleeping well. denies any side effects from medications. denies SI/HI/VH/AH. Patient continues to report feeling good; plans on following up with her outpatient providers. denies SI/HI/VH/AH. Status at Discharge Cognitive/behavioral status at discharge: Patient has insight and demonstrates good judgment in terms of wanting to pursue treatment. Patient has a safety plan that includes presenting to the closest ER or calling 911 if feeling unsafe. Functional status at discharge: independent ambulation Overall status at discharge: patient is back to baseline Time Spent with Patient Time attestation: Total time managing care of this patient today _20___ minutes. Time spent: Less than 30 minutes Discharge Plan Discharge Anticipated Discharge Date/Time: 08/22/24 10:30 Patient Disposition: Home, Self-Care Discharge Diagnosis: Bipolar d/o, PTSD, cocaine use d/o, alcohol use d/o Referrals: Therapy [Other] - 1 Week (*You can present to the clinic above, Tuesday through Tuesday during the hours of 8am and 8pm, in order to obtain an outpatient therapist. ) Carmen Gao (Psychiatry) [Other] - 09/21/24 12:00 pm (TELEHEALTH APPOINTMENT) Alonzo Hawkins MD [Physician] - 08/31/24 9:00 am (08-21-24 [facility] has scheduled a new patient appointment with Dr. Vernon at the [facility] located at [address] [place] [address] 08-31-24 @9am.) Discharge Medications: New amoxicillin-pot clavulanate 875-125 mg Tablet 1 tab PO BID 3 Days Qty: 6 0RF doxycycline monohydrate 100 mg Capsule 100 mg PO BID 3 Days Qty: 6 0RF nicotine 14 mg/24 hr Patch 24 Hour 14 mg transdermal DAILY PRN (Reason: nicotine cravings) 28 Days Qty: 28 0RF naltrexone 50 mg Tablet 50 mg PO DAILY 30 Days Qty: 30 0RF escitalopram oxalate 5 mg Tablet 5 mg PO DAILY 30 Days Qty: 30 0RF divalproex 500 mg Tablet Extended Release 24 Hr 500 mg PO BEDTIME 30 Days Qty: 30 0RF guanfacine 1 mg Tablet Extended Release 24 Hr 1 mg PO DAILY 30 Days Qty: 30 0RF clonidine HCl 0.1 mg Tablet 0.1 mg PO BEDTIME 30 Days Qty: 30 0RF Protocol: Hold for SBP< HOLD for SBP < : 90 clonidine HCl 0.1 mg Tablet 0.05 mg PO BID@0900,1500 30 Days Qty: 30 0RF Protocol: Hold for SBP< HOLD for SBP < : 90 olanzapine 2.5 mg Tablet 2.5 mg PO BID PRN (Reason: agitation) 30 Days Qty: 60 0RF Continued ibuprofen 600 mg tablet 600 mg PO Q8H PRN (Reason: Pain) Discontinued doxycycline hyclate 100 mg tablet 100 mg PO BID Qty: 20 0RF Rx Instructions: End date 08/23/24 amoxicillin-pot clavulanate 875-125 mg tablet 1 tab PO BID Qty: 12 0RF Discharge Orders: Discharge Order (Routine); Ordered 08/22/24 Ordered By: Sulema Biggs Diet: Regular diet Activity on Discharge: As tolerated Stand Alone Forms: Patient Portal Discharge page, Community Support Print Language: Spanish Activity Restrictions/Additional Instructions: Topical Wound Care Recommendations: Right Lower Back - Cleanse with soap and water or Normal saline moist gauze, pat dry. Apply skin prep to area around wound. lightly pack wound bed with durafiber AG be sure to leave wick for easy removal, cover with dry dressing. Change every other day. Keep Follow up appointments as scheduled. Care Plan Goals: Maintain mood and safe behaviors Take medications as prescribed Continue to pursue sobriety Practice coping skills Continue with outpatient providers and reach out to them as needed Health Concerns: Mood stability and behaviors Sobriety Plan of Treatment: Follow up with your PCP, psychiatric provider and other outpatient providers regarding above concerns Take medications as prescribed Assessment: Patient has insight and demonstrates good judgment in terms of wanting to pursue treatment. Patient has a safety plan that includes presenting to the closest ER or calling 911 if feeling unsafe. Discharge Date/Time: 08/22/24 10:32
[2024-08-22] MEDS: Nicotine 14 MG PATCH.TD24 TRANSDERMA (08:35)
[2024-08-22] MEDS: Ibuprofen 600 MG TABLET PO (09:16)
[2024-08-22 09:40] VITALS: BP 108/60
[2024-08-22 09:41] VITALS: BP 108/60
[2024-08-22] MEDS: cloNIDine HCL 0.1 MG TABLET 0.05 MG PO (09:41)
== END 2024-08-22 10:32 | disposition home or self-care (01) | DRG 885 ==
LOC: HO.ED 08-17 12:09 → HO.PADLT16 08-17 12:44
PROVIDERS: Physician Assistant; Social Worker; Admitting Provider Registered Nurse; Emergency Provider Emergency Medicine Emergency Medical Services; Responsible Provider Registered Nurse; Visit Provider Psychiatry & Neurology Psychiatry
DX: F31.9 Bipolar disorder, unspecified (principal); R45.851 Suicidal ideations; E03.9 Hypothyroidism, unspecified; F14.10 Cocaine abuse, uncomplicated; F17.210 Nicotine dependence, cigarettes, uncomplicated; F10.20 Alcohol dependence, uncomplicated; S31.030A Puncture wound without foreign body of lower back and pelvis without penetration into retroperitoneum, initial encounter; L08.9 Local infection of the skin and subcutaneous tissue, unspecified; W26.8XXA Contact with other sharp object(s), not elsewhere classified, initial encounter; F43.10 Post-traumatic stress disorder, unspecified; Z71.6 Tobacco abuse counseling; Z79.899 Other long term (current) drug therapy
CPT/HCPCS: 36415; 80048; 80053; 80061; 80076; 80164; 80307; 81001; 81003; 81025; 82140; 83036; 83690; 83735; 85025; 93005; 99285; S9485

== ENCOUNTER → 2024-08-17 07:30 | Outpatient (BNV) | payer OTHER, SELFPAY | PROVIDERS: Admitting Provider Registered Nurse; Emergency Provider Emergency Medicine Emergency Medical Services; Responsible Provider Registered Nurse; Visit Provider Internal Medicine Cardiovascular Disease | DX: Z13.6 Encounter for screening for cardiovascular disorders (principal) | CPT/HCPCS: 93010 ==

== ENCOUNTER → 2024-08-17 10:30 | Outpatient (BNV) | payer OTHER, SELFPAY | PROVIDERS: Admitting Provider Registered Nurse; Emergency Provider Emergency Medicine Emergency Medical Services; Responsible Provider Registered Nurse; Visit Provider Registered Nurse | DX: F31.4 Bipolar disorder, current episode depressed, severe, without psychotic features (principal); S21.209A Unspecified open wound of unspecified back wall of thorax without penetration into thoracic cavity, initial encounter | CPT/HCPCS: 90792; 99232 ==

== ENCOUNTER → 2024-08-17 10:30 | Outpatient (BNV) | payer OTHER, SELFPAY | PROVIDERS: Admitting Provider Registered Nurse; Emergency Provider Emergency Medicine Emergency Medical Services; Responsible Provider Registered Nurse; Visit Provider Surgery | DX: S21.209A Unspecified open wound of unspecified back wall of thorax without penetration into thoracic cavity, initial encounter (principal) | CPT/HCPCS: 99222 ==

== ENCOUNTER 2024-08-31 09:53 | Outpatient (REF) | payer OTHER, SELFPAY ==
--- OUTSIDE RECORDS SUMMARY | 2024-08-31 10:17 | XMS_ITS | Encounter Summary ---
Author Organization [employer] Address [address] [facility] [address] [place] [address] Care Team Providers Care Bank Guard Name Role Phone Alonzo Hawkins MD Primary Care Prov ider Encounter Details Date Type Department Care Team ([facility] st Contact Info) Description 08/31/2024 9:00 AM EDT Office Visit [facility] [facility] MED & PEDS [address] [place] [address] Alonzo Hawkins MD [address] [place] [address] Encounter for medical examination to establish care (Primary Dx) Social History Tobacco Use Types Packs/Day Years Used Date Smoking Tobacco: Every Day Cigarettes 0.3 15.3 Started: 2009 Smokeless Tobacco: Never Tobacco Cessation:Ready to Q uit: Not Asked; Counseling Given: Not Answered Alcohol Use Standard Drinks/Week Comments Not Currently 0 (1 standard drink = 0.6 oz pur e alcohol) Depression Answer Date Recorded Patient Health Questionnaire-9 Score 19 08/31/2024 Patient Health Questionnaire-9 Score 19 08/31/2024 Last PHQ-9: Questionnaire Data Not on file 0 08/31/2024 Housing Stability Answer Date Recorded What is your housing situation today? I have anabel rodriguez 08/31/[address] you li ve. Do you have problems with any of the following? None of the above 08/31/2024 Food Insecurity Answer Date Recorded Within the past 12 months, y ou worried that your food would run out before you got money to buy more: Never True 08/31/2024 Within the past 12 months,th e food you bought just didn't last and you didn't have enough money to get more: Never True Transportation Answer Date Recorded In the past 12 months, has l ack of transportation kept you from medical appts, meetings, work or from getting things needed for daily living? No 08/31/2024 Utilities Answer Date Recorded In the past 12 months, has t he electric, gas, oil or water company threatened to shut off services in your home? No 08/31/2024 Depression Answer Date Recorded Patient Health Questionnaire-2 Score 4 08/31/2024 Internet Access Answer Date Recorded Internet Access Q1 Yes 08/31/2024 Internet Access Q2 Not on file 08/31/2024 Comments Unknown Sex and Gender Information Value Date Recorded Sex Assigned at Female 03/04/2023 8:49 AM EDT Legal Sex Unknown 03/05/2022 8:32 PM EDT Gender Identity Female 03/04/2023 8:49 AM EDT Sexual Orientation Straight 03/04/2023 8: 49 AM EDT documented as of this encounter Last Filed Vital Signs Vital Sign Reading Time Taken Comments Blood Pressure 106/65 08/31/2024 9:25 AM EDT Pulse 67 08/31/2024 9:25 AM EDT Temperature 36.7 ??C (98 ??F) 08/31/2024 9:25 AM EDT Respiratory Rate 20 08/31/2024 9:25 AM EDT Oxygen Saturation 98% 08/31/2024 9:25 AM EDT Inhaled Oxygen Concentration - - Weight 75.8 kg (167 lb) 08/31/2024 9:25 AM EDT Height 165 cm (5' 4.96 ) 08/31/2024 9:25 AM EDT Body Mass Index 27.82 08/31/2024 9:25 AM EDT documented in this encounter Miscellaneous Notes * Assessment & Plan Note - Alonzo Gaston MD - 08/31/2024 9:36 AM EDTAssociated Problem(s): Encounter for medical examination to establish care Last pcp visit over 5 years ER: July infected cyst Hosptalization: bacteremia Pmhx: Adhd, bipolar, Ptsd, Anxiety, depression Pshx: right thumb 2023, wrist fracture 2020, tubal ligation 2021, ear tubes 2017, rhinoplasty 2010 All: melatonin, bactrim, topamamax, Meds: as above documented in this encounter Plan of Treatment Scheduled Orders Name Type Priority Associated Diagnoses Orde r Schedule CBC auto differential Lab Routine Encounter for medical examination to establish care Expected: 08/31/2024 (Approximate), Expires: 08/31/2025 Comprehensive Metabolic Panel Lab Routine Encounter for medical examination to establish care Expected: 08/31/2024 (Approximate), Expires: 08/31/2025 Lipid Panel, Standard Lab Routine Encounter for medical examination to establish care Expected: 08/31/2024 (Approximate), Expires: 08/31/2025 TSH W/Reflex to FT4 Lab Routine Encounter for medical examination to establish care Expected: 08/31/2024 (Approximate), Expires: 08/31/2025 HIV-1/2 Antigen and Antibodies, Fourth Generation, with Reflexes Lab Routine Encounter for medical examination to establish care Expected: 08/31/2024 (Approximate), Expires: 08/31/2025 Hepatitis C Antibody with Reflex to HCV, RNA, Quantitative, Real-Time PCR Lab Routine Encounter for medical examination to establish care Expected: 08/31/2024, Expires: 08/31/2025 documented as of this encounter Visit Diagnoses Diagnosis Encounter for medical examination to establish care- Primary documented in this encounter Additional Health Concerns Assessment Noted Time PHQ-9 Depression Total Score: 19 025 9:54 AM EDT documented as of this encounter Care Teams Bank Guard Relationship Specialty Start Date End Date Alonzo Hawkins MD [address] [place] [id number] PCP - General Internal Medicine 08/31/24 documented as of this encounter
--- OUTSIDE RECORDS SUMMARY | 2024-08-31 10:17 | XMS_ITS | Encounter Summary ---
Author Organization [employer] Address [address] [place] [address] Care Team Providers Care Lighting Technician Name Role Phone Alonzo Hawkins MD Primary Care Prov ider Encounter Details Date Type Department Care Team (Latest Contact Info) Description 08/31/2024 Travel Social History Tobacco Use Types Packs/Day Years Used Date Smoking Tobacco: Every Day Cigarettes 0.3 15.3 Started: 2009 Smokeless Tobacco: Never Alcohol Use Standard Drinks/Week Comments Not Currently 0 (1 standard drink = 0.6 oz pur e alcohol) Depression Answer Date Recorded Patient Health Questionnaire-9 Score 19 08/31/2024 Patient Health Questionnaire-9 Score 19 08/31/2024 Last PHQ-9: Questionnaire Data Not on file 0 08/31/2024 Housing Stability Answer Date Recorded What is your housing situation today? I have anabeldemetrice rodriguez 08/31/[address] you [...] AM EDT documented as of this encounter Plan of Treatment Not on file documented as of this encounter Visit Diagnoses Not on filedocumented in this encounter Additional Health Concerns Assessment Noted Time PHQ-9 Depression Total Score: 19 025 9:54 AM EDT documented as of this encounter Care Teams Lighting Technician Relationship Specialty Start Date End Date Alonzo Hawkins MD [address] [place] [id number] PCP - General Internal Medicine 08/31/24 documented as of this encounter
--- OUTSIDE RECORDS SUMMARY | 2024-08-31 10:17 | XMS_ITS | Encounter Summary ---
Author Organization [employer] Address [address] [facility] [address] [place] [address] Care Team Providers Care Certified Registered Locksmith Name Role Phone Unavailable Primary Care Provider Unavailabl e Encounter Details Date Type Department Care Team ([facility] st Contact Info) Description 08/30/2024 Telephone [facility] MED & PEDS [address] [place] [address] Alonzo Hawkins MD [address] [place] [address] Social History Tobacco Use Types Packs/Day Years Used Date Smoking Tobacco: Never Assessed Depression Answer Date Recorded Patient Health Questionnaire-9 [...] AM EDT documented as of this encounter Miscellaneous Notes * Telephone Encounter - Joanne Niño [place] - 08/30/2024 1:19 PM EDT Called pt to let her know she needs AUTOMAT WATCHER appt prior to HDF appt tomorrow 08/31/[address] Vernon.Phone on chart is out of service, unable to reach pt. documented in this encounter Plan of Treatment Not on file documented as of this encounter Visit Diagnoses Not on filedocumented in this encounter
--- OUTSIDE RECORDS SUMMARY | 2024-08-31 10:17 | XMS_ITS | Clinical Summary ---
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 cloNIDine (Catapres) 0.1 MG tablet Take 0.05 mg twice daily and 0.1 mg once daily at bedtime 08/22/2024 Active divalproex (Depakote ER) 500 MG 24 hr tablet Take 1 tablet by mouth Once per day. 08/22/2024 Active escitalopram (Lexapro) 5 MG tablet Take 1 tablet by mouth Once per day. 08/22/2024 Active guanFACINE (Intuniv) 1 mg 24 hr tablet Take 1 tablet by mouth Once per day. 08/22/2024 Active OLANZapine (ZyPREXA) 2.5 MG tablet Take 1 tablet by mouth. Twice daily as needed 08/22/2024 Active nicotine (Nicoderm, Step 2) 14 MG/24HR patch Place 1 patch on the skin 1 (one) time each day at the same time. Active naltrexone (Depade) 50 MG tablet Take 1 tablet by mouth Once per day. Active Blood Pressure kit 1 kit Once per day. 1 kit 08/31/2024 Active Active Problems Problem Noted Date Diagnosed Date Encounter for medical examination to establish c are 08/31/2024 Assessment & Plan (08/31/2024 9:36 AM EDT): Last pcp visit over 5 years ER: July infected cyst Hosptalization: bacteremia Pmhx: Adhd, bipolar, Ptsd, Anxiety, depression Pshx: right thumb 2023, wrist fracture 2020, tubal ligation 2021, ear tubes 2017, rhinoplasty 2010 All: melatonin, bactrim, topamamax, Meds: as above Encounters * This document contains information received from the source organization and may not represent a complete record from that organization. Date Type Department Care Team Description 08/31/2024 9:00 AM EDT Office Visit [facility] [address] [place] [address] Alonzo Hawkins MD Encounter for medical examination to establish care (Primary Dx) 08/31/2024 Travel 08/30/2024 Telephone [facility] [address] [place] [address] Alonzo Hawkins MD 08/21/2024 Patient Outreach [facility] [address] [place] [address] Alonzo Hawkins MD Transition Of Care (Tcm) (HDF scheduled. ) from Last 3 Months Family History Medical History Relation Name Comments ADD / ADHD Father Depression Father Diabetes Father triglecyrides Father Alcohol abuse Mother Depression Mother Stroke Mother Cancer Neg Hx Relation Name Status Comments Father Mother Social History Tobacco Use Types Packs/Day Years [...] Mass Index 27.82 08/31/2024 9:25 AM EDT Plan of Treatment Health Maintenance Due Date Last Done Comments Dental Oral Exam 1990 Dental Prophylaxis 1990 Dental X-Ray: Full Mouth 1990 HIV Screening 1990 Lipid Panel 1990 Family Planning (PISQ) 2005 Hepatitis C Screening 2008 Pap Smear 11/16/2011 Pneumococcal Vaccine: Pediatrics (0 to 5 Years) and At-Risk Patients (6 to 49) Years) (2 of 2 - PCV) 10/10/2014 10/10/2013 Cervical Cancer Screening 2020 HPV/Cotest 2020 COVID-19 Vaccine (1 - season) 2024 Influenza Vaccine (#1) 2024 , 02/08/2018, 02/03/2016, Additional history exists Dental X-Ray: Bitewings 03/05/2024 03/04/2023 Alcohol/Substance Use Screening 08/31/2025 08/31/2024 Depression Screening 08/31/2025 08/31/2024, 09/01/19 SDOH Screening 08/31/2025 08/31/2024 Tobacco Screening 08/31/2025 08/31/2024 DTaP/Tdap/Td Vaccines (11 - Td or Tdap) 04/20/2031 04/20/2021, 12/28/2019, 03/09/2018, Additional history exists Zoster Vaccines (1 of 2) 2040 RSV Patients and Patients Aged 60 years or older (1 - 1-dose 75+ series) 2065 IPV Vaccines Completed 10/05/1992, 05/09, 05/03/1991, Additional history exists Hepatitis B Vaccines Completed 08/23/1996, 11/07/1995, 10/06/1995 Meningococcal Vaccine Completed 04/12/2008 HIB Vaccines Aged Out No longer eligi [...] Most Recently Relevant to Health Maintenance Insurance [facility] < 65 [facility] Care Teams 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
[2024-08-31 14:13] LABS: MANUAL DIFF FLAG NO
[2024-08-31 14:21] LABS: Basophils Absolute Auto 0.1 X10*3/uL (0.0-0.2); Basophils Percent Auto 0.7 % (0-2); Eosinophils Absolute Auto 0.4 X10*3/uL (0.0-0.4); Eosinophils Percent Auto 4.3 % (0-4); Hematocrit 42.6 % (37.0-47.0); Hemoglobin 14.4 g/dl (12.0-16.0); Imm Gran Abs Auto 0.02 X10*3/uL (0.00-0.03); Imm Gran Pct Auto 0.2 % (0.0-0.4); Lymphocytes Absolute Auto 2.1 X10*3/uL (1.2-4.9); Lymphocytes Percent Auto 26.1 % (20-40); Mean Corpuscular HGB Conc 33.8 g/dl (31.0-35.0); Mean Corpuscular Hemoglobin 35.2 pg (27.0-33.0); Mean Corpuscular Volume 104.2 fL (80.0-98.0); Monocytes Absolute Auto 0.5 X10*3/uL (0.1-1.2); Monocytes Percent Auto 5.9 % (2-11); Neutrophils Absolute Auto 5.1 x10*3/uL (2.0-8.3); Neutrophils Percent Auto 62.8 % (45-73); Platelet Count 277 X10*3/uL (160-400); Red Blood Count 4.09 X10*6/uL (4.20-5.50); Red Cell Distribution Width 14.7 % (11.0-16.0); White Blood Count 8.1 X10*3/uL (4.8-10.8)
[2024-08-31 14:45] LABS: Alanine Aminotransferase 35 U/L (0-31); Albumin Level 3.7 g/dL (3.5-5.0); Alkaline Phosphatase 69 U/L (39-117); Anion Gap 9 (12-20); Aspartate Amino Transferase 29 U/L (5-31); Bilirubin Total 0.2 mg/dL (0.0-1.0); Blood Urea Nitrogen 12 mg/dL (9-16); Carbon Dioxide 28 mmol/L (22-29); Chloride 108 mmol/L (96-108); Cholesterol 136 mg/dL (<200); Estimated Glomerular Filt Rate > 60; Glucose Random 89 mg/dL (60-115); HDL Cholesterol 39 mg/dL (>40); LDL Cholesterol Calculated 69 mg/dL (<100); Potassium 4.8 mmol/L (3.3-5.1); Sodium 140 mmol/L (135-145); Triglycerides 141 mg/dL (<150)
[2024-08-31 14:50] LABS: HIV AB/AG Nonreactive (Nonreactive); HIV Num 1 0.09 S/CO (0.00-0.99); ~HepC Num1 0.26 S/CO (0.00-0.79); ~Hepatitis C Antibody Nonreactive (Nonreactive)
[2024-08-31 14:51] LABS: TSH reflex Free T4 3.33 uIU/mL (0.32-4.0)
== END 2024-08-31 09:54 | disposition home or self-care (01) ==
LOC: HO.CHCLDS 09:53
PROVIDERS: Visit Provider Internal Medicine
DX: Z00.00 Encounter for general adult medical examination without abnormal findings (principal)
CPT/HCPCS: 36415; 80053; 80061; 84443; 85025; 86803; 87389

== ENCOUNTER 2024-10-02 14:42 | Outpatient (REF) | payer OTHER, SELFPAY ==
[2024-10-02 15:56] LABS: Bacterial Vaginosis PCR NEGATIVE (Negative); Candida Group PCR NOT DETECTED (Not Detect); Candida glab krusei PCR NOT DETECTED (Not Detect); Trichomonas vaginalis PCR DETECTED (Not Detect)
== END 2024-10-02 14:43 | disposition home or self-care (01) ==
LOC: HO.CHCLNP 14:42
PROVIDERS: Visit Provider Family Medicine
DX: N89.9 Noninflammatory disorder of vagina, unspecified (principal); Z12.4 Encounter for screening for malignant neoplasm of cervix
CPT/HCPCS: 81515; 87626; 88175

== ENCOUNTER 2024-10-10 19:01 | Emergency (ER) | payer MEDICARE, MEDICAID, SELFPAY ==
[2024-10-10 19:18] VITALS: BP 101/53; PULSE 71; RESP 20; TEMP 36.4; O2SAT 99; BMI 32.7
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
[2024-10-10] MEDS: Diphth,Pertus(ACell),Tet Adult 0.5 ML SYRINGE IM (19:33)
--- NOTE | 2024-10-10 19:36 | PC.NURSE ---
Seen by provider, medicate per mar, pt able to move digit and positive cms and pulses.
[2024-10-10 19:48] VITALS: BP 101/53; PULSE 71; RESP 20; TEMP 36.4; O2SAT 99
== END 2024-10-10 19:48 | disposition home or self-care (01) ==
LOC: HO.ED 19:39
PROVIDERS: Emergency Provider Emergency Medicine Emergency Medical Services
DX: S61.210A Laceration without foreign body of right index finger without damage to nail, initial encounter (principal); W26.8XXA Contact with other sharp object(s), not elsewhere classified, initial encounter; Y93.9 Activity, unspecified; Y92.9 Unspecified place or not applicable; Y99.9 Unspecified external cause status; E03.9 Hypothyroidism, unspecified; K21.9 Gastro-esophageal reflux disease without esophagitis; Z23 Encounter for immunization
CPT/HCPCS: 12001; 90471; 90715; 99282; 99284

== ENCOUNTER 2024-10-15 19:23 | Emergency (ER) | payer OTHER, SELFPAY ==
--- NOTE | ~2024-10-15 | XR_ITS ---
CLINICAL HISTORY: trauma 3 view, pelvis and right hip Comparison: None Findings: No acute fracture or dislocation. No significant arthritic change. The soft tissues are unremarkable. IMPRESSION: No acute findings. This document has been electronically signed by: Pratibha Clark MD on 10/15/2024 20:45:18
--- NOTE | ~2024-10-15 | XR_ITS ---
CLINICAL HISTORY: fx vs dislocation 2 view right knee Comparison: None Findings: No fractures or dislocations. No significant arthritic change or erosions. No joint effusion. No radiopaque foreign body. IMPRESSION: 1. No acute findings. This document has been electronically signed by: Pratibha Clark MD on 10/15/2024 20:44:22
[2024-10-15 19:33] VITALS: BP 120/64; PULSE 90; O2SAT 99
[2024-10-15 19:37] VITALS: BP 89/48; PULSE 77; RESP 20; TEMP 36.4; O2SAT 100; BMI 29.2
[2024-10-15] MEDS: Morphine Sulfate 4 MG/ML CARTRIDGE IVPUSH (19:53)
[2024-10-15] MEDS: 0.9 % Sodium Chloride 1,000 ML 999 ML IV (19:54)
[2024-10-15] MEDS: diazePAM 10 MG/2 ML CARTRIDGE 2.5 MG IVPUSH (19:57)
[2024-10-15] MEDS: Ketorolac Tromethamine 15 MG/ML VIAL IVPUSH (19:59)
[2024-10-15 20:01] VITALS: BP 105/60; PULSE 72; RESP 19; O2SAT 100
[2024-10-15 20:21] LABS: MANUAL DIFF FLAG NO
[2024-10-15 20:23] LABS: Basophils Percent Auto 0.4 % (0-2); Eosinophils Absolute Auto 0.3 X10*3/uL (0.0-0.4); Eosinophils Percent Auto 3.8 % (0-4); Hematocrit 36.7 % (37.0-47.0); Hemoglobin 13.4 g/dl (12.0-16.0); Imm Gran Abs Auto 0.01 X10*3/uL (0.00-0.03); Imm Gran Pct Auto 0.1 % (0.0-0.4); Lymphocytes Percent Auto 26.6 % (20-40); Mean Corpuscular HGB Conc 36.5 g/dl (31.0-35.0); Mean Corpuscular Hemoglobin 34.2 pg (27.0-33.0); Mean Corpuscular Volume 93.6 fL (80.0-98.0); Mean Platelet Volume 10.3 fL (9.4-12.3); Monocytes Absolute Auto 0.5 X10*3/uL (0.1-1.2); Monocytes Percent Auto 6.5 % (2-11); Neutrophils Absolute Auto 4.6 x10*3/uL (2.0-8.3); Neutrophils Percent Auto 62.6 % (45-73); Platelet Count 202 X10*3/uL (160-400); Red Blood Count 3.92 X10*6/uL (4.20-5.50); Red Cell Distribution Width 12.2 % (11.0-16.0); White Blood Count 7.4 X10*3/uL (4.8-10.8)
[2024-10-15 20:42] LABS: Alanine Aminotransferase 41 U/L (0-31); Albumin Level 3.9 g/dL (3.5-5.0); Alkaline Phosphatase 62 U/L (39-117); Anion Gap 11 (12-20); Aspartate Amino Transferase 28 U/L (5-31); Bilirubin Total 0.3 mg/dL (0.0-1.0); Blood Urea Nitrogen 10 mg/dL (9-16); Calcium 8.3 mg/dL (8.4-10.2); Carbon Dioxide 24 mmol/L (22-29); Chloride 109 mmol/L (96-108); Creatinine Clr Calc Pharmacy 116.5; Estimated Glomerular Filt Rate > 60; Glucose Random 91 mg/dL (60-115); Magnesium 1.8 mg/dL (1.6-2.6); Potassium 3.8 mmol/L (3.3-5.1); Sodium 140 mmol/L (135-145); Total Protein 5.9 g/dL (6.5-8.0)
[2024-10-15 20:44] LABS: HCG Quantitative < 2 mIU/mL
[2024-10-15 23:01] VITALS: BP 113/68; PULSE 61; RESP 16; TEMP 37; O2SAT 97
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
[2024-10-16 00:15] VITALS: BP 113/68; PULSE 61; RESP 16; TEMP 37; O2SAT 97
== END 2024-10-16 00:15 | disposition home or self-care (01) ==
PROVIDERS: Physician Assistant Medical; Emergency Provider Internal Medicine; PCP Internal Medicine
DX: S70.01XA Contusion of right hip, initial encounter (principal); S83.91XA Sprain of unspecified site of right knee, initial encounter; R10.2 Pelvic and perineal pain; M25.561 Pain in right knee; X58.XXXA Exposure to other specified factors, initial encounter; Y93.9 Activity, unspecified; Y92.9 Unspecified place or not applicable; Y99.8 Other external cause status; Z79.899 Other long term (current) drug therapy; F17.210 Nicotine dependence, cigarettes, uncomplicated
CPT/HCPCS: 36415; 73502; 73560; 80053; 83735; 84702; 85025; 96361; 96374; 96375; 99284; 99285; J1885; J2270; J3360

== ENCOUNTER → 2024-10-15 19:49 | Outpatient (BNV) | payer OTHER, SELFPAY | PROVIDERS: Emergency Provider Internal Medicine; PCP Internal Medicine; Visit Provider Student in an Organized Health Care Education/Training Program | DX: M25.551 Pain in right hip (principal); M25.561 Pain in right knee | CPT/HCPCS: 73502; 73560 ==

== ENCOUNTER 2024-10-16 05:55 | Emergency (ER) | payer OTHER, SELFPAY ==
--- NOTE | ~2024-10-16 | US_ITS ---
EXAMINATION: US ABDOMEN LIMITED HISTORY: abdominal pain TECHNIQUE: Real-time grayscale ultrasound imaging of the gallbladder was performed and images were reviewed. COMPARISON: There are no prior studies available for comparison. FINDINGS: The gallbladder is unremarkable in appearance. No gallstones are identified. There is no wall thickening or pericholecystic fluid. The common bile duct is normal in caliber measuring 6 mm in diameter. US/US abdomen limited IMPRESSION: Unremarkable sonographic examination of the gallbladder. Electronically signed by: Brown Roque MD 10/16/2024 10:12 AM EDT
--- NOTE | ~2024-10-16 | CT_ITS ---
EXAMINATION: CT ABDOMEN PELVIS WITH IV CONTRAST HISTORY: Left upper abd pain, elevated LFTs; recent fall COMPARISON: There are no prior studies for available comparison. TECHNIQUE: CT scan of the abdomen and pelvis was performed following administration of 85 mL Omnipaque 350 using standard departmental protocol. Coronal and sagittal reformatted images were generated and reviewed. Oral contrast material was not administered at the request of the referring physician. This CT exam was performed with one or more of the following dose reduction techniques: automated exposure control, adjustment of the mA and/or kV according to patient size, use of iterative reconstruction technique. DLP: 516 mGy-cm FINDINGS: LOWER CHEST: The visualized lung bases are clear. There is no pleural effusion. CARDIOVASCULATURE: The heart is normal in size. There is no pericardial effusion. LIVER: The liver is normal in size and contour. No liver mass is identified. The hepatic and portal veins are patent. GALLBLADDER / BILE DUCTS: The gallbladder is unremarkable. There is no intra or extrahepatic biliary ductal dilatation. SPLEEN: The spleen is enlarged. No focal splenic lesion is identified. PANCREAS: The pancreas is unremarkable in appearance. ADRENAL GLANDS: Within normal limits. KIDNEYS/RETROPERITONEUM: No renal calculi are identified. There is no hydronephrosis. No renal masses are identified. LYMPH NODES: No abdominal or pelvic lymphadenopathy. VASCULATURE: The abdominal aorta is normal in caliber. MESENTERY/PERITONEUM: No free fluid. No masses. There is no free intraperitoneal gas. STOMACH: The stomach is unremarkable. SMALL BOWEL: The small bowel is normal in caliber. COLON: The colon is unremarkable. APPENDIX: Normal. URINARY BLADDER/PELVIC ORGANS: The urinary bladder is collapsed, limiting evaluation. The uterus and right ovary are unremarkable. There is a 4.1 cm left ovarian cyst. BONES / SOFT TISSUES: There is a tiny ventral hernia containing fat just above the umbilicus. The bones are intact. CT/CT abdomen pelvis w IV con IMPRESSION: 1. No evidence of traumatic injury to the abdomen or pelvis. 2. Splenomegaly. 3. 4.1 cm left ovarian cyst. Electronically signed by: Brown Roque MD 10/16/2024 11:58 AM EDT
[2024-10-16 06:02] VITALS: BP 116/72; PULSE 72; RESP 20; TEMP 36.7; O2SAT 96; BMI 28.8
--- OUTSIDE RECORDS SUMMARY | 2024-10-16 06:14 | XMS_ITS | Clinical Summary ---
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 cloNIDine (Catapres) 0.1 MG tablet Take 0.05 mg twice daily and 0.1 mg once daily at bedtime 5 Active divalproex (Depakote ER) 500 MG 24 hr tablet Take 1 tablet by mouth Once per day. 5 Active escitalopram (Lexapro) 5 MG tablet Take 1 tablet by mouth Once per day. 5 Active guanFACINE (Intuniv) 1 mg 24 hr tablet Take 1 tablet by mouth Once per day. 5 Active OLANZapine (ZyPREXA) 2.5 MG tablet Take 1 tablet by mouth. Twice daily as needed 5 Active nicotine (Nicoderm, Step 2) 14 MG/24HR patch Place 1 patch on the skin 1 (one) time each day at the same time. Active naltrexone (Depade) 50 MG tablet Take 1 tablet by mouth Once per day. Active Blood Pressure kit 1 kit Once per day. 1 kit 5 Active acetaminophen (Tylenol) 500 MG tablet Take 1 tablet (500 mg) by mouth every 6 (six) hours if needed for mild pain for up to 20 doses. 20 tablet 5 Active ibuprofen 600 MG tablet Take 1 tablet (600 mg) by mouth every 6 (six) hours if needed for mild pain for up to 20 doses. 20 tablet 5 Active chlorhexidine (Peridex) 0.12 % solution Swish 15 mL morning and night for 1 minute. Spit, do not swallow. Do not eat or drink for 30 minutes following use. 473 mL 5 Active amoxicillin (Amoxil) 500 MG capsule Take 1 capsule (500 mg) by mouth every 8 (eight) hours for 7 days. 21 capsule 5 10/03/19 25 Discontinue d(Therapy completed) metroNIDAZOLE (Flagyl) 250 MG tablet Take 1 tablet (250 mg) by mouth 3 times daily for 7 days. 21 tablet 5 10/06/19 25 Active Problems Problem Noted Date Diagnosed Date Vaginal discharge 10/02/2024 Cervical cancer screening 10/02/2024 Assessment & Plan (10/02/2024 11:38 AM EDT): 33 y.o. here for cervical cancer screening. Will continue monitoring following ASCCP guidelines. Reports prior hx of colposcopy and + HPV before last . No timeline provided and also no records available to review and determine timeline. 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 Lee. ProAir prn. No need to maintenance inhalers. Encounters * This document contains information received from the source organization and may not represent a complete record from that organization. Date Type Department Care Team Description 10/15/2024 Orders Only [facility] External Provider, [facility] 10/02/2024 11:00 AM EDT Office Visit [facility] [address] [place] [address] Paul Mejia DMD Symptomatic irreversible pulpitis (Primary Dx) 10/02/2024 10:20 AM EDT Procedure Visit [facility] [address] [place] [address] Eliza Rose MD Encounter for immunization (Primary Dx); Vaginal discharge; Cervical cancer screening 09/28/2024 3:30 PM EDT Office Visit [facility] [address] [place] [address] Paul Mejia DMD Pain due to dental caries (Primary Dx) 09/25/2024 11:00 AM EDT Office Visit [facility] [address] [place] [address] Mainor Garciadesean 09/06/2024 2:15 PM EDT Telemedicine [facility] [address] [place] [address] Alonzo Hawkins MD Fatty liver (Primary Dx) 09/06/2024 Travel 09/04/2024 Telephone [facility] [address] [place] [address] Alonzo Hawkins MD 08/31/2024 9:00 AM EDT Office Visit [facility] [address] [place] [address] Alonzo Hawkins MD Encounter for medical examination to establish care (Primary Dx); Dietary counseling; Exercise counseling; Alcohol-induced psychosis with complication (CMS/HCC) 08/31/2024 Travel 08/30/2024 Telephone [facility] [address] [place] [address] Alonzo Hawkins MD 08/21/2024 Patient Outreach [facility] [address] [place] [address] Alonzo Hawkins MD Transition Of Care (Tcm) (HDF scheduled. ) from Last 3 Months Immunizations Immunization Administration Dates Next Due Pneumococcal Conjugate PCV 20 10/02/2024 Family History Medical History Relation Name Comments ADD / ADHD Father Depression Father Diabetes Father triglecyrides Father Alcohol abuse Mother Depression Mother Stroke Mother Cancer Neg Hx Relation Name Status Comments Father Mother Social History Tobacco Use Types Packs/Day Years Used Date Smoking Tobacco: Every Day Cigarettes 0.3 15.4 Started: 2009 Smokeless Tobacco: Never Tobacco Cessation:Ready [...] Access Q2 Not on file 08/31/2024 Comments No Sex and Gender Information Value Date Recorded Sex Assigned at Female 03/04/2023 8:49 AM EDT Legal Sex Unknown 03/05/2022 8:32 PM EDT Gender Identity Female 03/04/2023 8:49 AM EDT Sexual Orientation Straight 03/04/2023 8: 49 AM EDT Last Filed Vital Signs Vital Sign Reading Time Taken Comments Blood Pressure 98/58 10/02/2024 11:12 AM EDT Pulse 84 10/02/2024 10:37 AM EDT Temperature 36.2 ??C (97.2 ??F) 10/02/2024 10:37 AM E DT Respiratory Rate 20 10/02/2024 10:37 AM EDT Oxygen Saturation 98% 10/02/2024 10:37 AM EDT Inhaled Oxygen Concentration - - Weight 78.3 kg (172 lb 9.6 oz) 10/02/2024 10:37 AM EDT Height 163 cm (5' 4.17 ) 10/02/2024 10:37 AM EDT Body Mass Index 29.47 10/02/2024 10:37 AM EDT Plan of Treatment Health Maintenance Due Date Last Done Comments Dental Oral Exam 1990 Dental Prophylaxis 1990 Dental X-Ray: Full Mouth 1990 Disability Screening 1990 Family Planning (PISQ) 2005 Hepatitis A Vaccines (1 of 2 - Risk 2-dose series) 2009 HPV/Cotest 2020 COVID-19 Vaccine ( season) 2024 Postponed from 01/08/2024 (Supply/Drug Shortage) Influenza Vaccine (Season Ended) 2025 04/20/2021, 02/08/2018, 02/03/2016, Additional history exists Depression Monitoring 03/02/2025 08/31/2024, 025 Alcohol/Substance Use Screening 08/31/2025 08/31/2024 SDOH Screening 08/31/2025 08/31/2024 Dental X-Ray: Bitewings 09/26/2025 09/25/2024, 03/04 Tobacco Screening 10/02/2025 10/02/2024 Cervical Cancer Screening 10/03/2027 Pap Smear 10/03/2027 10/02/2024 Lipid Panel 08/31/2029 08/31/2024 DTaP/Tdap/Td Vaccines (11 - Td or Tdap) 04/20/2031 04/20/2021, 12/28/2019, 03/09/2018, Additional history exists Zoster Vaccines (1 of 2) 2040 RSV Patients and Patients Aged 60 years or older (1 - 1-dose 75+ series) 2065 IPV Vaccines Completed 10/05/1992, 05/09, 05/03/1991, Additional history exists Hepatitis B Vaccines Completed 08/23/1996, 11/07/1995, 10/06/1995 Meningococcal Vaccine Completed 04/12/2008 HIV Screening Completed 08/31/2024 Hepatitis C Screening Completed 08/31/2024 Pneumococcal Vaccine: Pediatrics (0 to 5 Years) and At-Risk Patients (6 to 49) Years) Completed 10/02/2024, 10/10/2013 HIB Vaccines Aged Out No longer eligi ble based on patient's age to complete this topic HPV Vaccines Aged Out No longer eligi ble based on patient's age to complete this topic Meningococcal B Vaccine Aged Out No l onger eligible based on patient's age to complete this topic RSV under 20 months Aged Out No longe r eligible based on patient's age to complete this topic Rotavirus Vaccines Aged Out No longer eligible based on patient's age to complete this topic Procedures Procedure Name Priority Date/Time Associated Diagnosis Comments XR HIP RIGHT WITH PELVIS 1 VIEW Routine 10/15/2024 8:45 PM EDT XR KNEE 1-2 VIEWS RIGHT Routine 10/15/2024 8:44 PM EDT BACTERIAL VAGINOSIS PANEL Routine 10/02/2024 11:03 AM EDT Vaginal discharge PAP SMEAR Routine 10/02/2024 11:02 AM EDT Cervical cancer screening CASE PRESENTATION, DETAILED AND EXTENSIVE TREATMENT PLANNING Routine 10/02/2024 11:00 AM EDT Symptomatic irreversible pulpitis 31 EXTRACTION, ERUPTED TOOTH OR EXPOSED ROOT (ELEVATION/FORCEPS REMOVAL) Routine 10/02/2024 11:00 AM EDT Symptomatic irreversible pulpitis 32 EXTRACTION Routine 10/02/2024 12:00 AM EDT 30 EXTRACTION Routine 10/02/2024 12:00 AM EDT 29 EXTRACTION Routine 10/02/2024 12:00 AM EDT CASE PRESENTATION, DETAILED AND EXTENSIVE TREATMENT PLANNING Routine 09/28/2024 3:30 PM EDT Pain due to dental caries PALLIATIVE (EMERGENCY) TREATMENT OF DENTAL PAIN - MINOR PROCEDURE Routine 09/28/2024 3:30 PM EDT Pain due to dental caries CASE PRESENTATION, DETAILED AND EXTENSIVE TREATMENT PLANNING Routine 09/25/2024 11:00 AM EDT BITEWING - SINGLE RADIOGRAPHIC IMAGE Routine 09/25/2024 11:00 AM EDT INTRAORAL - PERIAPICAL FIRST RADIOGRAPHIC IMAGE Routine 09/25/2024 11:00 AM EDT LIMITED ORAL EVALUATION - PROBLEM FOCUSED Routine 09/25/2024 11:00 AM EDT 31 O AMALGAM FILLING Routine 09/25/2024 12:00 AM EDT HEPATITIS C AB W/REFL TO HCV RNA, QN, PCR Routine 08/31/2024 9:58 AM EDT Encounter for medical examination to establish care HIV 1/2 ANTIGEN/ANTIBODY, FOURTH GENERATION W/RFL Routine 08/31/2024 9:58 AM EDT Encounter for medical examination to establish care TSH W/REFLEX TO FT4 Routine 08/31/2024 9 :58 AM EDT Encounter for medical examination to establish care LIPID PANEL, STANDARD Routine 08/31/2024 9:58 AM EDT Encounter for medical examination to establish care COMPREHENSIVE METABOLIC PANEL Routine 08/31/2024 9:58 AM EDT Encounter for medical examination to establish care CBC WITH AUTO DIFFERENTIAL Routine 08/31/2024 9:58 AM EDT Encounter for medical examination to establish care from Last 3 Months Results * XR Hip right with Pelvis 1 view (10/15/2024 8:45 PM EDT) Anatomical Region Laterality Modality Lower Extremities, Hip Bilateral Radiograp hic Imaging 10/15/2024 8:45 PM EDT Narrative 10/15/2024 8:46 PM EDT ? [facility] ?[address] ?[place] [address] ?XRay Report ? Signed ? Patient: Harnden,Carola-Itzel J ?MR#: ?? [id number] ? : 1990 ?Acct:[id number] ? Age/Sex: 33 / F ?ADM Date: 10/15/24 ? Loc: HO.ED ? Attending Dr: ? Ordering Physician: Lizzeth Mireles ?? Date of Service: 10/15/24 ?? Procedure(s): XR hip RT w PEL1V ?? Accession Number(s): [id number] ? cc: Alonzo Hawkins MD; Lizzeth Mireles ? CLINICAL HISTORY: trauma ? 3 view, pelvis and right hip ? Comparison: None ? Findings: ?? No acute fracture or dislocation. ?? No significant arthritic change. ?? The soft tissues are unremarkable. ? IMPRESSION: ?? No acute findings. ? This document has been electronically signed by: Pratibha Clark MD on ?? 10/15/2024 20:45:18 ? Dictated By: ?Pratibha Clark MD ? Signed By: ?<Electronically signed by Pratibha Clark MD in OV> ?10/15/242044 ? DD/ 44 ? TD/TT: 10/15/242044 ? Patient Services Assistant: ? Procedure Note Clara Lerma - 10/15/2024 [place] [address] XRay Report Signed Patient: Sohail Hernandez R#: [id number] : 1990Acct:[id number] Age/Sex: 33 / FADM Date: 10/15/24 Loc: HO.ED Attending Dr: Ordering Physician: Lizzeth Mireles Date of Service: 10/15/24 Procedure(s): XR hip RT w PEL1V Accession Number(s): [id number] cc: Alonzo Hawkins MD; Lizzeth Mireles CLINICAL HISTORY: trauma 3 view, pelvis and right hip Comparison: None Findings: No acute fracture or dislocation. No significant arthritic change. The soft tissues are unremarkable. IMPRESSION: No acute findings. This document has been electronically signed by: Pratibha Clark MD on 10/15/2024 20:45:18 Dictated By: Pratibha Clark MD Signed By: <Electronically signed by Pratibha Clark MD in OV> 10/15/242044 DD/ 44 TD/TT: 10/15/242044 Patient Services Assistant: [facility] External Provider IMG XR PROCEDURES Edited Result - Final * XR Knee 1-2 Views Right (10/15/2024 8:44 PM EDT) Anatomical Region Laterality Modality Lower Extremities, Knee Right Radiogra phic Imaging 10/15/2024 8:44 PM EDT Narrative 10/15/2024 8:45 PM EDT ? [facility] ?[address] ?[place] [address] ?XRay Report ? Signed ? Patient: Sohail Hernandez ?MR#: ?? [id number] ? : 1990 ?Acct:[id number] ? Age/Sex: 33 / F ?ADM Date: 10/15/24 ? Loc: HO.ED ? Attending Dr: ? Ordering Physician: Lizzeth Mireles ?? Date of Service: 10/15/24 ?? Procedure(s): XR knee RT 2V ?? Accession Number(s): [id number] ? cc: Alonzo Hawkins MD; Lizzeth Mireles ? CLINICAL HISTORY: fx vs dislocation ? 2 view right knee ? Comparison: None ? Findings: ?? No fractures or dislocations. ?? No significant arthritic change or erosions. ?? No joint effusion. ?? No radiopaque foreign body. ? IMPRESSION: ?? 1. No acute findings. ? This document has been electronically signed by: Pratibha Clark MD on ?? 10/15/2024 20:44:22 ? Dictated By: ?Pratibha Clark MD ? Signed By: ?<Electronically signed by Pratibha Clark MD in OV> ?10/15/242043 ? DD/ 43 ? TD/TT: 10/15/242043 ? Patient Services Assistant: ? Procedure Note Clara Lerma - 10/15/[address] [place] [address] XRay Report Signed Patient: Sohail Hernandez JMR#: [id number] : 1990Acct:[id number] Age/Sex: 33 / FADM Date: 10/15/24 Loc: HO.ED Attending Dr: Ordering Physician: Lizzeth Mireles Date of Service: 10/15/24 Procedure(s): XR knee RT 2V Accession Number(s): [id number] cc: Alonzo Hawkins MD; Lizzeth Mireles CLINICAL HISTORY: fx vs dislocation 2 view right knee Comparison: None Findings: No fractures or dislocations. No significant arthritic change or erosions. No joint effusion. No radiopaque foreign body. IMPRESSION: 1. No acute findings. This document has been electronically signed by: Pratibha Clark MD on 10/15/2024 20:44:22 Dictated By: Pratibha Clark MD Signed By: <Electronically signed by Pratibha Clark MD in OV> 10/15/242043 DD/ 43 TD/TT: 10/15/242043 Patient Services Assistant: [facility] External Provider IMG XR PROCEDURES Edited Result - Final * (ABNORMAL) Bacterial Vaginosis (10/02/2024 11:03 AM EDT) TRICHOMONAS VAGINALIS DETECTION BY PCR DETECTED(A) Not Detect [facility] BACTERIAL VAGINOSIS DETECTION BY PCR NEGATIVE Negative [facility] Comment:The BV organism targ ets of the Xpert Xpress MVP test can becommensal in women; Xpert Xpress MVP positive results forbacterial vaginosis should be considered in conjunction withother clinical and patient information to determine thedisease status. Organisms that are not detected by the XpertXpress MVP test have also been reported to be associatedwith BV and aerobic vaginitis.The Xpert Xpress MVP test performance has not been evaluatedin patients under the age of 14. ORSSY GROUP DETECTION BY PCR NOT DETECTED Not Detect [facility] Rossy glab krusei PCR NOT DETECTED Not Detect [facility] Swab Vaginal structure / Unknown 10/02/2024 11:03 AM EDT 10/02/2024 2:43 PM EDT us Eliza Rose MD LAB MICROBIOLOGY - GENERAL OR DERABLES Final Result [facility] [address] [place] [phone] * Pap Smear (10/02/2024 11:02 AM EDT) Swab 10/02/2024 11:0 2 AM EDT 10/03/2024 9:00 AM EDT Narrative [facility] - 10/05/2024 10:28 AM EDT ----- ------- Name: Sohail Hernandez ? Age/Sex: 33/F ? : 1990 Unit#: [id number] ?? Attend Dr: Eliza Rose MD ?Re10/02/24 ?Status: DEP REF ? Location: HO.CHCLNP ? Disch: ? ----- ------- SPEC : [id number] ? RECD: 10/03/24 ? STATUS: ??SOUT ? REQ NUM: [id number] ? JAH: 10/02/24 ? SUBM DR: Eliza Rose MD ? ENTERED: ??10/03/24 ?SP TYPE: Pap Smr ?OTHR : ? ORDERED: ??Pap Smear ? Interpretation ?? Satisfactory for evaluation. ?? Negative for intraepithelial lesion or malignancy. ?? No endocervical cells seen. ?? Moderate inflammation. ? HPV High Risk: ??Negative ? HPV Genotyping 16: ??Negative ?? HPV Genotyping 18: ??Negative ?Clinical Information LMP: 09/17/2024 Previous PAP test: Unknown date/findings ? Material Received ?? ThinPrep-Cervical ? PAP Disclaimer As of February 29, 2024, the technical services to include automated prescreening performed by the ThinPrep Imaging System, PAP screening and HPV testing will be performed at [facility] (CLIA #[id number]), [address] [place] [address]. ??Testing for HPV was performed using the [employer] 6800 system. ??The presence of HPV in the female genital tract is associated with a number of diseases, including cervical carcinoma. ??The HPV DNA high risk pool tests for HPV 31, 33, 35, 39, 45, 51, 52, 56, 58, 59, 66 and 68. ??The testing for HPV 16 and 18 genotypes has also been performed. ??A positive result indicates detection of nucleic acid sequences from one or more subtypes, whereas a negative result indicates such sequences were not detected. All professional services are performed by [facility] ([address] [place] [address]; Ph: ??[phone]; CLIA #[id number]). The PAP Test is a screening procedure with the inherent possibility of both false negative and false positive results. ??Results should be interpreted in the context of historic and current clinical findings. ??Reliability of the PAP Test is enhanced by performing the test on a regular repetitive basis. ? CONTINUED ON NEXT PAGE ----- ------- Name: Sohail Hernandez ? Age/Sex: 33/F ? : 1990 Unit#: [id number] ?? Attend Dr: Eliza Rose MD ?Re10/02/24 ?Status: DEP REF ? Location: [facility] ? Disch: ? ----- ------- SPEC : [id number] ? RECD: 10/03/24 ? STATUS: ??SOUT ? REQ NUM: [id number] ? JAH: 10/02/24 ? SUBM DR: Eliza Rose MD ? ENTERED: ??10/03/24 ?SP TYPE: Pap Smr ?OTHR DR: ? ORDERED: ??Pap Smear ? ----- ------- Signed (signature on file) JUAN JOSE Gardner ([facility]) 10/05/24 6168 ? ----- ------- ? END OF REPORT ? us Eliza Rose MD LAB CYTOLOGY ORDERABLES Final Result Performing Organization Address [facility] de Phone Number [facility] [address] [place] [address] [phone] * TSH W/Reflex to FT4 (08/31/2024 9:58 AM EDT) [facility] TSH reflex Free T4 3.33 0.32 - 4.0 uIU/mL [facility] Blood Venous blood specimen / Unknown 08/31/2024 9:58 AM EDT 08/31/2024 2:08 PM EDT us Alonzo Gaston MD LAB BLOOD ORDERABL ES Final Result Performing Organization Address [facility] de Phone Number [facility] [address] [place] [phone] * (ABNORMAL) CBC auto differential (08/31/2024 9:58 AM EDT) [facility] White Blood Count 8.1 4.8 - 10.8 X10*3/uL [facility] Red Blood Count 4.09(L) 4.20 - 5.50 X10*6/uL [facility] Hemoglobin 14.4 12.0 - 16.0 g/dl [facility] Hematocrit 42.6 37.0 - 47.0 % [facility] Mean Corpuscular Volume 104.2(H) 80.0 - 98.0 fL [facility] Mean Corpuscular Hemoglobin 35.2(H) 27.0 - 33.0 pg [facility] Mean Corpuscular HGB Conc 33.8 31.0 - 35.0 g/dl [facility] Red Cell Distribution Width 14.7 11.0 - 16.0 % [facility] Platelet Count 277 160 - 400 X10*3/uL [facility] Mean Platelet Volume 11.0 9.4 - 12.3 fL [facility] Neutrophils Percent Auto 62.8 45 - 73 % [facility] Imm Gran Pct Auto 0.2 0.0 - 0.4 % [facility] Lymphocytes Percent Auto 26.1 20 - 40 % [facility] Monocytes Percent Auto 5.9 2 - 11 % [facility] Eosinophils Percent Auto 4.3(H) 0 - 4 % [facility] Basophils Percent Auto 0.7 0 - 2 % [facility] NRBC Pct Auto 0.0 0.0 - 0.2 /100WBC [facility] Neutrophils Absolute Auto 5.1 2.0 - 8.3 x10*3/uL [facility] Imm Gran Abs Auto 0.02 0.00 - 0.03 X10*3/uL [facility] Lymphocytes Absolute Auto 2.1 1.2 - 4.9 X10*3/uL [facility] Monocytes Absolute Auto 0.5 0.1 - 1.2 X10*3/uL [facility] Eosinophils Absolute Auto 0.4 0.0 - 0.4 X10*3/uL [facility] Basophils Absolute Auto 0.1 0.0 - 0.2 X10*3/uL [facility] NRBC Abs Auto 0.000 0.0 - 0.012 X10*3/uL [facility] Blood Venous blood specimen / Unknown 08/31/2024 9:58 AM EDT 08/31/2024 2:08 PM EDT us Alonzo Gaston MD LAB BLOOD ORDERABL ES Final Result [facility] [address] [place], [place] [phone] * Hepatitis C Antibody with Reflex to HCV, RNA, Quantitative, Real-Time PCR (08/31/2024 9:58 AM EDT) Hepatitis C Antibody Nonreactive Nonreactive [facility] Comment:Antibodies to HCV no t detected; does not exclude early acuteHCV infection. Blood Venous blood specimen / Unknown 08/31/2024 9:58 AM EDT 08/31/2024 2:08 PM EDT Alonzo Gaston MD LAB BLOOD ORDERABL ES Final Result Performing Organization Address [facility]/ZIP Co de Phone Number [facility] [address] [place] [phone] * HIV-1/2 Antigen and Antibodies, Fourth Generation, with Reflexes (08/31/2024 9:58 AM EDT) HIV AB/AG Nonreactive Nonreactive [facility] Comment:HIV-1 p24 Ag and/or HIV-1/HIV-2 Ab not detected.A test result that is nonreactive does not exclude thepossibility of exposure to or infection with HIV-1 and/orHIV-2. Nonreactive results in this assay for individualswith prior exposure to HIV-1 and/or HIV-2 may be due toantigen and antibody levels that are below the limit ofdetection of this assay.The [employer] HIV Ag/Ab Combo assay result andsupplemental assay results should be interpreted inconjunction with the patient's clinical presentation,history and other laboratory results. If the results areinconsistent with clinical evidence, additional testing issuggested to confirm the result. Blood Venous blood specimen / Unknown 08/31/2024 9:58 AM EDT 08/31/2024 2:08 PM EDT Alonzo Gaston MD LAB BLOOD ORDERABL ES Final Result Performing Organization Address [facility]/ZIP Co de Phone Number [facility] [address] [place] [phone] * (ABNORMAL) Lipid Panel, Standard (08/31/2024 9:58 AM EDT) Triglycerides 141 <150 mg/dL [facility] Comment:Desirable Triglyceri de: less than 150 mg/dLBorderline High Triglyceride 150-199 mg/dLHigh Triglyceride: 200-499 mg/dLVery High Triglyceride: greater than or equal to 5OO mg/dL Cholesterol 136 <200 mg/dL [facility] Comment:Desirable Cholestero l: less than 200 mg/dLBorderline High Cholesterol: 200-239 mg/dLHigh Cholesterol: greater than 239 mg/dL LDL Cholesterol Calculated 69 <100 mg/dL [facility] Comment:Desirable LDL: less than 100 mg/dLNear Optimal/Above Optimal LDL: 110- 129 mg/dLBorderline High LDL: 130-159 mg/dLHigh LDL: 160-189 mg/dLVery High LDL: greater than or equal to 190 mg/dL HDL Cholesterol 39(L) >40 mg/dL [facility] Comment:Desirable HDL: great er than 40 mg/dL Note: This HDL assay may give artificially low results in patients with liver disease. Blood Venous blood specimen / Unknown 08/31/2024 9:58 AM EDT 08/31/2024 2:08 PM EDT us Alonzo Gaston MD LAB BLOOD ORDERABL ES Final Result [facility] [address] [place] [phone] * (ABNORMAL) Comprehensive Metabolic Panel (08/31/2024 9:58 AM EDT) Sodium 140 135 - 145 mmol/L [facility] Potassium 4.8 3.3 - 5.1 mmol/L [facility] Chloride 108 96 - 108 mmol/L [facility] Carbon Dioxide 28 22 - 29 mmol/L [facility] Anion Gap 9(L) 12 - 20 [facility] Urea Nitrogen (BUN) 12 9 - 16 mg/dL [facility] Creatinine, Serum 0.77 0.5 - 1.4 mg/dL [facility] Estimated Glomerular Filt Rate >60 [facility] Comment:Chronic Kidney Disea se: Estimated GFR < 60 mL/min/1.65s0Tyoatx Kidney Disease: Estimated GFR < 15 mL/min/1.73m2 Glucose 89 60 - 115 mg/dL [facility] Calcium 9.0 8.4 - 10.2 mg/dL [facility] Bilirubin, Total 0.2 0.0 - 1.0 mg/dL [facility] Aspartate Amino Transferase 29 5 - 31 U/L [facility] Alanine Aminotransferase 35(H) 0 - 31 U/L [facility] Total Protein 6.0(L) 6.5 - 8.0 g/dL [facility] Albumin Level 3.7 3.5 - 5.0 g/dL [facility] Alkaline Phosphatase 69 39 - 117 U/L [facility] Blood Venous blood specimen / Unknown 08/31/2024 9:58 AM EDT 08/31/2024 2:08 PM EDT us Alonzo Gaston MD LAB BLOOD ORDERABL ES Final Result [facility] [address] [place] [address] [phone] from Last 3 Months Insurance D[facility]AL - [facility] [address] [place] [id number] Care Teams [employer] Relationship Specialty Start Date End Date Alonzo Hawkins MD [address] [place] [address] [place] [address] PCP - General Internal Medicine 08/31/24
[2024-10-16 08:01] LABS: Influenza A PCR NEGATIVE (Negative); Influenza B PCR NEGATIVE (Negative); Resp Syncy Virus RNA Qual PCR NEGATIVE (Negative); SARS COV2 PCR INHOUSE NEGATIVE (Negative)
[2024-10-16 08:11] VITALS: BP 101/62; PULSE 64; RESP 18; TEMP 36.9; O2SAT 94
--- NOTE | 2024-10-16 08:29 | ED.ABDPAIN ---
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 Toradol here in the emergency room methocarbamol 750 mg tablet 1,500 mg PO Q8H PRN (Reason: pain, moderate) Qty: 20 0RF amoxicillin-pot clavulanate 875-125 mg Tablet 1 tab PO BID 3 Days Qty: 6 0RF doxycycline monohydrate 100 mg Capsule 100 mg PO BID 3 Days Qty: 6 0RF nicotine 14 mg/24 hr Patch 24 Hour 14 mg transdermal DAILY PRN (Reason: nicotine cravings) 28 Days Qty: 28 0RF naltrexone 50 mg Tablet 50 mg PO DAILY 30 Days Qty: 30 0RF escitalopram oxalate 5 mg Tablet 5 mg PO DAILY 30 Days Qty: 30 0RF divalproex 500 mg Tablet Extended Release 24 Hr 500 mg PO BEDTIME 30 Days Qty: 30 0RF guanfacine 1 mg Tablet Extended Release 24 Hr 1 mg PO DAILY 30 Days Qty: 30 0RF clonidine HCl 0.1 mg Tablet 0.1 mg PO BEDTIME 30 Days Qty: 30 0RF Protocol: Hold for SBP< HOLD for SBP < : 90 clonidine HCl 0.1 mg Tablet 0.05 mg PO BID@0900,1500 30 Days Qty: 30 0RF Protocol: Hold for SBP< HOLD for SBP < : 90 olanzapine 2.5 mg Tablet 2.5 mg PO BID PRN (Reason: agitation) 30 Days Qty: 60 0RF Referrals: Jamaica Ruiz MD [Physician] - Stand Alone Forms: Work/School Release Print Language: Luxembourgish
--- NOTE | 2024-10-16 08:32 | ECG_ITS ---
Test Reason : ABD PAIN Blood Pressure : */* mmHG Vent. Rate : 61 BPM Atrial Rate : 61 BPM P-R Int : 154 ms QRS Dur : 72 ms QT Int : 440 ms P-R-T Axes : 12 44 14 degrees QTcB Int : 442 ms Normal sinus rhythm Normal ECG When compared with ECG of 17-Aug-2024 10:21, No significant change was found Referred By: Johanna Delgado Electronically Signed By: DANIEL LONDONO MD
[2024-10-16 08:50] LABS: MANUAL DIFF FLAG NO
[2024-10-16 08:51] LABS: Basophils Percent Auto 0.4 % (0-2); Eosinophils Absolute Auto 0.3 X10*3/uL (0.0-0.4); Hematocrit 40.7 % (37.0-47.0); Hemoglobin 14.5 g/dl (12.0-16.0); Imm Gran Abs Auto 0.02 X10*3/uL (0.00-0.03); Imm Gran Pct Auto 0.2 % (0.0-0.4); Lymphocytes Absolute Auto 0.8 X10*3/uL (1.2-4.9); Lymphocytes Percent Auto 8.3 % (20-40); Mean Corpuscular HGB Conc 35.6 g/dl (31.0-35.0); Mean Corpuscular Hemoglobin 33.6 pg (27.0-33.0); Mean Corpuscular Volume 94.2 fL (80.0-98.0); Mean Platelet Volume 10.4 fL (9.4-12.3); Monocytes Absolute Auto 0.6 X10*3/uL (0.1-1.2); Monocytes Percent Auto 6.7 % (2-11); Neutrophils Absolute Auto 7.5 x10*3/uL (2.0-8.3); Neutrophils Percent Auto 81.4 % (45-73); Platelet Count 170 X10*3/uL (160-400); Red Blood Count 4.32 X10*6/uL (4.20-5.50); White Blood Count 9.3 X10*3/uL (4.8-10.8)
[2024-10-16 09:10] LABS: Alanine Aminotransferase 194 U/L (0-31); Albumin Level 3.9 g/dL (3.5-5.0); Alkaline Phosphatase 77 U/L (39-117); Anion Gap 9 (12-20); Aspartate Amino Transferase 293 U/L (5-31); Bilirubin Direct 0.6 mg/dL (0.0-0.5); Bilirubin Total 1.3 mg/dL (0.0-1.0); Blood Urea Nitrogen 9 mg/dL (9-16); Calcium 8.5 mg/dL (8.4-10.2); Carbon Dioxide 23 mmol/L (22-29); Chloride 111 mmol/L (96-108); Creatinine Clr Calc Pharmacy 127.4; Estimated Glomerular Filt Rate > 60; Glucose Random 108 mg/dL (60-115); Lipase 15 U/L (8-78); Magnesium 1.8 mg/dL (1.6-2.6); Potassium 3.9 mmol/L (3.3-5.1); Sodium 139 mmol/L (135-145)
[2024-10-16] MEDS: 0.9 % Sodium Chloride 1,000 ML 999 ML IVCONT ×2 (09:14→11:42)
[2024-10-16 09:15] LABS: Alanine Aminotransferase 196 U/L (0-31); Albumin Level 3.9 g/dL (3.5-5.0); Alkaline Phosphatase 75 U/L (39-117); Anion Gap 11 (12-20); Aspartate Amino Transferase 292 U/L (5-31); Bilirubin Total 1.4 mg/dL (0.0-1.0); Blood Urea Nitrogen 9 mg/dL (9-16); Calcium 8.6 mg/dL (8.4-10.2); Carbon Dioxide 23 mmol/L (22-29); Chloride 110 mmol/L (96-108); Creatinine Clr Calc Pharmacy 129.4; Estimated Glomerular Filt Rate > 60; Glucose Random 107 mg/dL (60-115); Sodium 140 mmol/L (135-145); Total Protein 6.1 g/dL (6.5-8.0)
[2024-10-16] MEDS: ondansetron HCL 4 MG/2 ML VIAL IVPUSH (09:16)
--- NOTE | 2024-10-16 09:17 | PC.NURSE ---
patient a&ox3, iv inserted, labs previously drawn, pt c/o nausea- medicated for nausea per order, ivf running per order, call simpson within reach, plan of care ongoing.
[2024-10-16 09:18] LABS: HCG Quantitative < 2 mIU/mL; Troponin-I High Sensitivity < 2.7 ng/L (<3.5-17.0)
--- NOTE | 2024-10-16 10:31 | PC.NURSE ---
patients IVF continues to run- pt reminded to keep arm straight while IVF is infusing
[2024-10-16 11:00] VITALS: BP 102/65; PULSE 62; RESP 16; TEMP 36.7; O2SAT 98
[2024-10-16] MEDS: iohexoL 350 MG/ML 100 ML INFUS..BTL IV (11:37)
[2024-10-16 11:44] VITALS: BP 119/68; PULSE 61; RESP 16; TEMP 36.9; O2SAT 96
[2024-10-16 14:18] LABS: INTERNATIONAL NORM RATIO 1.1 (0.9-1.1); Prothrombin Time 12.7 SEC (10.9-12.4)
[2024-10-16 15:15] VITALS: BP 111/61; PULSE 64; RESP 16; TEMP 36.6; O2SAT 94
[2024-10-16 15:26] VITALS: BP 111/61; PULSE 64; RESP 16; TEMP 36.6; O2SAT 94
--- NOTE | 2024-10-29 15:00 | PC.NURSE ---
Late entry for 10/16/24: 1L NS bolus started at 1142 by [place] was completed at 1500 for Discharge @1510
== END 2024-10-16 15:27 | disposition home or self-care (01) ==
PROVIDERS: Physician Assistant Medical; Emergency Provider Emergency Medicine Emergency Medical Services
DX: R10.2 Pelvic and perineal pain (principal); R10.13 Epigastric pain; R11.0 Nausea; R19.7 Diarrhea, unspecified; F17.210 Nicotine dependence, cigarettes, uncomplicated; R79.89 Other specified abnormal findings of blood chemistry; Z79.899 Other long term (current) drug therapy; Z03.818 Encounter for observation for suspected exposure to other biological agents ruled out
CPT/HCPCS: 0241U; 36415; 74177; 76705; 80048; 80053; 80076; 82248; 83690; 83735; 84484; 84702; 85025; 85610; 93005; 96361; 96374; 99284; 99285; J2405; Q9967

== ENCOUNTER → 2024-10-16 08:32 | Outpatient (BNV) | payer OTHER, SELFPAY | PROVIDERS: Emergency Provider Emergency Medicine Emergency Medical Services; Visit Provider Internal Medicine Cardiovascular Disease | DX: R10.9 Unspecified abdominal pain (principal) | CPT/HCPCS: 93010 ==

== ENCOUNTER → 2024-10-16 09:23 | Outpatient (BNV) | payer OTHER, SELFPAY | PROVIDERS: Emergency Provider Emergency Medicine Emergency Medical Services; Visit Provider Radiology Diagnostic Radiology | DX: N83.202 Unspecified ovarian cyst, left side (principal); R16.1 Splenomegaly, not elsewhere classified; R10.9 Unspecified abdominal pain | CPT/HCPCS: 74177; 76705 ==

== ENCOUNTER 2024-10-18 13:33 | Outpatient (REF) | payer OTHER, SELFPAY ==
[2024-10-18 14:54] LABS: Alanine Aminotransferase 110 U/L (0-31); Albumin Level 3.8 g/dL (3.5-5.0); Alkaline Phosphatase 70 U/L (39-117); Aspartate Amino Transferase 31 U/L (5-31); Bilirubin Direct 0.1 mg/dL (0.0-0.5); Bilirubin Total 0.4 mg/dL (0.0-1.0); Total Protein 5.9 g/dL (6.5-8.0)
--- OUTSIDE RECORDS SUMMARY | 2024-10-18 15:52 | XMS_ITS | Clinical Summary ---
Author Organization [employer] Address [address] [place] [address] Care Team Providers Care Asset Management Lead Name Role Phone Alonzo Hawkins MD Primary [...] Department Care Team Description 10/15/2024 Orders Only [facility] External Provider, [facility] 10/02/2024 11:00 AM EDT Office Visit [facility] [address] [place] [address] Paul Mejia DMD Symptomatic irreversible pulpitis (Primary Dx) 10/02/2024 10:20 AM EDT Procedure Visit [facility] [address] [place] [address] Eliza Rose MD Encounter for immunization (Primary Dx); Vaginal discharge; Cervical cancer screening 09/28/2024 3:30 PM EDT Office Visit [facility] [address] [place] [address] Paul Mejia DMD Pain due to dental caries (Primary Dx) 09/25/2024 11:00 AM EDT Office Visit [facility] [address] [place] [address] Mainor Garciadesean 09/06/2024 2:15 PM EDT Telemedicine [facility] [address] [place] [address] Alonzo Hawkins MD Fatty liver (Primary Dx) 09/06/2024 Travel 09/04/2024 Telephone [facility] [address] [place] [address] Alonzo Hawkins MD 08/31/2024 9:00 AM EDT Office Visit [facility] [address] [place] [address] Alonzo Hawkins MD Encounter for medical examination to establish care (Primary Dx); Dietary counseling; Exercise counseling; Alcohol-induced psychosis with complication (CMS/HCC) 08/31/2024 Travel 08/30/2024 Telephone [facility] [address] [place] [address] Alonzo Hawkins MD 08/21/2024 Patient Outreach [facility] [address] [place] [address] Alonzo Hawkins MD Transition Of Care (Tcm) [...] EDT Narrative 10/15/2024 8:46 PM EDT ? [facility] ?[address] ?[place] [address] ?XRay Report ? Signed ? Patient: Harnden,Carola-Itzel J ?MR#: ?? [id number] ? : 1990 ?Acct:[id number] ? Age/Sex: 33 / F ?ADM Date: 10/15/24 ? Loc: HO.ED ? Attending Dr: ? Ordering Physician: Lizzeth Mireles ?? Date of Service: 10/15/24 ?? Procedure(s): XR hip RT w PEL1V ?? Accession Number(s): [id number] ? cc: Alonzo Hawkins MD; Lizzeth Mireles [...] ? DD/ 44 ? TD/TT: 10/15/242044 ? Turn Laster: ? Procedure Note Clara Lerma - 10/15/2024 [place] [address] XRay Report Signed Patient: Sohail Hernandez R#: [id number] : 1990Acct:[id number] Age/Sex: 33 / FADM Date: 10/15/24 Loc: HO.ED Attending Dr: Ordering Physician: Lizzeth Mireles Date of Service: 10/15/24 Procedure(s): XR hip RT w PEL1V Accession Number(s): [id number] cc: Alonzo Hawkins MD; Lizzeth Mireles CLINICAL [...] in OV> 10/15/242044 DD/ 44 TD/TT: 10/15/242044 Turn Laster: [facility] External Provider IMG XR PROCEDURES Edited Result - Final * XR Knee 1-2 Views Right (10/15/2024 8:44 PM EDT) Anatomical Region Laterality Modality Lower Extremities, Knee Right Radiogra phic Imaging 10/15/2024 8:44 PM EDT Narrative 10/15/2024 8:45 PM EDT ? [facility] ?[address] ?[place] [address] ?XRay Report ? Signed ? Patient: Sohail Hernandez ?MR#: ?? [id number] ? : 1990 ?Acct:[id number] ? Age/Sex: 33 / F ?ADM Date: 10/15/24 ? Loc: HO.ED ? Attending Dr: ? Ordering Physician: Lizzeth Mireles ?? Date of Service: 10/15/24 ?? Procedure(s): XR knee RT 2V ?? Accession Number(s): [id number] ? cc: Alonzo Hawkins MD; Lizzeth Mireles [...] ? DD/ 43 ? TD/TT: 10/15/242043 ? Turn Laster: ? Procedure Note Clara Lerma - 10/15/[address] [place] [address] XRay Report Signed Patient: Sohail Hernandez JMR#: [id number] : 1990Acct:[id number] Age/Sex: 33 / FADM Date: 10/15/24 Loc: HO.ED Attending Dr: Ordering Physician: Lizzeth Mireles Date of Service: 10/15/24 Procedure(s): XR knee RT 2V Accession Number(s): [id number] cc: Alonzo Hawkins MD; Lizzeth Mireles CLINICAL [...] in OV> 10/15/242043 DD/ 43 TD/TT: 10/15/242043 Turn Laster: [facility] External Provider IMG XR PROCEDURES Edited Result - Final * (ABNORMAL) Bacterial Vaginosis (10/02/2024 11:03 AM EDT) TRICHOMONAS VAGINALIS DETECTION BY PCR DETECTED(A) Not Detect [facility] BACTERIAL VAGINOSIS DETECTION BY PCR NEGATIVE Negative [facility] Comment:The BV organism targ ets [...] evaluatedin patients under the age of 14. ROSSY GROUP DETECTION BY PCR NOT DETECTED Not Detect [facility] Rossy glab krusei PCR NOT DETECTED Not Detect [facility] Swab Vaginal structure / Unknown 10/02/2024 11:03 AM EDT 10/02/2024 2:43 PM EDT us Eliza Rose MD LAB MICROBIOLOGY - GENERAL OR DERABLES Final Result [facility] [address] [place] [phone] * Pap Smear (10/02/2024 11:02 AM EDT) Swab 10/02/2024 11:0 2 AM EDT 10/03/2024 9:00 AM EDT Narrative [facility] - 10/05/2024 10:28 AM EDT ----- ------- Name: Sohail Hernandez ? Age/Sex: 33/F ? : 1990 Unit#: [id number] ?? Attend Dr: Eliza Rose MD ?Re10/02/24 ?Status: DEP REF ? Location: HO.CHCLNP ? Disch: ? ----- ------- SPEC : [id number] ? RECD: 10/03/24 ? STATUS: ??SOUT ? REQ NUM: [id number] ? JAH: 10/02/24 ? SUBM DR: Eliza [...] and HPV testing will be performed at [facility] (CLIA #[id number]), [address] [place] [address]. ??Testing for HPV was performed using the [employer] 6800 system. ??The presence of HPV in [...] detected. All professional services are performed by [facility] ([address] [place] [address]; Ph: ??[phone]; CLIA #[id number]). The PAP Test is a screening procedure [...] ? Age/Sex: 33/F ? : 1990 Unit#: [id number] ?? Attend Dr: Eliza Rose MD ?Re10/02/24 ?Status: DEP REF ? Location: [facility] ? Disch: ? ----- ------- SPEC : [id number] ? RECD: 10/03/24 ? STATUS: ??SOUT ? REQ NUM: [id number] ? JAH: 10/02/24 ? SUBM DR: Eliza Rose MD ? ENTERED: ??10/03/24 ?SP TYPE: Pap Smr ?OTHR DR: ? ORDERED: ??Pap Smear ? ----- ------- Signed (signature on file) JUAN JOSE Gardner ([facility]) 10/05/24 0168 ? ----- ------- ? END OF REPORT ? us Eliza Rose MD LAB CYTOLOGY ORDERABLES Final Result Performing Organization Address [facility] de Phone Number [facility] [address] [place] [address] [phone] * TSH W/Reflex to FT4 (08/31/2024 9:58 AM EDT) [facility] TSH reflex Free T4 3.33 0.32 - 4.0 uIU/mL [facility] Blood Venous blood specimen / Unknown 08/31/2024 9:58 AM EDT 08/31/2024 2:08 PM EDT us Alonzo Gaston MD LAB BLOOD ORDERABL ES Final Result Performing Organization Address [facility] de Phone Number [facility] [address] [place] [phone] * (ABNORMAL) CBC auto differential (08/31/2024 9:58 AM EDT) [facility] White Blood Count 8.1 4.8 - 10.8 X10*3/uL [facility] Red Blood Count 4.09(L) 4.20 - 5.50 X10*6/uL [facility] Hemoglobin 14.4 12.0 - 16.0 g/dl [facility] Hematocrit 42.6 37.0 - 47.0 % [facility] Mean Corpuscular Volume 104.2(H) 80.0 - 98.0 fL [facility] Mean Corpuscular Hemoglobin 35.2(H) 27.0 - 33.0 pg [facility] Mean Corpuscular HGB Conc 33.8 31.0 - 35.0 g/dl [facility] Red Cell Distribution Width 14.7 11.0 - 16.0 % [facility] Platelet Count 277 160 - 400 X10*3/uL [facility] Mean Platelet Volume 11.0 9.4 - 12.3 fL [facility] Neutrophils Percent Auto 62.8 45 - 73 % [facility] Imm Gran Pct Auto 0.2 0.0 - 0.4 % [facility] Lymphocytes Percent Auto 26.1 20 - 40 % [facility] Monocytes Percent Auto 5.9 2 - 11 % [facility] Eosinophils Percent Auto 4.3(H) 0 - 4 % [facility] Basophils Percent Auto 0.7 0 - 2 % [facility] NRBC Pct Auto 0.0 0.0 - 0.2 /100WBC [facility] Neutrophils Absolute Auto 5.1 2.0 - 8.3 x10*3/uL [facility] Imm Gran Abs Auto 0.02 0.00 - 0.03 X10*3/uL [facility] Lymphocytes Absolute Auto 2.1 1.2 - 4.9 X10*3/uL [facility] Monocytes Absolute Auto 0.5 0.1 - 1.2 X10*3/uL [facility] Eosinophils Absolute Auto 0.4 0.0 - 0.4 X10*3/uL [facility] Basophils Absolute Auto 0.1 0.0 - 0.2 X10*3/uL [facility] NRBC Abs Auto 0.000 0.0 - 0.012 X10*3/uL [facility] Blood Venous blood specimen / Unknown 08/31/2024 9:58 AM EDT 08/31/2024 2:08 PM EDT us lAonzo Gaston MD LAB BLOOD ORDERABL ES Final Result [facility] [address] [place] [address], [place] [phone] * Hepatitis C Antibody with Reflex to HCV, RNA, Quantitative, Real-Time PCR (08/31/2024 9:58 AM EDT) Hepatitis C Antibody Nonreactive Nonreactive [facility] Comment:Antibodies to HCV no t detected; does not exclude early acuteHCV infection. Blood Venous blood specimen / Unknown 08/31/2024 9:58 AM EDT 08/31/2024 2:08 PM EDT Alonzo Gaston MD LAB BLOOD ORDERABL ES Final Result Performing Organization Address [facility]/ZIP Co de Phone Number [facility] [address] [place] [phone] * HIV-1/2 Antigen and Antibodies, Fourth Generation, with Reflexes (08/31/2024 9:58 AM EDT) HIV AB/AG Nonreactive Nonreactive [facility] Comment:HIV-1 p24 Ag and/or HIV-1/HIV-2 Ab not detected.A test result that is nonreactive does not exclude thepossibility of exposure to or infection with HIV-1 and/orHIV-2. Nonreactive results in this assay for individualswith prior exposure to HIV-1 and/or HIV-2 may be due toantigen and antibody levels that are below the limit ofdetection of this assay.[email or web address] HIV Ag/Ab Combo assay result andsupplemental assay results should be interpreted inconjunction with the patient's clinical presentation,history and other laboratory results. If the results areinconsistent with clinical evidence, additional testing issuggested to confirm the result. Blood Venous blood specimen / Unknown 08/31/2024 9:58 AM EDT 08/31/2024 2:08 PM EDT Alonzo Gaston MD LAB BLOOD ORDERABL ES Final Result Performing Organization Address [facility]/ZIP Co de Phone Number [facility] [address] [place] [phone] * (ABNORMAL) Lipid Panel, Standard (08/31/2024 9:58 AM EDT) Triglycerides 141 <150 mg/dL [facility] Comment:Desirable Triglyceri de: less than 150 mg/dLBorderline High Triglyceride 150-199 mg/dLHigh Triglyceride: 200-499 mg/dLVery High Triglyceride: greater than or equal to 5OO mg/dL Cholesterol 136 <200 mg/dL [facility] Comment:Desirable Cholestero l: less than 200 mg/dLBorderline High Cholesterol: 200-239 mg/dLHigh Cholesterol: greater than 239 mg/dL LDL Cholesterol Calculated 69 <100 mg/dL [facility] Comment:Desirable LDL: less than 100 mg/dLNear Optimal/Above Optimal LDL: 110- 129 mg/dLBorderline High LDL: 130-159 mg/dLHigh LDL: 160-189 mg/dLVery High LDL: greater than or equal to 190 mg/dL HDL Cholesterol 39(L) >40 mg/dL [facility] Comment:Desirable HDL: great er than 40 mg/dL Note: This HDL assay may give artificially low results in patients with liver disease. Blood Venous blood specimen / Unknown 08/31/2024 9:58 AM EDT 08/31/2024 2:08 PM EDT us Alonzo Gaston MD LAB BLOOD ORDERABL ES Final Result [facility] [address] [place] [phone] * (ABNORMAL) Comprehensive Metabolic Panel (08/31/2024 9:58 AM EDT) Sodium 140 135 - 145 mmol/L [facility] Potassium 4.8 3.3 - 5.1 mmol/L [facility] Chloride 108 96 - 108 mmol/L [facility] Carbon Dioxide 28 22 - 29 mmol/L [facility] Anion Gap 9(L) 12 - 20 [facility] Urea Nitrogen (BUN) 12 9 - 16 mg/dL [facility] Creatinine, Serum 0.77 0.5 - 1.4 mg/dL [facility] Estimated Glomerular Filt Rate >60 [facility] Comment:Chronic Kidney Disea se: Estimated GFR < 60 mL/min/[id number] Kidney Disease: Estimated GFR < 15 mL/min/1.73m2 Glucose 89 60 - 115 mg/dL [facility] Calcium 9.0 8.4 - 10.2 mg/dL [facility] Bilirubin, Total 0.2 0.0 - 1.0 mg/dL [facility] Aspartate Amino Transferase 29 5 - 31 U/L [facility] Alanine Aminotransferase 35(H) 0 - 31 U/L [facility] Total Protein 6.0(L) 6.5 - 8.0 g/dL [facility] Albumin Level 3.7 3.5 - 5.0 g/dL [facility] Alkaline Phosphatase 69 39 - 117 U/L [facility] Blood Venous blood specimen / Unknown 08/31/2024 9:58 AM EDT 08/31/2024 2:08 PM EDT us Alonzo Gaston MD LAB BLOOD ORDERABL ES Final Result [facility] [address] [place] [phone] [phone] from Last 3 Months Insurance DENTAL - [facility] [address] [place] [phone] Care Teams Asset Management Lead Relationship Specialty Start Date End Date Alonzo Hawkins MD [address] [place] [address] [place] [address] PCP - General Internal Medicine 08/31/24
== END 2024-10-18 13:34 | disposition home or self-care (01) ==
LOC: HO.LAB 13:33
PROVIDERS: PCP Internal Medicine; Visit Provider Physician Assistant Medical
DX: R79.89 Other specified abnormal findings of blood chemistry (principal)
CPT/HCPCS: 36415; 80076

== ENCOUNTER 2024-11-23 22:44 | Emergency (ER) | payer OTHER, SELFPAY ==
--- NOTE | ~2024-11-23 | XR_ITS ---
CLINICAL HISTORY: injury 2 view right knee Comparison: 10/15/2024 08:10 PM EDT: CR: XR KNEE RT 2V (07:10 PM CDT) Findings: No acute fracture or subluxation. Small suprapatellar knee joint effusion. No intra-articular loose bodies. Minimal tricompartmental osteoarthritis. Joint spaces are maintained. Impression: 1. Suggestion of small suprapatellar knee joint effusion without evidence of acute displaced fracture or subluxation. This document has been electronically signed by: Yifan Perez MD on 11/24/2024 01:45:43
[2024-11-23 22:47] VITALS: BP 118/76; PULSE 88; O2SAT 97
[2024-11-23 22:52] VITALS: BP 117/64; PULSE 80; RESP 20; TEMP 36.7; O2SAT 95; BMI 28.2
[2024-11-23 23:20] LABS: UPreg QC Valid YES
[2024-11-24] MEDS: Morphine Sulfate Immed Release 15 MG TABLET PO (00:55)
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
[2024-11-24 01:04] VITALS: BP 118/73; PULSE 81; RESP 20; TEMP 36.6; O2SAT 98
[2024-11-24 01:05] VITALS: BP 118/73; PULSE 81; RESP 20; TEMP 36.6; O2SAT 98
== END 2024-11-24 01:06 | disposition home or self-care (01) ==
PROVIDERS: Emergency Provider Internal Medicine
DX: M25.561 Pain in right knee (principal)
CPT/HCPCS: 73560; 81025; 99283; 99284

== ENCOUNTER → 2024-11-24 00:01 | Outpatient (BNV) | payer OTHER, SELFPAY | PROVIDERS: Emergency Provider Internal Medicine; Visit Provider Radiology Diagnostic Radiology | DX: M25.561 Pain in right knee (principal) | CPT/HCPCS: 73560 ==

== ENCOUNTER 2024-12-24 08:09 | Outpatient (REF) | payer OTHER, SELFPAY | END 2024-12-24 08:10 | disposition home or self-care (01) | LOC: HO.HOSX 08:09 | PROVIDERS: Visit Provider Physician Assistant | DX: Z13.89 Encounter for screening for other disorder (principal) ==

== ENCOUNTER 2025-01-01 08:54 | Outpatient (AMB) | payer OTHER, SELFPAY ==
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
[2025-01-01 09:06] VITALS: BP 106/62; PULSE 65; BMI 28.7
--- OUTSIDE RECORDS SUMMARY | 2025-01-01 09:13 | XMS_ITS | Clinical Summary ---
Author Organization [employer] Address [address] [facility] [address] [place] [address] Care Team Providers Care Waste Picker Name Role Phone Alonzo Hawkins MD Primary [...] minutes following use. 473 mL 5 Active Active Problems Problem Noted Date Diagnosed [...] prn. No need to maintenance inhalers. Encounters Date Type Department Care Team Description 10/26/2024 Results Follow-Up [facility] [address] [place] [address] Eliza Rose MD Pap Smear, Bacterial Vaginosis 10/15/2024 Orders Only [facility] External Provider, [facility] 10/02/2024 11:00 AM EDT Office Visit [facility] [address] [place] [address] Paul Mejia DMD Symptomatic irreversible pulpitis (Primary Dx) 10/02/2024 10:20 AM EDT Procedure Visit [facility] [address] [place] [address] Eliza Rose MD Encounter for immunization (Primary Dx); Vaginal discharge; Cervical cancer screening from Last 3 Months Immunizations Immunization Administration Dates Next Due Pneumococcal Conjugate PCV 20 10/02/2024 Family History Medical History Relation Name Comments ADD / ADHD Father Depression Father Diabetes Father triglecyrides Father Alcohol abuse Mother Depression Mother Stroke Mother Cancer Neg Hx Relation Name Status Comments Father Mother Social History Tobacco Use Types Packs/Day Years Used Date Smoking Tobacco: Every Day Cigarettes 0.3 15.6 Started: 2009 Smokeless Tobacco: Never Tobacco Cessation:Ready [...] 84 10/02/2024 10:37 AM EDT Temperature 36.2 C (97.2 F) 10/02/2024 10:37 AM EDT Respiratory Rate 20 10/02/2024 10:37 AM EDT Oxygen Saturation 98% 10/02/2024 10:37 AM EDT Inhaled Oxygen Concentration - - Weight 78.3 kg (172 lb 9.6 oz) 10/02/2024 10:37 AM EDT Height 163 cm (5' 4.17 ) 10/02/2024 10:37 AM EDT Body Mass Index 29.47 10/02/2024 10:37 AM EDT Plan of Treatment Upcoming Encounters Date Type Department Care Team (Late st Contact Info) Description 01/15/2025 3:00 PM EDT Office Visit [facility] [address] [place] [address] Robbie Melgar 03/01/2025 10:45 AM EDT Office Visit [facility] [address] [place] [address] Alonzo Hawkins MD [address] [place] [address] Health Maintenance Due Date Last Done Comments Dental Oral Exam 1990 Dental Prophylaxis 1990 Dental X-Ray: Full Mouth 1990 Disability Screening 1990 Family Planning (PISQ) 2005 HPV Vaccines (1 - 3-dose series) 2005 Hepatitis A Vaccines (1 of 2 - Risk 2-dose series) 2009 COVID-19 Vaccine ( season) 2024 Influenza Vaccine (#1) 2025 , 02/08/2018, 02/03/2016, Additional history exists Depression Monitoring 03/02/2025 08/31/2024, 025 Alcohol/Substance Use Screening 08/31/2025 08/31/2024 SDOH Screening 08/31/2025 08/31/2024 Dental X-Ray: Bitewings 09/26/2025 09/25/2024, 03/04 Tobacco Screening 10/02/2025 10/02/2024 Pap Smear 10/03/2027 10/02/2024 Lipid Panel 08/31/2029 08/31/2024 Cervical Cancer Screening 10/02/2029 HPV/Cotest 10/02/2029 10/02/2024 DTaP/Tdap/Td Vaccines (12 - Td or Tdap) 10/10/2034 10/10/2024, 04/20/2021, 12/28/2019, Additional history exists Zoster Vaccines (1 of 2) 2040 RSV Patients and Patients Aged 60 years or older (1 - 1-dose 75+ series) 2065 HIB Vaccines Completed 05/20/1992, 07/07, 05/03/1991, Additional history exists IPV Vaccines Completed 10/05/1992, 05/09, 05/03/1991, Additional history exists Hepatitis B Vaccines Completed 08/23/1996, 11/07/1995, 10/06/1995 Meningococcal Vaccine Completed 04/12/2008 HIV Screening Completed 08/31/2024 Hepatitis C Screening Completed 08/31/2024 Pneumococcal Vaccine: Pediatrics (0 to 5 Years) and At-Risk Patients (6 to 49) Years Completed 10/02/2024, 10/10/2013 Meningococcal B Vaccine Aged Out No l [...] 10/02/2024 11:02 AM EDT Cervical cancer screening HPV DNA, LOW/HIGH RISK Routine 10/02/2024 11:02 AM EDT Cervical cancer screening CASE PRESENTATION, DETAILED AND EXTENSIVE TREATMENT PLANNING Routine 10/02/2024 11:00 AM EDT Symptomatic irreversible pulpitis 31 EXTRACTION, ERUPTED TOOTH OR EXPOSED ROOT (ELEVATION/FORCEPS REMOVAL) Routine 10/02/2024 11:00 AM EDT Symptomatic irreversible pulpitis 32 EXTRACTION Routine 10/02/2024 12:00 AM EDT 30 EXTRACTION Routine 10/02/2024 12:00 AM EDT 29 EXTRACTION Routine 10/02/2024 12:00 AM EDT BITEWING - SINGLE RADIOGRAPHIC IMAGE Routine 09/25/2024 11:00 AM EDT HEPATITIS C AB W/REFL TO HCV RNA, QN, PCR Routine 08/31/2024 9:58 AM EDT Encounter for medical examination to establish care HIV 1/2 ANTIGEN/ANTIBODY, FOURTH GENERATION W/RFL Routine 08/31/2024 9:58 AM EDT Encounter for medical examination to establish care LIPID PANEL, STANDARD Routine 08/31/2024 9:58 AM EDT Encounter for medical examination to establish care from Last 3 Months or Most Recently Relevant to Health Maintenance Results * XR Hip right with Pelvis 1 view (10/15/2024 8:45 PM EDT) Anatomical Region Laterality Modality Lower Extremities, Hip Bilateral Radiograp hic Imaging 10/15/2024 8:45 PM EDT Narrative 10/15/2024 8:46 PM EDT [address] [address] XRay Report Signed Patient: Sohail Hernandez MR#: [id number] : 1990 Acct:[id number] Age/Sex: 33 / F ADM Date: 10/15/24 Loc: HO.ED Attending Dr: Ordering Physician: Lizzeth Mireles Date of Service: 10/15/24 Procedure(s): XR hip RT w PEL1V Accession Number(s): [id number] cc: Alonzo Hawkins MD; Lizzeth Mireles CLINICAL [...] in OV> 10/15/242044 DD/ 44 TD/TT: 10/15/242044 Shuttle Operator: Procedure Note Donotuseinterpreter, Image - 10/15/2024 [place] [address] XRay Report Signed Patient: Sohail Hernandez JMR#: [id number] : 1990Acct:[id number] Age/Sex: 33 / FADM Date: 10/15/24 Loc: HO.ED Attending Dr: Ordering Physician: Lizzeth Mireles Date of Service: 10/15/24 Procedure(s): XR hip RT w PEL1V Accession Number(s): [id number] cc: Alonzo Hawkins MD; Lizzeth Mireles CLINICAL [...] in OV> 10/15/242044 DD/ 44 TD/TT: 10/15/242044 Shuttle Operator: [facility] External Provider IMG XR PROCEDURES Edited Result - Final * XR Knee 1-2 Views Right (10/15/2024 8:44 PM EDT) Anatomical Region Laterality Modality Lower Extremities, Knee Right Radiogra phic Imaging 10/15/2024 8:44 PM EDT Narrative 10/15/2024 8:45 PM EDT [address] [address] XRay Report Signed Patient: Sohail Hernandez MR#: [id number] : 1990 Acct:[id number] Age/Sex: 33 / F ADM Date: 10/15/24 Loc: .ED Attending Dr: Ordering Physician: Lizzeth Mireles Date of Service: 10/15/24 Procedure(s): XR knee RT 2V Accession Number(s): [id number] cc: Alonzo Hawkins MD; Lizzeth Mireles CLINICAL [...] in OV> 10/15/242043 DD/ 43 TD/TT: 10/15/242043 Shuttle Operator: Procedure Note Donotuseinterpreter, Image - 10/15/[address] [address] XRay Report Signed Patient: Sohail Hernandez JMR#: [id number] : 1990Acct:[id number] Age/Sex: 33 / FADM Date: 10/15/24 Loc: HO.ED Attending Dr: Ordering Physician: Lizzeth Mireles Date of Service: 10/15/24 Procedure(s): XR knee RT 2V Accession Number(s): [id number] cc: Alonzo Hawkins MD; Lizzeth Mireles CLINICAL [...] in OV> 10/15/242043 DD/ 43 TD/TT: 10/15/242043 Shuttle Operator: [facility] External Provider IMG XR PROCEDURES Edited Result - Final * (ABNORMAL) Bacterial Vaginosis (10/02/2024 11:03 AM EDT) TRICHOMONAS VAGINALIS DETECTION BY PCR DETECTED(A) Not Detect [facility] BACTERIAL VAGINOSIS DETECTION BY PCR NEGATIVE Negative [facility] Comment:The BV organism targ ets [...] DETECTION BY PCR NOT DETECTED Not Detect [facility] Rossy glab krusei PCR NOT DETECTED Not Detect [facility] Swab Vaginal structure / Unknown 10/02/2024 11:03 AM EDT 10/02/2024 2:43 PM EDT Eliza Rose MD LAB MICROBIOLOGY - GENERAL OR DERABLES Final Result Performing Organization Address [facility]/ZIP Co de Phone Number [facility] [address] [place] [phone] * HPV High Risk with Reflex to Subtypes (10/02/2024 11:02 AM EDT) HPV High Risk Negative Negative [facility] HPV Genotype 16 Negative Negative [facility] HPV Genotype 18 Negative Negative [facility] Comment:HPV testing performe d at [facility] (CLIA#[id number]), [address] [place] [address].Testing for HPV was performed using the Menger[employer] MARTIN 6800system. The presence of HPV in the female genital tract isassociated with a number of diseases, including cervicalcarcinoma. The HPV DNA high risk pool tests for HPV 31, 33,35, 39, 45, 51, 52, 56, 58, 59, 66 and 68. The testing forHPV 16 and 18 genotypes has also been performed. A positiveresult indicates detection of nucleic acid sequences fromone or more subtypes, whereas a negative result indicatessuch sequences were not detected. Pap Vial 10/02/2024 11:0 2 AM EDT 10/03/2024 9:00 AM EDT us Eliza Rose MD LAB BLOOD ORDERABLES Final Re sult Performing Organization Address [facility] Co de Phone Number [facility] [address] [place] [phone] * Pap Smear (10/02/2024 11:02 AM EDT) Swab 10/02/2024 11:0 2 AM EDT 10/03/2024 9:00 AM EDT Narrative [facility] - 10/05/2024 10:28 AM EDT ----- ------- Name: Sohail Hernandez Age/Sex: 33/F : 1990 Unit#: [id number] Attend Dr: Eliza Rose MD Re10/02/24 Status: DEP [facility] ----- ------- SPEC : [id number] RECD: 10/03/24 STATUS: MALACHI DURANTElle NUM: [id number] JAH: 10/02/24-[address] [facility] [address]: Eliza Rose MD ENTERED: 10/03/24 SP TYPE: Pap Smr OT : ORDERED: Pap Smear Interpretation Satisfactory for evaluation. Negative for intraepithelial lesion or malignancy. No endocervical cells seen. Moderate inflammation. HPV High Risk: Negative HPV Genotyping 16: Negative HPV Genotyping 18: Negative Clinical Information LMP: 09/17/2024 Previous PAP test: Unknown date/findings Material Received ThinPrep-Cervical PAP Disclaimer As of February 29, 2024, the technical services to include automated prescreening performed by the ThinPrep Imaging System, PAP screening and HPV testing will be performed at [facility] (CLIA #[id number]), [address] [place] [address]. Testing for HPV was performed using the Michael BiekerAS 6800 system. The presence of HPV in the female genital tract is associated with a number of diseases, including cervical carcinoma. The HPV DNA high risk pool tests for HPV 31, 33, 35, 39, 45, 51, 52, 56, 58, 59, 66 and 68. The testing for HPV 16 and 18 genotypes has also been performed. A positive result indicates detection of nucleic acid sequences from one or more subtypes, whereas a negative result indicates such sequences were not detected. All professional services are performed by [facility] ([address] [place], [place] [id number]; ; CLIA #[id number]). The PAP Test is a screening procedure with the inherent possibility of both false negative and false positive results. Results should be interpreted in the context of historic and current clinical findings. Reliability of the PAP Test is enhanced by performing the test on a regular repetitive basis. CONTINUED ON NEXT PAGE ----- ------- Name: Carola HernandezMeganItzel Ferris Age/Sex: 33/F [facility] 1990 [id number]#: [id number] Attend Dr: Eliza Rose MD Re10/02/24 Status: DEP REF Location: [facility] Disch: ----- ------- SPEC : [id number] RECD: 10/03/24-899 STATUS: MALACHI BOOTH NUM: [id number] JAH: 10/02/24-[address] [facility] [address]: Eliza Rose MD ENTERED: 10/03/24 SP TYPE: Pap [facility] DR: ORDERED: Pap Smear ----- ------- Signed (signature on file) JUAN JOSE [place] ([facility]) 10/05/24 1028 ----- ------- END OF REPORT Eliza Rose MD LAB CYTOLOGY ORDERABLES Final Result Performing Organization Address [facility] de Phone Number [facility] [address] [place] [phone] * Hepatitis C Antibody with Reflex to HCV, RNA, Quantitative, Real-Time PCR (08/31/2024 9:58 AM EDT) [facility] Hepatitis C Antibody Nonreactive Nonreactive [facility] Comment:Antibodies to HCV no t detected; does not exclude early acuteHCV infection. Blood Venous blood specimen / Unknown 08/31/2024 9:58 AM EDT 08/31/2024 2:08 PM EDT Alonzo Gaston MD LAB BLOOD ORDERABL ES Final Result Performing Organization Address [facility] de Phone Number [facility] [address] [place] [address] [phone] * HIV-1/2 Antigen and Antibodies, Fourth Generation, with Reflexes (08/31/2024 9:58 AM EDT) Pathologist [facility] HIV AB/AG Nonreactive Nonreactive [facility] Comment:HIV-1 p24 Ag and/or HIV-1/HIV-2 Ab not detected.A test result that is nonreactive does not exclude thepossibility of exposure to or infection with HIV-1 and/orHIV-2. Nonreactive results in this assay for individualswith prior exposure to HIV-1 and/or HIV-2 may be due toantigen and antibody levels that are below the limit ofdetection of this assay.The scoo mobility HIV Ag/Ab Combo assay result andsupplemental assay results should be interpreted inconjunction with the patient's clinical presentation,history and other laboratory results. If the results areinconsistent with clinical evidence, additional testing issuggested to confirm the result. Blood Venous blood specimen / Unknown 08/31/2024 9:58 AM EDT 08/31/2024 2:08 PM EDT Alonzo Gaston MD LAB BLOOD ORDERABL ES Final Result [facility] [address] [place] [phone] * (ABNORMAL) Lipid Panel, Standard (08/31/2024 9:58 AM EDT) Triglycerides 141 <150 mg/dL [facility] Comment:Desirable Triglyceri de: less than 150 mg/dLBorderline High Triglyceride 150-199 mg/dLHigh Triglyceride: 200-499 mg/dLVery High Triglyceride: greater than or equal to 5OO mg/dL Cholesterol 136 <200 mg/dL [facility] Comment:Desirable Cholestero l: less than 200 mg/dLBorderline High Cholesterol: 200-239 mg/dLHigh Cholesterol: greater than 239 mg/dL LDL Cholesterol Calculated 69 <100 mg/dL [facility] Comment:Desirable LDL: less than 100 mg/dLNear Optimal/Above Optimal LDL: 110- 129 mg/dLBorderline High LDL: 130-159 mg/dLHigh LDL: 160-189 mg/dLVery High LDL: greater than or equal to 190 mg/dL HDL Cholesterol 39(L) >40 mg/dL [facility] Comment:Desirable HDL: great er than 40 mg/dL Note: This HDL assay may give artificially low results in patients with liver disease. Blood Venous blood specimen / Unknown 08/31/2024 9:58 AM EDT 08/31/2024 2:08 PM EDT us Alonzo Gaston MD LAB BLOOD ORDERABL ES Final Result [facility] [address] [place] [phone] from Last 3 Months or Most Recently Relevant to Health Maintenance Insurance [facility]AL - [facility] Care Teams Waste Picker Relationship Specialty Start Date End Date Alonzo Hawkins MD [address] [place] [phone] PCP - General Internal Medicine 08/31/24
--- OUTSIDE RECORDS SUMMARY | 2025-01-01 09:14 | XMS_ITS | Clinical Summary ---
Author Organization [facility] ity Address [address] [place] [address] Care Team Providers Care Maintenance Superintendent Name Role Phone Radha Quiroz MD Primary Care Provider [phone] Allergies Active Allergy Reactions Criticality Noted Date Comments Melatonin Rash 10/08/2009 Sulfamethoxazole-Trimetho prim Hives Medium 01/16/2009 Had reaction to Bactrim Dec 2008. Facial swelling and hives Topiramate Hallucinations 07/20/2010 Medications cetirizine (ZyrTEC) 10 mg capsule Take 10 mg by mouth. 09/20/2022 Active cholecalciferol (VITAMIN D-3) 1,250 mcg (50,000 unit) capsule Take 1 Capsule by mouth once a week. 09/16/2022 Active ibuprofen (ADVIL,MOTRIN) 800 mg tablet Take 1 Tablet by mouth. 09/11/2021 Active Active Problems Problem Noted Date Diagnosed Date Alcohol abuse 10/03/2020 Alcohol-induced psychosis wi th complication ([facility] V24, [facility] V28) 10/03/2020 Cocaine abuse ([facility] V24, [facility] V28) 021 History of marijuana use 11/17/2017 Overview (04/30/2024): 2018 quit with 12/15/17 - reports she started smoking again as she has no appetite now - she counseled significantly about quitting and random UDS in and on admit to L&D, she states she will no longer smoke 04/11/2018 - Negative 05/17/2018 - UDS ordered Vitamin D deficiency 04/02/2014 Obesity (BMI 30.0-34.9) 02/05/2014 Mild asthma 09/10/2010 Overview (04/30/2024): Seen by Dr. Lee. ProAir prn. No need to maintenance inhalers. Encounters Date Type Department Care Team Description 10/15/2024 Telephone Adult Medicine [address] [phone] Radha Quiroz MD from Last 3 Months Immunizations Name Administration Dates Next Due DTP 10/06/1995, 3,07/25/1991,05/03,03/23/1991 H1N1 Inj Preservative Free 03/19/2009 Hepatitis B Pediatric (Enger ix B; Recombivax HB) to less than 20 yo 08/23/1996,11/07/1995,10/06/1995 Influenza Quadravalent, MDCK , 0.5ml, preservative free (Flucelvax) 6mo and older 02/08/2018 Influenza trivalent, 0.5mL, preservative free (Fluarix; FluLaval; Fluzone) ages 6mo and older (Afluria) 3 years and older 02/03/2016 Influenza trivalent, with pr eservative (Fluzone; Afluria) 6mo and older 04/20/2021,02/17/2013,03/03/2012,03/31,02/05/2009,04/12/2008 MMR, measles mumps and rubel la Live (Priorix; M-M-R II) 12mo and older 10/06/1995,05/20/1992 Meningococcal MCV4P 04/12/2008 OPV 10/05/1992, 3,05/03/1991,03/23 Pneumococcal polysaccharide 23 valent (Pneumovax 23) 2yo and older 10/10/2013 Td Tetanus diptheria (Tdvax) 7yo and older 05/15/2003 Tdap Tetanus diptheria acell ular pertussis (Boostrix; Adacel) 7yo and older 04/20/2021,12/28/2019,03/09/2018,01/05,04/12/2008 Varicella live (Varivax) 12m o and older 03/03/2012,10/26/1996 Surgical History Surgery Date Site/Laterality Comments ESOPHAGOGASTRODUODENOSCOPY 11/28/2009 PROCEDURE: ND EGD TRANSORAL BIOPSY SINGLE/MULTIPLE; COMMENT: mild gastritis-biopsy:normal OTHER SURGICAL HISTORY PROCEDURE: ND ANESTHESIA NOSE & ACCESSORY SINUSES NOS Medical History Medical History Date Comments Mild asthma 09/10/2010 DX:Mild asthma; COMMENT: Seen by Dr. Lee. Air prn. No need to maintenance inhalers. Obesity (BMI 30.0-34.9) 02/05/2014 DX:Obesi ty (BMI 30.0-34.9) Vitamin D deficiency 04/02/2014 DX:Vitamin D deficiency History of COVID-19 05/09/2021 DX:History o f COVID-19 Family History Medical History Relation Name Comments ADD / ADHD Father Diabetes Father type 2 Hyperlipidemia Father Autoimmune disease Neg Hx Breast cancer Neg Hx Colon cancer Neg Hx Coronary artery disease Neg Hx Heart attack Neg Hx Heart failure Neg Hx Hyperlipidemia Neg Hx Hypertension Neg Hx Mental illness Neg Hx Prostate cancer Neg Hx Sleep apnea Neg Hx Thyroid disease Neg Hx Relation Name Status Comments Brother 1 Alive Brother 2 Alive Brother 3 Alive Brother 4 Alive Father Alive Maternal Grandfather Maternal Grandmother Mother Alive Paternal Grandfather Paternal Grandmother Alive Social History Tobacco Use Types Packs/Day Years Used Date Smoking Tobacco: Every Day Cigarettes Last attempted to quit: 12/22/2019 Smokeless Tobacco: Current Alcohol Use Standard Drinks/Week Comments Yes 0 (1 standard drink = 0.6 oz pur e alcohol) Comments Unknown Sex and Gender Information Value Date Recorded Sex Assigned at Not on file Legal Sex Female 7:08 PM EST Gender Identity Not on file Sexual Orientation Not on file Obstetrics History Last Filed Vital Signs Vital Sign Reading Time Taken Comments Blood Pressure 110/78 02/14/2023 9:37 AM EDT Sit ting L Arm Pulse 93 02/14/2023 9:37 AM EDT Temperature - - Respiratory Rate - - Oxygen Saturation - - Inhaled Oxygen Concentration - - Weight 78 kg (172 lb) 02/14/2023 9:37 AM EDT Height 160 cm (5' 3 ) 02/14/2023 9:37 AM EDT Body Mass Index 30.47 02/14/2023 9:37 AM EDT Plan of Treatment Health Maintenance Due Date Last Done Comments Hepatitis A Vaccines (1 of 2 - Risk 2-dose series) 2009 Pneumococcal Vaccine: Pediatrics (0 to 5 Years) and At-Risk Patients (6 to 49 Years) (2 of 2 - PCV) 10/10/2014 10/10/2013 Hepatitis C Screening 04/17/2022 Social Influencers of Health Screening 04/17/2022 Cervical Cancer Screening: Pap Smear 08/17/2022 08/17/2021, 11/18/2017 COVID-19 Vaccine ( season) 2024 Depression Screening 05/09/2024 Influenza Vaccine (#1) 2025 , 02/08/2018, 02/03/2016, Additional history exists Cholesterol Screening (Lipid Panel) 06/07/2027 06/07/2022 DTaP,Tdap,and Td Vaccines (12 - Td or Tdap) 04/20/2031 04/20/2021, 12/28/2019, 03/09/2018, Additional history exists HIB Vaccines Completed 05/20/1992, 07/07, 05/03/1991, Additional history exists IPV Vaccines Completed 10/05/1992, 05/09, 05/20/1992, Additional history exists MMR Vaccines Completed 10/06/1995, 05/20/1992 Hepatitis B Vaccines Completed 08/23/1996, 11/07/1995, 10/06/1995 Meningococcal ACWY Vaccine Completed 04/12/2008 Varicella Vaccines Aged Out 03/03/2012, 10/26/1996 No longer eligible based on patient's age to complete this topic HIV Screening Completed 10/18/2017 HPV Vaccines Aged Out No longer eligi ble based on patient's age to complete this topic Meningococcal B Vaccine Aged Out No l onger eligible based on patient's age to complete this topic RSV Immunization Patients Under 20 months Aged Out No longer eligible based on patient's age to complete this topic Procedures Procedure Name Priority Date/Time Associated Diagnosis Comments LIPID PANEL Routine 06/07/2022 PAP SMEAR Routine 08/17/2021 HIV SCREENING Routine 10/18/2017 from Last 3 Months or Most Recently Relevant to Health Maintenance Results * (ABNORMAL) Lipid panel (06/07/2022) Pathologist [facility] LDL/HDL Ratio 4 0 - 4 Triglycerides 251(A) 0 - 150 mg/dL Cholesterol 163 0 - 200 mg/dL HDL 43 >=40 mg/dL LDL Cholesterol 70 0 - 100 mg/dL Blood Venous blood specimen / Unknown Historical Provider LAB BLOOD ORDERABLES Sarah l Result * Pap Smear (08/17/2021) Pathologist [facility] Pap smear Abstracted, no interpretation [facility] Provider HEALTH MAINTENANCE Final Result * HIV Screening (10/18/2017) Pathologist [facility] HIV Screening Abstracted [facility] Provider HEALTH MAINTENANCE Final Result from Last 3 Months or Most Recently Relevant to Health Maintenance Care Teams Maintenance Superintendent Relationship Specialty Start Date End Date Radha Quiroz MD PCP - General Internal Medicine 12/15/21
== END 2025-01-01 13:41 | disposition home or self-care (01) ==
LOC: HO.HGI 08:55
PROVIDERS: Visit Provider Nurse Practitioner Family
DX: R79.89 Other specified abnormal findings of blood chemistry (principal); K59.00 Constipation, unspecified; K21.9 Gastro-esophageal reflux disease without esophagitis; F10.91 Alcohol use, unspecified, in remission
CPT/HCPCS: 99214

== ENCOUNTER → 2025-01-01 08:54 | Outpatient (BNVA) | payer OTHER, SELFPAY | PROVIDERS: Visit Provider Nurse Practitioner Family | DX: R79.89 Other specified abnormal findings of blood chemistry (principal); K59.00 Constipation, unspecified; K21.9 Gastro-esophageal reflux disease without esophagitis; F10.91 Alcohol use, unspecified, in remission | CPT/HCPCS: 99212 ==

== ENCOUNTER 2025-01-21 10:38 | Outpatient (REF) | payer OTHER, SELFPAY ==
[2025-01-21 11:23] LABS: INTERNATIONAL NORM RATIO 0.9 (0.9-1.1); Prothrombin Time 10.7 SEC (10.9-12.4)
[2025-01-21 12:08] LABS: Alanine Aminotransferase 34 U/L (0-31); Albumin Level 4.4 g/dL (3.5-5.0); Alkaline Phosphatase 70 U/L (39-117); Anion Gap 11 (12-20); Aspartate Amino Transferase 27 U/L (5-31); Blood Urea Nitrogen 12 mg/dL (9-16); Calcium 8.8 mg/dL (8.4-10.2); Carbon Dioxide 24 mmol/L (22-29); Chloride 110 mmol/L (96-108); Estimated Glomerular Filt Rate > 60; Lipase 28 U/L (8-78); Potassium 4.3 mmol/L (3.3-5.1); Sodium 141 mmol/L (135-145); Total Protein 6.7 g/dL (6.5-8.0)
[2025-01-21 12:09] LABS: Ferritin 70 ng/mL (10-122)
[2025-01-21 12:14] LABS: HBS Num1 0.17 mIU/mL (0-7.99); HBc Num1 0.05 S/CO (0.00-0.79); HBsAGNum1 0.37 S/CO (0.00-0.99); Hepatitis A Antibody IgM 0.16 Index (0-0.79); Hepatitis B Surface Antigen Negative (Negative); ~HepC Num1 0.26 S/CO (0.00-0.79); ~Hepatitis A Antibody IgM Nonreactive (Nonreactive); ~Hepatitis B Surface Antibody NONREACTIVE (Nonreactive); ~Hepatitis C Antibody Nonreactive (Nonreactive)
--- OUTSIDE RECORDS SUMMARY | 2025-01-21 13:49 | XMS_ITS | Clinical Summary ---
Author Organization [facility] [address] ity Address [address] [place] [address] Care Team Providers Care Peer Health Promoter Name Role Phone Radha Quiroz MD Primary Care Provider [phone] Allergies Active Allergy Reactions Criticality Noted Date [...] abuse 10/03/2020 Alcohol-induced psychosis wi th complication ([facility] V24, [facility] V28) 10/03/2020 Cocaine abuse ([facility] V24, [facility] V28) 021 History of marijuana use 11/17/2017 [...] ProAir prn. No need to maintenance inhalers. Immunizations Name Administration Dates Next Due DTP [...] Surgery Date Site/Laterality Comments ESOPHAGOGASTRODUODENOSCOPY 11/28/2009 PROCEDURE: IN EGD TRANSORAL BIOPSY SINGLE/MULTIPLE; COMMENT: mild gastritis-biopsy:normal OTHER SURGICAL HISTORY PROCEDURE: IN ANESTHESIA NOSE & ACCESSORY SINUSES NOS Medical History Medical History Date Comments Mild asthma 09/10/2010 DX:Mild asthma; COMMENT: Seen by Dr. Lee. ProAir prn. No need to maintenance inhalers. Obesity [...] Cancer Screening: Pap Smear 08/17/2022 08/17/2021, 11/18/2017 Depression Screening 05/09/2024 COVID-19 Vaccine (1 - season) 2025 Influenza Vaccine (#1) 2025 , 02/08/2018, 02/03/2016, [...] Maintenance Results * (ABNORMAL) Lipid panel (06/07/2022) LDL/HDL Ratio 4 0 - 4 Triglycerides 251(A) 0 - 150 mg/dL Cholesterol 163 0 - 200 mg/dL HDL 43 >=40 mg/dL LDL Cholesterol 70 0 - 100 mg/dL Blood Venous blood specimen / Unknown Historical Provider LAB BLOOD ORDERABLES Sarah l Result * Pap Smear (08/17/2021) Pathologist [facility] Pap smear Abstracted, no interpretation [facility] Provider HEALTH MAINTENANCE Final Result * HIV Screening (10/18/2017) Pathologist [facility] HIV Screening Abstracted Historical Provider HEALTH MAINTENANCE Final Result from Last 3 Months or Most Recently Relevant to Health Maintenance Care Teams Peer Health Promoter Relationship Specialty Start Date End Date Radha Quiroz MD PCP - General Internal Medicine 12/15/21
--- OUTSIDE RECORDS SUMMARY | 2025-01-21 13:49 | XMS_ITS | Clinical Summary ---
Author Organization [employer] Address [address] [facility] [address] [place] [address] Care Team Providers Care Quality Nurse Name Role Phone Alonzo Hawkins MD Primary [...] Department Care Team Description 10/26/2024 Results Follow-Up [facility] [address] [place] [phone] Eliza Rose MD Pap Smear, Bacterial Vaginosis from Last 3 Months Immunizations Immunization Administration Dates Next Due Pneumococcal Conjugate PCV 20 10/02/2024 Family History Medical History Relation Name Comments ADD / ADHD Father Depression Father Diabetes Father triglecyrides Father Alcohol abuse Mother Depression Mother Stroke Mother Cancer Neg Hx Relation Name Status Comments Father Mother Social History Tobacco Use Types Packs/Day Years Used Date Smoking Tobacco: Every Day Cigarettes 0.3 15.7 Started: 2009 Smokeless Tobacco: Never Tobacco Cessation:Ready [...] Care Team (Late st Contact Info) Description 02/08/2025 9:30 AM EDT Office Visit [facility] [address] [place], [place] [phone] Robbie Melgar 03/01/2025 10:45 AM EDT Office Visit [facility] [address], [place] [phone] Alonzo Hawkins MD [address] [place] [phone] Health Maintenance Due Date Last Done Comments Dental Oral Exam 1990 Dental Prophylaxis 1990 Dental X-Ray: Full Mouth 1990 Disability Screening 1990 Family Planning (PISQ) 2005 HPV Vaccines (1 - 3-dose series) 2005 Hepatitis A Vaccines (1 of 2 - Risk 2-dose series) 2009 COVID-19 Vaccine ( - season) 2025 Influenza Vaccine (#1) 2025 [...] Screening Completed 08/31/2024 Hepatitis C Screening Completed 01/21/2025, 025 Pneumococcal Vaccine: Pediatrics (0 to 5 Years) [...] Procedure Name Priority Date/Time Associated Diagnosis Comments HEPATITIS PANEL, GENERAL Routine 01/21/2025 10:48 AM EDT FERRITIN Routine 01/21/2025 10:48 AM EDT LIPASE Routine 01/21/2025 10:48 AM EDT COMPREHENSIVE METABOLIC PANEL, FASTING Routine 01/21/2025 10:48 AM EDT PROTHROMBIN TIME-INR Routine 01/21/2025 10:48 AM EDT HPV DNA, LOW/HIGH RISK Routine 11:02 AM EDT Cervical cancer screening PAP SMEAR Routine 10/02/2024 11:02 AM EDT Cervical cancer screening BITEWING - SINGLE RADIOGRAPHIC IMAGE Routine 09/25/2024 11:00 AM EDT HIV 1/2 ANTIGEN/ANTIBODY, FOURTH GENERATION W/RFL Routine 08/31/2024 9:58 AM EDT Encounter for medical examination to establish care LIPID PANEL, STANDARD Routine 08/31/2024 9:58 AM EDT Encounter for medical examination to establish care from Last 3 Months or Most Recently Relevant to Health Maintenance Results * (ABNORMAL) Comprehensive Metabolic Panel, Fasting (01/21/2025 10:48 AM EDT) Sodium 141 135 - 145 mmol/L [facility] Potassium 4.3 3.3 - 5.1 mmol/L [facility] Chloride 110(H) 96 - 108 mmol/L [facility] Carbon Dioxide 24 22 - 29 mmol/L [facility] Anion Gap 11(L) 12 - 20 [facility] Urea Nitrogen (BUN) 12 9 - 16 mg/dL [facility] Creatinine, Serum 0.76 0.5 - 1.4 mg/dL [facility] Estimated Glomerular Filt Rate >60 [facility] Comment:Chronic Kidney Disea se: Estimated GFR < 60 mL/min/[id number] Kidney Disease: Estimated GFR < 15 mL/min/1.73m2 Glucose Fasting 93 60 - 99 mg/dL [facility] Calcium 8.8 8.4 - 10.2 mg/dL [facility] Bilirubin, Total 0.6 0.0 - 1.0 mg/dL [facility] Aspartate Amino Transferase 27 5 - 31 U/L [facility] Alanine Aminotransferase 34(H) 0 - 31 U/L [facility] Total Protein 6.7 6.5 - 8.0 g/dL [facility] Albumin Level 4.4 3.5 - 5.0 g/dL [facility] Alkaline Phosphatase 70 39 - 117 U/L [facility] 01/21/2025 10:4 8 AM EDT 01/21/2025 10:51 AM EDT Generic External Data Provider LAB BLOOD ORDERAB LES Final Result Performing Organization Address [facility]/ZIP Co de Phone Number [facility] [address] [place] [phone] * Hepatitis Panel, General (01/21/2025 10:48 AM EDT) Hepatitis A IgM Nonreactive Nonreactive [facility] Comment:IgM antibodies to GALLAGHER V not detected; does not exclude earlyacute or recovered HAV infection. ~Hepatitis B Surface Antibody NONREACTIVE Nonreactive [facility] Comment:Nonreactive: < 8.00 mIU/mL Hepatitis B Core Antibody Nonreactive Nonreactive [facility] Hepatitis C Antibody Nonreactive Nonreactive [facility] Comment:Antibodies to HCV no t detected; does not exclude early acuteHCV infection. Hepatitis B Surface Ag Negative Negative [facility] 01/21/2025 10:4 8 AM EDT 01/21/2025 10:51 AM EDT [employer] External Data Provider LAB BLOOD ORDERAB LES Final Result Performing Organization Address City/[facility]/ZIP Co de Phone Number [facility] [address] [place] [phone] * (ABNORMAL) Prothrombin Time-INR (01/21/2025 10:48 AM EDT) Prothrombin Time 10.7(L) 10.9 - 12.4 SEC [facility] INTERNATIONAL NORM RATIO 0.9 0.9 - 1.1 [facility] Comment:INTERNATIONAL NORMAL IZED RATIO (INR) REFERENCE RANGES Reference RangeFor patients not on anticoagulant therapy: 0.9 - 1.1INR ranges for oral anticoagulanttherapy:For prevention and treatment of venous thrombosis and pulmonary embolism: 2.0 - 3.0For acute myocardial infarction with aspirin therapy: 2.0 - 3.0For acute myocardial infarction without aspirin therapy: 3.0 - 4.0For patients with mechanical prosthetic heart valves: 2.5 - 3.5 01/21/2025 10:4 8 AM EDT 01/21/2025 10:51 AM EDT Generic External Data Provider LAB BLOOD ORDERAB LES Final Result Performing Organization Address [facility] Co de Phone Number [facility] [address] [place] [phone] * Lipase (01/21/2025 10:48 AM EDT) [facility] Lipase 28 8 - 78 U/L [facility] 01/21/2025 10:4 8 AM EDT 01/21/2025 10:51 AM EDT Generic External Data Provider LAB BLOOD ORDERAB LES Final Result Performing Organization Address [facility] Co de Phone Number [facility] [address] [place] [phone] * Ferritin (01/21/2025 10:48 AM EDT) [facility] Ferritin 70 10 - 122 ng/mL [facility] 01/21/2025 10:4 8 AM EDT 01/21/2025 10:51 AM EDT Generic External Data Provider LAB BLOOD ORDERAB LES Final Result Performing Organization Address [facility] de Phone Number [facility] [address] [place] [phone] * HPV High Risk with Reflex to Subtypes (10/02/2024 11:02 AM EDT) Pathologist [facility] HPV High Risk Negative Negative [facility] HPV Genotype 16 Negative Negative [facility] HPV Genotype 18 Negative Negative [facility] Comment:HPV testing performe d at [facility] (CLIA#[id number]), [address] [place] [address].Testing for HPV was performed using the Mary Jo MARTIN 6800system. The presence of HPV in [...] MD LAB BLOOD ORDERABLES Final Re sult [facility] [address] [place] [phone] * Pap Smear (10/02/2024 11:02 AM EDT) Swab 10/02/2024 11:0 2 AM EDT 10/03/2024 9:00 AM EDT [facility] - 10/05/2024 10:28 AM EDT ----- ------- Name: Sabine HernandezBipin Ferris Age/Sex: 33/F : 1990 Unit#: [id number] Attend Dr: Eliza Rose MD Re10/02/24 Status: DEP REF Location: .CHCLNP Disch: ----- ------- SPEC : [id number] RECD: 10/03/24 STATUS: MALACHI BOOTH NUM: [id number] JAH: 10/02/24 [facility] DR: Eliza Rose MD ENTERED: 10/03/24 SP TYPE: Pap Smr OTHR DR: ORDERED: Pap Smear Interpretation Satisfactory for evaluation. [...] and HPV testing will be performed at [facility] (CLIA #[id number]), [address] [place] [address]. Testing for HPV was performed using the Mary Jo MARTIN 6800 system. The presence of HPV in [...] detected. All professional services are performed by [facility] ([address] [place] [address], [place] [address]; ; CLIA #[id number]). The PAP Test is a screening procedure with the inherent possibility of both false negative and false positive results. Results should be interpreted in the context of historic and current clinical findings. Reliability of the PAP Test is enhanced by performing the test on a regular repetitive basis. CONTINUED ON NEXT PAGE ----- ------- Name: Sohail Hernandez Age/Sex: 33/F : 1990 Unit#: [id number] Attend Dr: Eliza Rose MD Re10/02/24 Status: DEP REF Location: HO.CHCLNP Disch: ----- ------- SPEC : [id number] RECD: 10/03/24 STATUS: MALACHI BOOTH NUM: [id number] JAH: 10/02/24-110 [facility] DR: Eliza Rose MD ENTERED: 10/03/24 SP TYPE: J Luis BUTLER DR: ORDERED: Pap Smear ----- ------- Signed (signature on file) JUAN JOSE Gardner ([facility]) 10/05/24 1028 ----- ------- END OF REPORT us Eliza Rose MD LAB CYTOLOGY ORDERABLES Final Result Performing Organization Address [facility]/ZIP Co de Phone Number [facility] [address] [place] [phone] * HIV-1/2 Antigen and Antibodies, Fourth Generation, with Reflexes (08/31/2024 9:58 AM EDT) [facility] HIV AB/AG Nonreactive Nonreactive [facility] Comment:HIV-1 p24 Ag and/or HIV-1/HIV-2 Ab not detected.A test result that is nonreactive does not exclude thepossibility of exposure to or infection with HIV-1 and/orHIV-2. Nonreactive results in this assay for individualswith prior exposure to HIV-1 and/or HIV-2 may be due toantigen and antibody levels that are below the limit ofdetection of this assay.The [employer] HIV Ag/Ab Combo assay result andsupplemental assay results should be interpreted inconjunction with the patient's clinical presentation,history and other laboratory results. If the results areinconsistent with clinical evidence, additional testing issuggested to confirm the result. Blood Venous blood specimen / Unknown 08/31/2024 9:58 AM EDT 08/31/2024 2:08 PM EDT us Alonzo Gaston MD LAB BLOOD ORDERABL ES Final Result Performing Organization Address [facility]/ZIP Co de Phone Number [facility] [address] [place] [phone] * (ABNORMAL) Lipid Panel, Standard (08/31/2024 9:58 AM EDT) Triglycerides 141 <150 mg/dL [facility] Comment:Desirable Triglyceri de: less than 150 mg/dLBorderline High Triglyceride 150-199 mg/dLHigh Triglyceride: 200-499 mg/dLVery High Triglyceride: greater than or equal to 5OO mg/dL Cholesterol 136 <200 mg/dL [facility] Comment:Desirable Cholestero l: less than 200 mg/dLBorderline High Cholesterol: 200-239 mg/dLHigh Cholesterol: greater than 239 mg/dL LDL Cholesterol Calculated 69 <100 mg/dL [facility] Comment:Desirable LDL: less than 100 mg/dLNear Optimal/Above Optimal LDL: 110- 129 mg/dLBorderline High LDL: 130-159 mg/dLHigh LDL: 160-189 mg/dLVery High LDL: greater than or equal to 190 mg/dL HDL Cholesterol 39(L) >40 mg/dL [facility] Comment:Desirable HDL: great er than 40 mg/dL Note: This HDL assay may give artificially low results in patients with liver disease. Blood Venous blood specimen / Unknown 08/31/2024 9:58 AM EDT 08/31/2024 2:08 PM EDT Alonzo Gaston MD LAB BLOOD ORDERABL ES Final Result [facility] [address] [place] [phone] from Last 3 Months or Most Recently Relevant to Health Maintenance Insurance DENTAL - [facility] [employer] Care Teams Quality Nurse Relationship Specialty Start Date End Date Alonzo Hawkins MD [address] [place] [phone] PCP - General Internal Medicine 08/31/24
[2025-01-23 10:53] LABS: Anti Nuclear Antibody Screen NEGATIVE (NEGATIVE)
[2025-01-24 20:19] LABS: Alk.Phos Iso. Macrohepatic 0 % (<=0); Alk.Phos Isoenzymes Bone 36 % (28-66); Alk.Phos Isoenzymes Intest 17 % (1-24); Alk.Phos Isoenzymes Liver 48 % (25-69); Alk.Phos Isoenzymes Placental 0 % (<=0); Alk.Phos Isoenzymes Total 60 U/L (31-125)
== END 2025-01-21 10:39 | disposition home or self-care (01) ==
LOC: HO.LAB 10:38
PROVIDERS: PCP Internal Medicine; Visit Provider Nurse Practitioner Family
DX: Z01.84 Encounter for antibody response examination (principal); R79.89 Other specified abnormal findings of blood chemistry; Z51.81 Encounter for therapeutic drug level monitoring; Z79.01 Long term (current) use of anticoagulants
CPT/HCPCS: 36415; 80053; 82728; 83690; 84080; 85610; 86015; 86038; 86364; 86381; 86704; 86706; 86709; 86803; 87340

== ENCOUNTER 2025-02-02 16:26 | Emergency (ER) | payer OTHER, SELFPAY ==
--- NOTE | ~2025-02-02 | US_ITS ---
CLINICAL HISTORY: pain and numbness s p ACL repair Venous duplex ultrasound right lower extremity Comparison: None provided Findings: The visualized deep veins are fully compressible with normal Doppler color flow and spectral tracings. No popliteal cyst. IMPRESSION: 1. Negative for right lower extremity deep vein thrombosis. This document has been electronically signed by: Akbar Self MD on 02/02/2025 19:10:31
[2025-02-02 16:43] VITALS: BP 110/58; PULSE 98; RESP 16; TEMP 36.4; O2SAT 98; BMI 25.0
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
[2025-02-02 17:13] LABS: MANUAL DIFF FLAG NO
[2025-02-02 17:15] LABS: Hematocrit 37.7 % (37.0-47.0); Hemoglobin 13.7 g/dl (12.0-16.0); Imm Gran Abs Auto 0.02 X10*3/uL (0.00-0.03); Imm Gran Pct Auto 0.3 % (0.0-0.4); Lymphocytes Absolute Auto 1.9 X10*3/uL (1.2-4.9); Mean Corpuscular HGB Conc 36.3 g/dl (31.0-35.0); Mean Corpuscular Hemoglobin 32.8 pg (27.0-33.0); Mean Corpuscular Volume 90.2 fL (80.0-98.0); NRBC Abs Auto 0.000 X10*3/uL (0.0-0.012); NRBC Pct Auto 0.0 /100WBC (0.0-0.2); Platelet Count 263 X10*3/uL (160-400); Red Blood Count 4.18 X10*6/uL (4.20-5.50); White Blood Count 7.7 X10*3/uL (4.8-10.8)
--- OUTSIDE RECORDS SUMMARY | 2025-02-02 17:15 | XMS_ITS | Clinical Summary ---
Author Organization [employer] Address [address] [facility] [address] [place] [address] Care Team Providers Care Hedge Fund Accountant Name Role Phone Alonzo Hawkins MD Primary [...] prn. No need to maintenance inhalers. Immunizations Immunization Administration Dates Next Due Pneumococcal [...] Description 02/08/2025 9:30 AM EDT Office Visit [facility] ADULT DENTAL [address] [place] [phone] Robbie Melgar 03/01/2025 10:45 AM EDT Office Visit [facility] MED & PEDS [address], [place] [phone] Alonzo Hawkins MD [address] [place] [address] Health Maintenance Due Date Last Done Comments [...] Vaccine Completed 04/12/2008 HIV Screening Completed 08/31/2024 Pneumococcal Vaccine: Pediatrics (0 to 5 Years) and At-Risk Patients (6 to 49) Years Completed 10/02/2024, 10/10/2013 Hepatitis C Screening Completed 01/21/2025, 025 Meningococcal B Vaccine Aged Out No l onger eligible based on patient's age to complete this topic RSV under 20 months Aged Out No longe r eligible based on patient's age to complete this topic Rotavirus Vaccines Aged Out No longer eligible based on patient's age to complete this topic Procedures Procedure Name Priority Date/Time Associated Diagnosis Comments ACTIN (SMOOTH MUSCLE) ANTIBODY (IGG) Routine 01/21/2025 10:48 AM EDT ALKALINE PHOSPHATASE, ISOENZYMES Routine 01/21/2025 10:48 AM EDT MITOCHONDRIAL ANTIBODY WITH REFLEX TO TITER Routine 01/21/2025 10:48 AM EDT ELLIOT SCREEN, IFA, W/REFL TITER AND PATTERN Routine 01/21/2025 10:48 AM EDT TISSUE TRANSGLUTAMINASE AB, IGA Routine 01/21/2025 10:48 AM EDT HEPATITIS PANEL, GENERAL Routine 025 10:48 AM EDT FERRITIN Routine 01/21/2025 10:48 [...] EDT) Sodium 141 135 - 145 mmol/L [facility] Potassium 4.3 3.3 - 5.1 mmol/L [facility] Chloride 110(H) 96 - 108 mmol/L [facility] Carbon Dioxide 24 22 - 29 mmol/L [facility] Anion Gap 11(L) 12 - 20 [facility] Urea Nitrogen (BUN) 12 9 - 16 mg/dL [facility] Creatinine, Serum 0.76 0.5 - 1.4 mg/dL [facility] Estimated Glomerular Filt Rate >60 [facility] Comment:Chronic Kidney Disea se: Estimated GFR < 60 mL/min/1.54q8Djuomf Kidney Disease: Estimated GFR < 15 mL/min/1.73m2 Glucose Fasting 93 60 - 99 mg/dL [facility] Calcium 8.8 8.4 - 10.2 mg/dL [facility] Bilirubin, Total 0.6 0.0 - 1.0 mg/dL [facility] Aspartate Amino Transferase 27 5 - 31 U/L [facility] Alanine Aminotransferase 34(H) 0 - 31 U/L [facility] Total Protein 6.7 6.5 - 8.0 g/dL [facility] Albumin Level 4.4 3.5 - 5.0 g/dL [facility] Alkaline Phosphatase 70 39 - 117 U/L [facility] 01/21/2025 10:4 8 AM EDT 01/21/2025 10:51 AM EDT Generic External Data Provider LAB BLOOD ORDERAB LES Final Result Performing Organization Address [facility] de Phone Number [facility] [address] [place] [phone] * Hepatitis Panel, General (01/21/2025 10:48 AM EDT) Hepatitis A IgM Nonreactive Nonreactive [facility] Comment:IgM antibodies to GALLAGHER V not detected; does not exclude earlyacute or recovered HAV infection. ~Hepatitis B Surface Antibody NONREACTIVE Nonreactive [facility] Comment:Nonreactive: < 8.00 mIU/mL Hepatitis B Core Antibody Nonreactive Nonreactive [facility] Hepatitis C Antibody Nonreactive Nonreactive [facility] Comment:Antibodies to HCV no t detected; does not exclude early acuteHCV infection. Hepatitis B Surface Ag Negative Negative [facility] 01/21/2025 10:4 8 AM EDT 01/21/2025 10:51 AM EDT us Generic External Data Provider LAB BLOOD ORDERAB LES Final Result Performing Organization Address [facility] Co de Phone Number [facility] [address] [place] [phone] * Actin (Smooth Muscle) Antibody (IgG) (01/21/2025 10:48 AM EDT) Smooth Muscle Antibody <20 <20 U [facility] Comment:Reference Range: <20 U: Negative>or=20 U: PositiveAntibodies recognizing actin are the main componentof smooth muscle antibodies associated with auto- immune liver disease. Actin antibodies are found inapproximately 75% of patients with autoimmunehepatitis (AIH) type 1, approximately 65% of patientswith autoimmune cholangitis, approximately 30% ofpatients with primary biliary cirrhosis andapproximately 2% of healthy controls. High values areclosely correlated with AIH type 1.THIS TEST WAS PERFORMED AT:[facility]/[id number] [place] [address]CLQDORUILSA MENDOZA MD,PHD 01/21/2025 10:4 8 AM EDT 01/21/2025 10:51 AM EDT us Generic External Data Provider LAB BLOOD ORDERAB LES Final Result [facility] [address] [place] [phone] * Alkaline phosphatase, isoenzymes (01/21/2025 10:48 AM EDT) Pathologist [facility] Alkaline Phosphatase 60 31 - 125 U/L [facility] Intestinal Isoenzymes 17 1 - 24 % [facility] Bone Isoenzymes 36 28 - 66 % [facility] Liver Isoenzymes 48 25 - 69 % [facility] Placental Isoenzymes 0 <=0 % [facility] Macrohepatic Isoenzymes 0 <=0 % [facility] Comment:THIS TEST WAS PERFOR MED AT:[facility]/[address] [place] [address]FUAEWZBLISA MENDOZA MD,PHD Interpretation TNP [facility] 01/21/2025 10:4 8 AM EDT 01/21/2025 10:51 AM EDT us Generic External Data Provider LAB BLOOD ORDERAB LES Final Result Performing Organization Address [facility] de Phone Number [facility] [address] [place] [phone] * Tissue Transglutaminase Antibody, IgA (01/21/2025 10:48 AM EDT) Pathologist [facility] Transglutaminase IgA <1.0 U/mL [facility] Comment:Value Interpretation ----- <15.0 Antibody not detected> or = 15.0 Antibody detectedTHIS TEST WAS PERFORMED AT:[facility] [place] [id number] GOODMAN MD 01/21/2025 10:4 8 AM EDT 01/21/2025 10:51 AM EDT us Generic External Data Provider LAB BLOOD ORDERAB LES Final Result Performing Organization Address [facility] de Phone Number [facility] [address] [place] [phone] * Mitochondrial Antibody with Reflex to Titer (01/21/2025 10:48 AM EDT) [facility] Mitochondrial Antibodies NEGATIVE NEGATIVE [facility] Comment:THIS TEST WAS PERFOR MED AT:[facility] [address] [phone] GOODMAN MD Mitochondrial Ab Titer TNP [facility] 01/21/2025 10:4 8 AM EDT 01/21/2025 10:51 AM EDT us Generic External Data Provider LAB BLOOD ORDERAB LES Final Result Performing Organization Address [facility] de Phone Number [facility] [address] [place] [phone] * (ABNORMAL) Prothrombin Time-INR (01/21/2025 10:48 AM EDT) [facility] Prothrombin Time 10.7(L) 10.9 - 12.4 SEC [facility] INTERNATIONAL NORM RATIO 0.9 0.9 - 1.1 [facility] Comment:INTERNATIONAL NORMAL IZED RATIO (INR) [...] 8 AM EDT 01/21/2025 10:51 AM EDT us Generic External Data Provider LAB BLOOD ORDERAB LES Final Result [facility] [address] [place] [phone] * ELLIOT Screen,IFA, with Reflex to Titer and Pattern (01/21/2025 10:48 AM EDT) Anti Nuclear Antibody Screen NEGATIVE NEGATIVE [facility] Comment:ELLIOT IFA is a first l ine screen for detecting thepresence of up to approximately 150 autoantibodies invarious autoimmune diseases. A negative ELLIOT IFA resultsuggests an ELLIOT-associated autoimmune disease is notpresent at this time, but is not definitive. If thereis high clinical suspicion for Sjogren's syndrome,testing for anti-SS-A/Ro antibody should be considered.Anti-Lia-1 antibody should be considered for clinicallysuspected inflammatory myopathies.AC-0: NegativeInternational Consensus on ELLIOT Patterns(https://doi.org/10.1515/tsen-7307-9060)For additional information, please refer tohttp://education.[employer]/faq/QRG763(This link is being provided for informational/educational purposes only.)THIS TEST WAS PERFORMED AT:[facility] [place] [phone] GOODMAN MD ELLIOT Titer TNP [facility] ELLIOT Pattern TNP [facility] ELLIOT TITER 2 (REF LAB) TNP [facility] ELLIOT Pattern 2 TNP [facility] ELLIOT TITER 3 TNP [facility] ELLIOT PATTERN 3 [facility] 01/21/2025 10:4 8 AM EDT 01/21/2025 10:51 AM EDT us Generic External Data Provider LAB BLOOD ORDERAB LES Final Result Performing Organization Address City/[facility]/ZIP Co de Phone Number [facility] [address] [place] [phone] * Lipase (01/21/2025 10:48 AM EDT) Lipase 28 8 - 78 U/L [facility] 01/21/2025 10:4 8 AM EDT 01/21/2025 10:51 AM EDT us Generic External Data Provider LAB BLOOD ORDERAB LES Final Result Performing Organization Address [facility] Co de Phone Number [facility] [address] [place] [phone] * Ferritin (01/21/2025 10:48 AM EDT) Ferritin 70 10 - 122 ng/mL [facility] 01/21/2025 10:4 8 AM EDT 01/21/2025 10:51 AM EDT us Generic External Data Provider LAB BLOOD ORDERAB LES Final Result Performing Organization Address [facility] de Phone Number [facility] [address] [place] [phone] * HPV High Risk with Reflex to Subtypes (10/02/2024 11:02 AM EDT) HPV High Risk Negative Negative [facility] HPV Genotype 16 Negative Negative [facility] HPV Genotype 18 Negative Negative [facility] Comment:HPV testing performe d at [facility] (CLIA#[id number]), [address] [place] [address].Testing for HPV was performed using the Mary [...] MD LAB BLOOD ORDERABLES Final Re sult [facility] [address] [place] [phone] * Pap Smear (10/02/2024 11:02 AM EDT) Swab 10/02/2024 11:0 2 AM EDT 10/03/2024 9:00 AM EDT Narrative [facility] - 10/05/2024 10:28 AM EDT ----- ------- Name: Sohail Hernandez Age/Sex: 33/F : 1990 Unit#: [id number] Attend Dr: Eliza Rose MD Re10/02/24 Status: [facility] REF Location: HO.CHCLNP Disch: ----- ------- SPEC : [id number] RECD: 10/03/24 STATUS: MALACHI BOOTH NUM: [id number] JAH: 10/02/24-[address] [facility] [address]: Eliza Rose MD ENTERED: 10/03/24 SP [...] and HPV testing will be performed at [facility] (CLIA #[id number]), [address] [place] [address]. Testing for HPV was performed using the [...] detected. All professional services are performed by [facility] ([address] [place] [address]; ; CLIA #[id number]). The PAP Test is a screening procedure with the inherent possibility of both false negative and false positive results. Results should be interpreted in the context of historic and current clinical findings. Reliability of the PAP Test is enhanced by performing the test on a regular repetitive basis. CONTINUED ON NEXT PAGE ----- ------- Name: Sohail Hernandez Age/Sex: 33/F : 1990 Unit#: [id number] Attend Dr: Eliza Rose MD Re10/02/24 Status: [facility] REF Location: HO.CHCLNP Disch: ----- ------- SPEC : [id number] RECD: 10/03/24 STATUS: MALACHI DURANTElle NUM: [id number] JAH: 10/02/24-[address] [facility] [address]: Eliza Rose MD ENTERED: 10/03/24 SP TYPE: Pap Mango BUTLER DR: ORDERED: Pap Smear ----- ------- Signed (signature on file) JUAN JOSE Gardner ([facility]) 10/05/24 1028 ----- ------- END OF REPORT us Eliza Rose MD LAB CYTOLOGY ORDERABLES Final Result Performing Organization Address [facility] Co de Phone Number [facility] [address] [place] [phone] * HIV-1/2 Antigen and Antibodies, Fourth Generation, with Reflexes (08/31/2024 9:58 AM EDT) [facility] HIV AB/AG Nonreactive Nonreactive [facility] Comment:HIV-1 p24 Ag and/or HIV-1/HIV-2 Ab not detected.A test result that is nonreactive does not exclude thepossibility of exposure to or infection with HIV-1 and/orHIV-2. Nonreactive results in this assay for individualswith prior exposure to HIV-1 and/or HIV-2 may be due toantigen and antibody levels that are below the limit ofdetection of this assay.The [employer] HIV Ag/Ab Combo assay result andsupplemental assay results should be interpreted inconjunction with the patient's clinical presentation,history and other laboratory results. If the results areinconsistent with clinical evidence, additional testing issuggested to confirm the result. Blood Venous blood specimen / Unknown 08/31/2024 9:58 AM EDT 08/31/2024 2:08 PM EDT us Alonzo Gaston MD LAB BLOOD ORDERABL ES Final Result Performing Organization Address [facility]/ZIP Co de Phone Number [facility] [address] [place] [phone] * (ABNORMAL) Lipid Panel, Standard (08/31/2024 9:58 AM EDT) Triglycerides 141 <150 mg/dL [facility] Comment:Desirable Triglyceri de: less than 150 mg/dLBorderline High Triglyceride 150-199 mg/dLHigh Triglyceride: 200-499 mg/dLVery High Triglyceride: greater than or equal to 5OO mg/dL Cholesterol 136 <200 mg/dL [facility] Comment:Desirable Cholestero l: less than 200 mg/dLBorderline High Cholesterol: 200-239 mg/dLHigh Cholesterol: greater than 239 mg/dL LDL Cholesterol Calculated 69 <100 mg/dL [facility] Comment:Desirable LDL: less than 100 mg/dLNear Optimal/Above Optimal LDL: 110- 129 mg/dLBorderline High LDL: 130-159 mg/dLHigh LDL: 160-189 mg/dLVery High LDL: greater than or equal to 190 mg/dL HDL Cholesterol 39(L) >40 mg/dL [facility] Comment:Desirable HDL: great er than 40 mg/dL Note: This HDL assay may give artificially low results in patients with liver disease. Blood Venous blood specimen / Unknown 08/31/2024 9:58 AM EDT 08/31/2024 2:08 PM EDT Alonzo Gaston MD LAB BLOOD ORDERABL ES Final Result [facility] [address] [place] [phone] from Last 3 Months or Most Recently Relevant to Health Maintenance Insurance DENTAL - [facility] [address] [place] [address] [place] [phone] Care Teams Hedge Fund Accountant Relationship Specialty Start Date End Date Alonzo Hawkins MD [address] [place] [phone] PCP - General Internal Medicine 08/31/24
--- OUTSIDE RECORDS SUMMARY | 2025-02-02 17:15 | XMS_ITS | Clinical Summary ---
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 ([facility] V24, [facility] V28) 10/03/2020 Cocaine abuse ([facility] V24, [facility] V28) 021 History of marijuana use [...] Surgery Date Site/Laterality Comments ESOPHAGOGASTRODUODENOSCOPY 11/28/2009 PROCEDURE: TX EGD TRANSORAL BIOPSY SINGLE/MULTIPLE; COMMENT: mild gastritis-biopsy:normal OTHER SURGICAL HISTORY PROCEDURE: TX ANESTHESIA NOSE & ACCESSORY SINUSES NOS Medical [...] * Pap Smear (08/17/2021) Pathologist [facility] Pap smear Abstracted, no interpretation [facility] Provider HEALTH MAINTENANCE Final Result * HIV Screening (10/18/2017) Pathologist [facility] HIV Screening Abstracted Historical Provider HEALTH MAINTENANCE Final Result from Last 3 Months or Most Recently Relevant to Health Maintenance Care Teams Chili Maker Relationship Specialty Start Date End Date Radha Quiroz MD PCP - General Internal Medicine 12/15/21
[2025-02-02 17:28] LABS: Alanine Aminotransferase 30 U/L (0-31); Albumin Level 4.2 g/dL (3.5-5.0); Alkaline Phosphatase 73 U/L (39-117); Anion Gap 11 (12-20); Aspartate Amino Transferase 19 U/L (5-31); Blood Urea Nitrogen 14 mg/dL (9-16); Calcium 9.2 mg/dL (8.4-10.2); Carbon Dioxide 27 mmol/L (22-29); Chloride 108 mmol/L (96-108); Creatinine Clr Calc Pharmacy 114.2; Estimated Glomerular Filt Rate > 60; Potassium 3.8 mmol/L (3.3-5.1); Sodium 142 mmol/L (135-145); Total Protein 6.6 g/dL (6.5-8.0)
[2025-02-02 18:27] VITALS: BP 98/57; PULSE 74; RESP 15; O2SAT 96
[2025-02-02 20:30] VITALS: BP 95/56; PULSE 81; RESP 16; TEMP 36.6; O2SAT 97
[2025-02-02] MEDS: oxyCODONE HCl Immed Release 5 MG TABLET PO (20:37)
[2025-02-02 20:39] VITALS: BP 95/56; PULSE 81; RESP 16; TEMP 36.6; O2SAT 97
== END 2025-02-02 20:40 | disposition home or self-care (01) ==
PROVIDERS: Registered Nurse Emergency; Emergency Provider Emergency Medicine Emergency Medical Services; PCP Internal Medicine
DX: R60.0 Localized edema (principal); M25.561 Pain in right knee; F17.210 Nicotine dependence, cigarettes, uncomplicated
CPT/HCPCS: 36415; 80053; 85025; 93971; 99284

== ENCOUNTER → 2025-02-02 17:02 | Outpatient (BNV) | payer OTHER, SELFPAY | PROVIDERS: Emergency Provider Emergency Medicine Emergency Medical Services; PCP Internal Medicine; Visit Provider Radiology Diagnostic Radiology | DX: M79.661 Pain in right lower leg (principal); R20.0 Anesthesia of skin; Z98.890 Other specified postprocedural states | CPT/HCPCS: 93971 ==